=== PATIENT | male | born 1950 | race Caucasian/White ===

== ENCOUNTER → 2019-09-09 16:29 | Outpatient (CLI) | payer MEDICARE, OTHER, SELFPAY ==
--- NOTE | 2019-09-09 16:31 | CT_ITS ---
STUDY: LOW DOSE CT LUNG CANCER SCREENING REASON FOR EXAM: Male, 69 years old. RADIATION DOSAGE (If Supplied By Facility): CTDIvol = ( 3.02 ) mGy, DLP = ( 105.33 ) mGycm TECHNIQUE: No contrast was administered. Low dose technique was utilized (average mAS-38 and kVp 120). 1.25 mm axial source images with a slice interval of 1.25-mm were reconstructed in lung windows. 2.5 mm axial source images with a slice interval of 2.5-mm were reconstructed in lung windows. 5.0 mm axial source images with a slice interval of 5.0-mm were reconstructed in soft tissue windows. Nodule measured using lung windows on PACS and/or independent workstation with automated measurement of minimum and maximum diameter. Nodule measurement reported as average diameter rounded to the nearest whole number. Growth is defined as an increase ins size of greater than 1.5 mm. COMPARISON: None. Findings: There are minor scattered scars and atelectasis. There are no high risk focal findings. Lungs are mildly emphysematous. Central airways are patent. Pleural surfaces are intact. There is severe coronary artery disease. Cardiac chamber is normal in size and shape. Pericardium is normal. Osseous structures are intact. CT/Low Dose CT Lung Screening IMPRESSION: 1. Lung-RADS category 1. 2. Severe coronary artery disease, elevated future risk of adverse cardiovascular events, cardiology referral is advised. IMPORTANT NOTES FOR USE: ACR Lung-RADS Version 1.0 Assessment Categories Release Date: February 10, 2014 Category: Coded 0-4 bases on nodule(s) with highest degree of suspicion. Negative screen is defined as categories 1 and 2; a positive screen is defined as categories 3 and 4. Category 3 and 4A nodules that are unchanged on interval CT should be coded as category 2, and individuals returned to screening in 12 months. Category 4X: Category 3 or 4 nodules with additional imaging findings that increase the suspicion of lung cancer, such as spiculation, GGN that doubles in size in 1 year, enlarged lymph notes, etc. Category Modifiers: S (significant finding unrelated to lung cancer) and C (prior history of treated lung cancer) may be added to the 0-4 Lung-RADS Electronically Signed: Starr Jay, at 16:57 EST Tel , Service support ,
== END ==
PROVIDERS: Family Provider Nurse Practitioner Primary Care; PCP Nurse Practitioner Primary Care; Referring Provider Nurse Practitioner Primary Care; Visit Provider Nurse Practitioner Primary Care
DX: Z12.2 Encounter for screening for malignant neoplasm of respiratory organs (principal); Z87.891 Personal history of nicotine dependence
CPT/HCPCS: G0297

== ENCOUNTER 2020-11-16 09:21 | Day surgery (SDC) | payer MEDICARE, OTHER, SELFPAY ==
[2020-11-16] VITALS (8 sets, daily range): BP systolic 113–142; BP diastolic 77–88; PULSE 76–89; RESP 16–20; TEMP 36.2–36.7; O2SAT 95–100; BMI 28.3
[2020-11-16] MEDS: Bupivacaine 0.25% 30 ML Vial ×2 (09:52→13:30)
[2020-11-16] MEDS: Lactated Ringers 1,000 ML 100 ML IV ×3 (09:54→14:01)
[2020-11-16] MEDS: Cefazolin 2 GM in 0.9% Normal Saline 100 ML IV (10:23)
--- NOTE | 2020-11-16 11:15 | RAD_ITS ---
PROCEDURE: Spinal cord stimulator insertion. DATE OF EXAMINATION: 11/16/2020 INDICATION: Male, 70 years old. Chronic back pain. FLUOROSCOPY TIME (if supplied): (1616 seconds) minutes/seconds. 7 coned down intraoperative views were submitted. Intraoperative fluoroscopic services provided for spinal cord stimulator insertion. The tip is at the T7-T8 level. RAD/Lumbar Spine 2 or 3 Views IMPRESSION: Intraoperative fluoroscopic services provided for spinal cord stimulator insertion. The tip is at the T7-T8 level. Electronically Signed: Justin Cerrato MD at 17:09 EST , Service support ,
[2020-11-16] MEDS: Bacitracin 500 UNITS/GM PACKET (13:00)
--- NOTE | 2020-11-16 13:47 | OP.PCM_ITS ---
Report of Operation Date of Procedure: 11/16/20 Description of Surgical Findings:: Pre-Operative Diagnosis: Lumbosacral radiculopathy, lumbosacral degenerative disc disease, lumbosacral spinal stenosis Post-Operative Diagnosis: Lumbosacral radiculopathy, lumbosacral degenerative disc disease, lumbosacral spinal stenosis Surgery/Procedure Performed:: 1. Spinal cord stimulator thoracolumbar leads placement x2 #2 spinal cord stimulator Medtronic intellus generator placement #3 spinal cord stimulator generator pocket creation at the left gluteal region #4 spinal cord stimulator simple programming, 5-intraoperative fluoroscopic interpretation Description of Surgical Findings:: PROCEDURES: 1. Spinal cord stimulator thoracolumbar leads placement x2 #2 spinal cord stimulator Medtronic intellus generator placement #3 spinal cord stimulator generator pocket creation at the left gluteal region #4 spinal cord stimulator simple programming 5-intraoperative fluoroscopic interpretation PREOPERATIVE DIAGNOSES: Lumbosacral radiculopathy, lumbosacral degenerative disc disease, lumbosacral spinal stenosis POSTOPERATIVE DIAGNOSES: Lumbosacral radiculopathy, lumbosacral degenerative disc disease, lumbosacral spinal stenosis ANESTHESIA: MAC COMPLICATIONS: None BLOOD LOSS: Minimal Implanted device: Spinal cord stimulator lead [id number] lot number [id number], lead #2 [id number] lot number [id number] Medtronic spinal cord stimulator generator intellus serial number [id number] PROCEDURE IN DETAIL: History and physical today was reviewed. Risks and benefits of procedure explained. The patient understood, agreed to procedure, informed consent was obtained. IV inserted per routine protocol. The patient was taken to the operating room, placed in the prone position with a pillow positioned underneath the abdomen. A 2 g of Ancef IV piggyback was infused per anesthesia. The lower back and left gluteal area was prepped and draped in a sterile fashion using iodine x3 Ioban was placed. The C-arm was brought in p osition for AP view at the L2-3 vertebral bodies under direct visualization fluoroscopy on a true AP view the L2-3 interlaminar space was identified skin and subcutaneous tissue and size approximately 10 cc of a mix of 2% lidocaine and 0.25% Marcaine using a 25-gauge regular needle followed by a 25-gauge 3-1/2 inch spinal needle towards the interlaminar space at L2-3, the skin and subcutaneous tissue were then anesthetized and using an 11-gauge blade was then taken down to the skin and subcutaneous tissue using a 14-gauge 3-1/2 inch Touhy needle provided by the [employer] kit the needle was passed through the skin towards the interlaminar space at L2-3 and a left paramedian approach the needle was then advanced under direct visualization fluoroscopy towards the interlaminar space at L2-3 [id number] technique was then carried to air towards the interlaminar space at L2-3 once the tip of the needle was in the epidural space and loss of resistance was encountered to air and after c onfirmation of AP as well as oblique view of the spinal cord stimulator lead was then advanced under direct visualization fluoroscopy to be at the tip of the lead at T8 and the bottom of the lead around mid T10 after confirmation of AP as well as lateral view to confirm correct placement of the lead in the posterior compartment of the epidural space the previous procedure was then repeated to a level above at L1-2 interlaminar space the second lead was then inserted under direct visualization with fluoroscopy to be at the mid T8 and mid T10 area the leads were were then connected to the external neurostimulator and patient was then awakened to confirm satisfactory coverage of the painful area once satisfactory coverage was then achieved the stylette of each needle was then removed and the skin and subcutaneous tissue on to the left of the paramedian needles was then taken anesthetized with a total of 10 cc of the previous mixture of 0.25% Marcaine and 2% lidocaine using a 25-gauge regular needle the incision was then taken down through the skin and subcutaneous tissue towards the fascia making sure hemostasis was then maintained via cautery, the spinal cord stimulator leads were then passed through the above incision and secured using the biwing and sutured down with a 2-0 silk to the fascia at that level the spinal cord stimulator leads were then tunneled via a tunneler provided by the Medtronic kit towards the previously incised spinal cord stimulator battery at the left gluteal region skin and subcutaneous tissue were anesthetized with approximately 10 cc of a mix of 2% lidocaine and 0.25% Marcaine using a 25 gauge regular needle, skin and subcutaneous tissue was then taken down with the 11- gauge blade hemostasis was maintained with Bovie and direct pressure the inci ken was then taken down to the fascia and the battery was then secured with the 2-0 silk sutures that were the spinal cord stimulator leads the upper lead was then marked the new until spinal cord stimulator battery was then provided Via [employer] kit the battery was then reattached of the spinal cord stimulator make ensure that the top lead is attached to the top position from 0-7 electrodes and the bottom from 8-15 electrodes once impedance was then checked to be in the proper average number the intellus battery was then inserted into the pocket and impedance with when checked again the pocket was then inspected to confirm hemostasis in place, the intellus battery was then secured to the fascia using a 2-0 silk to the upper eyes of the battery confirming an upward writing of the intellus facing posterior, once complete confirmation the battery was then placed in the position and the the mid paramedian and the gluteal incisions were then closed primarily through a 3-0 Vicryl in a running fashion followed by a 4- 0 Vicryl to the skin, hemostasis was then maintained during the procedure the skin was then covered with a Steri-Strips and bacitracin patient was then returned into the supine position in a stable condition and returned to recovery in a stable condition patient experienced no signs or symptoms of intrathecal or intravascular injection patient experienced no paresthesia the procedure was completed without any apparent difficulty any complication the patient appeared to tolerate well, motor as well as sensory function was unchanged from prior to the procedure ESTIMATED BLOOD LOSS: Minimal less than 25 mL ASSESSMENT AND PLAN: This is a 70-year-old male with lumbosacral radiculopathy lumbosacral degenerative disc disease lumbosacral spinal stenosis status post 1. Spinal cord stimulator thoracolumbar leads placement x2 #2 spinal cord stimulator Medtronic intellus generator placement #3 spinal cord stimulator generator pocket creation at the left gluteal region #4 spinal cord stimulator simple programming, 5-intraoperative fluoroscopic interpretation patient will continue his current medications a prescription was provided to the patient Keflex 500 mg 1 p.o. every 8 hours for 7 days, Percocet 5-325 mg 1 p.o. every 4 hours as needed for postop pain, postop instruction were given in writing to the patient and his as well as verbally and in writing, patient will follow approximately 1 week for reevaluation
== END 2020-11-16 15:45 | disposition home or self-care (01) ==
LOC: SDC 09:21 → AC 09:24
PROVIDERS: PCP Nurse Practitioner Primary Care; Referring Provider Anesthesiology Pain Medicine; Visit Provider Anesthesiology Pain Medicine
PROC: (CPT 63685; principal; 2020-11-16 10:25)
DX: M51.17 Intervertebral disc disorders with radiculopathy, lumbosacral region (principal); M48.07 Spinal stenosis, lumbosacral region; G89.29 Other chronic pain; I25.10 Atherosclerotic heart disease of native coronary artery without angina pectoris; I10 Essential (primary) hypertension; E78.00 Pure hypercholesterolemia, unspecified; Z79.82 Long term (current) use of aspirin; Z79.899 Other long term (current) drug therapy; Z87.891 Personal history of nicotine dependence; Z20.822 Contact with and (suspected) exposure to COVID-19
CPT/HCPCS: 01992; 63650; 63685; 72100; 76000; 87426; C1778; C1820; C9803; J7120

== ENCOUNTER → 2025-03-14 | Outpatient (CLI) | payer MEDICARE, OTHER, SELFPAY ==
--- NOTE | 2025-03-14 07:16 | MRI_ITS ---
PROCEDURE: SPINE LUMBAR (ROUTINE) 03/14/2025 REASON FOR EXAM: PAIN TECHNIQUE: Multiplanar and multisequence images were obtained without IV contrast administration. COMPARISON: None. FINDINGS: Vertebrae: Vertebral body heights are maintained. No abnormal marrow signal. Conus Medullaris: Terminates at L2. L1-2: Disc bulging, facet arthropathy, and ligamentum flavum hypertrophy. Mild to moderate central stenosis. Omxg-ci-kggagqsl bilateral neural foraminal stenosis. L2-3: Disc bulging, facet arthropathy, and ligamentum flavum hypertrophy resulting in mild to moderate central stenosis. Moderate bilateral neural foraminal stenosis. L3-4: Facet arthropathy resulting in mild right moderate left neural foraminal stenosis. No significant central stenosis. L4-5: Disc bulging and facet arthropathy resulting in minimal central stenosis. Severe right and moderate left neural foraminal stenosis. L5-S1: Grade 1 anterolisthesis, disc bulging, and facet arthropathy resulting in severe bilateral neural foraminal stenosis. No significant central stenosis. A spinal stimulator is present. MRI/Spine Lumbar (Routine) IMPRESSION: Spondylosis. Spondylolisthesis. Reading Location: [place] [id number]
== END | disposition home or self-care (01) ==
LOC: OPMRI 07:14
PROVIDERS: PCP Nurse Practitioner Primary Care; Referring Provider Student in an Organized Health Care Education/Training Program; Visit Provider Student in an Organized Health Care Education/Training Program
DX: M43.10 Spondylolisthesis, site unspecified (principal); M51.362 Other intervertebral disc degeneration, lumbar region with discogenic back pain and lower extremity pain; M48.062 Spinal stenosis, lumbar region with neurogenic claudication
CPT/HCPCS: 72148

== ENCOUNTER 2025-06-23 13:51 | Inpatient (IN) | payer MEDICARE, OTHER, SELFPAY ==
--- NOTE | 2025-06-10 07:38 | EKG12_ITS ---
Test Reason : PREOP Blood Pressure : */* mmHG Vent. Rate : 71 BPM Atrial Rate : 71 BPM P-R Int : 148 ms QRS Dur : 72 ms QT Int : 414 ms P-R-T Axes : 17 76 18 degrees QTcB Int : 449 ms Sinus rhythm with occasional Premature ventricular complexes Otherwise normal ECG Confirmed by KELSEY LIMON, RAGINI ([id number]), web editor LIANG WAYNE ([id number]) on 06/11/2025 6:16:43 AM Referred By: FRANCISCO PRIETO Confirmed By: RAGINI COLE MD
[2025-06-10 08:46] LABS: Hematocrit 51.0 % (40-54); Hemoglobin 17.6 g/dL (13.0-16.5); Immature Granulocytes Count 0.040 X10^3/uL (0.0-0.0); Mean Corp Hgb Conc 34.5 g/dL (32-36); Mean Corpuscular Volume 88.5 fL (80-94); Mean Platelet Vol. 10.0 fl (6.2-12.0); NRBC Flagged by Analyzer 0 % (0-5); Platelet Count 246 K/mm3 (150-450); RBC Distribution Width CV 13.1 % (11.6-14.6); RBC Distribution Width SD 42.1 fl (35.1-43.9); Red Blood Count 5.76 M/mm3 (4.6-6.2); White Blood Count 6.8 K/mm3 (4.4-11.0)
[2025-06-10 09:58] LABS: HIV Nonreactive (Nonreactive); Hepatitis C Antibody Nonreactive (Nonreactive)
[2025-06-10 10:09] LABS: Anion Gap 12 (5-15); BUN 17 mg/dL (4-19); BUN/Creat Ratio 15.4 RATIO (10-20); Calcium,Total 9.0 mg/dL (7.6-11.0); Carbon Dioxide 23.6 mmol/L (21.0-32.0); Chloride 103 mmol/L (98-108); Glucose 102 mg/dL (70-99); Potassium 4.8 mmol/L (3.3-5.1)
[2025-06-10 11:24] LABS: Magnesium 2.2 mg/dL (1.5-2.2)
--- NOTE | 2025-06-12 19:21 | PAT.ANE_ITS ---
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 When Was Last Pacemaker Check QUESTION #4 FULL TEXT: You/Your Family Experience fever (hyperthermia) with Anesthesia Last Oral Intake Last Oral intake: Last Oral Intake NPO since Meds taken in AM with sips of water? Meds patient instructed to take am of surgery PONV PONV - manufacturing assembler: PONV - manufacturing assembler Female No 06/09/25 08:56 HX of Motion Sickness No 06/09/25 08:56 HX of N/V After Surgery No 06/09/25 08:56 Non-Smoker Yes 06/09/25 08:56 Duration of Surgery greater Yes 06/09/25 08:56 than 60 minutes Number of Risk Factors 2 06/09/25 08:56 PONV Score Moderate Risk 06/09/25 08:56 Height & Weight Height & Weight: Anesthesia: Height & Weight Height 5 ft 7 in 03/20/25 08:26 Respiratory Assessment Respiratory Assessment - manufacturing assembler: Respiratory Tract Infection Hx - manufacturing assembler Hx Respiratory Tract Infection No 06/09/25 08:56 STOP Sleep Apnea STOP Sleep Apnea - manufacturing assembler: STOP Sleep Apnea - manufacturing assembler Hx Hypertension Yes: CONTROLLED WITH MEDS 06/09/25 08:56 Hx Sleep Apnea No 06/09/25 08:56 CPAP BIPAP Do you snore loudly (louder No 06/09/25 08:56 than talking or can be heard Do you often feel tired/ No 06/09/25 08:56 fatigued/ sleepy during daytime? Has anyone observed you stop Yes 06/09/25 08:56 breathing during sleep? STOP Results Positive 06/09/25 08:56 QUESTION #5 FULL TEXT : Do you snore loudly (louder than talking or can be heard through closed doors)? 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 confused, unrespo /Reproduction History /Reproductive History - manufacturing assembler: /Reproductive Hx- manufacturing assembler Hx Now No 06/09/25 08:56 Gestational Age (in weeks): EDC: Hx Hx Para Hx Section SAB No 06/09/25 08:56 [facility] Medical History (Updated 06/09/25 @ 09:07 by Katie Rodriguez) Wears glasses Wears dentures Arthritis Restless legs Back pain Gastric reflux Former smoker History of pain when walking Cardiology follow-up encounter History of echocardiogram History of stress test Spinal cord stimulator status Hypothyroid Hypocholesterolemia Hypertension Home Medications ?Medication ?Instructions ?Recorded ?Last Taken ?Type aspirin 81 mg tablet,delayed 81 mg PO DAILY@0800 [facility] 11/11/20 11/15/20 History release diphenhydramine HCl 25 mg capsule 25 mg PO DAILY PRN A llergies 11/11/20 11/15/20 History levothyroxine 112 mcg tablet 112 mcg PO DAILY THYROID 11/11/20 11/16/20 History loratadine 10 mg capsule 10 mg PO PRN PRN Allergies 0 11/11/20 11/15/20 History losartan 50 mg tablet 50 mg PO DAILY BP 11/11/20 0 11/16/20 History nifedipine 60 mg tablet,extended 60 mg PO DAILY BP 11/16/20 History release 24 hr omega-3 fatty acids-fish oil 300 1 ea PO DAILY SUPPLEM ENT 11/11/20 11/15/20 History mg-1,000 mg capsule psyllium husk 0.52 gram capsule 0.52 g PO DAILY BOWELS 11/11/20 11/15/20 History simvastatin 40 mg tablet 40 mg PO QHS CHOLESTEROL 11/15/20 History metoprolol succinate 25 mg 25 mg PO QDAY BP 02/20/25 U nknown History tablet,extended release 24 hr ibuprofen 600 mg tablet (IBU) 600 mg PO Q8H PRN pain 0 06/09/25 Unknown History omeprazole 20 mg tablet,delayed 20 mg PO DAILY PRN GUANAKO D 06/09/25 Unknown History release Allergy/AdvReac Type Severity Reaction Status Date / Time mold Allergy Severe Watery eyes Verified 06/09/25 08:48 Family History Mother No problems noted. Father No problems noted. Surgical History (Updated 06/09/25 @ 09:07 by Katie Rodriguez) Hx of colonoscopy History of excision of pilonidal cyst Hx of elbow surgery History of left hip replacement H/O hernia repair Social History Smoking Status: Former smoker Audit: Pertinent Findings Pertinent Findings EKG Perinent findings: June 10, 2025. Sinus rhythm with occasional PVCs. Stress test pertinent findings: 09/25/2019. EF is 68%. No evidence of significant inducible ischemia or prior myocardial infarction. Echo (EF%) pertinent findings: 03/10/2020. LVEF of 55 to 65%. RVSP is 35 mmHg. Consult pertinent findings: January 14, 2022. Dr. Albert. 1. PVCs?continue current therapy. 2. Hypertension-patient is encouraged to be diet compliant. Mild progression of murmur now at the apex. Reassess with echo at next visit. Additional pertinent findings: Holter monitor. 03/18/2020. Average ventricular rate 72 with a range from 49-154. Rare PVC and PAC. Recommendation Anesthesia Recommendation Anesthesia recommendation: OPTIMIZED for anesthesia
[2025-06-23] VITALS (17 sets, daily range): BP systolic 104–131; BP diastolic 65–83; PULSE 72–82; RESP 14–18; TEMP 36.1–36.8; O2SAT 92–100; BMI 32.8
--- OUTSIDE RECORDS SUMMARY | 2025-06-23 05:29 | XMS RPT_ITS | CCD ---
Author Organization [facility] Care Team Providers Care Goat Driver Name Role Phone DARYL COREMAKER MACHINE-LIFESTYLE BLOCK FARMER, LUCILA S Primary Care Physicia n Pernell PT, Jodie Unavailable Unavailable DARYL COREMAKER MACHINE-LIFESTYLE BLOCK FARMER, LUCILA S Attending Unava ilable DARYL COREMAKER MACHINE-LIFESTYLE BLOCK FARMER, LUCILA S Primary Care Unava ilable DARYL COREMAKER MACHINE-LIFESTYLE BLOCK FARMER, LUCILA S Attending Unava ilable DARYL COREMAKER MACHINE-LIFESTYLE BLOCK FARMER, LUCILA S Primary Care Unava ilable DARYL COREMAKER MACHINE-LIFESTYLE BLOCK FARMER, LUCILA S Attending Unava ilable DARYL COREMAKER MACHINE-LIFESTYLE BLOCK FARMER, LUCILA S Primary Care Unava ilable DARYL COREMAKER MACHINE-LIFESTYLE BLOCK FARMER, LUCILA S Attending Unava ilable DARYL COREMAKER MACHINE-LIFESTYLE BLOCK FARMER, LUCILA S Primary Care Unava ilable DARYL COREMAKER MACHINE-LIFESTYLE BLOCK FARMER, LUCILA S Attending Unava ilable DARYL COREMAKER MACHINE-LIFESTYLE BLOCK FARMER, LUCILA S Primary Care Unava ilable Daryl SLURRY MIXER-C, Lucila Primary Care Provider [phone] [place] SLURRY MIXER-C, Lucila Referring Provider [phone] Candice Rush Attending Provider [phone] Nicolas LIMON, Dr. Anderson Attending Provider Candice Rush Referring Provider DARYL COREMAKER MACHINE-LIFESTYLE BLOCK FARMER, LUCILA S Primary Care Unava ilable DARYL COREMAKER MACHINE-LIFESTYLE BLOCK FARMER, LUCILA S Attending Unava ilable DARYL COREMAKER MACHINE-LIFESTYLE BLOCK FARMER, LUCILA S Primary Care Unava ilable DARYL COREMAKER MACHINE-LIFESTYLE BLOCK FARMER, LUCILA S Attending Unava ilable DARYL COREMAKER MACHINE-LIFESTYLE BLOCK FARMER, LUCILA S Primary Care Unava ilable DARYL COREMAKER MACHINE-LIFESTYLE BLOCK FARMER, LUCILA S Attending Unava ilable DARYL COREMAKER MACHINE-LIFESTYLE BLOCK FARMER, LUCILA S Attending Unava ilable DARYL COREMAKER MACHINE-LIFESTYLE BLOCK FARMER, LUCILA S Primary Care Unava ilable DARYL COREMAKER MACHINE-LIFESTYLE BLOCK FARMER, LUCILA S Attending Unava ilable DARYL COREMAKER MACHINE-LIFESTYLE BLOCK FARMER, LUCILA S Primary Care Unava ilable VEGA BAJA LIFESTYLE BLOCK FARMER, MANSOOR Attending Unavailable DARYL COREMAKER MACHINE-LIFESTYLE BLOCK FARMER, LUCILA S Primary Care Unava ilable DARYL COREMAKER MACHINE-LIFESTYLE BLOCK FARMER, LUCILA S Primary Care Unava ilable NADEEN MACKEY Attending Unavailable Allne LIMON, Dr. Martinez Attending Provider Candice Kumar Attending Unavailable Adrien Kumaryn Referring Unavailable Daryl SLURRY MIXER, Lucila Primary Care Unavailable [place] SLURRY MIXER, Lucila Primary Care Unavailable [place] SLURRY MIXER, Lucila Referring Unavailable Candice Kumar Attending Unavailable [place] SLURRY MIXER, Lucila Referring Unavailable Daryl SLURRY MIXER, Lucila Primary Care Unavailable Francisco Villa Attending Unavailable Daryl SLURRY MIXER, Lucila Referring Unavailable Candice Kumar Attending Unavailable Daryl SLURRY MIXER, Lucila Primary Care Unavailable Daryl SLURRY MIXER, Lucila Primary Care Unavailable Justin Valenzuela Attending Unavailable Daryl SLURRY MIXER, Lucila Primary Care Unavailable Francisco Villa Admitting Unavailable Francisco Villa Attending Unavailable Allergies Allergy Classification Reported Allergen(s) Allergy Type Date of Onset Reaction(s) Facility (3 sources) Mold Extract Drug Allergy 03-20-2025 Watery eyes [facility] (1 source) Mold Extract Drug Allergy 06-17-2025 [facility] Repository Medications Current Medications Medication Drug Class(es) Dates Sig (Normalized) Sig (Original) aspirin 81 mg delayed release oral tablet (20 sources) Platelet Aggregation Inhibitor, Nonsteroidal Anti-inflammatory Drug Start: 08-30-2018 aspirin 81 mg oral delayed release tablet Dose : 81 mg = 1 tab(s), Oral, Daily, # 60 tab(s), 0 Refill(s), Pharmacy: [facility], 170, cm, 04/22/25 6:56:00 EDT, Height, kg, 04/22/25 6:56:00 EDT, Dosing Weight Start Date: 04/22/25 Status: Ordered Medication Dispense Status: Completed Quantity: 60.0 Unit: tab(s) Total Allowed Fills: 1 Fills Dispensed: 0 Start: 08-30-2018 aspirin 81 mg oral delayed release tablet Dose : 81 mg = 1 tab(s), Oral, Daily, # 60 tab(s), 0 Refill(s), [facility] [facility] Start Date: 08/30/18 Status: Ordered azithromycin 250 mg oral tablet (1 source) Macrolide Antimicrobial Start: 11-08-2022 End: 11-13-2022 Zithromax Z-Jeremy 250 mg oral tablet Take two (2) tablets day 1-then one (1) tablet, Oral, Daily, X 5 day(s), # 6 tab(s), 0 Refill(s), 11/13/22 7:33:00 EST, Pharmacy: [facility] #[id number], 170, cm, 11/08/22 6:51:00 EST, Height, 89.1 Start Date: 11/08/22 Stop Date: 11/13/22 Status: Ordered diphenhydrAMINE hydrochloride 25 mg oral capsule (20 sources) Histamine-1 Receptor Antagonist Start: 08-15-2018 take 1 capsule by mouth once daily as needed Diphenhydramine Hcl 25 MG capsule Active 25 mg PO DAILY as needed for Allergies November 11, 2020 1:00am Fish Oils (18 sources) Start: 08-15-2018 Fish Oil 1200 mg oral capsule Dose : 1,200 mg = 1 cap(s), Oral, Daily, 0 Refill(s) Start Date: 08/15/18 Status: Ordered Medication Dispense Status: Completed Total Allowed Fills: 1 Fills Dispensed: 0 Start: 08-15-2018 Fish Oil 1200 mg oral capsule Dose : 1,200 mg = 1 cap(s), Oral, Daily, 0 Refill(s) Start Date: 08/15/18 Status: Ordered Repeat number: 1 Start: 08-15-2018 Fish Oil 1200 mg oral capsule Dose : 1,200 mg = 1 cap(s), Oral, Daily, 0 Refill(s) Start Date: 08/15/18 Status: Ordered fluticasone propionate 0.05 mg/actuat metered dose nasal spray (5 sources) Corticosteroid Start: 10-22-2024 Flonase 50 mcg/inh nasal spray mcg spray(s), qDay, PRN as needed for allergy symptoms, 0 Refill(s) Start Date: 10/22/24 Status: Ordered Medication Dispense Status: Completed Total Allowed Fills: 1 Fills Dispensed: 0 hydrocortisone 10 mg/ml / neomycin 3.5 mg/ml / polymyxin b [id number] unt/ml otic solution (1 source) Aminoglycoside Antibacterial, Polymyxin-class Antibacterial, Corticosteroid Start: 07-04-2023 hydrocortisone/lucius mycin/polymyxin B 1%-0.35%-10,000 units/mL otic solution Dose = 4 drop(s), Ear, left, QID, # 10 mL, 0 Refill(s), Pharmacy: [facility] #[id number], 170, cm, 07/04/23 9:35:00 EDT, Height, kg, 07/04/23 9:35:00 EDT, Dosing Weight Start Date: 07/04/23 Status: Ordered hydrOXYzine hydrochloride 25 mg oral tablet (1 source) Antihistamine Start: 03-08-2022 hydrOXYzine hydrochloride 25 mg oral tablet Dose : 25 mg = 1 tab(s), Oral, QID, PRN as needed for itching, # 40 tab(s), 0 Refill(s), [facility]: [email or web address] [facility], 170, cm, 03/08/22 9:56:00 EDT, Height Start Date: 03/08/22 Status: Ordered ibuprofen 600 mg oral tablet (1 source) Nonsteroidal Anti-inflammatory Drug Start: 06-09-2025 take 1 tablet by mouth every eight hours as needed for pain Ibuprofen (Ibu) 600 mg tablet Active 600 mg PO Q8H as needed for pain June 09, 2025 12:00am inulin 1500 mg chewable tablet (18 sources) Start: 08-15-2018 Fiber Choice 1.5 g oral tablet, chewable Dose : 1.5 gram(s) = 1 tab(s), Chewed, Daily, # 90 tab(s), 0 Refill(s) Start Date: 08/15/18 Status: Ordered Medication Dispense Status: Completed Quantity: 90.0 Unit: tab(s) Total Allowed Fills: 1 Fills Dispensed: 0 levothyroxine sodium 0.112 mg oral tablet (20 sources) l-Thyroxine Start: 04-22-2025 End: 04-17-2026 levothyroxine 112 mcg (0.112 mg) oral tablet Dose : 112 mcg = 1 tab(s), Oral, qDay, # 90 tab(s), 3 Refill(s), Pharmacy: [facility], 170, cm, 04/22/25 6:56:00 EDT, Height, kg, 04/22/25 6:56:00 EDT, Dosing Weight Start Date: 04/22/25 Stop Date: 04/17/26 Status: Ordered Medication Dispense Status: Completed Quantity: 90.0 Unit: tab(s) Total Allowed Fills: 4 Fills Dispensed: 0 Start: 04-16-2024 End: 04-11-2025 levothyroxine 112 mcg (0.112 mg) oral tablet Dose : 112 mcg = 1 tab(s), Oral, qDay, # 90 tab(s), 3 Refill(s), Pharmacy: [facility], 170, cm, 04/16/24 8:17:00 EDT, Height, kg, 04/16/24 8:17:00 EDT, Dosing Weight Start Date: 04/16/24 Stop Date: 04/11/25 Status: Ordered Quantity: 90.0 Unit: tab(s) Repeat number: 4 Start: 06-29-2021 End: 02-23-2024 levothyroxine 112 mcg (0.112 mg) oral tablet Dose : 112 mcg = 1 tab(s), Oral, qDay, # 90 tab(s), 3 Refill(s), Pharmacy: [facility], 170, cm, 11/08/22 6:51:00 EST, Height, kg, 11/08/22 6:51:00 EST, Dosing Weight Start Date: 02/28/23 Stop Date: 02/23/24 Status: Ordered Start: 11-11-2020 take 1 tablet by kelli th once daily Levothyroxine 112 MCG tablet Active 112 ug PO DAILY November 11, 2020 1:00am THYROID loratadine 10 mg oral capsul e (20 sources) Start: 11-11-2020 Loratadine 10 MG capsule Active 10 mg PO NEEDED as needed for Allergies November 11, 2020 1:00am Start: 08-15-2018 Claritin 10 mg oral tablet Dose : 10 mg = 1 tab(s), Oral, qDayAC, PRN as needed for allergy symptoms, 0 Refill(s) Start Date: 08/15/18 Status: Ordered Medication Dispense Status: Completed Total Allowed Fills: 1 Fills Dispensed: 0 losartan potassium 50 mg oral tablet (20 sources) Angiotensin 2 Receptor Jaun Start: 11-11-2020 losartan 50 mg oral tablet Dose : 50 mg = 1 tab(s), Oral, qDay, # 90 tab(s), 3 Refill(s), Pharmacy: [facility], 170, cm, 04/22/25 6:56:00 EDT, Height, kg, 04/22/25 6:56:00 EDT, Dosing Weight Start Date: 04/22/25 Status: Ordered Medication Dispense Status: Completed Quantity: 90.0 Unit: tab(s) Total Allowed Fills: 4 Fills Dispensed: 0 meloxicam 15 mg oral tablet (1 source) Nonsteroidal Anti-inflammatory Drug Start: 04-11-2023 meloxicam 15 mg oral tablet Dose : 15 mg = 1 tab(s), Oral, qDay, 0 Refill(s) Start Date: 04/11/23 Status: Ordered metoprolol tartrate 25 mg oral tablet (20 sources) beta-Adrenergic Jaun Start: 04-22-2025 take 1 tablet by mouth once daily Metoprolol Succinate ER 25 mg oral TABLET extended release 1 tab(s), Oral, qDay, # 90 tab(s), 3 Refill(s), Pharmacy: [facility], 170, cm, 04/22/25 6:56:00 EDT, Height, kg, 04/22/25 6:56:00 EDT, Dosing Weight Start Date: 04/22/25 Status: Ordered Medication Dispense Status: Completed Quantity: 90.0 Unit: tab(s) Total Allowed Fills: 4 Fills Dispensed: 0 Start: 02-20-2025 take 1 tablet by kelli th once daily Metoprolol Succinate 25 mg tablet extended release 24 hr Active 25 mg PO daily February 20, 2025 12:00am BP Start: 04-16-2024 take 1 tablet by kelli th once daily Metoprolol Succinate ER 25 mg oral TABLET extended release 1 tab(s), Oral, qDay, # 90 tab(s), 3 Refill(s), Pharmacy: [facility], 170, cm, 04/16/24 8:17:00 EDT, Height, kg, 04/16/24 8:17:00 EDT, Dosing Weight Start Date: 04/16/24 Status: Ordered Quantity: 90.0 Unit: tab(s) Repeat number: 4 Start: 04-11-2023 take 1 tablet by kelli th once daily Metoprolol Succinate ER 25 mg oral TABLET extended release 1 tab(s), Oral, qDay, # 90 tab(s), 3 Refill(s), Pharmacy: [facility], 170, cm, 04/11/23 6:51:00 EDT, Height, kg, 04/11/23 6:56:00 EDT, Dosing Weight Start Date: 04/11/23 Status: Ordered Start: 05-10-2022 take 1 tablet by [facility] once daily Metoprolol Succinate ER 25 mg oral TABLET extended release 1 tab(s), Oral, qDay, # 90 tab(s), 3 Refill(s), Pharmacy: [facility] (Now [facility]), 170, cm, 05/10/22 7:03:00 EDT, Height, kg, 05/10/22 7:03:00 EDT, Dosing Weight Start Date: 05/10/22 Status: Ordered Start: 01-19-2022 take 1 tablet by [facility] once daily Metoprolol Succinate ER 25 mg oral TABLET extended release 1 tab(s), Oral, qDay, # 90 tab(s), 0 Refill(s), Pharmacy: [facility], 170, cm, 01/14/22 8:40:00 EDT, Height, kg, 01/14/22 8:40:00 EDT, Dosing Weight Start Date: 01/19/22 Status: Ordered Start: 01-14-2022 metoprolol suc cinate 25 mg oral TABLET extended release Dose : 25 mg = 1 tab(s), Oral, qDay, Do not crush or chew (controlled release), # 30 tab(s), 6 Refill(s), Pharmacy: [facility] [facility], 170, cm, 01/14/22 8:40:00 EDT, Height Start Date: 01/14/22 Status: Ordered NIFEdipine 60 mg oral tablet (20 sources) Dihydropyridine Calcium Channel Jaun Start: 04-22-2025 End: 04-17-2026 NIFEdipine 60 mg oral tablet, extended release Dose : 60 mg = 1 tab(s), Oral, qDay, # 90 tab(s), 3 Refill(s), Pharmacy: [facility], 170, cm, 04/22/25 6:56:00 EDT, Height, kg, 04/22/25 6:56:00 EDT, Dosing Weight Start Date: 04/22/25 Stop Date: 04/17/26 Status: Ordered Medication Dispense Status: Completed Quantity: 90.0 Unit: tab(s) Total Allowed Fills: 4 Fills Dispensed: 0 Start: 04-16-2024 End: 04-11-2025 NIFEdipine 60 mg oral tablet , extended release Dose : 60 mg = 1 tab(s), Oral, qDay, # 90 tab(s), 3 Refill(s), Pharmacy: [facility], 170, cm, 04/16/24 8:17:00 EDT, Height, kg, 04/16/24 8:17:00 EDT, Dosing Weight Start Date: 04/16/24 Stop Date: 04/11/25 Status: Ordered Quantity: 90.0 Unit: tab(s) Repeat number: 4 Start: 06-29-2021 End: 02-23-2024 NIFEdipine 60 mg oral tablet , extended release Dose : 60 mg = 1 tab(s), Oral, qDay, # 90 tab(s), 3 Refill(s), Pharmacy: [facility], 170, cm, 11/08/22 6:51:00 EST, Height, kg, 11/08/22 6:51:00 EST, Dosing Weight Start Date: 02/28/23 Stop Date: 02/23/24 Status: Ordered Start: 11-11-2020 take 1 tablet by kelli th once daily Nifedipine 60 MG tablet Active 60 mg PO DAILY November 11, 2020 1:00am BP Dousman-3 Fatty Acids-Fish Oil 1 EACH capsule (3 sources) Start: 11-11-2020 Dousman-3 Fatty Acids-Fish Oil 1 EACH capsule Active 1 NMA PO DAILY November 11, 2020 1:00am SUPPLEMENT Start: 11-11-2020 Dousman-3 Fatty Acids-Fish Oil 1 EACH capsule Active 1 NMA PO DAILY November 11, 2020 1:00am omeprazole 20 mg delayed release oral tablet (4 sources) Proton Pump Inhibitor Start: 06-09-2025 take 1 tablet by mouth once daily as needed for gastroesophageal reflux disease Omeprazole 20 mg tablet,delayed release (DR/EC) Active 20 mg PO DAILY as needed for GERD June 09, 2025 12:00am Start: 04-22-2025 omeprazole 20 mg oral delayed release capsule Dose : 20 mg = 1 cap(s), Oral, qDay, # 90 cap(s), 3 Refill(s), Pharmacy: [facility], 170, cm, 04/22/25 6:56:00 EDT, Height, kg, 04/22/25 6:56:00 EDT, Dosing Weight Start Date: 04/22/25 Status: Ordered Medication Dispense Status: Completed Quantity: 90.0 Unit: cap(s) Total Allowed Fills: 4 Fills Dispensed: 0 PEG-3350 with Electrolytes (Eqv-GoLYTELY) oral powder for reconstitution (2 sources) Start: 11-20-2024 PEG-3350 with Electrolytes (Eqv-GoLYTELY) oral powder for reconstitution See Instructions, Take as directed starting 1 day before colonoscopy. Follow instructions as provided by your GI provider at [place]., # 1 EA, 0 Refill(s), Pharmacy: [facility]acy #[id number], 170, cm, 11/20/24 9:47:00 EST, Height, kg, 11/20/24 9:47:00 EST, Dosing Weight Start Date: 11/20/24 Status: Ordered Quantity: 1.0 Unit: EA Repeat number: 1 psyllium 520 mg oral capsule (3 sources) Start: 11-11-2020 Psyllium Husk 0.52 GM capsule Active 0.52 g PO DAILY November 11, 2020 1:00am BOWELS simvastatin 40 mg oral tablet (20 sources) HMG-CoA Reductase Inhibitor Start: 04-22-2025 End: 04-17-2026 simvastatin 40 mg oral tablet Dose : 40 mg = 1 tab(s), Oral, qHS, # 90 tab(s), 3 Refill(s), Pharmacy: [facility], 170, cm, 04/22/25 6:56:00 EDT, Height, kg, 04/22/25 6:56:00 EDT, Dosing Weight Start Date: 04/22/25 Stop Date: 04/17/26 Status: Ordered Medication Dispense Status: Completed Quantity: 90.0 Unit: tab(s) Total Allowed Fills: 4 Fills Dispensed: 0 Start: 11-11-2020 End: 04-11-2025 simvastatin 40 mg oral table t Dose : 40 mg = 1 tab(s), Oral, qHS, # 90 tab(s), 3 Refill(s), Pharmacy: [facility], 170, cm, 04/16/24 8:17:00 EDT, Height, kg, 04/16/24 8:17:00 EDT, Dosing Weight Start Date: 04/16/24 Stop Date: 04/11/25 Status: Ordered Quantity: 90.0 Unit: tab(s) Repeat number: 4 sodium polystyrene sulfonate 250 mg/ml oral suspension (1 source) Start: 01-14-2022 End: 01-15-2022 take 1 dose by mouth once daily sodium polystyrene sulfonate 15 g/60 mL oral and rectal suspension Dose : 15 gram(s) = 60 mL, Oral, qDay, # 60 mL, 0 Refill(s), 01/15/22 9:11:00 EDT, Pharmacy: [facility], 170, cm, 01/14/22 8:40:00 EDT, Height Start Date: 01/14/22 Stop Date: 01/15/22 Status: Ordered terbinafine 250 mg oral tablet (2 sources) Allylamine Antifungal Start: 02-08-2022 End: 05-10-2022 terbinafine 250 mg oral tablet Dose : 250 mg = 1 tab(s), Oral, qDay, X 90 day(s), # 90 tab(s), 0 Refill(s), 05/10/22 8:09:00 EDT, Pharmacy: [facility], 170, cm, 02/08/22 7:05:00 EDT, Height Start Date: 02/09/22 Stop Date: 05/10/22 Status: Ordered Completed/Discontinued Medications Medication Drug Class(es) Dates Sig (Normalized) Sig (Original) Baclofen (4 sources) gamma-Aminobutyric Acid-ergic Agonist Start: 04-11-2023 baclofen 10 mg tablet baclofen 10 mg tablet, See Instructions, as needed pain, 0 Refill(s), 89.1 Start Date: 04/11/23 Status: Ordered famotidine 20 mg oral tablet (5 sources) Histamine-2 Receptor Antagonist Start: 11-11-2020 End: 06-09-2025 Famotidine 20 MG tablet Discontinued 20 mg PO NEEDED as needed for GERD November 11, 2020 1:00am June 09, 2025 8:48am LORazepam 1 mg oral tablet (3 sources) Benzodiazepine Start: 02-25-2025 End: 06-09-2025 take 1 tablet by mouth twice daily Lorazepam (Ativan) 1 mg tablet Discontinued 1 mg PO TWICE A DAY as needed for claustrophobia 2 February 25, 2025 12:00am June 09, 2025 8:49am take 1 tablet one hour before the MRI, take 2nd tablet when you arrive for the MRI if needed predniSONE 10 mg oral tablet (1 source) Start: 03-08-2022 End: 03-22-2022 take 1 tablet by mouth once daily prednisone 10mg tab (TAPER) 24-95-37-30-20-10-5m g x 2days/dose, Oral, qDay, [id number],6N5dcnr,4X2d ays,9X6djgp,3L8gspo, 7N2rqsp, X2 days., # 43 tab(s), 0 Refill(s), Pharmacy: [facility] [id number] 170, cm, 03/08/22 9:56:00 EDT, Height Start Date: 03/08/22 Stop Date: 03/22/22 Status: Ordered Problems Active Problems Problem Classification Problem Date Documented Date Episodic/Chronic Allergic reactions (7 sources) Contact dermatitis 03-08-2022 Episodic Cardiac dysrhythmias (18 sources) Ventricular premature beats 05-19-2020 Chronic Diabetes mellitus without complication (16 sources) Hyperglycemia 02-08-2022 Episodic Disorders of lipid metabolism (20 sources) Dyslipidemia; Translations: [Hyperlipidemia] 05-19-2020 Chronic Esophageal disorders (3 sources) Gastroesophageal reflux disease 04-22-2025 Chronic Essential hypertension (19 sources) Hypertensive disorder; Translations: [Essential hypertension] 01-14-2022 Chronic Fluid and electrolyte disorders (1 source) Hyperkalemia 01-14-2022 Episodic Mycoses (16 sources) Onychomycosis 02-08-2022 Episodic Osteoarthritis (18 sources) Arthritis 08-15-2018 Chronic Other acquired deformities (7 sources) Spondylolysis; Translations: [Spondylolisthesis, site unspecified] 02-20-2025 Episodic Other circulatory disease (18 sources) Raynaud's disease 08-15-2018 Chronic Other ear and sense organ disorders (1 source) Otitis externa 07-04-2023 Chronic Other lower respiratory disease (2 sources) Cough 10-17-2023 Episodic Other nervous system disorders (7 sources) Numbness of foot 04-16-2024 Episodic Other screening for suspected conditions (not mental disorders or infectious disease) (8 sources) Encounter for screening for malignant neoplasm of prostate; Translations: [Screening for malignant neoplasm done] Onset: 04-22-2025 Episodic Otitis media and related conditions (3 sources) Otitis media 11-08-2022 Episodic Residual codes; unclassified (11 sources) Sleep apnea 04-11-2023 Chronic Residual codes; unclassified (18 sources) Family history of coronary arteriosclerosis 03-03-2020 Episodic Comment on above: age 60s farther CABG Screening and history of mental health and substance abuse codes (18 sources) Tobacco smoking behavior - finding 08-08-2019 Chronic Spondylosis; intervertebral disc disorders; other back problems (20 sources) Degeneration of intervertebral disc; Translations: [Degeneration of lumbar intervertebral disc] 08-15-2018 Chronic Spondylosis; intervertebral disc disorders; other back problems (20 sources) Stenosis of lumbar vertebral foramen; Translations: [Low back pain] 06-18-2020 Episodic Thyroid disorders (20 sources) Hypothyroidism; Translations: [Hypothyroidism, unspecified] 08-15-2018 Chronic Unclassified (20 sources) Patient encounter status 08-08-2019 Unclassified (5 sources) Serum sodium below reference range 10-17-2023 Unclassified (1 source) Low back pain, unspecified; Translations: [Low back pain, unspecified] Onset: 02-20-2025 Unclassified (1 source) Other intervertebral disc degeneration, lumbar region with discogenic back pain and lower extremity pain; Translations: [Other intervertebral disc degeneration, lumbar region with discogenic back pain and lower extremity pain] Onset: 02-20-2025 Past or Other Problems Problem Classification Problem Date Documented Date Episodic/Chronic Other acquired deformities (1 source) Spondylolisthesis, site unspecified; Translations: [Spondylolisthesis, site unspecified] Onset: 03-20-2025 Episodic Unclassified (1 source) Other intervertebral disc degeneration, lumbar region with discogenic back pain only; Translations: [Other intervertebral disc degeneration, lumbar region with discogenic back pain only] Results Test Name Value Interpretation Reference Range Facility Orthopedic Visit Reporton Orthopedic Visit Report [facility] [address] [place] [id number] OFFICE VISIT Date of Service: 06/17/25 MR#: [id number] Acct: [id number] Name: RUI RIOS Rep #: [id number] : [id number] Provider: Dr. Francisco Villa MD Age/Sex: 75/M Location: [facility] Status: Signed Intake Vital Signs 03/20/25 08:26 06/17/25 09:49 Height 5 ft 7 in 5 ft 7 in Weight: 208 lb 210 lb BMI 32.5 32.8 Intake Visit Reasons: lumbar spine Chief Complaint: Lumbar spine pre op Accompanied by: Is patient in pain?: Yes Pain scale (1-10): 5 Allergies mold Allergy (Severe, Verified 06/17/25 09:52) Watery eyes Medications ???Medication ???Instructions ???Recorded ???Confirmed ???Type aspirin 81 mg tablet,delayed 81 mg PO DAILY@0800 [facility] 0 11/11/20 06/17/25 History release diphenhydramine HCl 25 mg capsule 25 mg PO DAILY PRN Allergies 10/1706/17/25 History levothyroxine 112 mcg tablet 112 mcg PO DAILY THYROID 11/11/20 06/17/25 History loratadine 10 mg capsule 10 mg PO PRN PRN Allergies 1 06/17/25 History losartan 50 mg tablet 50 mg PO DAILY BP 11/11/20 5 History nifedipine 60 mg tablet,extended 60 mg PO DAILY BP 11/11/20 5 History release 24 hr omega-3 fatty acids-fish oil 300 1 ea PO DAILY SUPPLEMENT 11/11/20 06/17/25 History mg-1,000 mg capsule psyllium husk 0.52 gram capsule 0.52 g PO DAILY BOWELS 11/11/20 History simvastatin 40 mg tablet 40 mg PO QHS CHOLESTEROL 11/11/20 06/17/25 History metoprolol succinate 25 mg 25 mg PO QDAY BP 02/20/25 06/17/25 History tablet,extended release 24 hr ibuprofen 600 mg tablet (IBU) 600 mg PO Q8H PRN pain 06/09/25 History omeprazole 20 mg tablet,delayed 20 mg PO DAILY PRN GERD 06/09/25 0 06/17/25 History release Have you fallen in the past year?: Yes PFSH Medical History Wears glasses Wears dentures Arthritis Restless legs Back pain Gastric reflux Former smoker History of pain when walking Cardiology follow-up encounter History of echocardiogram History of stress test Spinal cord stimulator status Hypothyroid Hypocholesterolemia Hypertension Surgical History Hx of colonoscopy History of excision of pilonidal cyst Hx of elbow surgery History of left hip replacement H/O hernia repair Family History Mother No problems noted. Father No problems noted. Social History Smoking Status: Former smoker HPI lumbar spine Details: This documentation accurately reflects the service provided and the decisions made by me, Dr. Francisco Villa MD 06/17/25 0821. Part of today???s visit was documented by Thom Jeffers MA, acting as scribe. RUI RIOS is a 75 year old M here today for lumbar spine pre op. Patient states that his pain is a 5 today. He would like to discuss what he can and can't do after the surgery. The last injection that he had was in July of 2024, by Dr. Cervantes. He states that the injections lasted for a couple weeks. Patient went through physical therapy in August 2024. He did 8-10 sessions, and it did help his lower back for a while. The patient is a 75-year-old male presenting with symptoms of lumbar radiculopathy. The symptoms are predominantly on the right side, described as cramp-like pain radiating from the spine down to the foot. The left side was previously affected but has improved significantly with the use of a spinal cord stimulator placed in 2020. The patient has a history of receiving multiple injections in the lower back, with the last one administered in July of the previous year. Additionally, a radiofrequency ablation was performed in November. Despite these interventions, the right-sided symptoms persist, and the patient is unable to walk more than five minutes without discomfort. The patient has a history of hernia repair performed in 1955, which has not caused any subsequent issues. He denies any history of diabetes or smoking, having quit smoking in 2006. - Musculoskeletal: Reports cramp-like pain radiating from the spine down to the right foot. Denies significant symptoms on the left side due to spinal stimulator. - Neurological: Reports tingling in the feet. Denies foot drop or tripping. Attestation: Documentation on this patient encounter was supported using ambient scribe technology/ voice AI technology. The patient consented to recording for the purpose of documenting the encounter. Provider reviewed content of the generated note pr (more content not included)... Normal [facility] .GFRon 06-12-2025 Estimated Glomerular Filtration Rate 64 ml/min/1.73sqm [facility] Comment on above: Result Comment: Stages of Chronic Kidney Disease (CKD) Stage Description eGFR(ml/min/1.73 sq.m.) CKD 1 Normal kidney function or >=90 normal kindney function with possible kidney damage (ex. Proteinuria) CKD 2 Kidney damage with mild loss 60-89 of kidney function CKD 3a Mild to moderate loss of kidney 45-59 function CKD 3b Moderate to severe loss of 30-44 of kindey function CKD 4 Severe loss of kidney function 15-29 CKD 5 Kidney failure <15 Note: (go live 2024) the eGFR calculation was updated to the 2020 CKD-EPI creatinine equation without a race factor to calculate the eGFR results. Performed By: #### G , [facility] #### [address] [address] [facility] 06-12-2025 BUN/Creatinine Ratio 16 ratio Normal 7-27 [facility] Comment on above: Performed By: #### G , BMP #### [address] [address] Calcium [Mass/Vol] 8.9 mg/dL Normal 8.4-10.2 [facility] Comment on above: Performed By: #### G , BMP #### [address] [address] Chloride [Moles/Vol] 101 mmol/L Normal 98-107 [facility] Comment on above: Performed By: #### G , BMP #### [address] [address] CO2 [Moles/Vol] 27 mmol/L Normal 23-31 [facility] Comment on above: Performed By: #### Rodriguez DENNY, BMP #### [address] [address] Creatinine [Mass/Vol] 1.19 mg/dL High 0.67-1.17 [facility] Comment on above: Performed By: #### Rodriguez DENNY, BMP #### [address] [address] Electrolyte Balance 9.0 mEq/L Normal 4.0-15.0 [facility] Comment on above: Performed By: #### Rodriguez DENNY, BMP #### [address] [address] Glucose [Mass/Vol] 101 mg/dL Normal 83-110 [facility] Comment on above: Performed By: #### G , BMP #### [address] [address] Potassium [Moles/Vol] 3.8 mmol/L Normal 3.5-5.1 [facility] Comment on above: Performed By: #### G FR, BMP #### [address] [address] Sodium [Moles/Vol] 137 mmol/L Normal 136-145 [facility] Comment on above: Performed By: #### G , BMP #### [facility] [address] [place], [place] [address] Urea nitrogen [Mass/Vol] 19 mg/dL High 7-18 [facility] Comment on above: Performed By: #### G , BMP #### [facility] [address] [place], [place] [address] LABORATORYOrdered By: SYSTEM SYSTEM on 06-12-2025 Calcium [Mass/Vol] 8.9 mg/dL Normal 8.4 - 10. 2 mg/dL AO ADM SS Chloride [Moles/Vol] 101 mmol/L Normal 98 - 10 7 mmol/L AO ADM SS CO2 [Moles/Vol] 27 mmol/L Normal 23 - 31 mmol/L AO AD M SS Creatinine [Mass/Vol] 1.19 mg/dL High 0.67 - 1.17 mg/dL AO ADM SS Electrolyte Balance 9.0 mEq/L Normal 4.0 - 15 .0 mEq/L AO ADM SS Estimated Glomerular Filtration Rate 64 ml/min/1.73sqm Invalid Interpretation Code AO Chemistry S Comment on above: Interpretive Data: Stages of Chronic Kidney Disease (CKD) Stage Description eGFR(ml/min/1.73 sq.m.) CKD 1 Normal kidney function or >=90 normal kindney function with possible kidney damage (ex. Proteinuria) CKD 2 Kidney damage with mild loss 60-89 of kidney function CKD 3a Mild to moderate loss of kidney 45-59 function CKD 3b Moderate to severe loss of 30-44 of kindey function CKD 4 Severe loss of kidney function 15-29 CKD 5 Kidney failure <15 Note: (go live 2024) the eGFR calculation was updated to the 2020 CKD-EPI creatinine equation without a race factor to calculate the eGFR results. Glucose [Mass/Vol] 101 mg/dL Normal 83 - 110 mg/dL AO ADM SS Potassium [Moles/Vol] 3.8 mmol/L Normal 3.5 - 5.1 mmol/L AO ADM SS Sodium [Moles/Vol] 137 mmol/L Normal 136 - 145 mmol/L AO ADM SS Urea nitrogen [Mass/Vol] 19 mg/dL High 7 - 18 mg/dL AO ADM SS Urea nitrogen/Creatinine [Mass ratio] 16 ratio Normal 7 - 27 ratio AO ADM SS MR/PAT.ANEon 06-12-2025 MR/PAT.ANE [facility] Medical Records Department [address] [facility] [place] [address] PAT - Anesthesia 06/12/251920 MR#: [id number] Acct: [id number] Name: RUI RIOS Rep #: [id number] : 1950 75 From: Lucio Vazquez MD PCP: Lucila Luong SLURRY MIXERLoraC Status:PRE IN Y Race: C Location: [facility] Pre-Assessment Diagnosis/Proposed Procedure Planned Operative Procedure(s): 360 LUMBAR FUSION L4-5 L5-S1 Anesthesia History 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 When Was Last Pacemaker Check QUESTION #4 FULL TEXT: You/Your Family Experience fever (hyperthermia) with Anesthesia Last Oral Intake Last Oral intake: Last Oral Intake NPO since Meds taken in AM with sips of water? Meds patient instructed to take am of surgery PONV PONV - wildlife refuge specialist: PONV - wildlife refuge specialist Female No 06/09/25 08:56 HX of Motion Sickness No 06/09/25 08:56 HX of N/V After Surgery No 06/09/25 08:56 Non-Smoker Yes 06/09/25 08:56 Duration of Surgery greater Yes 06/09/25 08:56 than 60 minutes Number of Risk Factors 2 06/09/25 08:56 PONV Score Moderate Risk 06/09/25 08:56 Height Weight Height Weight: Anesthesia: Height Weight Height 5 ft 7 in 03/20/25 08:26 Respiratory Assessment Respiratory Assessment - wildlife refuge specialist: Respiratory Tract Infection Hx - wildlife refuge specialist Hx Respiratory Tract Infection No 06/09/25 08:56 STOP Sleep Apnea STOP Sleep Apnea - wildlife refuge specialist: STOP Sleep Apnea - wildlife refuge specialist Hx Hypertension Yes: CONTROLLED WITH MEDS 06/09/25 08:56 Hx Sleep Apnea No 06/09/25 08:56 CPAP BIPAP Do you snore loudly (louder No 06/09/25 08:56 than talking or can be heard Do you often feel tired/ No 06/09/25 08:56 fatigued/ sleepy during daytime? Has anyone observed you stop Yes 06/09/25 08:56 breathing during sleep? STOP Results Positive 06/09/25 08:56 QUESTION #5 FULL TEXT : Do you snore loudly (louder than talking or can be heard through closed doors)? 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 confused, unrespo /Reproduct ion History /Reproduct armand History - wildlife refuge specialist: /Reproduct armand Hx- wildlife refuge specialist Hx Now No 06/09/25 08:56 Gestational Age (in weeks): EDC: Hx Hx Para Hx Section SAB No 06/09/25 08:56 PFSH Medical History (Updated 06/09/25 @ 09:07 by Katie Rodriguez) Wears glasses Wears dentures Arthritis Restless legs Back pain Gastric reflux Former smoker History of pain when walking Cardiology follow-up encounter History of echocardiogram History of stress test Spinal cord stimulator status Hypothyroid Hypocholesterolemia Hypertension Home Medications ???Medication ???Instructions ???Recorded ???Last Taken ???Type aspirin 81 mg tablet,delayed 81 mg PO DAILY@0800 [facility] 0 11/11/20 11/15/20 History release diphenhydramine HCl 25 mg capsule 25 mg PO DAILY PRN Allergies 10/1711/15/20 History levothyroxine 112 mcg tablet 112 mcg PO DAILY THYROID 11/11/20 11/16/20 History loratadine 10 mg capsule 10 mg PO PRN PRN Allergies 1 11/15/20 History losar (more content not included)... Normal [facility] Hepatitis A AB, Totalon 05-17 HEPATITIS A,TOT Negative Normal Negative [facility] Comment on above: Result Comment: Comm ent: The HAV total antibody assay detects both IgG and IgM but does not differentiate between them. A negative result suggests susceptibility to infection. A positive result could be due to vaccination, previously resolved infection or active infection. Testing for HAV IgM should be performed if active HAV infection is suspected. [facility] offers profiles that will automatically reflex positive HAV total antibody results to IgM (e.g., panel #[id number] HAV Antibody w/ Rfx). Performed at: [address] [id number] Weapons Designer: Thee Sarkar PhD, Phone: [phone] Performed By: #### B TSPAT, L500.2500, L3100.0300, L100.0100, M100.651, L3890.1522, L501.9985, L3890.8751, L3890.7784 ####[facility] [address] [place], [address] MRSA/SAID NASAL SCREENon MRSA+SAID SCRN Reason for Exam: Surgery MRSA MRSA Negative S. AUREUS S. aureus Negative Normal [facility] Comment on above: Performed By: #### B TSPAT, L500.2500, L3100.0300, L100.0100, M100.651, L3890.6202, L501.9985, L3890.6006, L3890.6301 ####[facility] [address] [place], [address] 12 Lead EKGon 06-10-2025 12 Lead EKG [facility] Cardiovascular Services [address] [place] [address] 12 Lead EKG 06/10/25 0749 MR#: [id number] Acct: [id number] Name: RUI RIOS Rep #: [id number] : 1950 75 From: Justin Valenzuela MD Attending Dr: Dr. Francisco Villa MD Status: PRE IN Ordering Dr: Francisco Villa MD Date: 06/10/25 Location: [facility] Sex: M C Admitted: Test Reason : PREOP Blood Pressure : */* mmHG Vent. Rate : 71 BPM Atrial Rate : 71 BPM P-R Int : 148 ms QRS Dur : 72 ms QT Int : 414 ms P-R-T Axes : 17 76 18 degrees QTcB Int : 449 ms Sinus rhythm with occasional Premature ventricular complexes Otherwise normal ECG Confirmed by JUSTIN VALENZUELA MD ([id number]), publishing editor LIANG WAYNE ([id number]) on 06/11/2025 6:16:43 AM Referred By: FRANCISCO VILLA Confirmed By: JUSTIN VALENZUELA MD 06/11/25 0616 Date Justin Valenzuela MD CC: SLURRY MIXER-Jacki Luong; Dr. Francisco Villa MD Signed Normal [facility] Basic Metabolic Profile (BMP )on 06-10-2025 BUN/CRE 15.4 RATIO Normal 10-20 [facility] Comment on above: Result Comment: AMENDED REPORT 06/10/25 1009 BUN/CRE previously reported as: 16.0 RATIO Performed By: #### B TSPAT, L500.2500, L3100.0300, L100.0100, M100.651, L3890.6202, L501.9985, L3890.6006, L3890.6301 #### [facility] [address] [place], [address] Calcium [Mass/Vol] 9.0 mg/dL Normal 7.6-11.0 [facility] Comment on above: Result Comment: AMENDED REPORT 06/10/25 100 CA previously reported as: 9.2 mg/dL Performed By: #### B TSPAT, L500.2500, L3100.0300, L100.0100, M100.651, L3890.6202, L501.9985, L3890.6006, L3890.6301 #### [facility] [address] [place], [address] Chloride [Moles/Vol] 103 mmol/L Normal 98-108 [facility] Comment on above: Result Comment: AMENDED REPORT 06/10/251008 CL previously reported as: 102 mmol/L Performed By: #### B TSPAT, L500.2500, L3100.0300, L100.0100, M100.651, L3890.6202, L501.9985, L3890.6006, L3890.6301 #### [facility] [address] [place], [address] CO2 [Moles/Vol] 23.6 mmol/L Normal 21.0-32.0 [facility] Comment on above: Result Comment: AMENDED REPORT 06/10/251008 CO2 previously reported as: 20.5 L mmol/L Performed By: #### B TSPAT, L500.2500, L3100.0300, L100.0100, M100.651, L3890.6202, L501.9985, L3890.6006, L3890.6301 #### [facility] [address] [place], [address] Creatinine [Mass/Vol] 1.12 mg/dL Normal 0.70-1.20 [facility] Comment on above: Result Comment: AMENDED REPORT 06/10/251008 CREAT,SERUM previously reported as: 1.10 mg/dL Performed By: #### B TSPAT, L500.2500, L3100.0300, L100.0100, M100.651, L3890.6202, L501.9985, L3890.6006, L3890.6301 #### [facility] [address] [place], [address] GAP 12 Normal 5-15 [facility] Comment on above: Result Comment: AMENDED REPORT 06/10/251008 GAP previously reported as: 17 H Performed By: #### B TSPAT, L500.2500, L3100.0300, L100.0100, M100.651, L3890.6202, L501.9985, L3890.6006, L3890.6301 #### [facility] [address] [place], [place], [id number] Glucose [Mass/Vol] 102 mg/dL High 70-99 [facility] Comment on above: Result Comment: AMENDED REPORT 06/10/251008 GLU previously reported as: 105 H mg/dL Performed By: #### B TSPAT, L500.2500, L3100.0300, L100.0100, M100.651, L3890.6202, L501.9985, L3890.6006, L3890.6301 #### [facility] [address] [place], [place], [id number] Potassium [Moles/Vol] 4.8 mmol/L Normal 3.3-5.1 [facility] Comment on above: Result Comment: AMENDED REPORT 06/10/251008 K previously reported as: 4.7 mmol/L Performed By: #### B TSPAT, L500.2500, L3100.0300, L100.0100, M100.651, L3890.6202, L501.9985, L3890.6006, L3890.6301 #### [facility] [address] [place], [place], [id number] Sodium [Moles/Vol] 138 mmol/L Normal 133-145 [facility] Comment on above: Result Comment: AMENDED REPORT 06/10/25 1009 NA previously reported as: 139 mmol/L Performed By: #### B TSPAT, L500.2500, L3100.0300, L100.0100, M100.651, L3890.6202, L501.9985, L3890.6006, L3890.6301 #### [facility] [address] [place], [place], [id number] Urea nitrogen [Mass/Vol] 17 mg/dL Normal 4-19 [facility] Comment on above: Result Comment: AMENDED REPORT 06/10/25 1009 BUN previously reported as: 18 mg/dL Performed By: #### B TSPAT, L500.2500, L3100.0300, L100.0100, M100.651, L3890.6202, L501.9985, L3890.6006, L3890.6301 #### [facility] [address] [place], [place], [id number] CBC W/Diff, Automatedon 05-17 Absolute Lymph 1.77 X10 3/uL Normal 0.83-4.51 [facility] Comment on above: Performed By: #### B TSPAT, L500.2500, L3100.0300, L100.0100, M100.651, L3890.6202, L501.9985, L3890.6006, L3890.6301 #### [facility] [address] [place], [place], [id number] Absolute Neut 3.6 X10 3/uL Normal 2.0-7.7 [facility] Comment on above: Performed By: #### B TSPAT, L500.2500, L3100.0300, L100.0100, M100.651, L3890.6202, L501.9985, L3890.6006, L3890.6301 #### [facility] [address] [place], [place], [phone] Basophils/100 WBC (Bld) 1.0 % Normal 0-1 [facility] Comment on above: Performed By: #### B TSPAT, L500.2500, L3100.0300, L100.0100, M100.651, L3890.6202, L501.9985, L3890.6006, L3890.6301 #### [facility] [address] [place], [address] Eosinophils/100 WBC (Bld) 6.6 % High 0-5 [facility] Comment on above: Performed By: #### B TSPAT, L500.2500, L3100.0300, L100.0100, M100.651, L3890.6202, L501.9985, L3890.6006, L3890.6301 #### [facility] [address] [place], [place], [id number] Erythrocyte distribution width (RBC) [Ratio] 13.1 % Normal 11.6-14.6 [facility] Comment on above: Performed By: #### B TSPAT, L500.2500, L3100.0300, L100.0100, M100.651, L3890.6202, L501.9985, L3890.6006, L3890.6301 #### [facility] [address] [place], [address] Hematocrit (Bld) [Volume fraction] 51.0 % Normal 40-54 [facility] Comment on above: Performed By: #### B TSPAT, L500.2500, L3100.0300, L100.0100, M100.651, L3890.6202, L501.9985, L3890.6006, L3890.6301 #### [facility] [address] [facility] [place], [address] Hemoglobin (Bld) [Mass/Vol] 17.6 g/dL High 13.0-16.5 [facility] Comment on above: Performed By: #### B TSPAT, L500.2500, L3100.0300, L100.0100, M100.651, L3890.6202, L501.9985, L3890.6006, L3890.6301 #### [facility] [address] [facility] [place], [address] IG% 0.600 Normal 0.0-0.9 [facility] Comment on above: Result Comment: IG% - Immature Granulocytes (promyelocytes, myelocytes and metamyelocytes) > 1% indicates that a LEFT SHIFT is Present. Performed By: #### B TSPAT, L500.2500, L3100.0300, L100.0100, M100.651, L3890.6202, L501.9985, L3890.6006, L3890.6301 #### [facility] [address] [facility] [place], [address] Lymphocytes/100 WBC (Bld) 26.1 % Normal 19-41 [facility] Comment on above: Performed By: #### B TSPAT, L500.2500, L3100.0300, L100.0100, M100.651, L3890.6202, L501.9985, L3890.6006, L3890.6301 #### [facility] [address] [facility] [place], [address] MCH (RBC) [Entitic mass] 30.6 pg Normal 27.0-32.0 [facility] Comment on above: Performed By: #### B TSPAT, L500.2500, L3100.0300, L100.0100, M100.651, L3890.6202, L501.9985, L3890.6006, L3890.6301 #### [facility] [address] [place], [address] MCHC (RBC) [Mass/Vol] 34.5 g/dL Normal 32-36 [facility] Comment on above: Performed By: #### B TSPAT, L500.2500, L3100.0300, L100.0100, M100.651, L3890.6202, L501.9985, L3890.6006, L3890.6301 #### [facility] [address] [facility] [place], [address] MCV (RBC) [Entitic vol] 88.5 fL Normal 80-94 [facility] Comment on above: Performed By: #### B TSPAT, L500.2500, L3100.0300, L100.0100, M100.651, L3890.6202, L501.9985, L3890.6006, L3890.6301 #### [facility] [address] [facility] [place], [address] Monocytes/100 WBC (Bld) 12.1 % High 0-10 [facility] Comment on above: Performed By: #### B TSPAT, L500.2500, L3100.0300, L100.0100, M100.651, L3890.6202, L501.9985, L3890.6006, L3890.6301 #### [facility] [address] [place], [address] Neutrophils/100 WBC (Bld) 53.6 % Normal 47-70 [facility] Comment on above: Performed By: #### B TSPAT, L500.2500, L3100.0300, L100.0100, M100.651, L3890.6202, L501.9985, L3890.6006, L3890.6301 #### [facility] [address] [place], [address] Nucleated RBC (Bld) [#/Vol] 0 10*3/uL Normal 0-5 [facility] Comment on above: Performed By: #### B TSPAT, L500.2500, L3100.0300, L100.0100, M100.651, L3890.6202, L501.9985, L3890.6006, L3890.6301 #### [facility] [address] [place], [address] Platelet mean volume (Bld) [Entitic vol] 10.0 fL Normal 6.2-12.0 [facility] Comment on above: Performed By: #### B TSPAT, L500.2500, L3100.0300, L100.0100, M100.651, L3890.6202, L501.9985, L3890.6006, L3890.6301 #### [facility] [address] [place], [address] Platelets (Bld) [#/Vol] 246 10*3/uL Normal 150-450 [facility] Comment on above: Performed By: #### B TSPAT, L500.2500, L3100.0300, L100.0100, M100.651, L3890.6202, L501.9985, L3890.6006, L3890.6301 #### [facility] [address] [place], [address] RBC (Bld) [#/Vol] 5.76 10*6/uL Normal 4.6-6.2 [facility] Comment on above: Performed By: #### B TSPAT, L500.2500, L3100.0300, L100.0100, M100.651, L3890.6202, L501.9985, L3890.6006, L3890.6301 #### [facility] [address] [place], [place], [id number] RDW SD 42.1 fl Normal 35.1-43.9 [facility] Comment on above: Performed By: #### B TSPAT, L500.2500, L3100.0300, L100.0100, M100.651, L3890.6202, L501.9985, L3890.6006, L3890.6301 #### [facility] [address] [facility] [place], [address] WBC (Bld) [#/Vol] 6.8 10*3/uL Normal 4.4-11.0 [facility] Comment on above: Performed By: #### B TSPAT, L500.2500, L3100.0300, L100.0100, M100.651, L3890.6202, L501.9985, L3890.6006, L3890.6301 #### [facility] [address] [facility] [place], [place], [id number] HIVon 06-10-2025 HIV Non-Reactive Normal Nonreactive [facility] Comment on above: Result Comment: Non- Reactive Reactive Repeatedly reactive samples must be confirmed according to CDC recommended confirmatory algorithms. The subresults for either HIVAG or AHIV can be used as an aid in the selection of the confirmation algorithm for reactive samples. Send out specimens with Reactive results to [facility] for confirmation. Order the HIV antibody detection and differentiation: [id number] Performed By: #### B TSPAT, L500.2500, L3100.0300, L100.0100, M100.651, L3890.6202, L501.9985, L3890.6006, L3890.6301 #### [facility] [address] [facility] [place], [place], [id number] Hemoglobin A1con 06-10-2025 HbA1c (Bld) [Mass fraction] 6.1 % High <=5.6 [facility] Comment on above: Result Comment: Norm al < 5.7 % Prediabetic 5.7 - 6.4 % Diabetic >or= 6.5 % Please note range changes. Performed By: #### B TSPAT, L500.2500, L3100.0300, L100.0100, M100.651, L3890.6202, L501.9985, L3890.6006, L3890.6301 #### [facility] [address] [place], [address] Hepatitis B Surface Antibody on 06-10-2025 HEP B Surf Ab Non-Reactive Normal [facility] Comment on above: Result Comment: <8.5 mIU/mL: Non-Reactive 8.5<= x <11.5 mIU/mL: Indeterminate >=11.5 mIU/mL: Reactive Non Reactive: Inconsistent with immunity less than <10 mIU/mL Reactive: Consistent with immunity greater than or equal to 10 mIU/mL Performed By: #### B TSPAT, L500.2500, L3100.0300, L100.0100, M100.651, L3890.6202, L501.9985, L3890.6006, L3890.6301 #### [facility] [address] [place], [address] Hepatitis C Antibodyon 06-10 Hepatitis C Ab Non-Reactive Normal Nonreactive [facility] Comment on above: Result Comment: Reac tive: Presumptive evidence of antibodies to HCV. Follow CDC recommendations for supplemental testing. Non-Reactive: Antibodies to HCV were not detected; does not exclude the possibility of exposure to HCV Reactive Results are presumptive evidence of antibodies to HCV. Follow CDC recommendations for supplemental testing. Order confirmation testing: HCV Quant by PCR testing - HCVPCR #[id number] Non Reactive: < 0.8 Equivocal: >/= 0.8 to < 1.0 Reactive: >/= 1.0 The CDC requires that a reactive/equivocal HCV antibody result be sent out for confirmation. HCV Quant by PCR testing. Performed By: #### B TSPAT, L500.2500, L3100.0300, L100.0100, M100.651, L3890.6202, L501.9985, L3890.6006, L3890.6301 ####[facility] [address] [place], [address] Magnesiumon 06-10-2025 Magnesium [Mass/Vol] 2.2 mg/dL Normal 1.5-2.2 [facility] Comment on above: Performed By: #### L 501.9520, L501.5200 ####[facility] [address] [place], [address] Thyroid Stim Hormone (TSH)on 06-10-2025 TSH 3.840 uIU/mL Normal 0.300-4.200 [facility] Comment on above: Performed By: #### L 501.9520, L501.5200 ####[facility] [address] [place], [address] Type AND Screen - PAT ONLYon 06-10-2025 ABO and Rh group Nom (Bld) Blood group B Rh(D) positive Normal [facility] Comment on above: Order Comment: Surge ry Date: 06/23/25Reason for Laboratory Test [id number]/ANNSLUMBAR FUSION 360 Performed By: #### B TSPAT, L500.2500, L3100.0300, L100.0100, M100.651, L3890.6202, L501.9985, L3890.6006, L3890.6301 ####[facility] [address] [place], [address] A1Con 04-28-2025 Glucose [Mass/Vol] 120 mg/dL Normal [facility] Comment on above: Result Comment: Rosalia mated Average Glucose calculated by equation ((28.7xA1C)-46.7) Estimated average glucose (eAG) is a calculated value from Hemoglobin A1C and is security representative of the average blood glucose level in the last 2-3 month period. Normal range: less than 114 mg/dL Performed By: #### A 1C #### Nathanael [address] [address] HbA1c (Bld) [Mass fraction] 5.8 % Normal 4.3-6.4 [facility] Comment on above: Performed By: #### Jong Apodaca #### [address] [address] LABORATORYOrdered By: SYSTEM SYSTEM on 04-28-2025 Glucose [Mass/Vol] 120 mg/dL Invalid Interpretation Code AO Chemistry S Comment on above: Interpretive Data: E stimated average glucose (eAG) is a calculated value from Hemoglobin A1C and is security representative of the average blood glucose level in the last 2-3 month period. Normal range: less than 114 mg/dL HbA1c (Bld) [Mass fraction] 5.8 % Normal 4.3 - 6.4 % AO ADM SS .GFRon 04-22-2025 Estimated Glomerular Filtration Rate 69 ml/min/1.73sqm Normal [facility] Comment on above: Result Comment: Stages of Chronic Kidney Disease (CKD) Stage Description eGFR(ml/min/1.73 sq.m.) CKD 1 Normal kidney function or >=90 normal kindney function with possible kidney damage (ex. Proteinuria) CKD 2 Kidney damage with mild loss 60-89 of kidney function CKD 3a Mild to moderate loss of kidney 45-59 function CKD 3b Moderate to severe loss of 30-44 of kindey function CKD 4 Severe loss of kidney function 15-29 CKD 5 Kidney failure <15 Note: (go live 2024) the eGFR calculation was updated to the 2020 CKD-EPI creatinine equation without a race factor to calculate the eGFR results. Performed By: #### Rodriguez DENNY, BMP #### [address] [address] BMPon 04-22-2025 BUN/Creatinine Ratio 22 ratio Normal 7-27 [facility] Comment on above: Performed By: #### G , BMP #### [address] [address] Calcium [Mass/Vol] 8.9 mg/dL Normal 8.4-10.2 [facility] Comment on above: Performed By: #### G , BMP #### [address] [address] Chloride [Moles/Vol] 97 mmol/L Low 98-107 [facility] Comment on above: Performed By: #### G , BMP #### [address] [address] CO2 [Moles/Vol] 26 mmol/L Normal 23-31 [facility] Comment on above: Performed By: #### G , BMP #### [address] [address] Creatinine [Mass/Vol] 1.12 mg/dL Normal 0.67-1.17 [facility] Comment on above: Performed By: #### G , BMP #### [address] [address] Electrolyte Balance 11.0 mEq/L Normal 4.0-15.0 [facility] Comment on above: Performed By: #### G , BMP #### [address] [address] Glucose [Mass/Vol] 230 mg/dL High 83-110 [facility] Comment on above: Performed By: #### G , BMP #### [address] [address] Potassium [Moles/Vol] 4.0 mmol/L Normal 3.5-5.1 [facility] Comment on above: Performed By: #### G , BMP #### [address] [address] Sodium [Moles/Vol] 134 mmol/L Low 136-145 [facility] Comment on above: Performed By: #### G FR, BMP #### [address] [address] Urea nitrogen [Mass/Vol] 25 mg/dL High 7-18 [facility] Comment on above: Performed By: #### G FR, BMP #### [address] [address] LABORATORYOrdered By: SYSTEM SYSTEM on 04-22-2025 Calcium [Mass/Vol] 8.9 mg/dL Normal 8.4 - 10. 2 mg/dL AO ADM SS Chloride [Moles/Vol] 97 mmol/L Low 98 - 10 7 mmol/L AO ADM SS CO2 [Moles/Vol] 26 mmol/L Normal 23 - 31 mmol/L AO AD M SS Creatinine [Mass/Vol] 1.12 mg/dL Normal 0.67 - 1.17 mg/dL AO ADM SS Electrolyte Balance 11.0 mEq/L Normal 4.0 - 15 .0 mEq/L AO ADM SS Estimated Glomerular Filtration Rate 69 ml/min/1.73sqm Invalid Interpretation Code AO Chemistry S Comment on above: Interpretive Data: Stages of Chronic Kidney Disease (CKD) Stage Description eGFR(ml/min/1.73 sq.m.) CKD 1 Normal kidney function or >=90 normal kindney function with possible kidney damage (ex. Proteinuria) CKD 2 Kidney damage with mild loss 60-89 of kidney function CKD 3a Mild to moderate loss of kidney 45-59 function CKD 3b Moderate to severe loss of 30-44 of kindey function CKD 4 Severe loss of kidney function 15-29 CKD 5 Kidney failure <15 Note: (go live 2024) the eGFR calculation was updated to the 2020 CKD-EPI creatinine equation without a race factor to calculate the eGFR results. Glucose [Mass/Vol] 230 mg/dL High 83 - 110 mg/dL AO ADM SS Potassium [Moles/Vol] 4.0 mmol/L Normal 3.5 - 5.1 mmol/L AO ADM SS Sodium [Moles/Vol] 134 mmol/L Low 136 - 145 mmol/L AO ADM SS Urea nitrogen [Mass/Vol] 25 mg/dL High 7 - 18 mg/dL AO ADM SS Urea nitrogen/Creatinine [Mass ratio] 22 ratio Normal 7 - 27 ratio AO ADM SS .Auto Diffon 04-09-2025 Basophil, Absolute 0.0 10 3/mcL Normal 0.0-0.3 [facility] Comment on above: Performed By: #### G ESPINOZA DENNY #### [address] [address] Basophils/100 WBC (Bld) 0.7 % Normal 0.0-2.5 [facility] Comment on above: Performed By: #### G ESPINOZA DENNY #### [address] [address] Eosinophil, Absolute 0.3 10 3/mcL Normal 0.0-0.7 [facility] Comment on above: Performed By: #### Rodriguez DENNY, BMP #### [address] [address] Eosinophils/100 WBC (Bld) 5.4 % Normal 0.0-6.0 [facility] Comment on above: Performed By: #### Rodriguez DENNY, BMP #### [address] [address] Lymphocyte, Absolute 1.9 10 3/mcL Normal 0.9-4.3 [facility] Comment on above: Performed By: #### Rodriguez DENNY, BMP #### [address] [address] Lymphocytes/100 WBC (Bld) 29.4 % Normal 20.0-40.0 [facility] Comment on above: Performed By: #### Rodriguez DENNY, BMP #### [address] [address] Monocyte, Absolute 0.9 10 3/mcL Normal 0.1-1.4 [facility] Comment on above: Performed By: #### Rodriguez DENNY, BMP #### [address] [address] Monocytes/100 WBC (Bld) 13.1 % High 2.0-13.0 [facility] Comment on above: Performed By: #### Rodriguez DENNY, BMP #### [address] [address] Neutrophils/100 WBC (Bld) 51.4 % Normal 50.0-75.0 [facility] Comment on above: Performed By: #### Rodriguez DENNY, BMP #### [address] [address] .GFRon 04-09-2025 Estimated Glomerular Filtration Rate 69 ml/min/1.73sqm Normal [facility] Comment on above: Result Comment: Stages of Chronic Kidney Disease (CKD) Stage Description eGFR(ml/min/1.73 sq.m.) CKD 1 Normal kidney function or >=90 normal kindney function with possible kidney damage (ex. Proteinuria) CKD 2 Kidney damage with mild loss 60-89 of kidney function CKD 3a Mild to moderate loss of kidney 45-59 function CKD 3b Moderate to severe loss of 30-44 of kindey function CKD 4 Severe loss of kidney function 15-29 CKD 5 Kidney failure <15 Note: (go live 2024) the eGFR calculation was updated to the 2020 CKD-EPI creatinine equation without a race factor to calculate the eGFR results. Performed By: #### G FR, BMP #### [place] [id number] .NEUABSon 04-09-2025 Neutrophil, Absolute 3.4 10 3/mcL Normal 2.3-8.1 [facility] Comment on above: Performed By: #### G FR, BMP #### [place] [address] CBCon 04-09-2025 Erythrocyte distribution width (RBC) [Ratio] 13.5 % Normal 11.5-15.5 [facility] Comment on above: Performed By: #### G FR, CBC, LIPID, CMP, ADIFF, ANEU #### [place] [address] Hematocrit (Bld) [Volume fraction] 51.5 % Normal 40.0-52.0 [facility] Comment on above: Performed By: #### G FR, CBC, LIPID, CMP, ADIFF, ANEU #### [place] [address] Hgb 17.6 G/dL High 13.0-17.5 [facility] Comment on above: Performed By: #### G FR, CBC, LIPID, CMP, ADIFF, ANEU #### [place] [address] MCH (RBC) [Entitic mass] 30.3 pg Normal 27.0-33.0 [facility] Comment on above: Performed By: #### G FR, CBC, LIPID, CMP, ADIFF, ANEU #### [place] [address] MCHC 34.1 G/dL Normal 32.0-36.0 [facility] Comment on above: Performed By: #### G FR, CBC, LIPID, CMP, ADIFF, ANEU #### [place] [id number] [place], [place] [address] MCV (RBC) [Entitic vol] 88.9 fL Normal 81.0-100.0 [facility] Comment on above: Performed By: #### G FR, CBC, LIPID, CMP, ADIFF, ANEU #### [address] [address] Platelet 243 10 3/mcL Normal 150-450 [facility] Comment on above: Performed By: #### G FR, CBC, LIPID, CMP, ADIFF, ANEU #### [address] [address] Platelet mean volume (Bld) [Entitic vol] 7.7 fL Normal 6.4-10.5 [facility] Comment on above: Performed By: #### G FR, CBC, LIPID, CMP, ADIFF, ANEU #### [address] [address] RBC 5.80 10 6/mcL Normal 4.50-6.00 [facility] Comment on above: Performed By: #### G FR, CBC, LIPID, CMP, ADIFF, ANEU #### [address] [address] WBC 6.5 10 3/mcL Normal 4.5-10.8 [facility] Comment on above: Performed By: #### G FR, CBC, LIPID, CMP, ADIFF, ANEU #### [address] [address] CMPon 04-09-2025 Albumin Level 4.0 G/dL Normal 3.4-4.8 [facility] Comment on above: Performed By: #### G FR, BMP #### [address] [address] Albumin/Globulin [Mass ratio] 1.2 {ratio} Normal 1.1-2.5 [facility] Comment on above: Performed By: #### G FR, BMP #### [address] [address] ALP [Catalytic activity/Vol] 78 U/L Normal 40-135 [facility] Comment on above: Performed By: #### G FR, BMP #### [address] [address] ALT [Catalytic activity/Vol] 45 U/L Normal 16-63 [facility] Comment on above: Performed By: #### G FR, BMP #### [address] [address] AST [Catalytic activity/Vol] 25 U/L Normal 10-40 [facility] Comment on above: Performed By: #### G , BMP #### [address] [address] Bili Total 0.6 mg/dL Normal 0.2-1.0 [facility] Comment on above: Result Comment: Use of this assay is not recommended for patients undergoing treatment with eltrombopag due to the potential for falsely elevated results. Performed By: #### Rodriguez DENNY, BMP #### [address] [address] BUN/Creatinine Ratio 18 ratio Normal 7-27 [facility] Comment on above: Performed By: #### G FR, BMP #### [address] [address] Calcium [Mass/Vol] 9.5 mg/dL Normal 8.4-10.2 [facility] Comment on above: Performed By: #### G FR, BMP #### [address] [address] Chloride [Moles/Vol] 98 mmol/L Normal 98-107 [facility] Comment on above: Performed By: #### G FR, BMP #### [address] [address] CO2 [Moles/Vol] 26 mmol/L Normal 23-31 [facility] Comment on above: Performed By: #### G FR, BMP #### [address] [address] Creatinine [Mass/Vol] 1.12 mg/dL Normal 0.67-1.17 [facility] Comment on above: Performed By: #### G FR, BMP #### [address] [address] Electrolyte Balance 9.0 mEq/L Normal 4.0-15.0 [facility] Comment on above: Performed By: #### G FR, BMP #### [address] [address] Globulin 3.4 G/dL Normal 2.7-4.4 [facility] Comment on above: Performed By: #### G , BMP #### [place] [address] Glucose [Mass/Vol] 94 mg/dL Normal 83-110 [facility] Comment on above: Performed By: #### G , BMP #### [address] [address] Potassium [Moles/Vol] 3.9 mmol/L Normal 3.5-5.1 [facility] Comment on above: Performed By: #### G , BMP #### [address] [address] Sodium [Moles/Vol] 133 mmol/L Low 136-145 [facility] Comment on above: Performed By: #### G , BMP #### [address] [address] Total Protein 7.4 G/dL Normal 6.4-8.2 [facility] Comment on above: Performed By: #### G FR, BMP #### [address] [address] Urea nitrogen [Mass/Vol] 20 mg/dL High 7-18 [facility] Comment on above: Performed By: #### G , BMP #### [address] [address] LABORATORYOrdered By: SYSTEM SYSTEM on 04-09-2025 Albumin BCP dye [Mass/Vol] 4.0 G/dL Normal 3.4 - 4.8 G/dL AO ADM SS Albumin/Globulin [Mass ratio] 1.2 {ratio} Normal 1.1 - 2.5 ratio AO ADM SS ALP [Catalytic activity/Vol] 78 U/L Normal 40 - 135 U/L AO ADM SS ALT With P-5'-P [Catalytic activity/Vol] 45 U/L Normal 16 - 63 U/L AO ADM SS AST With P-5'-P [Catalytic activity/Vol] 25 U/L Normal 10 - 40 U/L AO ADM SS Basophils (Bld) [#/Vol] 0.0 103/mcL Normal 0.0 - 0.3 10^3/mcL AO Workflow SS Basophils/100 WBC (Bld) 0.7 % Normal 0.0 - 2.5 % AO Workflow SS Bilirubin [Mass/Vol] 0.6 mg/dL Normal 0.2 - 1 .0 mg/dL AO ADM SS Comment on above: Interpretive Data: U se of this assay is not recommended for patients undergoing treatment with eltrombopag due to the potential for falsely elevated results. Calcium [Mass/Vol] 9.5 mg/dL Normal 8.4 - 10. 2 mg/dL AO ADM SS Chloride [Moles/Vol] 98 mmol/L Normal 98 - 10 7 mmol/L AO ADM SS CO2 [Moles/Vol] 26 mmol/L Normal 23 - 31 mmol/L AO AD M SS Creatinine [Mass/Vol] 1.12 mg/dL Normal 0.67 - 1.17 mg/dL AO ADM SS Electrolyte Balance 9.0 mEq/L Normal 4.0 - 15 .0 mEq/L AO ADM SS Eosinophil, Absolute 0.3 103/mcL Normal 0.0 - 0 .7 10^3/mcL AO Workflow SS Eosinophils/100 WBC (Bld) 5.4 % Normal 0.0 - 6.0 % AO Workflow SS Erythrocyte distribution width (RBC) [Ratio] 13.5 % Normal 11.5 - 15.5 % AO Workflow SS Estimated Glomerular Filtration Rate 69 ml/min/1.73sqm Invalid Interpretation Code AO Chemistry S Comment on above: Interpretive Data: Stages of Chronic Kidney Disease (CKD) Stage Description eGFR(ml/min/1.73 sq.m.) CKD 1 Normal kidney function or >=90 normal kindney function with possible kidney damage (ex. Proteinuria) CKD 2 Kidney damage with mild loss 60-89 of kidney function CKD 3a Mild to moderate loss of kidney 45-59 function CKD 3b Moderate to severe loss of 30-44 of kindey function CKD 4 Severe loss of kidney function 15-29 CKD 5 Kidney failure <15 Note: (go live 2024) the eGFR calculation was updated to the 2020 CKD-EPI creatinine equation without a race factor to calculate the eGFR results. Globulin 3.4 G/dL Normal 2.7 - 4.4 G/dL AO ADM SS Glucose [Mass/Vol] 94 mg/dL Normal 83 - 110 mg/dL AO ADM SS Hematocrit (Bld) [Volume fraction] 51.5 % Normal 40.0 - 52.0 % AO Workflow SS Hemoglobin (Bld) [Mass/Vol] 17.6 G/dL High 13.0 - 17.5 G/dL AO Workflow SS Lymphocytes (Bld) [#/Vol] 1.9 103/mcL Normal 0.9 - 4.3 10^3/mcL AO Workflow SS Lymphocytes/100 WBC (Bld) 29.4 % Normal 20.0 - 40.0 % AO Workflow SS MCH (RBC) [Entitic mass] 30.3 pg Normal 27.0 - 33.0 pg AO Workflow SS MCHC 34.1 G/dL Normal 32.0 - 36.0 G/dL AO Workflow SS MCV (RBC) [Entitic vol] 88.9 fL Normal 81.0 - 100.0 fL AO Workflow SS Monocytes (Bld) [#/Vol] 0.9 103/mcL Normal 0.1 - 1.4 10^3/mcL AO Workflow SS Monocytes/100 WBC (Bld) 13.1 % High 2.0 - 13.0 % AO Workflow SS Neutrophils (Bld) [#/Vol] 3.4 103/mcL Normal 2.3 - 8.1 10^3/mcL AO Workflow SS Neutrophils/100 WBC (Bld) 51.4 % Normal 50.0 - 75.0 % AO Workflow SS Platelet mean volume (Bld) [Entitic vol] 7.7 fL Normal 6.4 - 10.5 fL AO Workflow SS Platelets (Bld) [#/Vol] 243 103/mcL Normal 150 - 450 10^3/mcL AO Workflow SS Potassium [Moles/Vol] 3.9 mmol/L Normal 3.5 - 5.1 mmol/L AO ADM SS Protein [Mass/Vol] 7.4 G/dL Normal 6.4 - 8.2 G/dL AO ADM SS RBC (Bld) [#/Vol] 5.80 106/mcL Normal 4.50 - 6.0 0 10^6/mcL AO Workflow SS Sodium [Moles/Vol] 133 mmol/L Low 136 - 145 mmol/L AO ADM SS Urea nitrogen [Mass/Vol] 20 mg/dL High 7 - 18 mg/dL AO ADM SS Urea nitrogen/Creatinine [Mass ratio] 18 ratio Normal 7 - 27 ratio AO ADM SS WBC (Bld) [#/Vol] 6.5 103/mcL Normal 4.5 - 10.8 10^3/mcL AO Workflow SS LABORATORYOrdered By: Uyen Orellana on 04-09-2025 Cholesterol [Mass/Vol] 157 mg/dL Normal 0 - 200 mg/dL AO ADM SS Comment on above: Interpretive Data: C holesterol Reference Interval: Less than 200 Desirable 200-239 Borderline high risk 240 and above High risk Cholesterol in HDL [Mass/Vol] 33 mg/dL Low 40 - 60 mg/dL AO ADM SS Cholesterol in LDL [Mass/Vol] 90 mg/dL Normal 0 - 130 mg/dL AO ADM SS Triglyceride [Mass/Vol] 170 mg/dL High 0 - 150 mg/dL AO ADM SS Comment on above: Interpretive Data: T riglyceride Reference Interval: Less than 150 Normal 150-199 Borderline high risk 200-499 High risk 500 or higher Very high risk LIPIDon 04-09-2025 Cholesterol [Mass/Vol] 157 mg/dL Normal 0-200 [facility] Comment on above: Result Comment: Chol esterol Reference Interval: Less than 200 Desirable 200-239 Borderline high risk 240 and above High risk Performed By: #### G ESPINOZA DENNY #### [address] [address] Cholesterol in HDL [Mass/Vol] 33 mg/dL Low 40-60 [facility] Comment on above: Performed By: #### G ESPINOZA DENNY #### [address] [address] Cholesterol in LDL [Mass/Vol] 90 mg/dL Normal 0-130 [facility] Comment on above: Performed By: #### G , ESPINOZA #### [facility] [address] [place], [place] [address] Triglyceride [Mass/Vol] 170 mg/dL High 0-150 [facility] Comment on above: Result Comment: Trig lyceride Reference Interval: Less than 150 Normal 150-199 Borderline high risk 200-499 High risk 500 or higher Very high risk Performed By: #### G , BMP #### [facility] [address] [place], [place] [address] Orthopedic Visit Reporton Orthopedic Visit Report [facility] [address] [place] [address] OFFICE VISIT Date of Service: 03/20/25 MR#: [id number] Acct: [id number] Name: RUI RIOS Rep #: [id number] : 1950 Provider: NADEGE Echeverria Age/Sex: 74/M Location[place] [facility] [place] Status: Signed Intake Vital Signs 02/20/25 08:50 03/20/25 08:26 Height 5 ft 7 in 5 ft 7 in Weight: 208 lb 6 oz 208 lb BMI 32.6 32.5 Intake Visit Reasons: LUMBAR SPINE Chief Complaint: Lumbar spine MRI review Accompanied by: Is patient in pain?: Yes Pain scale (1-10): 5 Allergies mold Allergy (Severe, Verified 03/20/25 08:29) Watery eyes Medications ???Medication ???Instructions ???Recorded ???Confirmed ???Type aspirin 81 mg tablet,delayed 81 mg PO DAILY@0800 11/11/2003/20 History release diphenhydramine HCl 25 mg capsule 25 mg PO DAILY PRN Allergies 10/1703/20/25 History famotidine 20 mg tablet 20 mg PO PRN PRN GERD 11/11/2003/09 History levothyroxine 112 mcg tablet 112 mcg PO DAILY 11/11/20 03/20/25 History loratadine 10 mg capsule 10 mg PO PRN PRN Allergies 1 03/20/25 History losartan 50 mg tablet 50 mg PO DAILY 11/11/20 03/20/25 H istory nifedipine 60 mg tablet,extended 60 mg PO DAILY 11/11/20 03/20/25 H istory release 24 hr omega-3 fatty acids-fish oil 300 1 ea PO DAILY 11/11/20 03/20/25 Hi story mg-1,000 mg capsule psyllium husk 0.52 gram capsule 0.52 g PO DAILY 11/11/20 03/20/25 History simvastatin 40 mg tablet 40 mg PO QHS 11/11/20 03/20/25 His tory metoprolol succinate 25 mg 25 mg PO QDAY 02/20/25 03/20/25 Hi story tablet,extended release 24 hr lorazepam 1 mg tablet (Ativan) 1 mg PO BID PRN claustrophobia #2 02/25/25 03/20/25 Rx tabs Have you fallen in the past year?: Yes PFSH Medical History Spinal cord stimulator status Cyst Broken arm Hypothyroid Hypocholesterolemia Hypertension Surgical History History of left hip replacement H/O hernia repair Family History Mother No problems noted. Father No problems noted. Social History Smoking Status: Former smoker HPI LUMBAR SPINE Details: This documentation accurately reflects the service provided and the decisions made by me, NADEGE Echeverria 03/20/25825. Part of today???s visit was documented by Thom Jeffers MA, acting as scribe. RUI RIOS is a 74 year old M here today for lumbar spine MRI review. Patient would like to go over MRI results to discuss what the next step would be. He denies any recent injections or physical therapy. Patient states that he fell last 03/13/2025. He tripped over a rock and fell forward, he states that he has no injuries, and no worsening of his back. HPI from 02/20/25: RUI RIOS is a 74 year old M here today for lumbar spine pain. Patient is here for lower back pain. The back is an achy feeling right on the spine. The pain goes down the right leg into the house. Patient states that he does get numbness in the right leg and on top of the right foot. This has been going on since 2013. Worsening over the last 6 months. Patient used to walk 7 miles a day, he started noticing a cramping in the left hamstring. Says that he also has left sided groin pain. He has a history of left sided total hip replacement with Dr. Nolan in 2016. He also gets tingling down the right lateral calf to the top of the right foot. Patient got a stimulator in the lower back in 2020. The stimulator did help with a sharp pain in the left leg. Dr. Cervantes did the surgery. The last time he saw him was in 2024. Patient had an ablation in 12/11/2024, and then follow up with Dr. Cervantes after that. He has had injections with Dr. Cervantes in the past. At first the injections would last about 4-6 months but currently the injections only last about a month. Standing, and walking makes the pain worse. Sitting for any period of time makes the pain worse. Says he can only walk a quarter mile before his pain gets bad and he needs to sit down. He gets more hamstring pain with walking. Leans on a shopping cart helps. He started seeing him in 2015. Patient got the injections every 3 months. The injections used to help him. Patient's last injection was in July 2024. He did physical therapy last July and to the end of August. Patient did physical therapy at [facility]. The patient went 2 times per week. The physical therapy helped a little bit for short amount of time but then his pain returned. He will take ibuprofen over (more content not included)... Normal [facility] Magnetic resonance imaging r eportOrdered By: Caleb Salazar on 03-14-2025 Study report [facility] Imaging Services [address] [place] [address] Spine Lumbar (Routine) MR#: [id number] Acct: [id number] Name: RUI RIOS Rep #: [id number] : 1950 M 74 From: Gerardo Salazar MD PCP: WOOD Stratton Status: REG C FERNANDA Study:Spine Lumbar (Routine) Date of Exam: 03/14/25 Exam# [id number] Ordering Dr: Pop Kumar PROCEDURE: SPINE LUMBAR (ROUTINE) 03/14/2025 REASON FOR EXAM: PAIN TECHNIQUE: Multiplanar and multisequence images were obtained without IV contrast administration. COMPARISON: None. FINDINGS: Vertebrae: Vertebral body heights are maintained. No abnormal marrow signal. Conus Medullaris: Terminates at L2. L1-2: Disc bulging, facet arthropathy, and ligamentum flavum hypertrophy. Mild to moderate central stenosis. Ilxa-cx-slymxlaw bilateral neural foraminal stenosis. L2-3: Disc bulging, facet arthropathy, and ligamentum flavum hypertrophy resulting in mild to moderate central stenosis. Moderate bilateral neural foraminal stenosis. L3-4: Facet arthropathy resulting in mild right moderate left neural foraminal stenosis. No significant central stenosis. L4-5: Disc bulging and facet arthropathy resulting in minimal central stenosis. Severe right and moderate left neural foraminal stenosis. L5-S1: Grade 1 anterolisthesis, disc bulging, and facet arthropathy resulting insevere bilateral neural foraminal stenosis. No significant central stenosis. A spinal stimulator is present. MRI/Spine Lumbar (Routine) IMPRESSION: Spondylosis. Spondylolisthesis. Reading Location: [id number] CC: [employer] Lucila Luong; NADEGE Echeverria ~ Biomedical Equipment Specialist: Signed [facility] Spine Lumbar (Routine)on Spine Lumbar (Routine) [facility] Imaging Services [address] [place] [id number] Spine Lumbar (Routine) MR#: [id number] Acct: [id number] Name: RUI RIOS Rep #: [id number] : 1950 M 74 From: Caleb Salazar MD PCP: [facility], [employer]C Status: REG CLI Study: Spine Lumbar (Routine) Date of Exam: 03/14/25 Exam# [id number] Ordering Dr: Candice Kumar PROCEDURE: SPINE LUMBAR (ROUTINE) 03/14/2025 REASON FOR EXAM: PAIN TECHNIQUE: Multiplanar and multisequence images were obtained without IV contrast administration. COMPARISON: None. FINDINGS: Vertebrae: Vertebral body heights are maintained. No abnormal marrow signal. Conus Medullaris: Terminates at L2. L1-2: Disc bulging, facet arthropathy, and ligamentum flavum hypertrophy. Mild to moderate central stenosis. Qrqn-et-sjrjgwpm bilateral neural foraminal stenosis. L2-3: Disc bulging, facet arthropathy, and ligamentum flavum hypertrophy resulting in mild to moderate central stenosis. Moderate bilateral neural foraminal stenosis. L3-4: Facet arthropathy resulting in mild right moderate left neural foraminal stenosis. No significant central stenosis. L4-5: Disc bulging and facet arthropathy resulting in minimal central stenosis. Severe right and moderate left neural foraminal stenosis. L5-S1: Grade 1 anterolisthesis, disc bulging, and facet arthropathy resulting in severe bilateral neural foraminal stenosis. No significant central stenosis. A spinal stimulator is present. MRI/Spine Lumbar (Routine) IMPRESSION: Spondylosis. Spondylolisthesis. Reading Location: [id number] CC: [employer] Lucila Luong; NADEGE Echeverria Biomedical Equipment Specialist: Signed Normal [facility] L/S Spine Min 4 Views L/S Spine Min 4 Views [facility] Imaging Services [address] [place] [address] L/S Spine Min 4 Views MR#: [id number] Acct: [id number] Name: RUI RIOS Rep #: [id number] : 1950 M 74 From: Osvaldo Avalos MD PCP: JOSE StrattonC Status: DEP AMB Study: L/S Spine Min 4 Views Date of Exam: 02/20/25 Exam# [id number] Ordering Dr: Candice Kumar PROCEDURE: L/S SPINE MIN 4 VIEWS 02/20/2025 REASON FOR EXAM: PAIN TECHNIQUE: Four views; AP, lateral and flexion-extension COMPARISON: None available FINDINGS: 5 bmc-hux-bezcwul lumbar vertebral body types identified. No fracture. L2-3 degenerative endplate changes L3-4 ixsk-hs-yziljsgs disc space narrowing with associated degenerative endplate changes L4-5 ubis-xn-nzllaofk disc space narrowing with degenerative endplate changes and appearance of foraminal narrowing Anterolisthesis L5 on S1 with severe disc space narrowing and likely bilateral L5 spondylolysis. No instability identified. Appearance of bilateral foraminal narrowing Partially imaged intraspinal stimulator and left hip replacement. Heavy appearing aortoiliac atherosclerotic calcification. RAD/L/S Spine Min 4 Views IMPRESSION: Anterolisthesis L5 on S1 with severe disc space narrowing and likely bilateral L5 spondylolysis. No instability identified. Appearance of bilateral foraminal narrowing Multilevel spondylosis/discoge anika change as above. Reading Location: [id number] CC: WOOD Luong; NADEGE Echeverria Biomedical Equipment Specialist: Signed Normal [facility] Orthopedic Visit Reporton Orthopedic Visit Report [facility] [address] [place] [address] OFFICE VISIT Date of Service: 02/20/25 MR#: [id number] Acct: [id number] Name: RUI RIOS Rep #: [id number] : 1950 Provider: NADEGE Echeverria Age/Sex: 74/M Location: [facility] [place] Status: Signed with Addenda ADDENDUM by NADEGE Echeverria on 02/25/25 at 0820 Assessment and Plan Assessment and Plan (1) Pars defect with spondylolisthesis: Status: Acute (2) 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 02/25/25 0820 Date Candice Kumar cc: WOOD Luong * Signed Intake Vital Signs 11/16/20 09:38 02/20/25 08:50 Height 5 ft 7 in 5 ft 7 in Weight: 208 lb 6 oz BMI 32.6 Intake Visit Reasons: LUMBAR SPINE Chief Complaint: Lumbar spine pain Accompanied by: Is patient in pain?: Yes Pain scale (1-10): 5 Allergies mold Allergy (Severe, Verified 02/20/25 08:54) Watery eyes Medications ???Medication ???Instructions ???Recorded ???Confirmed ???Type aspirin 81 mg tablet,delayed 81 mg PO DAILY@0800 11/11/2002/20 History release diphenhydramine HCl 25 mg capsule 25 mg PO DAILY PRN Allergies 10/1702/20/25 History famotidine 20 mg tablet 20 mg PO PRN PRN GERD 11/11/2006/09 History levothyroxine 112 mcg tablet 112 mcg PO DAILY 11/11/20 02/20/25 History loratadine 10 mg capsule 10 mg PO PRN PRN Allergies 1 02/20/25 History losartan 50 mg tablet 50 mg PO DAILY 11/11/20 02/20/25 H istory nifedipine 60 mg tablet,extended 60 mg PO DAILY 11/11/20 02/20/25 H istory release 24 hr omega-3 fatty acids-fish oil 300 1 ea PO DAILY 11/11/20 02/20/25 Hi story mg-1,000 mg capsule psyllium husk 0.52 gram capsule 0.52 g PO DAILY 11/11/20 02/20/25 History simvastatin 40 mg tablet 40 mg PO QHS 11/11/20 02/20/25 His tory metoprolol succinate 25 mg 25 mg PO QDAY 02/20/25 02/20/25 Hi story tablet,extended release 24 hr Have you fallen in the past year?: No PFSH Medical History Spinal cord stimulator status Cyst Broken arm Hypothyroid Hypocholesterolemia Hypertension Surgical History History of left hip replacement H/O hernia repair Family History Mother No problems noted. Father No problems noted. Social History Smoking Status: Former smoker HPI LUMBAR SPINE Details: This documentation accurately reflects the service provided and the decisions made by me, NADEGE Echeverria 02/20/25 0850. Part of today???s visit was documented by Thom Jeffers MA, acting as scribe. RUI RIOS is a 74 year old M here today for lumbar spine pain. Patient is here for lower back pain. The back is an achy feeling right on the spine. The pain goes down the right leg into the house. Patient states that he does get numbness in the right leg and on top of the right foot. This has been going on since 2013. Worsening over the last 6 months. Patient used to walk 7 miles a day, he started noticing a cramping in the left hamstring. Says that he also has left sided groin pain. He has a history of left sided total hip replacement with Dr. Nolan in 2016. He also gets tingling down the right lateral calf to the top of the right foot. Patient got a stimulator in the lower back in 2020. The stimulator did help with a sharp pain in the left leg. Dr. Cervantes did the surgery. The last time he saw him was in 2024. Patient had an ablation in 12/11/2024, and then follow up with Dr. Cervantes after that. He has had injections with Dr. Cervantes in the past. At first the injections would last about 4-6 months but currently the injections only last about a month. Standing, and walking makes the pain worse. Sitting for any period of time makes the pain worse. Says he can only walk a quarter mile before his pain gets bad and he needs to sit down. He gets more hamstring pain with walking. Leans on a shopping cart helps. He started seeing him in 2016. Pa (more content not included)... Normal [facility] .GFRon 10-04-2024 GFR 81 ml/min/1.73sqm [facility] Comment on above: Result Comment: GFR Population mean for , Non- Americans Ages 20-29 = 116 mL/min/1.73 sq.m. Ages 30-39 = 107 mL/min/1.73 sq.m. Ages 40-49 = 99 mL/min/1.73 sq.m. Ages 50-59 = 93 mL/min/1.73 sq.m. Ages 60-69 = 85 mL/min/1.73 sq.m. Ages 70+ = 75 mL/min/1.73 sq.m. Chronic Kidney Disease: Less than 60 mL/min/1.73 square meters End Stage Renal Disease: Less than 15 mL/min/1.73 square meters Performed By: #### P SA, TSH, CMP, FT4, GFR, LIPID #### [address] [address] GFR Non- 67 ml/min/1.73sqm [facility] Comment on above: Result Comment: GFR Population mean for , Non- Americans Ages 20-29 = 116 mL/min/1.73 sq.m. Ages 30-39 = 107 mL/min/1.73 sq.m. Ages 40-49 = 99 mL/min/1.73 sq.m. Ages 50-59 = 93 mL/min/1.73 sq.m. Ages 60-69 = 85 mL/min/1.73 sq.m. Ages 70+ = 75 mL/min/1.73 sq.m. Chronic Kidney Disease: Less than 60 mL/min/1.73 square meters End Stage Renal Disease: Less than 15 mL/min/1.73 square meters Performed By: #### P SA, TSH, CMP, FT4, GFR, LIPID #### [address] [address] CMPon 10-04-2024 Albumin Level 3.9 G/dL Normal 3.4-4.8 [facility] Comment on above: Performed By: #### P SA, TSH, CMP, FT4, GFR, LIPID #### [place] [id number] Albumin/Globulin [Mass ratio] 1.3 {ratio} Normal 1.1-2.5 [facility] Comment on above: Performed By: #### P SA, TSH, CMP, FT4, GFR, LIPID #### [place] [id number] ALP [Catalytic activity/Vol] 85 U/L Normal 40-135 [facility] Comment on above: Performed By: #### P SA, TSH, CMP, FT4, GFR, LIPID #### [place] [address] ALT [Catalytic activity/Vol] 41 U/L Normal 16-63 [facility] Comment on above: Performed By: #### P SA, TSH, CMP, FT4, GFR, LIPID #### [place] [id number] AST [Catalytic activity/Vol] 25 U/L Normal 10-40 [facility] Comment on above: Performed By: #### P SA, TSH, CMP, FT4, GFR, LIPID #### [place] [id number] Bili Total 0.6 mg/dL Normal 0.2-1.0 [facility] Comment on above: Result Comment: Use of this assay is not recommended for patients undergoing treatment with eltrombopag due to the potential for falsely elevated results. Performed By: #### P SA, TSH, CMP, FT4, GFR, LIPID #### [place] [id number] BUN/Creatinine Ratio 13 ratio Normal 7-27 [facility] Comment on above: Performed By: #### P SA, TSH, CMP, FT4, GFR, LIPID #### [place] [address] Calcium [Mass/Vol] 9.1 mg/dL Normal 8.4-10.2 [facility] Comment on above: Performed By: #### P SA, TSH, CMP, FT4, GFR, LIPID #### [place] [address] Chloride [Moles/Vol] 100 mmol/L Normal 98-107 [facility] Comment on above: Performed By: #### P SA, TSH, CMP, FT4, GFR, LIPID #### [place] [address] CO2 [Moles/Vol] 29 mmol/L Normal 23-31 [facility] Comment on above: Performed By: #### P SA, TSH, CMP, FT4, GFR, LIPID #### [place] [address] Creatinine [Mass/Vol] 1.08 mg/dL Normal 0.70-1.30 [facility] Comment on above: Result Comment: Test ing performed on Siemens Dimension EXL analyzer using a modified kinetic Mary Grace technique. Performed By: #### P SA, TSH, CMP, FT4, GFR, LIPID #### [place] [address] Electrolyte Balance 9.0 mEq/L Normal 4.0-15.0 [facility] Comment on above: Performed By: #### P SA, TSH, CMP, FT4, GFR, LIPID #### [place] [address] Globulin 2.9 G/dL Normal [facility] Comment on above: Performed By: #### P SA, TSH, CMP, FT4, GFR, LIPID #### [place] [address] Glucose [Mass/Vol] 89 mg/dL Normal 83-110 [facility] Comment on above: Performed By: #### P SA, TSH, CMP, FT4, GFR, LIPID #### [address] [address] Potassium [Moles/Vol] 4.3 mmol/L Normal 3.5-5.1 [facility] Comment on above: Performed By: #### P SA, TSH, CMP, FT4, GFR, LIPID #### [place] [id number] Sodium [Moles/Vol] 138 mmol/L Normal 136-145 [facility] Comment on above: Performed By: #### P SA, TSH, CMP, FT4, GFR, LIPID #### [place] [address] Total Protein 6.8 G/dL Normal 6.4-8.2 [facility] Comment on above: Performed By: #### P SA, TSH, CMP, FT4, GFR, LIPID #### [place] [id number] Urea nitrogen [Mass/Vol] 14 mg/dL Normal 7-18 [facility] Comment on above: Performed By: #### P SA, TSH, CMP, FT4, GFR, LIPID #### [place] [id number] FT4on 10-04-2024 Free T4 [Mass/Vol] 1.13 ng/dL Normal 0.76-1.46 [facility] Comment on above: Performed By: #### P SA, TSH, CMP, FT4, GFR, LIPID #### [place] [id number] LABORATORYOrdered By: SYSTEM SYSTEM on 10-04-2024 Albumin BCP dye [Mass/Vol] 3.9 G/dL Normal 3.4 - 4.8 G/dL AO ADM SS Albumin/Globulin [Mass ratio] 1.3 {ratio} Normal 1.1 - 2.5 ratio AO ADM SS ALP [Catalytic activity/Vol] 85 U/L Normal 40 - 135 U/L AO ADM SS ALT With P-5'-P [Catalytic activity/Vol] 41 U/L Normal 16 - 63 U/L AO ADM SS AST With P-5'-P [Catalytic activity/Vol] 25 U/L Normal 10 - 40 U/L AO ADM SS Bilirubin [Mass/Vol] 0.6 mg/dL Normal 0.2 - 1 .0 mg/dL AO ADM SS Comment on above: Interpretive Data: U se of this assay is not recommended for patients undergoing treatment with eltrombopag due to the potential for falsely elevated results. Calcium [Mass/Vol] 9.1 mg/dL Normal 8.4 - 10. 2 mg/dL AO ADM SS Chloride [Moles/Vol] 100 mmol/L Normal 98 - 10 7 mmol/L AO ADM SS CO2 [Moles/Vol] 29 mmol/L Normal 23 - 31 mmol/L AO AD M SS Creatinine [Mass/Vol] 1.08 mg/dL Normal 0.70 - 1.30 mg/dL AO ADM SS Comment on above: Interpretive Data: T esting performed on Siemens Dimension EXL analyzer using a modified kinetic Mary Grace technique. Electrolyte Balance 9.0 mEq/L Normal 4.0 - 15 .0 mEq/L AO ADM SS Free T4 [Mass/Vol] 1.13 ng/dL Normal 0.76 - 1. 46 ng/dL AO ADM SS GFR/1.73 sq M.predicted among blacks MDRD (S/P/Bld) [Vol rate/Area] 81 ml/min/1.73sqm Invalid Interpretation Code AO Chemistry S Comment on above: Interpretive Data: GFR Population mean for , Non- Americans Ages 20-29 = 116 mL/min/1.73 sq.m. Ages 30-39 = 107 mL/min/1.73 sq.m. Ages 40-49 = 99 mL/min/1.73 sq.m. Ages 50-59 = 93 mL/min/1.73 sq.m. Ages 60-69 = 85 mL/min/1.73 sq.m. Ages 70+ = 75 mL/min/1.73 sq.m. Chronic Kidney Disease: Less than 60 mL/min/1.73 square meters End Stage Renal Disease: Less than 15 mL/min/1.73 square meters GFR/1.73 sq M.predicted among non-blacks MDRD (S/P/Bld) [Vol rate/Area] 67 ml/min/1.73sqm Invalid Interpretation Code AO Chemistry S Comment on above: Interpretive Data: GFR Population mean for , Non- Americans Ages 20-29 = 116 mL/min/1.73 sq.m. Ages 30-39 = 107 mL/min/1.73 sq.m. Ages 40-49 = 99 mL/min/1.73 sq.m. Ages 50-59 = 93 mL/min/1.73 sq.m. Ages 60-69 = 85 mL/min/1.73 sq.m. Ages 70+ = 75 mL/min/1.73 sq.m. Chronic Kidney Disease: Less than 60 mL/min/1.73 square meters End Stage Renal Disease: Less than 15 mL/min/1.73 square meters Globulin 2.9 G/dL Invalid Interpretation Code AO ADM SS Glucose [Mass/Vol] 89 mg/dL Normal 83 - 110 mg/dL AO ADM SS Potassium [Moles/Vol] 4.3 mmol/L Normal 3.5 - 5.1 mmol/L AO ADM SS Prostate specific Ag [Mass/Vol] 1.07 ng/mL Normal 0.00 - 4.00 ng/mL AO ADM SS Protein [Mass/Vol] 6.8 G/dL Normal 6.4 - 8.2 G/dL AO ADM SS Sodium [Moles/Vol] 138 mmol/L Normal 136 - 145 mmol/L AO ADM SS TSH Qn 2.50 m[IU]/L Normal 0.36 - 3.74 mcIU/mL AO ADM SS Urea nitrogen [Mass/Vol] 14 mg/dL Normal 7 - 18 mg/dL AO ADM SS Urea nitrogen/Creatinine [Mass ratio] 13 ratio Normal 7 - 27 ratio AO ADM SS LABORATORYOrdered By: Rosa Rawls on 10-04-2024 Cholesterol [Mass/Vol] 150 mg/dL Normal 0 - 200 mg/dL AO ADM SS Comment on above: Interpretive Data: C holesterol Reference Interval: Less than 200 Desirable 200-239 Borderline high risk 240 and above High risk Cholesterol in HDL [Mass/Vol] 36 mg/dL Low 40 - 60 mg/dL AO ADM SS Cholesterol in LDL [Mass/Vol] 92 mg/dL Normal 0 - 130 mg/dL AO ADM SS Triglyceride [Mass/Vol] 109 mg/dL Normal 0 - 150 mg/dL AO ADM SS Comment on above: Interpretive Data: T riglyceride Reference Interval: Less than 150 Normal 150-199 Borderline high risk 200-499 High risk 500 or higher Very high risk LIPIDon 10-04-2024 Cholesterol [Mass/Vol] 150 mg/dL Normal 0-200 [facility] Comment on above: Result Comment: Chol esterol Reference Interval: Less than 200 Desirable 200-239 Borderline high risk 240 and above High risk Performed By: #### P SA, TSH, CMP, FT4, GFR, LIPID #### [place] [address] Cholesterol in HDL [Mass/Vol] 36 mg/dL Low 40-60 [facility] Comment on above: Performed By: #### P SA, TSH, CMP, FT4, GFR, LIPID #### [place] [address] Cholesterol in LDL [Mass/Vol] 92 mg/dL Normal 0-130 [facility] Comment on above: Performed By: #### P SA, TSH, CMP, FT4, GFR, LIPID #### [place] [address] Triglyceride [Mass/Vol] 109 mg/dL Normal 0-150 [facility] Comment on above: Result Comment: Trig lyceride Reference Interval: Less than 150 Normal 150-199 Borderline high risk 200-499 High risk 500 or higher Very high risk Performed By: #### P SA, TSH, CMP, FT4, GFR, LIPID #### [place] [address] PSAon 10-04-2024 Prostate Specific Antigen 1.07 ng/mL Normal 0.00-4.00 [facility] Comment on above: Performed By: #### P SA, TSH, CMP, FT4, GFR, LIPID #### [place] [address] TSHon 10-04-2024 TSH Qn 2.50 m[IU]/L Normal 0.36-3.74 [facility] Comment on above: Performed By: #### P SA, TSH, CMP, FT4, GFR, LIPID #### [place] [address] .Auto Diffon 04-09-2024 Basophil, Absolute 0.1 10 3/mcL Normal 0.0-0.2 [facility] ([place]) Comment on above: Performed By: #### P SA, TSH, ADIFF, ANEU, FT4, CMP, CBC, GFR, LIPID #### [address] [address] Basophils/100 WBC (Bld) 0.8 % Normal 0.0-2.5 [facility] ([place] Comment on above: Performed By: #### P SA, TSH, ADIFF, ANEU, FT4, CMP, CBC, GFR, LIPID #### [address] [address] Eosinophil, Absolute 0.6 10 3/mcL High 0.0-0.4 [facility] ([place]) Comment on above: Performed By: #### P SA, TSH, ADIFF, ANEU, FT4, CMP, CBC, GFR, LIPID #### [address] [address] Eosinophils/100 WBC (Bld) 7.2 % High 0.0-7.0 [facility] ([place] Comment on above: Performed By: #### P SA, TSH, ADIFF, ANEU, FT4, CMP, CBC, GFR, LIPID #### [address] [address] Lymphocyte, Absolute 2.2 10 3/mcL Normal 0.8-3.9 [facility] ([place] Comment on above: Performed By: #### P SA, TSH, ADIFF, ANEU, FT4, CMP, CBC, GFR, LIPID #### [address] [address] Lymphocytes/100 WBC (Bld) 27.7 % Normal 10.0-50.0 [facility] ([place] Comment on above: Performed By: #### P SA, TSH, ADIFF, ANEU, FT4, CMP, CBC, GFR, LIPID #### [address] [address] Monocyte, Absolute 1.1 10 3/mcL High 0.2-1.0 [facility] ([place]) Comment on above: Performed By: #### P SA, TSH, ADIFF, ANEU, FT4, CMP, CBC, GFR, LIPID #### [address] [address] Monocytes/100 WBC (Bld) 13.8 % High 1.7-13.0 [facility] ([place] Comment on above: Performed By: #### P SA, TSH, ADIFF, ANEU, FT4, CMP, CBC, GFR, LIPID #### [address] [address] Neutrophils/100 WBC (Bld) 50.5 % Normal 37.0-80.0 [facility] ([place] Comment on above: Performed By: #### P SA, TSH, ADIFF, ANEU, FT4, CMP, CBC, GFR, LIPID #### [address] [address] .GFRon 04-09-2024 GFR 84 ml/min/1.73sqm Normal [facility] ([place] Comment on above: Result Comment: GFR Population mean for , Non- Americans Ages 20-29 = 116 mL/min/1.73 sq.m. Ages 30-39 = 107 mL/min/1.73 sq.m. Ages 40-49 = 99 mL/min/1.73 sq.m. Ages 50-59 = 93 mL/min/1.73 sq.m. Ages 60-69 = 85 mL/min/1.73 sq.m. Ages 70+ = 75 mL/min/1.73 sq.m. Chronic Kidney Disease: Less than 60 mL/min/1.73 square meters End Stage Renal Disease: Less than 15 mL/min/1.73 square meters Performed By: #### P SA, TSH, ADIFF, ANEU, FT4, CMP, CBC, GFR, LIPID #### [address] [address] GFR Non- 69 ml/min/1.73sqm Normal [facility] ([place] Comment on above: Result Comment: GFR Population mean for , Non- Americans Ages 20-29 = 116 mL/min/1.73 sq.m. Ages 30-39 = 107 mL/min/1.73 sq.m. Ages 40-49 = 99 mL/min/1.73 sq.m. Ages 50-59 = 93 mL/min/1.73 sq.m. Ages 60-69 = 85 mL/min/1.73 sq.m. Ages 70+ = 75 mL/min/1.73 sq.m. Chronic Kidney Disease: Less than 60 mL/min/1.73 square meters End Stage Renal Disease: Less than 15 mL/min/1.73 square meters Performed By: #### P SA, TSH, ADIFF, ANEU, FT4, CMP, CBC, GFR, LIPID #### [address] [address] .NEUABSon 04-09-2024 Neutrophil, Absolute 4.0 10 3/mcL Normal 2.9-6.2 [facility] ([place] Comment on above: Performed By: #### P SA, TSH, ADIFF, ANEU, FT4, CMP, CBC, GFR, LIPID #### [address] [address] CBCon 04-09-2024 Erythrocyte distribution width (RBC) [Ratio] 14.3 % Normal 11.5-14.5 [facility] ([place] Comment on above: Performed By: #### P SA, TSH, ADIFF, ANEU, FT4, CMP, CBC, GFR, LIPID #### [address] [address] Hematocrit (Bld) [Volume fraction] 48.2 % Normal 42.0-52.0 [facility] ([place] Comment on above: Performed By: #### P SA, TSH, ADIFF, ANEU, FT4, CMP, CBC, GFR, LIPID #### [address] [address] Hgb 16.7 G/dL Normal 14.0-18.0 [facility] ([place] Comment on above: Performed By: #### P SA, TSH, ADIFF, ANEU, FT4, CMP, CBC, GFR, LIPID #### [address] [address] MCH (RBC) [Entitic mass] 30.9 pg Normal 27.0-31.2 [facility] ([place] Comment on above: Performed By: #### P SA, TSH, ADIFF, ANEU, FT4, CMP, CBC, GFR, LIPID #### [address] [address] MCHC 34.6 G/dL Normal 31.8-35.4 [facility] ([place] Comment on above: Performed By: #### P SA, TSH, ADIFF, ANEU, FT4, CMP, CBC, GFR, LIPID #### [address] [address] MCV (RBC) [Entitic vol] 89.5 fL Normal 80.0-94.0 [facility] ([place] Comment on above: Performed By: #### P SA, TSH, ADIFF, ANEU, FT4, CMP, CBC, GFR, LIPID #### [address] [address] Platelet 252 10 3/mcL Normal 130-400 [facility] ([place] Comment on above: Performed By: #### P SA, TSH, ADIFF, ANEU, FT4, CMP, CBC, GFR, LIPID #### [address] [address] Platelet mean volume (Bld) [Entitic vol] 7.7 fL Normal 7.4-10.4 [facility] ([place] Comment on above: Performed By: #### P SA, TSH, ADIFF, ANEU, FT4, CMP, CBC, GFR, LIPID #### [address] [address] RBC 5.39 10 6/mcL Normal 4.04-6.13 [facility] ([place] Comment on above: Performed By: #### P SA, TSH, ADIFF, ANEU, FT4, CMP, CBC, GFR, LIPID #### [address] [address] WBC 8.0 10 3/mcL Normal 4.6-10.8 [facility] ([place] Comment on above: Performed By: #### P SA, TSH, ADIFF, ANEU, FT4, CMP, CBC, GFR, LIPID #### [address] [address] CMPon 04-09-2024 Albumin Level 4.1 G/dL Normal 3.4-4.8 [facility] ([place] Comment on above: Performed By: #### P SA, TSH, ADIFF, ANEU, FT4, CMP, CBC, GFR, LIPID #### [address] [address] Albumin/Globulin [Mass ratio] 1.5 {ratio} Normal 1.1-2.5 [facility] ([place] Comment on above: Performed By: #### P SA, TSH, ADIFF, ANEU, FT4, CMP, CBC, GFR, LIPID #### [address] [address] ALP [Catalytic activity/Vol] 85 U/L Normal 40-135 [facility] ([place] Comment on above: Performed By: #### P SA, TSH, ADIFF, ANEU, FT4, CMP, CBC, GFR, LIPID #### [address] [address] ALT [Catalytic activity/Vol] 55 U/L Normal 16-63 [facility] ([place] Comment on above: Performed By: #### P SA, TSH, ADIFF, ANEU, FT4, CMP, CBC, GFR, LIPID #### [address] [address] AST [Catalytic activity/Vol] 30 U/L Normal 10-40 [facility] ([place] Comment on above: Performed By: #### P SA, TSH, ADIFF, ANEU, FT4, CMP, CBC, GFR, LIPID #### [address] [address] Bili Total 0.5 mg/dL Normal 0.2-1.0 [facility] ([place] Comment on above: Result Comment: Use of this assay is not recommended for patients undergoing treatment with eltrombopag due to the potential for falsely elevated results. Performed By: #### P SA, TSH, ADIFF, ANEU, FT4, CMP, CBC, GFR, LIPID #### [address] [address] BUN/Creatinine Ratio 16 ratio Normal 7-27 [facility] ([place]) Comment on above: Performed By: #### P SA, TSH, ADIFF, ANEU, FT4, CMP, CBC, GFR, LIPID #### [address] [address] Calcium [Mass/Vol] 8.5 mg/dL Normal 8.4-10.2 [facility] ([place]) Comment on above: Performed By: #### P SA, TSH, ADIFF, ANEU, FT4, CMP, CBC, GFR, LIPID #### [address] [address] Chloride [Moles/Vol] 101 mmol/L Normal 98-107 [facility] ([place]) Comment on above: Performed By: #### P SA, TSH, ADIFF, ANEU, FT4, CMP, CBC, GFR, LIPID #### [address] [address] [address] CO2 [Moles/Vol] 27 mmol/L Normal 23-31 [facility] ([place] Comment on above: Performed By: #### P SA, TSH, ADIFF, ANEU, FT4, CMP, CBC, GFR, LIPID #### [address] [address] Creatinine [Mass/Vol] 1.05 mg/dL Normal 0.70-1.30 [facility] ([place]) Comment on above: Performed By: #### P SA, TSH, ADIFF, ANEU, FT4, CMP, CBC, GFR, LIPID #### [address] [address] Electrolyte Balance 12.0 mEq/L Normal 4.0-15.0 [facility] ([place]) Comment on above: Performed By: #### P SA, TSH, ADIFF, ANEU, FT4, CMP, CBC, GFR, LIPID #### [address] [address] Globulin 2.7 G/dL Normal [facility] ([place] Comment on above: Performed By: #### P SA, TSH, ADIFF, ANEU, FT4, CMP, CBC, GFR, LIPID #### [address] [address] Glucose [Mass/Vol] 89 mg/dL Normal 83-110 [facility] ([place]) Comment on above: Performed By: #### P SA, TSH, ADIFF, ANEU, FT4, CMP, CBC, GFR, LIPID #### [address] [address] Potassium [Moles/Vol] 4.3 mmol/L Normal 3.5-5.1 [facility] ([place]) Comment on above: Performed By: #### P SA, TSH, ADIFF, ANEU, FT4, CMP, CBC, GFR, LIPID #### [address] [address] Sodium [Moles/Vol] 140 mmol/L Normal 136-145 [facility] ([place]) Comment on above: Performed By: #### P SA, TSH, ADIFF, ANEU, FT4, CMP, CBC, GFR, LIPID #### [address] [address] Total Protein 6.8 G/dL Normal 6.4-8.2 [facility] ([place] Comment on above: Performed By: #### P SA, TSH, ADIFF, ANEU, FT4, CMP, CBC, GFR, LIPID #### [address] [address] Urea nitrogen [Mass/Vol] 17 mg/dL Normal 7-18 [facility] ([place] Comment on above: Performed By: #### P SA, TSH, ADIFF, ANEU, FT4, CMP, CBC, GFR, LIPID #### [address] [address] LABORATORYOrdered By: SYSTEM SYSTEM on 04-09-2024 Albumin BCP dye [Mass/Vol] 4.1 G/dL Normal 3.4 - 4.8 G/dL AO ADM SS Albumin/Globulin [Mass ratio] 1.5 {ratio} Normal 1.1 - 2.5 ratio AO ADM SS ALP [Catalytic activity/Vol] 85 U/L Normal 40 - 135 U/L AO ADM SS ALT With P-5'-P [Catalytic activity/Vol] 55 U/L Normal 16 - 63 U/L AO ADM SS AST With P-5'-P [Catalytic activity/Vol] 30 U/L Normal 10 - 40 U/L AO ADM SS Basophil, Absolute 0.1 103/mcL Normal 0.0 - 0.2 10^3/mcL AO Workflow SS Basophils/100 WBC (Bld) 0.8 % Normal 0.0 - 2.5 % AO Workflow SS Bilirubin [Mass/Vol] 0.5 mg/dL Normal 0.2 - 1 .0 mg/dL AO ADM SS Comment on above: Interpretive Data: U se of this assay is not recommended for patients undergoing treatment with eltrombopag due to the potential for falsely elevated results. Calcium [Mass/Vol] 8.5 mg/dL Normal 8.4 - 10. 2 mg/dL AO ADM SS Chloride [Moles/Vol] 101 mmol/L Normal 98 - 10 7 mmol/L AO ADM SS CO2 [Moles/Vol] 27 mmol/L Normal 23 - 31 mmol/L AO AD M SS Creatinine [Mass/Vol] 1.05 mg/dL Normal 0.70 - 1.30 mg/dL AO ADM SS Electrolyte Balance 12.0 mEq/L Normal 4.0 - 15 .0 mEq/L AO ADM SS Eosinophil, Absolute 0.6 103/mcL High 0.0 - 0 .4 10^3/mcL AO Workflow SS Eosinophils/100 WBC (Bld) 7.2 % High 0.0 - 7.0 % AO Workflow SS Erythrocyte distribution width (RBC) [Ratio] 14.3 % Normal 11.5 - 14.5 % AO Workflow SS GFR/1.73 sq M.predicted among blacks MDRD (S/P/Bld) [Vol rate/Area] 84 ml/min/1.73sqm Invalid Interpretation Code AO Chemistry S Comment on above: Interpretive Data: GFR Population mean for , Non- Americans Ages 20-29 = 116 mL/min/1.73 sq.m. Ages 30-39 = 107 mL/min/1.73 sq.m. Ages 40-49 = 99 mL/min/1.73 sq.m. Ages 50-59 = 93 mL/min/1.73 sq.m. Ages 60-69 = 85 mL/min/1.73 sq.m. Ages 70+ = 75 mL/min/1.73 sq.m. Chronic Kidney Disease: Less than 60 mL/min/1.73 square meters End Stage Renal Disease: Less than 15 mL/min/1.73 square meters GFR/1.73 sq M.predicted among non-blacks MDRD (S/P/Bld) [Vol rate/Area] 69 ml/min/1.73sqm Invalid Interpretation Code AO Chemistry S Comment on above: Interpretive Data: GFR Population mean for , Non- Americans Ages 20-29 = 116 mL/min/1.73 sq.m. Ages 30-39 = 107 mL/min/1.73 sq.m. Ages 40-49 = 99 mL/min/1.73 sq.m. Ages 50-59 = 93 mL/min/1.73 sq.m. Ages 60-69 = 85 mL/min/1.73 sq.m. Ages 70+ = 75 mL/min/1.73 sq.m. Chronic Kidney Disease: Less than 60 mL/min/1.73 square meters End Stage Renal Disease: Less than 15 mL/min/1.73 square meters Globulin 2.7 G/dL Invalid Interpretation Code AO ADM SS Glucose [Mass/Vol] 89 mg/dL Normal 83 - 110 mg/dL AO ADM SS Hematocrit (Bld) [Volume fraction] 48.2 % Normal 42.0 - 52.0 % AO Workflow SS Hemoglobin (Bld) [Mass/Vol] 16.7 G/dL Normal 14.0 - 18.0 G/dL AO Workflow SS Lymphocyte, Absolute 2.2 103/mcL Normal 0.8 - 3 .9 10^3/mcL AO Workflow SS Lymphocytes/100 WBC (Bld) 27.7 % Normal 10.0 - 50.0 % AO Workflow SS MCH (RBC) [Entitic mass] 30.9 pg Normal 27.0 - 31.2 pg AO Workflow SS MCHC 34.6 G/dL Normal 31.8 - 35.4 G/dL AO Workflow SS MCV (RBC) [Entitic vol] 89.5 fL Normal 80.0 - 94.0 fL AO Workflow SS Monocyte, Absolute 1.1 103/mcL High 0.2 - 1.0 10^3/mcL AO Workflow SS Monocytes/100 WBC (Bld) 13.8 % High 1.7 - 13.0 % AO Workflow SS Neutrophil, Absolute 4.0 103/mcL Normal 2.9 - 6 .2 10^3/mcL AO Workflow SS Neutrophils/100 WBC (Bld) 50.5 % Normal 37.0 - 80.0 % AO Workflow SS Platelet mean volume (Bld) [Entitic vol] 7.7 fL Normal 7.4 - 10.4 fL AO Workflow SS Platelets (Bld) [#/Vol] 252 103/mcL Normal 130 - 400 10^3/mcL AO Workflow SS Potassium [Moles/Vol] 4.3 mmol/L Normal 3.5 - 5.1 mmol/L AO ADM SS Protein [Mass/Vol] 6.8 G/dL Normal 6.4 - 8.2 G/dL AO ADM SS RBC (Bld) [#/Vol] 5.39 106/mcL Normal 4.04 - 6.1 3 10^6/mcL AO Workflow SS Sodium [Moles/Vol] 140 mmol/L Normal 136 - 145 mmol/L AO ADM SS Urea nitrogen [Mass/Vol] 17 mg/dL Normal 7 - 18 mg/dL AO ADM SS Urea nitrogen/Creatinine [Mass ratio] 16 ratio Normal 7 - 27 ratio AO ADM SS WBC (Bld) [#/Vol] 8.0 103/mcL Normal 4.6 - 10.8 10^3/mcL AO Workflow SS LABORATORYOrdered By: Raphael Vicente on 04-09-2024 Cholesterol [Mass/Vol] 144 mg/dL Normal 0 - 200 mg/dL AO ADM SS Comment on above: Interpretive Data: C holesterol Reference Interval: Less than 200 Desirable 200-239 Borderline high risk 240 and above High risk Cholesterol in HDL [Mass/Vol] 34 mg/dL Low 40 - 60 mg/dL AO ADM SS Cholesterol in LDL [Mass/Vol] 84 mg/dL Normal 0 - 130 mg/dL AO ADM SS Triglyceride [Mass/Vol] 132 mg/dL Normal 0 - 150 mg/dL AO ADM SS Comment on above: Interpretive Data: T riglyceride Reference Interval: Less than 150 Normal 150-199 Borderline high risk 200-499 High risk 500 or higher Very high risk LIPIDon 04-09-2024 Cholesterol [Mass/Vol] 144 mg/dL Normal 0-200 [facility] ([place] Comment on above: Result Comment: Chol esterol Reference Interval: Less than 200 Desirable 200-239 Borderline high risk 240 and above High risk Performed By: #### P SA, TSH, ADIFF, ANEU, FT4, CMP, CBC, GFR, LIPID #### [address] [address] Cholesterol in HDL [Mass/Vol] 34 mg/dL Low 40-60 [facility] ([place] Comment on above: Performed By: #### P SA, TSH, ADIFF, ANEU, FT4, CMP, CBC, GFR, LIPID #### [address] [address] Cholesterol in LDL [Mass/Vol] 84 mg/dL Normal 0-130 [facility] ([place] Comment on above: Performed By: #### P SA, TSH, ADIFF, ANEU, FT4, CMP, CBC, GFR, LIPID #### [address] [address] Triglyceride [Mass/Vol] 132 mg/dL Normal 0-150 [facility] ([place]) Comment on above: Result Comment: Trig lyceride Reference Interval: Less than 150 Normal 150-199 Borderline high risk 200-499 High risk 500 or higher Very high risk Performed By: #### P SA, TSH, ADIFF, ANEU, FT4, CMP, CBC, GFR, LIPID #### [address] [id number] .GFRon 10-17-2023 GFR 88 ml/min/1.73sqm Normal [facility] ([place] Comment on above: Result Comment: GFR Population mean for , Non- Americans Ages 20-29 = 116 mL/min/1.73 sq.m. Ages 30-39 = 107 mL/min/1.73 sq.m. Ages 40-49 = 99 mL/min/1.73 sq.m. Ages 50-59 = 93 mL/min/1.73 sq.m. Ages 60-69 = 85 mL/min/1.73 sq.m. Ages 70+ = 75 mL/min/1.73 sq.m. Chronic Kidney Disease: Less than 60 mL/min/1.73 square meters End Stage Renal Disease: Less than 15 mL/min/1.73 square meters Performed By: #### P SA, TSH, ADIFF, ANEU, FT4, CMP, CBC, GFR, LIPID #### [address] [address] GFR Non- 72 ml/min/1.73sqm Normal [facility] ([place] Comment on above: Result Comment: GFR Population mean for , Non- Americans Ages 20-29 = 116 mL/min/1.73 sq.m. Ages 30-39 = 107 mL/min/1.73 sq.m. Ages 40-49 = 99 mL/min/1.73 sq.m. Ages 50-59 = 93 mL/min/1.73 sq.m. Ages 60-69 = 85 mL/min/1.73 sq.m. Ages 70+ = 75 mL/min/1.73 sq.m. Chronic Kidney Disease: Less than 60 mL/min/1.73 square meters End Stage Renal Disease: Less than 15 mL/min/1.73 square meters Performed By: #### P SA, TSH, ADIFF, ANEU, FT4, CMP, CBC, GFR, LIPID #### [address] [address] BMPon 10-17-2023 BUN/Creatinine Ratio 14 ratio Normal 7-27 [facility] ([place]) Comment on above: Performed By: #### P SA, TSH, ADIFF, ANEU, FT4, CMP, CBC, GFR, LIPID #### [address] [address] Calcium [Mass/Vol] 9.0 mg/dL Normal 8.4-10.2 [facility] ([place]) Comment on above: Performed By: #### P SA, TSH, ADIFF, ANEU, FT4, CMP, CBC, GFR, LIPID #### [address] [address] Chloride [Moles/Vol] 102 mmol/L Normal 98-107 [facility] ([place]) Comment on above: Performed By: #### P SA, TSH, ADIFF, ANEU, FT4, CMP, CBC, GFR, LIPID #### [address] [address] CO2 [Moles/Vol] 29 mmol/L Normal 23-31 [facility] ([place] Comment on above: Performed By: #### P SA, TSH, ADIFF, ANEU, FT4, CMP, CBC, GFR, LIPID #### [address] [address] Creatinine [Mass/Vol] 1.01 mg/dL Normal 0.70-1.30 [facility] ([place]) Comment on above: Performed By: #### P SA, TSH, ADIFF, ANEU, FT4, CMP, CBC, GFR, LIPID #### [address] [address] Electrolyte Balance 9.0 mEq/L Normal 4.0-15.0 [facility] ([place]) Comment on above: Performed By: #### P SA, TSH, ADIFF, ANEU, FT4, CMP, CBC, GFR, LIPID #### [address] [address] Glucose [Mass/Vol] 102 mg/dL Normal 83-110 [facility] ([place]) Comment on above: Performed By: #### P SA, TSH, ADIFF, ANEU, FT4, CMP, CBC, GFR, LIPID #### [address] [address] Potassium [Moles/Vol] 4.7 mmol/L Normal 3.5-5.1 [facility] ([place]) Comment on above: Performed By: #### P SA, TSH, ADIFF, ANEU, FT4, CMP, CBC, GFR, LIPID #### [address] [address] Sodium [Moles/Vol] 140 mmol/L Normal 136-145 [facility] ([place]) Comment on above: Performed By: #### P SA, TSH, ADIFF, ANEU, FT4, CMP, CBC, GFR, LIPID #### [address] [id number] [place], [place] [address] Urea nitrogen [Mass/Vol] 14 mg/dL Normal 7-18 [facility] ([place] Comment on above: Performed By: #### P SA, TSH, ADIFF, ANEU, FT4, CMP, CBC, GFR, LIPID #### [id number] [place], [place] [address] LABORATORYOrdered By: SYSTEM SYSTEM on 10-17-2023 Calcium [Mass/Vol] 9.0 mg/dL Normal 8.4 - 10. 2 mg/dL AO ADM SS Chloride [Moles/Vol] 102 mmol/L Normal 98 - 10 7 mmol/L AO ADM SS CO2 [Moles/Vol] 29 mmol/L Normal 23 - 31 mmol/L AO AD M SS Creatinine [Mass/Vol] 1.01 mg/dL Normal 0.70 - 1.30 mg/dL AO ADM SS Electrolyte Balance 9.0 mEq/L Normal 4.0 - 15 .0 mEq/L AO ADM SS GFR/1.73 sq M.predicted among blacks MDRD (S/P/Bld) [Vol rate/Area] 88 ml/min/1.73sqm Invalid Interpretation Code AO Chemistry S Comment on above: Interpretive Data: GFR Population mean for , Non- Americans Ages 20-29 = 116 mL/min/1.73 sq.m. Ages 30-39 = 107 mL/min/1.73 sq.m. Ages 40-49 = 99 mL/min/1.73 sq.m. Ages 50-59 = 93 mL/min/1.73 sq.m. Ages 60-69 = 85 mL/min/1.73 sq.m. Ages 70+ = 75 mL/min/1.73 sq.m. Chronic Kidney Disease: Less than 60 mL/min/1.73 square meters End Stage Renal Disease: Less than 15 mL/min/1.73 square meters GFR/1.73 sq M.predicted among non-blacks MDRD (S/P/Bld) [Vol rate/Area] 72 ml/min/1.73sqm Invalid Interpretation Code AO Chemistry S Comment on above: Interpretive Data: GFR Population mean for , Non- Americans Ages 20-29 = 116 mL/min/1.73 sq.m. Ages 30-39 = 107 mL/min/1.73 sq.m. Ages 40-49 = 99 mL/min/1.73 sq.m. Ages 50-59 = 93 mL/min/1.73 sq.m. Ages 60-69 = 85 mL/min/1.73 sq.m. Ages 70+ = 75 mL/min/1.73 sq.m. Chronic Kidney Disease: Less than 60 mL/min/1.73 square meters End Stage Renal Disease: Less than 15 mL/min/1.73 square meters Glucose [Mass/Vol] 102 mg/dL Normal 83 - 110 mg/dL AO ADM SS Potassium [Moles/Vol] 4.7 mmol/L Normal 3.5 - 5.1 mmol/L AO ADM SS Sodium [Moles/Vol] 140 mmol/L Normal 136 - 145 mmol/L AO ADM SS Urea nitrogen [Mass/Vol] 14 mg/dL Normal 7 - 18 mg/dL AO ADM SS Urea nitrogen/Creatinine [Mass ratio] 14 ratio Normal 7 - 27 ratio AO ADM SS .Auto Diffon 10-04-2023 Basophil, Absolute 0.0 10 3/mcL Normal 0.0-0.2 [facility] ([place]) Comment on above: Performed By: #### P SA, TSH, ADIFF, ANEU, FT4, CMP, CBC, GFR, LIPID #### [address] [address] Basophils/100 WBC (Bld) 0.5 % Normal 0.0-2.5 [facility] ([place] Comment on above: Performed By: #### P SA, TSH, ADIFF, ANEU, FT4, CMP, CBC, GFR, LIPID #### [address] [address] Eosinophil, Absolute 0.4 10 3/mcL Normal 0.0-0.4 [facility] ([place]) Comment on above: Performed By: #### P SA, TSH, ADIFF, ANEU, FT4, CMP, CBC, GFR, LIPID #### [address] [address] Eosinophils/100 WBC (Bld) 4.3 % Normal 0.0-7.0 [facility] ([place]) Comment on above: Performed By: #### P SA, TSH, ADIFF, ANEU, FT4, CMP, CBC, GFR, LIPID #### [address] [address] Lymphocyte, Absolute 1.8 10 3/mcL Normal 0.8-3.9 [facility] ([place]) Comment on above: Performed By: #### P SA, TSH, ADIFF, ANEU, FT4, CMP, CBC, GFR, LIPID #### [address] [address] Lymphocytes/100 WBC (Bld) 20.3 % Normal 10.0-50.0 [facility] ([place] Comment on above: Performed By: #### P SA, TSH, ADIFF, ANEU, FT4, CMP, CBC, GFR, LIPID #### [address] [address] Monocyte, Absolute 1.6 10 3/mcL High 0.2-1.0 [facility] ([place]) Comment on above: Performed By: #### P SA, TSH, ADIFF, ANEU, FT4, CMP, CBC, GFR, LIPID #### [address] [address] Monocytes/100 WBC (Bld) 18.4 % High 1.7-13.0 [facility] ([place]) Comment on above: Performed By: #### P SA, TSH, ADIFF, ANEU, FT4, CMP, CBC, GFR, LIPID #### [address] [address] Neutrophils/100 WBC (Bld) 56.5 % Normal 37.0-80.0 [facility] ([place] Comment on above: Performed By: #### P SA, TSH, ADIFF, ANEU, FT4, CMP, CBC, GFR, LIPID #### [address] [address] .GFRon 10-04-2023 GFR Non- 68 ml/min/1.73sqm Normal [facility] ([place] Comment on above: Result Comment: GFR Population mean for , Non- Americans Ages 20-29 = 116 mL/min/1.73 sq.m. Ages 30-39 = 107 mL/min/1.73 sq.m. Ages 40-49 = 99 mL/min/1.73 sq.m. Ages 50-59 = 93 mL/min/1.73 sq.m. Ages 60-69 = 85 mL/min/1.73 sq.m. Ages 70+ = 75 mL/min/1.73 sq.m. Chronic Kidney Disease: Less than 60 mL/min/1.73 square meters End Stage Renal Disease: Less than 15 mL/min/1.73 square meters Performed By: #### P SA, TSH, ADIFF, ANEU, FT4, CMP, CBC, GFR, LIPID #### [address] [address] GFR 83 ml/min/1.73sqm Normal [facility] ([place] Comment on above: Result Comment: GFR Population mean for , Non- Americans Ages 20-29 = 116 mL/min/1.73 sq.m. Ages 30-39 = 107 mL/min/1.73 sq.m. Ages 40-49 = 99 mL/min/1.73 sq.m. Ages 50-59 = 93 mL/min/1.73 sq.m. Ages 60-69 = 85 mL/min/1.73 sq.m. Ages 70+ = 75 mL/min/1.73 sq.m. Chronic Kidney Disease: Less than 60 mL/min/1.73 square meters End Stage Renal Disease: Less than 15 mL/min/1.73 square meters Performed By: #### P SA, TSH, ADIFF, ANEU, FT4, CMP, CBC, GFR, LIPID #### [address] [id number] .NEUABSon 10-04-2023 Neutrophil, Absolute 4.9 10 3/mcL Normal 2.9-6.2 [facility] ([place]) Comment on above: Performed By: #### P SA, TSH, ADIFF, ANEU, FT4, CMP, CBC, GFR, LIPID #### [address] [address] CBCon 10-04-2023 Erythrocyte distribution width (RBC) [Ratio] 13.5 % Normal 11.5-14.5 [facility] ([place] Comment on above: Performed By: #### P SA, TSH, ADIFF, ANEU, FT4, CMP, CBC, GFR, LIPID #### [place] [id number] Hematocrit (Bld) [Volume fraction] 47.0 % Normal 42.0-52.0 [facility] ([place] Comment on above: Performed By: #### P SA, TSH, ADIFF, ANEU, FT4, CMP, CBC, GFR, LIPID #### [place] [id number] Hgb 16.1 G/dL Normal 14.0-18.0 [facility] ([place] Comment on above: Performed By: #### P SA, TSH, ADIFF, ANEU, FT4, CMP, CBC, GFR, LIPID #### [place] [id number] MCH (RBC) [Entitic mass] 29.9 pg Normal 27.0-31.2 [facility] ([place] Comment on above: Performed By: #### P SA, TSH, ADIFF, ANEU, FT4, CMP, CBC, GFR, LIPID #### [place] [id number] MCHC 34.2 G/dL Normal 31.8-35.4 [facility] ([place] Comment on above: Performed By: #### P SA, TSH, ADIFF, ANEU, FT4, CMP, CBC, GFR, LIPID #### [place] [id number] MCV (RBC) [Entitic vol] 87.5 fL Normal 80.0-94.0 [facility] ([place] Comment on above: Performed By: #### P SA, TSH, ADIFF, ANEU, FT4, CMP, CBC, GFR, LIPID #### [place] [address] Platelet 287 10 3/mcL Normal 130-400 [facility] [place] Comment on above: Performed By: #### P SA, TSH, ADIFF, ANEU, FT4, CMP, CBC, GFR, LIPID #### [address] [address] Platelet mean volume (Bld) [Entitic vol] 7.4 fL Normal 7.4-10.4 [facility] [place] Comment on above: Performed By: #### P SA, TSH, ADIFF, ANEU, FT4, CMP, CBC, GFR, LIPID #### [address] [address] RBC 5.37 10 6/mcL Normal 4.04-6.13 [facility] ([place] Comment on above: Performed By: #### P SA, TSH, ADIFF, ANEU, FT4, CMP, CBC, GFR, LIPID #### [address] [address] WBC 8.7 10 3/mcL Normal 4.6-10.8 [facility] ([place] Comment on above: Performed By: #### P SA, TSH, ADIFF, ANEU, FT4, CMP, CBC, GFR, LIPID #### [address] [address] CMPon 10-04-2023 Albumin Level 3.7 G/dL Normal 3.4-4.8 [facility]) Comment on above: Performed By: #### P SA, TSH, ADIFF, ANEU, FT4, CMP, CBC, GFR, LIPID #### [address] [address] Albumin/Globulin [Mass ratio] 1.2 {ratio} Normal 1.1-2.5 [facility]) Comment on above: Performed By: #### P SA, TSH, ADIFF, ANEU, FT4, CMP, CBC, GFR, LIPID #### [address] [address] ALP [Catalytic activity/Vol] 77 U/L Normal 40-135 [facility] [place] Comment on above: Performed By: #### P SA, TSH, ADIFF, ANEU, FT4, CMP, CBC, GFR, LIPID #### [address] [address] ALT [Catalytic activity/Vol] 38 U/L Normal 16-63 [facility] [place] Comment on above: Performed By: #### P SA, TSH, ADIFF, ANEU, FT4, CMP, CBC, GFR, LIPID #### [address] [address] AST [Catalytic activity/Vol] 21 U/L Normal 10-40 [facility] [place] Comment on above: Performed By: #### P SA, TSH, ADIFF, ANEU, FT4, CMP, CBC, GFR, LIPID #### [address] [address] Bili Total 0.6 mg/dL Normal 0.2-1.0 [facility] [place] Comment on above: Result Comment: Use of this assay is not recommended for patients undergoing treatment with eltrombopag due to the potential for falsely elevated results. Performed By: #### P SA, TSH, ADIFF, ANEU, FT4, CMP, CBC, GFR, LIPID #### [address] [address] BUN/Creatinine Ratio 17 ratio Normal 7-27 [facility] ([place]) Comment on above: Performed By: #### P SA, TSH, ADIFF, ANEU, FT4, CMP, CBC, GFR, LIPID #### [address] [address] Calcium [Mass/Vol] 8.9 mg/dL Normal 8.4-10.2 [facility] ([place]) Comment on above: Performed By: #### P SA, TSH, ADIFF, ANEU, FT4, CMP, CBC, GFR, LIPID #### [address] [address] Chloride [Moles/Vol] 96 mmol/L Low 98-107 [facility] ([place]) Comment on above: Performed By: #### P SA, TSH, ADIFF, ANEU, FT4, CMP, CBC, GFR, LIPID #### [address] [address] CO2 [Moles/Vol] 28 mmol/L Normal 23-31 [facility] [place] Comment on above: Performed By: #### P SA, TSH, ADIFF, ANEU, FT4, CMP, CBC, GFR, LIPID #### [address] [address] Creatinine [Mass/Vol] 1.06 mg/dL Normal 0.70-1.30 [facility] ([place]) Comment on above: Performed By: #### P SA, TSH, ADIFF, ANEU, FT4, CMP, CBC, GFR, LIPID #### [address] [address] Electrolyte Balance 1.0 mEq/L Low 4.0-15.0 [facility] ([place] Comment on above: Performed By: #### P SA, TSH, ADIFF, ANEU, FT4, CMP, CBC, GFR, LIPID #### [address] [address] Globulin 3.0 G/dL Normal [facility] [place] Comment on above: Performed By: #### P SA, TSH, ADIFF, ANEU, FT4, CMP, CBC, GFR, LIPID #### [address] [address] Glucose [Mass/Vol] 86 mg/dL Normal 83-110 [facility] ([place]) Comment on above: Performed By: #### P SA, TSH, ADIFF, ANEU, FT4, CMP, CBC, GFR, LIPID #### [address] [address] Potassium [Moles/Vol] 4.3 mmol/L Normal 3.5-5.1 [facility] ([place] Comment on above: Performed By: #### P SA, TSH, ADIFF, ANEU, FT4, CMP, CBC, GFR, LIPID #### [address] [address] Sodium [Moles/Vol] 125 mmol/L Low 136-145 [facility] ([place]) Comment on above: Performed By: #### P SA, TSH, ADIFF, ANEU, FT4, CMP, CBC, GFR, LIPID #### [address] [address] Total Protein 6.7 G/dL Normal 6.4-8.2 [facility] [place] Comment on above: Performed By: #### P SA, TSH, ADIFF, ANEU, FT4, CMP, CBC, GFR, LIPID #### [address] [address] Urea nitrogen [Mass/Vol] 18 mg/dL Normal 7-18 [facility] [place] Comment on above: Performed By: #### P SA, TSH, ADIFF, ANEU, FT4, CMP, CBC, GFR, LIPID #### [address] [address] FT4on 10-04-2023 Free T4 [Mass/Vol] 1.16 ng/dL Normal 0.76-1.46 [facility] ([place]) Comment on above: Performed By: #### P SA, TSH, ADIFF, ANEU, FT4, CMP, CBC, GFR, LIPID #### [address] [address] LABORATORYOrdered By: SYSTEM SYSTEM on 10-04-2023 Albumin BCP dye [Mass/Vol] 3.7 G/dL Normal 3.4 - 4.8 G/dL AO ADM SS Albumin/Globulin [Mass ratio] 1.2 {ratio} Normal 1.1 - 2.5 ratio AO ADM SS ALP [Catalytic activity/Vol] 77 U/L Normal 40 - 135 U/L AO ADM SS ALT With P-5'-P [Catalytic activity/Vol] 38 U/L Normal 16 - 63 U/L AO ADM SS AST With P-5'-P [Catalytic activity/Vol] 21 U/L Normal 10 - 40 U/L AO ADM SS Basophil, Absolute 0.0 103/mcL Normal 0.0 - 0.2 10^3/mcL AO Workflow SS Basophils/100 WBC (Bld) 0.5 % Normal 0.0 - 2.5 % AO Workflow SS Bilirubin [Mass/Vol] 0.6 mg/dL Normal 0.2 - 1 .0 mg/dL AO ADM SS Comment on above: Interpretive Data: U se of this assay is not recommended for patients undergoing treatment with eltrombopag due to the potential for falsely elevated results. Calcium [Mass/Vol] 8.9 mg/dL Normal 8.4 - 10. 2 mg/dL AO ADM SS Chloride [Moles/Vol] 96 mmol/L Low 98 - 10 7 mmol/L AO ADM SS CO2 [Moles/Vol] 28 mmol/L Normal 23 - 31 mmol/L AO AD M SS Creatinine [Mass/Vol] 1.06 mg/dL Normal 0.70 - 1.30 mg/dL AO ADM SS Electrolyte Balance 1.0 mEq/L Low 4.0 - 15 .0 mEq/L AO ADM SS Eosinophil, Absolute 0.4 103/mcL Normal 0.0 - 0 .4 10^3/mcL AO Workflow SS Eosinophils/100 WBC (Bld) 4.3 % Normal 0.0 - 7.0 % AO Workflow SS Erythrocyte distribution width (RBC) [Ratio] 13.5 % Normal 11.5 - 14.5 % AO Workflow SS Free T4 [Mass/Vol] 1.16 ng/dL Normal 0.76 - 1. 46 ng/dL AO ADM SS GFR/1.73 sq M.predicted among blacks MDRD (S/P/Bld) [Vol rate/Area] 83 ml/min/1.73sqm Invalid Interpretation Code AO Chemistry S Comment on above: Interpretive Data: GFR Population mean for , Non- Americans Ages 20-29 = 116 mL/min/1.73 sq.m. Ages 30-39 = 107 mL/min/1.73 sq.m. Ages 40-49 = 99 mL/min/1.73 sq.m. Ages 50-59 = 93 mL/min/1.73 sq.m. Ages 60-69 = 85 mL/min/1.73 sq.m. Ages 70+ = 75 mL/min/1.73 sq.m. Chronic Kidney Disease: Less than 60 mL/min/1.73 square meters End Stage Renal Disease: Less than 15 mL/min/1.73 square meters GFR/1.73 sq M.predicted among non-blacks MDRD (S/P/Bld) [Vol rate/Area] 68 ml/min/1.73sqm Invalid Interpretation Code AO Chemistry S Comment on above: Interpretive Data: GFR Population mean for , Non- Americans Ages 20-29 = 116 mL/min/1.73 sq.m. Ages 30-39 = 107 mL/min/1.73 sq.m. Ages 40-49 = 99 mL/min/1.73 sq.m. Ages 50-59 = 93 mL/min/1.73 sq.m. Ages 60-69 = 85 mL/min/1.73 sq.m. Ages 70+ = 75 mL/min/1.73 sq.m. Chronic Kidney Disease: Less than 60 mL/min/1.73 square meters End Stage Renal Disease: Less than 15 mL/min/1.73 square meters Globulin 3.0 G/dL Invalid Interpretation Code AO ADM SS Glucose [Mass/Vol] 86 mg/dL Normal 83 - 110 mg/dL AO ADM SS Hematocrit (Bld) [Volume fraction] 47.0 % Normal 42.0 - 52.0 % AO Workflow SS Hemoglobin (Bld) [Mass/Vol] 16.1 G/dL Normal 14.0 - 18.0 G/dL AO Workflow SS Lymphocyte, Absolute 1.8 103/mcL Normal 0.8 - 3 .9 10^3/mcL AO Workflow SS Lymphocytes/100 WBC (Bld) 20.3 % Normal 10.0 - 50.0 % AO Workflow SS MCH (RBC) [Entitic mass] 29.9 pg Normal 27.0 - 31.2 pg AO Workflow SS MCHC 34.2 G/dL Normal 31.8 - 35.4 G/dL AO Workflow SS MCV (RBC) [Entitic vol] 87.5 fL Normal 80.0 - 94.0 fL AO Workflow SS Monocyte, Absolute 1.6 103/mcL High 0.2 - 1.0 10^3/mcL AO Workflow SS Monocytes/100 WBC (Bld) 18.4 % High 1.7 - 13.0 % AO Workflow SS Neutrophil, Absolute 4.9 103/mcL Normal 2.9 - 6 .2 10^3/mcL AO Workflow SS Neutrophils/100 WBC (Bld) 56.5 % Normal 37.0 - 80.0 % AO Workflow SS Platelet mean volume (Bld) [Entitic vol] 7.4 fL Normal 7.4 - 10.4 fL AO Workflow SS Platelets (Bld) [#/Vol] 287 103/mcL Normal 130 - 400 10^3/mcL AO Workflow SS Potassium [Moles/Vol] 4.3 mmol/L Normal 3.5 - 5.1 mmol/L AO ADM SS Prostate specific Ag [Mass/Vol] 1.04 ng/mL Normal 0.00 - 4.00 ng/mL AO ADM SS Protein [Mass/Vol] 6.7 G/dL Normal 6.4 - 8.2 G/dL AO ADM SS RBC (Bld) [#/Vol] 5.37 106/mcL Normal 4.04 - 6.1 3 10^6/mcL AO Workflow SS Sodium [Moles/Vol] 125 mmol/L Low 136 - 145 mmol/L AO ADM SS TSH Qn 1.64 m[IU]/L Normal 0.36 - 3.74 mcIU/mL AO ADM SS Urea nitrogen [Mass/Vol] 18 mg/dL Normal 7 - 18 mg/dL AO ADM SS Urea nitrogen/Creatinine [Mass ratio] 17 ratio Normal 7 - 27 ratio AO ADM SS WBC (Bld) [#/Vol] 8.7 103/mcL Normal 4.6 - 10.8 10^3/mcL AO Workflow SS LABORATORYOrdered By: Rosa Rawls on 10-04-2023 Cholesterol [Mass/Vol] 159 mg/dL Normal 0 - 200 mg/dL AO ADM SS Comment on above: Interpretive Data: C holesterol Reference Interval: Less than 200 Desirable 200-239 Borderline high risk 240 and above High risk Cholesterol in HDL [Mass/Vol] 34 mg/dL Low 40 - 60 mg/dL AO ADM SS Cholesterol in LDL [Mass/Vol] 103 mg/dL Normal 0 - 130 mg/dL AO ADM SS Triglyceride [Mass/Vol] 108 mg/dL Normal 0 - 150 mg/dL AO ADM SS Comment on above: Interpretive Data: T riglyceride Reference Interval: Less than 150 Normal 150-199 Borderline high risk 200-499 High risk 500 or higher Very high risk LIPIDon 10-04-2023 Cholesterol [Mass/Vol] 159 mg/dL Normal 0-200 [facility] [place] Comment on above: Result Comment: Chol esterol Reference Interval: Less than 200 Desirable 200-239 Borderline high risk 240 and above High risk Performed By: #### P SA, TSH, ADIFF, ANEU, FT4, CMP, CBC, GFR, LIPID #### [address] [address] Cholesterol in HDL [Mass/Vol] 34 mg/dL Low 40-60 [facility] [place] Comment on above: Performed By: #### P SA, TSH, ADIFF, ANEU, FT4, CMP, CBC, GFR, LIPID #### [place] [id number] Cholesterol in LDL [Mass/Vol] 103 mg/dL Normal 0-130 [facility] [place] Comment on above: Performed By: #### P SA, TSH, ADIFF, ANEU, FT4, CMP, CBC, GFR, LIPID #### [place] [address] Triglyceride [Mass/Vol] 108 mg/dL Normal 0-150 [facility] [place] Comment on above: Result Comment: Trig lyceride Reference Interval: Less than 150 Normal 150-199 Borderline high risk 200-499 High risk 500 or higher Very high risk Performed By: #### P SA, TSH, ADIFF, ANEU, FT4, CMP, CBC, GFR, LIPID #### [place] [id number] PSAon 10-04-2023 Prostate Specific Antigen 1.04 ng/mL Normal 0.00-4.00 [facility] [place] Comment on above: Performed By: #### P SA, TSH, ADIFF, ANEU, FT4, CMP, CBC, GFR, LIPID #### [address] [address] TSHon 10-04-2023 TSH Qn 1.64 m[IU]/L Normal 0.36-3.74 [facility] [place] Comment on above: Performed By: #### P SA, TSH, ADIFF, ANEU, FT4, CMP, CBC, GFR, LIPID #### [address] [id number] .Auto Diffon 04-11-2023 Basophil, Absolute 0.1 10 3/mcL Normal 0.0-0.2 [facility] ([place]) Comment on above: Performed By: #### P SA, TSH, ADIFF, ANEU, FT4, CMP, CBC, GFR, LIPID #### [address] [address] Basophils/100 WBC (Bld) 0.8 % Normal 0.0-2.5 [facility] [place] Comment on above: Performed By: #### P SA, TSH, ADIFF, ANEU, FT4, CMP, CBC, GFR, LIPID #### [address] [address] Eosinophil, Absolute 0.4 10 3/mcL Normal 0.0-0.4 [facility] ([place] Comment on above: Performed By: #### P SA, TSH, ADIFF, ANEU, FT4, CMP, CBC, GFR, LIPID #### [address] [address] Eosinophils/100 WBC (Bld) 5.4 % Normal 0.0-7.0 [facility] [place] Comment on above: Performed By: #### P SA, TSH, ADIFF, ANEU, FT4, CMP, CBC, GFR, LIPID #### [address] [address] Lymphocyte, Absolute 2.0 10 3/mcL Normal 0.8-3.9 [facility] ([place] Comment on above: Performed By: #### P SA, TSH, ADIFF, ANEU, FT4, CMP, CBC, GFR, LIPID #### [address] [address] Lymphocytes/100 WBC (Bld) 27.6 % Normal 10.0-50.0 [facility] [place] Comment on above: Performed By: #### P SA, TSH, ADIFF, ANEU, FT4, CMP, CBC, GFR, LIPID #### [address] [address] Monocyte, Absolute 1.0 10 3/mcL Normal 0.2-1.0 [facility] ([place]) Comment on above: Performed By: #### P SA, TSH, ADIFF, ANEU, FT4, CMP, CBC, GFR, LIPID #### [address] [address] Monocytes/100 WBC (Bld) 14.1 % High 1.7-13.0 [facility] [place] Comment on above: Performed By: #### P SA, TSH, ADIFF, ANEU, FT4, CMP, CBC, GFR, LIPID #### [address] [address] Neutrophils/100 WBC (Bld) 52.1 % Normal 37.0-80.0 [facility] [place] Comment on above: Performed By: #### P SA, TSH, ADIFF, ANEU, FT4, CMP, CBC, GFR, LIPID #### [address] [address] .GFRon 04-11-2023 GFR Non- 73 ml/min/1.73sqm Normal [facility] [place] Comment on above: Result Comment: GFR Population mean for , Non- Americans Ages 20-29 = 116 mL/min/1.73 sq.m. Ages 30-39 = 107 mL/min/1.73 sq.m. Ages 40-49 = 99 mL/min/1.73 sq.m. Ages 50-59 = 93 mL/min/1.73 sq.m. Ages 60-69 = 85 mL/min/1.73 sq.m. Ages 70+ = 75 mL/min/1.73 sq.m. Chronic Kidney Disease: Less than 60 mL/min/1.73 square meters End Stage Renal Disease: Less than 15 mL/min/1.73 square meters Performed By: #### P SA, TSH, ADIFF, ANEU, FT4, CMP, CBC, GFR, LIPID #### [address] [address] GFR 89 ml/min/1.73sqm Normal [facility] [place] Comment on above: Result Comment: GFR Population mean for , Non- Americans Ages 20-29 = 116 mL/min/1.73 sq.m. Ages 30-39 = 107 mL/min/1.73 sq.m. Ages 40-49 = 99 mL/min/1.73 sq.m. Ages 50-59 = 93 mL/min/1.73 sq.m. Ages 60-69 = 85 mL/min/1.73 sq.m. Ages 70+ = 75 mL/min/1.73 sq.m. Chronic Kidney Disease: Less than 60 mL/min/1.73 square meters End Stage Renal Disease: Less than 15 mL/min/1.73 square meters Performed By: #### P SA, TSH, ADIFF, ANEU, FT4, CMP, CBC, GFR, LIPID #### [address] [id number] .NEUABSon 04-11-2023 Neutrophil, Absolute 3.8 10 3/mcL Normal 2.9-6.2 [facility] ([place] Comment on above: Performed By: #### P SA, TSH, ADIFF, ANEU, FT4, CMP, CBC, GFR, LIPID #### [place] [id number] CBCon 04-11-2023 Erythrocyte distribution width (RBC) [Ratio] 14.2 % Normal 11.5-14.5 [facility] [place] Comment on above: Performed By: #### A DANNA, ADIFF, LIPID, CMP, CBC, GFR #### [address] [address] Hematocrit (Bld) [Volume fraction] 47.9 % Normal 42.0-52.0 [facility] [place] Comment on above: Performed By: #### A DANNA, ADIFF, LIPID, CMP, CBC, GFR #### [address] [address] Hgb 16.6 G/dL Normal 14.0-18.0 [facility] [place] Comment on above: Performed By: #### A DANNA, ADIFF, LIPID, CMP, CBC, GFR #### [address] [address] MCH (RBC) [Entitic mass] 30.9 pg Normal 27.0-31.2 [facility] [place] Comment on above: Performed By: #### A DANNA, ADIFF, LIPID, CMP, CBC, GFR #### [address] [address] MCHC 34.8 G/dL Normal 31.8-35.4 [facility] [place] Comment on above: Performed By: #### A DANNA, ADIFF, LIPID, CMP, CBC, GFR #### [address] [address] MCV (RBC) [Entitic vol] 89.0 fL Normal 80.0-94.0 [facility] [place] Comment on above: Performed By: #### A DANNA, ADIFF, LIPID, CMP, CBC, GFR #### [address] [address] Platelet 254 10 3/mcL Normal 130-400 [facility] [place] Comment on above: Performed By: #### A DANNA, ADIFF, LIPID, CMP, CBC, GFR #### [address] [address] Platelet mean volume (Bld) [Entitic vol] 7.3 fL Low 7.4-10.4 [facility] [place] Comment on above: Performed By: #### A DANNA, ADIFF, LIPID, CMP, CBC, GFR #### Nathanael [address] [address] RBC 5.38 10 6/mcL Normal 4.04-6.13 [facility] [place] Comment on above: Performed By: #### A DANNA, ADIFF, LIPID, CMP, CBC, GFR #### [address] [address] WBC 7.2 10 3/mcL Normal 4.6-10.8 [facility] [place] Comment on above: Performed By: #### A DANNA, ADIFF, LIPID, CMP, CBC, GFR #### [address] [address] CMPon 04-11-2023 Albumin Level 4.1 G/dL Normal 3.4-4.8 [facility] [place] Comment on above: Performed By: #### P SA, TSH, ADIFF, ANEU, FT4, CMP, CBC, GFR, LIPID #### [address] [address] Albumin/Globulin [Mass ratio] 1.6 {ratio} Normal 1.1-2.5 [facility] [place] Comment on above: Performed By: #### P SA, TSH, ADIFF, ANEU, FT4, CMP, CBC, GFR, LIPID #### [address] [address] ALP [Catalytic activity/Vol] 76 U/L Normal 40-135 [facility] [place] Comment on above: Performed By: #### P SA, TSH, ADIFF, ANEU, FT4, CMP, CBC, GFR, LIPID #### [address] [address] ALT [Catalytic activity/Vol] 55 U/L Normal 16-63 [facility] [place] Comment on above: Performed By: #### P SA, TSH, ADIFF, ANEU, FT4, CMP, CBC, GFR, LIPID #### [address] [address] AST [Catalytic activity/Vol] 26 U/L Normal 10-40 [facility] [place] Comment on above: Performed By: #### P SA, TSH, ADIFF, ANEU, FT4, CMP, CBC, GFR, LIPID #### [address] [address] Bili Total 0.6 mg/dL Normal 0.2-1.0 [facility] [place] Comment on above: Result Comment: Use of this assay is not recommended for patients undergoing treatment with eltrombopag due to the potential for falsely elevated results. Performed By: #### P SA, TSH, ADIFF, ANEU, FT4, CMP, CBC, GFR, LIPID #### [address] [address] BUN/Creatinine Ratio 16 ratio Normal 7-27 [facility] ([place]) Comment on above: Performed By: #### P SA, TSH, ADIFF, ANEU, FT4, CMP, CBC, GFR, LIPID #### [address] [address] Calcium [Mass/Vol] 9.0 mg/dL Normal 8.4-10.2 [facility] ([place]) Comment on above: Performed By: #### P SA, TSH, ADIFF, ANEU, FT4, CMP, CBC, GFR, LIPID #### [address] [address] Chloride [Moles/Vol] 100 mmol/L Normal 98-107 [facility] ([place]) Comment on above: Performed By: #### P SA, TSH, ADIFF, ANEU, FT4, CMP, CBC, GFR, LIPID #### [place] [address] CO2 [Moles/Vol] 28 mmol/L Normal 23-31 [facility] [place] Comment on above: Performed By: #### P SA, TSH, ADIFF, ANEU, FT4, CMP, CBC, GFR, LIPID #### [place] [address] Creatinine [Mass/Vol] 1.00 mg/dL Normal 0.70-1.30 [facility] ([place]) Comment on above: Performed By: #### P SA, TSH, ADIFF, ANEU, FT4, CMP, CBC, GFR, LIPID #### [address] [address] Electrolyte Balance 11.0 mEq/L Normal 4.0-15.0 [facility] ([place] Comment on above: Performed By: #### P SA, TSH, ADIFF, ANEU, FT4, CMP, CBC, GFR, LIPID #### [address] [address] Globulin 2.5 G/dL Normal [facility] [place] Comment on above: Performed By: #### P SA, TSH, ADIFF, ANEU, FT4, CMP, CBC, GFR, LIPID #### [address] [address] Glucose [Mass/Vol] 101 mg/dL Normal 83-110 [facility] ([place]) Comment on above: Performed By: #### P SA, TSH, ADIFF, ANEU, FT4, CMP, CBC, GFR, LIPID #### [address] [address] Potassium [Moles/Vol] 4.3 mmol/L Normal 3.5-5.1 [facility] ([place] Comment on above: Performed By: #### P SA, TSH, ADIFF, ANEU, FT4, CMP, CBC, GFR, LIPID #### [address] [address] Sodium [Moles/Vol] 139 mmol/L Normal 136-145 [facility] ([place]) Comment on above: Performed By: #### P SA, TSH, ADIFF, ANEU, FT4, CMP, CBC, GFR, LIPID #### [address] [address] Total Protein 6.6 G/dL Normal 6.4-8.2 [facility]) Comment on above: Performed By: #### P SA, TSH, ADIFF, ANEU, FT4, CMP, CBC, GFR, LIPID #### [address] [address] Urea nitrogen [Mass/Vol] 16 mg/dL Normal 7-18 [facility]) Comment on above: Performed By: #### P SA, TSH, ADIFF, ANEU, FT4, CMP, CBC, GFR, LIPID #### [address] [address] LABORATORYOrdered By: SYSTEM SYSTEM on 04-11-2023 Albumin BCP dye [Mass/Vol] 4.1 G/dL Invalid Interpretation Code 3.4 - 4.8 G/dL AO ADM SS Albumin/Globulin [Mass ratio] 1.6 {ratio} Invalid Interpretation Code 1.1 - 2.5 ratio AO ADM SS ALP [Catalytic activity/Vol] 76 U/L Invalid Interpretation Code 40 - 135 U/L AO ADM SS ALT With P-5'-P [Catalytic activity/Vol] 55 U/L Invalid Interpretation Code 16 - 63 U/L AO ADM SS AST With P-5'-P [Catalytic activity/Vol] 26 U/L Invalid Interpretation Code 10 - 40 U/L AO ADM SS Bilirubin [Mass/Vol] 0.6 mg/dL Invalid Interpretation Code 0.2 - 1.0 mg/dL AO ADM SS Calcium [Mass/Vol] 9.0 mg/dL Invalid Interpretation Code 8.4 - 10.2 mg/dL AO ADM SS Chloride [Moles/Vol] 100 mmol/L Invalid Interpretation Code 98 - 107 mmol/L AO ADM SS CO2 [Moles/Vol] 28 mmol/L Invalid Interpretation Code 23 - 31 mmol/L AO ADM SS Creatinine [Mass/Vol] 1.00 mg/dL Invalid Interpretation Code 0.70 - 1.30 mg/dL AO ADM SS Electrolyte Balance 11.0 mEq/L Invalid Interpretation Code 4.0 - 15.0 mEq/L AO ADM SS GFR/1.73 sq M.predicted among blacks MDRD (S/P/Bld) [Vol rate/Area] 89 ml/min/1.73sqm Invalid Interpretation Code AO Chemistry S GFR/1.73 sq M.predicted among non-blacks MDRD (S/P/Bld) [Vol rate/Area] 73 ml/min/1.73sqm Invalid Interpretation Code AO Chemistry S Globulin 2.5 G/dL Invalid Interpretation Code AO ADM SS Glucose [Mass/Vol] 101 mg/dL Invalid Interpretation Code 83 - 110 mg/dL AO ADM SS Potassium [Moles/Vol] 4.3 mmol/L Invalid Interpretation Code 3.5 - 5.1 mmol/L AO ADM SS Protein [Mass/Vol] 6.6 G/dL Invalid Interpretation Code 6.4 - 8.2 G/dL AO ADM SS Sodium [Moles/Vol] 139 mmol/L Invalid Interpretation Code 136 - 145 mmol/L AO ADM SS Urea nitrogen [Mass/Vol] 16 mg/dL Invalid Interpretation Code 7 - 18 mg/dL AO ADM SS Urea nitrogen/Creatinine [Mass ratio] 16 ratio Invalid Interpretation Code 7 - 27 ratio AO ADM SS LABORATORYOrdered By: Raphael Vicente on 04-11-2023 Basophil, Absolute 0.1 103/mcL Invalid Interpretation Code 0.0 - 0.2 10^3/mcL AO Workflow SS Basophils/100 WBC (Bld) 0.8 % Invalid Interpretation Code 0.0 - 2.5 % AO Workflow SS Eosinophil, Absolute 0.4 103/mcL Invalid Interpretation Code 0.0 - 0.4 10^3/mcL AO Workflow SS Eosinophils/100 WBC (Bld) 5.4 % Invalid Interpretation Code 0.0 - 7.0 % AO Workflow SS Erythrocyte distribution width (RBC) [Ratio] 14.2 % Invalid Interpretation Code 11.5 - 14.5 % AO Workflow SS Hematocrit (Bld) [Volume fraction] 47.9 % Invalid Interpretation Code 42.0 - 52.0 % AO Workflow SS Hemoglobin (Bld) [Mass/Vol] 16.6 G/dL Invalid Interpretation Code 14.0 - 18.0 G/dL AO Workflow SS Lymphocyte, Absolute 2.0 103/mcL Invalid Interpretation Code 0.8 - 3.9 10^3/mcL AO Workflow SS Lymphocytes/100 WBC (Bld) 27.6 % Invalid Interpretation Code 10.0 - 50.0 % AO Workflow SS MCH (RBC) [Entitic mass] 30.9 pg Invalid Interpretation Code 27.0 - 31.2 pg AO Workflow SS MCHC 34.8 G/dL Invalid Interpretation Code 31.8 - 35.4 G/dL AO Workflow SS MCV (RBC) [Entitic vol] 89.0 fL Invalid Interpretation Code 80.0 - 94.0 fL AO Workflow SS Monocyte, Absolute 1.0 103/mcL Invalid Interpretation Code 0.2 - 1.0 10^3/mcL AO Workflow SS Monocytes/100 WBC (Bld) 14.1 % Invalid Interpretation Code 1.7 - 13.0 % AO Workflow SS Neutrophil, Absolute 3.8 103/mcL Invalid Interpretation Code 2.9 - 6.2 10^3/mcL AO Workflow SS Neutrophils/100 WBC (Bld) 52.1 % Invalid Interpretation Code 37.0 - 80.0 % AO Workflow SS Platelet mean volume (Bld) [Entitic vol] 7.3 fL Invalid Interpretation Code 7.4 - 10.4 fL AO Workflow SS Platelets (Bld) [#/Vol] 254 103/mcL Invalid Interpretation Code 130 - 400 10^3/mcL AO Workflow SS RBC (Bld) [#/Vol] 5.38 106/mcL Invalid Interpretation Code 4.04 - 6.13 10^6/mcL AO Workflow SS WBC (Bld) [#/Vol] 7.2 103/mcL Invalid Interpretation Code 4.6 - 10.8 10^3/mcL AO Workflow SS LABORATORYOrdered By: Janelle Ferro on 04-11-2023 Cholesterol [Mass/Vol] 148 mg/dL Invalid Interpretation Code 0 - 200 mg/dL AO ADM SS Cholesterol in HDL [Mass/Vol] 37 mg/dL Invalid Interpretation Code 40 - 60 mg/dL AO ADM SS Cholesterol in LDL [Mass/Vol] 86 mg/dL Invalid Interpretation Code 0 - 130 mg/dL AO ADM SS Triglyceride [Mass/Vol] 124 mg/dL Invalid Interpretation Code 0 - 150 mg/dL AO ADM SS LIPIDon 04-11-2023 Cholesterol [Mass/Vol] 148 mg/dL Normal 0-200 [facility] [place] Comment on above: Result Comment: Chol esterol Reference Interval: Less than 200 Desirable 200-239 Borderline high risk 240 and above High risk Performed By: #### P SA, TSH, ADIFF, ANEU, FT4, CMP, CBC, GFR, LIPID #### [address] [address] Cholesterol in HDL [Mass/Vol] 37 mg/dL Low 40-60 [facility] Comment on above: Performed By: #### P SA, TSH, ADIFF, ANEU, FT4, CMP, CBC, GFR, LIPID #### [address] [address] Cholesterol in LDL [Mass/Vol] 86 mg/dL Normal 0-130 [facility] [place] Comment on above: Performed By: #### P SA, TSH, ADIFF, ANEU, FT4, CMP, CBC, GFR, LIPID #### [address] [address] Triglyceride [Mass/Vol] 124 mg/dL Normal 0-150 [facility] Comment on above: Result Comment: Trig lyceride Reference Interval: Less than 150 Normal 150-199 Borderline high risk 200-499 High risk 500 or higher Very high risk Performed By: #### P SA, TSH, ADIFF, ANEU, FT4, CMP, CBC, GFR, LIPID #### [address] [address] LABORATORYOrdered By: SYSTEM SYSTEM on 11-08-2022 Albumin BCP dye [Mass/Vol] 4.3 G/dL Invalid Interpretation Code 3.4 - 4.8 G/dL AO ADM SS Albumin/Globulin [Mass ratio] 1.4 {ratio} Invalid Interpretation Code 1.1 - 2.5 ratio AO ADM SS ALP [Catalytic activity/Vol] 76 U/L Invalid Interpretation Code 40 - 135 U/L AO ADM SS ALT With P-5'-P [Catalytic activity/Vol] 45 U/L Invalid Interpretation Code 16 - 63 U/L AO ADM SS AST With P-5'-P [Catalytic activity/Vol] 29 U/L Invalid Interpretation Code 10 - 40 U/L AO ADM SS Bilirubin [Mass/Vol] 0.4 mg/dL Invalid Interpretation Code 0.2 - 1.0 mg/dL AO ADM SS Calcium [Mass/Vol] 8.7 mg/dL Invalid Interpretation Code 8.4 - 10.2 mg/dL AO ADM SS Chloride [Moles/Vol] 101 mmol/L Invalid Interpretation Code 98 - 107 mmol/L AO ADM SS CO2 [Moles/Vol] 28 mmol/L Invalid Interpretation Code 23 - 31 mmol/L AO ADM SS Creatinine [Mass/Vol] 0.96 mg/dL Invalid Interpretation Code 0.70 - 1.30 mg/dL AO ADM SS Electrolyte Balance 10.0 mEq/L Invalid Interpretation Code 4.0 - 15.0 mEq/L AO ADM SS Free T4 [Mass/Vol] 1.31 ng/dL Invalid Interpretation Code 0.76 - 1.46 ng/dL AO ADM SS GFR 93 ml/min/1.73sqm Invalid Interpretation Code AO Chemistry S GFR Non- 77 ml/min/1.73sqm Invalid Interpretation Code AO Chemistry S Globulin 3.0 G/dL Invalid Interpretation Code AO ADM SS Glucose [Mass/Vol] 93 mg/dL Invalid Interpretation Code 83 - 110 mg/dL AO ADM SS Potassium [Moles/Vol] 4.6 mmol/L Invalid Interpretation Code 3.5 - 5.1 mmol/L AO ADM SS Prostate specific Ag [Mass/Vol] 1.32 ng/mL Invalid Interpretation Code 0.00 - 4.00 ng/mL AO ADM SS Protein [Mass/Vol] 7.3 G/dL Invalid Interpretation Code 6.4 - 8.2 G/dL AO ADM SS Sodium [Moles/Vol] 139 mmol/L Invalid Interpretation Code 136 - 145 mmol/L AO ADM SS TSH Qn 1.15 m[IU]/L Invalid Interpretation Code 0.36 - 3.74 mcIU/mL AO ADM SS Urea nitrogen [Mass/Vol] 20 mg/dL Invalid Interpretation Code 7 - 18 mg/dL AO ADM SS Urea nitrogen/Creatinine [Mass ratio] 21 ratio Invalid Interpretation Code 7 - 27 ratio AO ADM SS LABORATORYOrdered By: Nu Crockett on 11-08-2022 Basophil, Absolute 0.0 103/mcL Invalid Interpretation Code 0.0 - 0.2 10^3/mcL AO Workflow SS Basophils/100 WBC (Bld) 0.5 % Invalid Interpretation Code 0.0 - 2.5 % AO Workflow SS Eosinophil, Absolute 0.3 103/mcL Invalid Interpretation Code 0.0 - 0.4 10^3/mcL AO Workflow SS Eosinophils/100 WBC (Bld) 6.0 % Invalid Interpretation Code 0.0 - 7.0 % AO Workflow SS Erythrocyte distribution width (RBC) [Ratio] 13.7 % Invalid Interpretation Code 11.5 - 14.5 % AO Workflow SS Hematocrit (Bld) [Volume fraction] 51.7 % Invalid Interpretation Code 42.0 - 52.0 % AO Workflow SS Hemoglobin (Bld) [Mass/Vol] 17.7 G/dL Invalid Interpretation Code 14.0 - 18.0 G/dL AO Workflow SS Lymphocyte, Absolute 1.8 103/mcL Invalid Interpretation Code 0.8 - 3.9 10^3/mcL AO Workflow SS Lymphocytes/100 WBC (Bld) 31.8 % Invalid Interpretation Code 10.0 - 50.0 % AO Workflow SS MCH (RBC) [Entitic mass] 29.5 pg Invalid Interpretation Code 27.0 - 31.2 pg AO Workflow SS MCHC 34.2 G/dL Invalid Interpretation Code 31.8 - 35.4 G/dL AO Workflow SS MCV (RBC) [Entitic vol] 86.2 fL Invalid Interpretation Code 80.0 - 94.0 fL AO Workflow SS Monocyte, Absolute 0.9 103/mcL Invalid Interpretation Code 0.2 - 1.0 10^3/mcL AO Workflow SS Monocytes/100 WBC (Bld) 15.5 % Invalid Interpretation Code 1.7 - 13.0 % AO Workflow SS Neutrophil, Absolute 2.7 103/mcL Invalid Interpretation Code 2.9 - 6.2 10^3/mcL AO Workflow SS Neutrophils/100 WBC (Bld) 46.2 % Invalid Interpretation Code 37.0 - 80.0 % AO Workflow SS Platelet mean volume (Bld) [Entitic vol] 7.4 fL Invalid Interpretation Code 7.4 - 10.4 fL AO Workflow SS Platelets (Bld) [#/Vol] 282 103/mcL Invalid Interpretation Code 130 - 400 10^3/mcL AO Workflow SS RBC (Bld) [#/Vol] 6.00 106/mcL Invalid Interpretation Code 4.04 - 6.13 10^6/mcL AO Workflow SS WBC (Bld) [#/Vol] 5.8 103/mcL Invalid Interpretation Code 4.6 - 10.8 10^3/mcL AO Workflow SS LABORATORYOrdered By: Eligio Puri on 11-08-2022 Cholesterol [Mass/Vol] 137 mg/dL Invalid Interpretation Code 0 - 200 mg/dL AO ADM SS Cholesterol in HDL [Mass/Vol] 33 mg/dL Invalid Interpretation Code 40 - 60 mg/dL AO ADM SS Cholesterol in LDL [Mass/Vol] 72 mg/dL Invalid Interpretation Code 0 - 130 mg/dL AO ADM SS Triglyceride [Mass/Vol] 160 mg/dL Invalid Interpretation Code 0 - 150 mg/dL AO ADM SS LABORATORYOrdered By: Raphael Vicente on 03-22-2022 Albumin BCP dye [Mass/Vol] 3.9 G/dL Invalid Interpretation Code 3.4 - 4.8 G/dL AO ADM SS Albumin/Globulin [Mass ratio] 1.3 {ratio} Invalid Interpretation Code 1.1 - 2.5 ratio AO ADM SS ALP [Catalytic activity/Vol] 57 U/L Invalid Interpretation Code 40 - 135 U/L AO ADM SS ALT With P-5'-P [Catalytic activity/Vol] 38 U/L Invalid Interpretation Code 16 - 63 U/L AO ADM SS AST With P-5'-P [Catalytic activity/Vol] 21 U/L Invalid Interpretation Code 10 - 40 U/L AO ADM SS Bili Indirect 0.3 mg/dL Invalid Interpretation Code AO Chemistry S Bilirubin [Mass/Vol] 0.4 mg/dL Invalid Interpretation Code 0.2 - 1.0 mg/dL AO ADM SS Bilirubin.direct [Mass/Vol] 0.1 mg/dL Invalid Interpretation Code 0.0 - 0.2 mg/dL AO ADM SS Globulin 3.0 G/dL Invalid Interpretation Code AO ADM SS Protein [Mass/Vol] 6.9 G/dL Invalid Interpretation Code 6.4 - 8.2 G/dL AO ADM SS LABORATORYOrdered By: Raphael Vicente on 02-22-2022 Albumin BCP dye [Mass/Vol] 3.9 G/dL Invalid Interpretation Code 3.4 - 4.8 G/dL AO ADM SS Albumin/Globulin [Mass ratio] 1.1 {ratio} Invalid Interpretation Code 1.1 - 2.5 ratio AO ADM SS ALP [Catalytic activity/Vol] 75 U/L Invalid Interpretation Code 40 - 135 U/L AO ADM SS ALT With P-5'-P [Catalytic activity/Vol] 45 U/L Invalid Interpretation Code 16 - 63 U/L AO ADM SS AST With P-5'-P [Catalytic activity/Vol] 26 U/L Invalid Interpretation Code 10 - 40 U/L AO ADM SS Bili Indirect 0.3 mg/dL Invalid Interpretation Code AO Chemistry S Bilirubin [Mass/Vol] 0.4 mg/dL Invalid Interpretation Code 0.2 - 1.0 mg/dL AO ADM SS Bilirubin.direct [Mass/Vol] 0.1 mg/dL Invalid Interpretation Code 0.0 - 0.2 mg/dL AO ADM SS Globulin 3.4 G/dL Invalid Interpretation Code AO ADM SS Protein [Mass/Vol] 7.3 G/dL Invalid Interpretation Code 6.4 - 8.2 G/dL AO ADM SS LABORATORYOrdered By: Raphael Vicente on 02-08-2022 Albumin BCP dye [Mass/Vol] 3.6 G/dL Invalid Interpretation Code 3.4 - 4.8 G/dL AO ADM SS Albumin/Globulin [Mass ratio] 0.9 {ratio} Invalid Interpretation Code 1.1 - 2.5 ratio AO ADM SS ALP [Catalytic activity/Vol] 74 U/L Invalid Interpretation Code 40 - 135 U/L AO ADM SS ALT With P-5'-P [Catalytic activity/Vol] 44 U/L Invalid Interpretation Code 16 - 63 U/L AO ADM SS AST With P-5'-P [Catalytic activity/Vol] 27 U/L Invalid Interpretation Code 10 - 40 U/L AO ADM SS Basophil, Absolute 0.10 103/mcL Invalid Interpretation Code 0.00 - 0.19 10^3/mcL AO Auto Heme SS Basophils/100 WBC (Bld) 0.9 % Invalid Interpretation Code 0.0 - 2.5 % AO Auto Heme SS Bilirubin [Mass/Vol] 0.4 mg/dL Invalid Interpretation Code 0.2 - 1.0 mg/dL AO ADM SS Calcium [Mass/Vol] 9.2 mg/dL Invalid Interpretation Code 8.4 - 10.2 mg/dL AO ADM SS Chloride [Moles/Vol] 95 mmol/L Invalid Interpretation Code 98 - 107 mmol/L AO ADM SS CO2 [Moles/Vol] 28 mmol/L Invalid Interpretation Code 23 - 31 mmol/L AO ADM SS Creatinine [Mass/Vol] 0.96 mg/dL Invalid Interpretation Code 0.70 - 1.30 mg/dL AO ADM SS Electrolyte Balance 10.0 mEq/L Invalid Interpretation Code 4.0 - 15.0 mEq/L AO ADM SS Eosinophil, Absolute 0.10 103/mcL Invalid Interpretation Code 0.00 - 0.40 10^3/mcL AO Auto Heme SS Eosinophils/100 WBC (Bld) 1.4 % Invalid Interpretation Code 0.0 - 7.0 % AO Auto Heme SS Erythrocyte distribution width (RBC) [Ratio] 13.8 % Invalid Interpretation Code 11.5 - 14.5 % AO Auto Heme SS Free T4 [Mass/Vol] 1.25 ng/dL Invalid Interpretation Code 0.76 - 1.46 ng/dL AO ADM SS Globulin 3.8 G/dL Invalid Interpretation Code AO ADM SS Glucose [Mass/Vol] 93 mg/dL Invalid Interpretation Code 83 - 110 mg/dL AO ADM SS HbA1c (Bld) [Mass fraction] 5.5 % Invalid Interpretation Code 4.3 - 6.4 % AO ADM SS Hematocrit (Bld) [Volume fraction] 45.6 % Invalid Interpretation Code 42.0 - 52.0 % AO Auto Heme SS Hemoglobin (Bld) [Mass/Vol] 15.7 G/dL Invalid Interpretation Code 14.0 - 18.0 G/dL AO Auto Heme SS Lymphocyte, Absolute 1.20 103/mcL Invalid Interpretation Code 0.77 - 3.85 10^3/mcL AO Auto Heme SS Lymphocytes/100 WBC (Bld) 12.7 % Invalid Interpretation Code 10.0 - 50.0 % AO Auto Heme SS MCH (RBC) [Entitic mass] 30.9 pg Invalid Interpretation Code 27.0 - 31.2 pg AO Auto Heme SS MCHC (RBC) [Mass/Vol] 34.5 G/dL Invalid Interpretation Code 31.8 - 35.4 G/dL AO Auto Heme SS MCV (RBC) [Entitic vol] 89.5 fL Invalid Interpretation Code 80.0 - 94.0 fL AO Auto Heme SS Monocyte, Absolute 1.10 103/mcL Invalid Interpretation Code 0.15 - 1.00 10^3/mcL AO Auto Heme SS Monocytes/100 WBC (Bld) 11.6 % Invalid Interpretation Code 1.7 - 13.0 % AO Auto Heme SS Neutrophil, Absolute 6.90 103/mcL Invalid Interpretation Code 2.85 - 6.16 10^3/mcL AO Auto Heme SS Neutrophils/100 WBC (Bld) 73.4 % Invalid Interpretation Code 37.0 - 80.0 % AO Auto Heme SS Platelet mean volume (Bld) [Entitic vol] 7.6 fL Invalid Interpretation Code 7.4 - 10.4 fL AO Auto Heme SS Platelets (Bld) [#/Vol] 440 103/mcL Invalid Interpretation Code 130 - 400 10^3/mcL AO Auto Heme SS Potassium [Moles/Vol] 4.7 mmol/L Invalid Interpretation Code 3.5 - 5.1 mmol/L AO ADM SS Protein [Mass/Vol] 7.4 G/dL Invalid Interpretation Code 6.4 - 8.2 G/dL AO ADM SS RBC (Bld) [#/Vol] 5.09 106/mcL Invalid Interpretation Code 4.04 - 6.13 10^6/mcL AO Auto Heme SS Sodium [Moles/Vol] 133 mmol/L Invalid Interpretation Code 136 - 145 mmol/L AO ADM SS TSH Qn 1.97 m[IU]/L Invalid Interpretation Code 0.36 - 3.74 mcIU/mL AO ADM SS Urea nitrogen [Mass/Vol] 15 mg/dL Invalid Interpretation Code 7 - 18 mg/dL AO ADM SS Urea nitrogen/Creatinine [Mass ratio] 16 ratio Invalid Interpretation Code 7 - 27 ratio AO ADM SS WBC (Bld) [#/Vol] 9.50 103/mcL Invalid Interpretation Code 4.60 - 10.80 10^3/mcL AO Auto Heme SS LABORATORYOrdered By: SYSTEM SYSTEM on 02-08-2022 GFR 94 ml/min/1.73sqm Invalid Interpretation Code AO Chemistry S GFR Non- 77 ml/min/1.73sqm Invalid Interpretation Code AO Chemistry S LABORATORYOrdered By: Raphael Vicente on 01-14-2022 Calcium [Mass/Vol] 9.2 mg/dL Invalid Interpretation Code 8.4 - 10.2 mg/dL AO ADM SS Chloride [Moles/Vol] 100 mmol/L Invalid Interpretation Code 98 - 107 mmol/L AO ADM SS CO2 [Moles/Vol] 27 mmol/L Invalid Interpretation Code 23 - 31 mmol/L AO ADM SS Creatinine [Mass/Vol] 1.12 mg/dL Invalid Interpretation Code 0.70 - 1.30 mg/dL AO ADM SS Electrolyte Balance 11.0 mEq/L Invalid Interpretation Code 4.0 - 15.0 mEq/L AO ADM SS Glucose [Mass/Vol] 150 mg/dL Invalid Interpretation Code 83 - 110 mg/dL AO ADM SS Potassium [Moles/Vol] 4.1 mmol/L Invalid Interpretation Code 3.5 - 5.1 mmol/L AO ADM SS Sodium [Moles/Vol] 138 mmol/L Invalid Interpretation Code 136 - 145 mmol/L AO ADM SS Urea nitrogen [Mass/Vol] 18 mg/dL Invalid Interpretation Code 7 - 18 mg/dL AO ADM SS Urea nitrogen/Creatinine [Mass ratio] 16 ratio Invalid Interpretation Code 7 - 27 ratio AO ADM SS LABORATORYOrdered By: SYSTEM SYSTEM on 01-14-2022 GFR 78 ml/min/1.73sqm Invalid Interpretation Code AO Chemistry S GFR Non- 65 ml/min/1.73sqm Invalid Interpretation Code AO Chemistry S LABORATORYOrdered By: Raphael Vicente on 01-10-2022 Natriuretic peptide.B prohormone N-Terminal [Mass/Vol] 55 pg/mL Invalid Interpretation Code 0 - 125 pg/mL AO ADM SS Vital Signs Date Time Vital Sign Value Performing Clinician Facility 06-17-2025 09:49-0400 Body height 170.18 cm Lucila MUIR Work Phone: [facility] 06-17-2025 09:49-0400 Body mass index (BMI) [Ratio] 32.8 kg/m2 Lucila MUIR Work Phone: [facility] 06-17-2025 09:49-0400 Body weight 95.25 kg Lucila MUIR Work Phone: [facility] 03-20-2025 08:26-0400 Body height 170.18 cm Lucila Luong [employer] Work Phone: [facility] 03-20-2025 08:26-0400 Body mass index (BMI) [Ratio] 32.5 kg/m2 Lucila Garsiamer [employer] Work Phone: [facility] 03-20-2025 08:26-0400 Body weight 94.34 kg Lucila Garsiamer [employer] Work Phone: [facility] 02-20-2025 08:50-0400 Body mass index (BMI) [Ratio] 32.6 kg/m2 Lucila Garsiamer [employer] Work Phone: [facility] 02-20-2025 08:50-0400 Body weight 94.51 kg Lucila Luong [employer] Work Phone: [facility] 11-22-2024 08:26-0500 Diastolic Blood Pressure Non-Invasive 71 mm[Hg] NADEEN NARENDRA DO [facility] 11-22-2024 08:26-0500 Heart rate 72 /min NADEEN NARENDRA DO [facility] 11-22-2024 08:26-0500 Systolic Blood Pressure Non-Invasive 104 mm[Hg] NADEEN NARENDRA DO [facility] 11-22-2024 08:22-0500 Diastolic Blood Pressure Non-Invasive 69 mm[Hg] NADEEN NARENDRA DO [facility] 11-22-2024 08:22-0500 Heart rate 75 /min NAEDEN NARENDRA DO [facility] 11-22-2024 08:22-0500 Systolic Blood Pressure Non-Invasive 101 mm[Hg] NADEEN NARENDRA DO [facility] 11-22-2024 08:15-0500 Diastolic Blood Pressure Non-Invasive 58 mm[Hg] NADEEN NARENDRA DO [facility] 11-22-2024 08:15-0500 Heart rate 62 /min NADEEN NARENDRA DO [facility] 11-22-2024 08:15-0500 Systolic Blood Pressure Non-Invasive 82 mm[Hg] NADEEN NARENDRA DO [facility] 11-22-2024 08:05-0500 Respiratory Rate - Anes 15 br/min NADEEN NARENDRA DO [facility] 11-22-2024 08:00-0500 Respiratory Rate - Anes 16 br/min NADEEN NARENDRA DO [facility] 11-22-2024 07:55-0500 Respiratory Rate - Anes 9 br/min NADEEN NARENDRA DO [facility] 11-22-2024 07:23-0500 Blood Pressure Cuff Size NADEEN NARENDRA DO [facility] 11-22-2024 07:23-0500 Blood Pressure Location NADEEN NARENDRA DO [facility] 11-22-2024 07:23-0500 Blood Pressure Method NADEEN NARENDRA DO [facility] 11-22-2024 07:23-0500 Body height 170 cm NADEEN NARENDRA DO [facility] 11-22-2024 07:23-0500 Body temperature 97.52 [degF] NADEEN NARENDRA DO [facility] 11-22-2024 07:23-0500 Body weight 95.5 kg NADEEN NARENDRA DO [facility] 11-22-2024 07:23-0500 Body weight 33.04 kg/m2 NADEEN MACKEY DO [facility] 11-22-2024 07:23-0500 Heart rate 79 /min NADEEN MACKEY DO [facility] 11-22-2024 07:23-0500 Respiratory rate 16 /min NADEEN MACKEY DO [facility] Encounters Encounter Date Encounter Type Care Provider Facility Start: 06-23-2025 ambulatory Lucila Luong NP Facil ity:[facility] Start: 06-20-2025 Encounter for other preprocedural examination Francisco Villa [facility] Start: 06-17-2025 End: 06-17-[address] Francisco Villa MD -[facility] Work Phone: Start: 06-17-2025 End: 06-17-2025 ambulatory Lucila Luong [employer] Work Phone: -[facility] Start: 06-12-2025 End: 06-12-2025 ambulatory LUCILA LUONG [employer] Facility:[facility] Start: 06-12-2025 End: 06-12-2025 Patient encounter procedure LUCILA LUONG [employer] [facility] Start: 04-28-2025 End: 04-28-2025 ambulatory LUCILA LUONG [employer] Facility:[facility] Start: 04-28-2025 End: 04-28-2025 Patient encounter procedure LUCILA LUONG [employer] [facility] Start: 04-22-2025 End: 04-26-2025 ambulatory LUCILA LUONG [employer] Facility:[facility] Start: 04-22-2025 End: 04-26-2025 Outreach Lab LUCILA LUONG [employer] [facility] Start: 04-09-2025 End: 04-09-2025 ambulatory LUCILA LUONG [employer] Facility:[facility] Start: 04-09-2025 End: 04-09-2025 Patient encounter procedure LUCILASONAL LUONG [employer] [facility] Start: 03-20-2025 End: 03-20-2025 Patient encounter procedure Candice LIGHT -[facility] Work Phone: Start: 03-20-2025 End: 03-20-2025 ambulatory Lucila Luong [employer] Work Phone: [facility] Work Phone: Start: 03-14-2025 End: 03-14-2025 ambulatory Lucila Luong [employer] Work Phone: [facility] Work Phone: Start: 03-14-2025 End: 03-14-2025 Patient encounter procedure Candice LIGHT -[facility] Work Phone: Start: 03-14-2025 End: 03-14-2025 ambulatory Candice Kumar Facility:[facility] Start: 02-20-2025 End: 02-20-2025 Patient encounter procedure Candice LIGHT -[facility] Work Phone: Start: 02-20-2025 End: 02-20-2025 ambulatory Lucila Luong [employer] Facility[facility] Start: 11-22-2024 End: 11-22-2024 ambulatory LUCILA LUONG [employer]ACH[employer] Facility:[facility] Start: 11-22-2024 End: 11-22-2024 SAME DAY STAY NADEEN MACKEY DO [facility] Start: 10-04-2024 End: 10-04-2024 ambulatory LUCILA Lyon DARYL [employer] Facility:[facility] Start: 10-04-2024 End: 10-04-2024 Patient encounter procedure LUCILA Lyon DARYL [employer] [facility] Start: 08-14-2024 End: 09-13-2024 ambulatory MANSOOR SHARMA [employer] Facility:[facility] Start: 08-14-2024 End: 09-13-2024 Physical therapy management MANSOOR ZACHARY [employer] [facility] Start: 04-09-2024 End: 04-09-2024 ambulatory LUCILA Camron DARYL [employer] Facility:[facility] Start: 04-09-2024 End: 04-09-2024 Patient encounter procedure LUCILA Lyon DARYL [employer] [facility] Start: 10-17-2023 End: 10-17-2023 ambulatory LUCILA Camron DARYL [employer] Facility:[facility] Start: 10-17-2023 End: 10-17-2023 Patient encounter procedure LUCILA Lyon DARYL [employer] [facility] Start: 10-04-2023 End: 10-04-2023 ambulatory LUCILA Camron DARYL [employer] Facility:[facility] Start: 10-04-2023 End: 10-04-2023 Patient encounter procedure LUCILA Lyon DARYL [employer] [facility] Start: 06-07-2023 End: 06-07-2023 ambulatory LUCILA S DARYL [employer] Facility:[facility] Start: 04-11-2023 End: 04-11-2023 ambulatory LUCILA S DARYL [employer] Facility:[facility] Start: 04-11-2023 End: 04-11-2023 Patient encounter procedure LUCILA Lyon DARYL [employer] [facility] Start: 12-13-2022 End: 12-13-2022 Patient encounter procedure JODIE PEREZ [employer] [facility] Start: 11-08-2022 End: 11-08-2022 Patient encounter procedure LUCILA LUONG [employer] [facility] Start: 03-22-2022 End: 03-22-2022 Patient encounter procedure LUCILA LUONG [employer] [facility] Start: 02-22-2022 End: 02-22-2022 Patient encounter procedure LUCILA LUONG [employer]EM[employer] [facility] Start: 02-08-2022 End: 02-08-2022 Patient encounter procedure LUCILA LUONG [employer]EMAKER [employer] [facility] Start: 01-14-2022 End: 01-14-[address] VERNA SILVA MD [facility] Start: 01-10-2022 End: 01-10-[address] VERNA SILVA MD [facility] Procedures Date Procedure Procedure Detail Performing Clinician Start: 03-14-2025 MRI of lumbar spine Laura MUIR Work Phone: Start: 02-20-2025 X-ray of lumbosacral spine Lucila MUIR Work Phone: Start: 11-16-2020 Implantation of elec tronic stimulator of spine DR VERNA SILVA MD Start: 03-10-[address] NIRAJ SILVA MD Comment on above: EF 55% Start: 09-25-2019 Cardi[address]res s testing DR VERNA SILVA MD Start: 08-28-[address] VERNA SILVA MD Comment on above: left Start: 04-09-[address] VERNA HENRY MD Comment on above: Dr. Zhao [facility] Back structure, excl uding neck (body structure) DR VERNA SILVA MD Inguinal hernioplasty DR NIRAJ SILVA MD Comment on above: Left Open reduction of fr acture of elbow with internal fixation DR VERNA SILVA MD Comment on above: Right Removal of pilonidal cyst DR VERNA SILVA MD Plan of Treatment Date Care Activity Detail Author Patient referral [facility] Work Phone: Immunizations Immunization Date Immunization Notes Care Provider [facility] 06-18-2024 influenza virus vacc ine, unspecified formulation NADEEN NARENDRA [employer] [facility] 06-18-2024 SARS-CoV-2 (COVID-19 ) [id number] NADEEN NARENDRA DO [facility] 07-24-2023 influenza virus vacc ine, unspecified formulation LUCILA DARYL [employer]ACH[employer] [facility] Comment on above: Result Comment: Chantal Chen 07-24-2023 SARS-CoV-2 (COVID-19 ) mRNA-1273 vaccine LUCILA DARYL [employer] [facility] Comment on above: Result Comment: Chantal Duval 01-10-2023 zoster vaccine recombinant LUCILA DARYL [employer] [facility] 11-01-2022 zoster vaccine recombinant LUCILA LUONG [employer] [facility] 07-04-2022 influenza virus vacc ine, unspecified formulation LUCILA LUONG [employer]ACH[employer] [facility] 02-17-2022 SARS-CoV-2 (COVID-19 ) mRNA-1273 vaccine LUCILA LUONG [employer]ACH[employer] [facility] 02-08-2022 pneumococcal polysaccharide vaccine, 23 valent; Translations: [Pneumovax 23] LUCILA LUONG COREMAKER MACHINE[employer] [facility] 08-21-2021 SARS-CoV-2 (COVID-19 ) mRNA-1273 vaccine LUCILA LUONG COREMAKER [employer]ACH[employer] [facility] Comment on above: Result Comment: 2021: [id number] 07-14-2021 influenza virus vacc ine, unspecified formulation LUCILA LUONG [employer]ER [employer] [facility] 01-05-2021 COVID-19, mRNA, LNP- S, PF, 100 mcg or 50 mcg dose; Translations: [Moderna COVID-19 Vaccine] DR VERNA SILVA MD [facility] 12-08-2020 COVID-19, mRNA, LNP- S, PF, 100 mcg or 50 mcg dose; Translations: [Moderna COVID-19 Vaccine] DR VERNA SILVA MD [facility] 07-13-2020 influenza, injectabl e, quadrivalent, preservative free; Translations: [Fluarix PF Quadrivalent ] DR VERNA SILVA MD [facility] 08-08-2019 influenza, injectabl e, quadrivalent, preservative free; Translations: [Fluarix PF Quadrivalent ] DR VERNA SILVA MD [facility] 07-03-2018 influenza virus vacc ine, unspecified formulation DR VERNA SILVA MD [facility] 08-04-2017 influenza virus vacc ine, unspecified formulation DR VERNA SILVA MD [facility] 08-02-2016 influenza virus vacc ine, unspecified formulation DR VERNA SILVA MD [facility] 07-20-2015 influenza virus vacc ine, unspecified formulation DR VERNA SIVLA MD [facility] Payers Date Payer Category Payer Private Health Insurance 2 [id number] 2025 Self-pay [id number] 2024 Unknown [id number] 2023 Medicare [id number] 2023 Unknown [id number] 2018 Medicare [id number] 1950 Unknown [id number] 2.16.8 [id number] 1950 Unknown [id number] 2.16.8 40.1.417236.3.579.2.627 1950 Unknown [id number] 2.16.8 40.1.007432.3.579.2.627 1950 Unknown [id number] 2.16.8 40.1.856615.3.579.2.627 1950 Unknown [id number] 2.16.8 40.1.634582.3.579.2. 1950 Unknown [id number] 2.16. 840.1.140554.3.579.2. 1950 Unknown [id number] 2.16. 840.1.276152.3.579.2. 1950 Unknown [id number] 2.16. 840.1.822956.3.579.2.62 1950 Unknown [id number] 2.16. 840.1.644033.3.579.2. 1950 Unknown [id number] 2.16.8 40.1.945928.3.579.2.627 1950 Unknown [id number] 2.16.8 40.1.451924.3.579.2. 1950 Unknown [id number] 2.16.8 40.1.283367.3.579.2.627 Unknown [id number] 2.16.8 40.1.543606.3.579.2.462 Unknown [id number] 2.16.8 40.1.359672.3.579.2.462 Unknown [id number] 2.16.8 40.1.215149.3.579.2.462 Unknown [id number] 2.16.8 40.1.287113.3.579.2.462 Unknown [id number] 2.16.8 40.1.974868.3.579.2.462 Unknown [id number] 2.16.8 40.1.224818.3.579.2.462 Social History Date Type Detail Facility Start: 08-07-2019 End: 06-09-2025 Ex-smoker (finding) [facility] Comment on above: no smoke exposure Start: 1950 Sex Assigned At Male A [facility] Sexual O[facility] Start: 09-09-2019 Sex Male (finding) [facility] Start: 11-11-2020 Tobacco Use Tobacco Use [facility] Medical Equipment Procedure Code Equipment Code Equipment Original Text Equipment Identifier Dates Insertion, spinal cord stimulator, permanent CONTROLLER FDA Start: 11-16-2020 Insertion, spinal cord stimulator, permanent LEAD KIT 60CM FDA Start: 11-16-2020 Insertion, spinal cord stimulator, permanent LEAD KIT 60CM FDA Start: 11-16-2020 Insertion, spinal cord stimulator, permanent AUTOMATION ANALYST FDA Start: 11-16-2020 Insertion, spinal cord stimulator, permanent STIMULATOR/ BATTERY FDA Start: 11-16-2020 Insertion, spinal cord stimulator, permanent external neurostimulator FDA Start: 11-16-2020 Insertion, spinal cord stimulator, permanent CONTROLLER FDA Start: 11-16-2020 Insertion, spinal cord stimulator, permanent LEAD KIT 60CM FDA Start: 11-16-2020 Insertion, spinal cord stimulator, permanent LEAD KIT 60CM FDA Start: 11-16-2020 Insertion, spinal cord stimulator, permanent AUTOMATION ANALYST FDA Start: 11-16-2020 Insertion, spinal cord stimulator, permanent STIMULATOR/ BATTERY FDA Start: 11-16-2020 Insertion, spinal cord stimulator, permanent external neurostimulator FDA Start: 11-16-2020 Insertion, spinal cord stimulator, permanent CONTROLLER FDA Start: 11-16-2020 Insertion, spinal cord stimulator, permanent LEAD KIT 60CM FDA Start: 11-16-2020 Insertion, spinal cord stimulator, permanent LEAD KIT 60CM FDA Start: 11-16-2020 Insertion, spinal cord stimulator, permanent AUTOMATION ANALYST FDA Start: 11-16-2020 Insertion, spinal cord stimulator, permanent STIMULATOR/ BATTERY FDA Start: 11-16-2020 Insertion, spinal cord stimulator, permanent external neurostimulator FDA Start: 11-16-2020 FDA Start: 08-28-2018 FDA Start: 08-28-2018 FDA Start: 08-28-2018 FDA Start: 08-28-2018 FDA Start: 08-28-2018 FDA Start: 08-28-2018 FDA Start: 08-28-2018 FDA Start: 08-28-2018 FDA Start: 08-28-2018 FDA Start: 08-28-2018 FDA Start: 08-28-2018 FDA Start: 08-28-2018 FDA Start: 08-28-2018 FDA Start: 08-28-2018 FDA Start: 08-28-2018 FDA Start: 08-28-2018 Unknown Unknown 18 Unknown Unknown FDA Start: 08-28-2018 FDA Start: 08-28-2018 FDA Start: 08-28-2018 FDA Start: 08-28-2018 Unknown Unknown 18 Unknown Unknown FDA Start: 08-28-2018 FDA Start: 08-28-2018 FDA Start: 08-28-2018 FDA Start: 08-28-2018 Unknown Unknown 08/28/18 Unknown Unknown FDA Start: 08-28-2018 FDA Start: 08-28-2018 FDA Start: 08-28-2018 FDA Start: 08-28-2018 Unknown Unknown 08/28/18 Unknown Unknown FDA Start: 08-28-2018 FDA Start: 08-28-2018 FDA Start: 08-28-2018 FDA Start: 08-28-2018 Unknown Unknown 08/28/18 Unknown Unknown FDA Start: 08-28-2018 FDA Start: 08-28-2018 FDA Start: 08-28-2018 FDA Start: 08-28-2018 Unknown Unknown 08/28/18 Unknown Unknown FDA Start: 08-28-2018 FDA Start: 08-28-2018 FDA Start: 08-28-2018 FDA Start: 08-28-2018 Unknown Unknown 08/28/18 Unknown Unknown FDA Start: 08-28-2018 FDA Start: 08-28-2018 FDA Start: 08-28-2018 FDA Start: 08-28-2018 Unknown Unknown 08/28/18 Unknown Unknown FDA Start: 08-28-2018 FDA Start: 08-28-2018 FDA Start: 08-28-2018 FDA Start: 08-28-2018 Unknown Unknown 08/28/18 Unknown Unknown FDA Start: 08-28-2018 FDA Start: 08-28-2018 FDA Start: 08-28-2018 FDA Start: 08-28-2018 Unknown Unknown 08/28/18 Unknown Unknown FDA Start: 08-28-2018 FDA Start: 08-28-2018 FDA Start: 08-28-2018 FDA Start: 08-28-2018 Unknown Unknown 08/28/18 Unknown Unknown FDA Start: 08-28-2018 FDA Start: 08-28-2018 FDA Start: 08-28-2018 FDA Start: 08-28-2018 Unknown Unknown 08/28/18 Unknown Unknown FDA Start: 08-28-2018 FDA Start: 08-28-2018 FDA Start: 08-28-2018 FDA Start: 08-28-2018 Unknown Unknown 08/28/18 Unknown Unknown FDA Start: 08-28-2018 FDA Start: 08-28-2018 FDA Start: 08-28-2018 FDA Start: 08-28-2018 Unknown Unknown 08/28/18 Unknown Unknown FDA Start: 08-28-2018 FDA Start: 08-28-2018 FDA Start: 08-28-2018 FDA Start: 08-28-2018 Functional Status Date Assessment Result Facility 11-22-2024 Functional Status Maintained [facility] Status Date Assessment Result Facility 11-22-2024 [facility] [place] [facility] Notes 11-22-2024 to 02-20-2025 Note Date & Type Note Facility 02-20-2025 Evaluation note Diagnosis Onset Date Resolution Degenerative disc disease (DDD) of lumbar region with discogenic back pain acute February 8:42am Lumbar stenosis with neurogenic claudication acute February 20, 2025 8:42am Pars defect with spondylolisthesis acute February 20, 2025 8:42am [employer] [facility] [email or web address] Work Phone: 1(972) 978-764405-08-2025 Evaluation note* Diagnosis Onset Date Resolution Status Admit Date Degenerative disc disease (D DD) of lumbar region with discogenic back pain acute February 20, 2025 8: 42am Lumbar stenosis with neuroge anika claudication acute February 20, 2025 8: 42am Pars defect with spondylolisthesis a cute February 20, 2025 8:42am Degenerative disc disease (D DD) of lumbar region with discogenic back pain acute March 20, 2025 8 :14am Lumbar stenosis with neuroge anika claudication acute March 20, 2025 8 :14am Pars defect with spondylolisthesis a cute March 20, 2025 8:14am [facility] Work Phone: 1(955) 741-855202-07-2025 Evaluation + Plan noteExtracted from: Title:Clinical Document Author:NADEEN MACKEY ate:11/22/24 [place] ADMISSION HISTORY AN D PHYSICIAL CHIEF COMPLAINT: Colorectal cancer screening HISTORY OF PRESENT ILLNESS: Positive Cologuard REVIEW OF SYSTEMS: Constitutional: denies weight loss Cardiovascular:denies chest pain, palpitations Respiratory:denies shortness of breath Gastrointestinal:no abd pain Musculoskeletal: no arthralgias Skin: no rashes ACTIVE PROBLEMS: (17) Arthritis (7293837) Degenerative disc disease (581090017) Dyslipidemia (6659581142) Elevated blood sugar (958063211) FAMILY HISTORY OF CORONARY ARTERIOSCLEROSIS (6155171150) History of smoking 30 or more pack years (774795367) Hypertension (3543452866) Hypothyroidism (73190627) Lumbar foraminal stenosis (9968652608) Numbness of foot (676346082) Onychomycosis (7934969287) Positive colorectal cancer screening using Cologuard test (5414649967) PVC (premature ventricular contraction) (27934218) Raynaud's disease (221428910) Screening for colon cancer (126687808) Screening for prostate cancer (276093063) Sleep apnea (498865094) MEDICATIONS: Active Inpt Meds: None Active PRN Meds: None One Time Meds: None Active IV Meds: None ALLERGIES: (1) NKA FAMILY HISTORY: SOCIAL HISTORY: PHYSICAL EXAM: VITALS: No Data Available 24 Hr Tmax: No Data Available 36 Hr Tmax: No Data Available Vital Signs are the last 5 in the past 48 hours. Weights display the last 5 within 7 days. Initial Wt: No Data Available Current Wt: No Data Available physical exam alert and oriented cardio; regular without murmur pulm; clear abd; soft, nontender LABS: No 36hr Lab Data DIAGNOSTICS: IMPRESSION: Positive Cologuard PLAN: Colonoscopy as discussed in the office Future Appointments Appointment Date:04/22/2025 07:00:00 AM Scheduled Provider:LUCILA LUONG Location:[facility] Appointment Type:PC OV Future Scheduled Tests Laboratory* Complete Blood Count 04/21/25 * Lipid Profile 04/21/25 * Complete Metabolic Panel 04/21/25 [facility] 02-07-2025 Hospital Discharge instructions Patient Education 11/22/2024 07:58:50 Colonoscopy, Adult, Care After Colonoscopy, Adult, Care After This sheet gives you information about how to care for yourself after your procedure. Your health care provider may also give you more specific instructions. If you have problems or questions, contact your health care provider. What can I expect after the procedure? After the procedure, it is common to have: A small amount of blood in your stool for 24 hours after the procedure. Some gas. Mild abdominal cramping or bloating. Follow these instructions at home: General instructions For the first 24 hours after the procedure: ?Do not drive or use machinery. ?Do not sign important documents. ?Do not drink alcohol. ?Do your regular daily activities at a slower pace than normal. ?Eat soft, yqai-tt-bpypfc foods. Take mgqs-nvq-dngafsi or prescription medicines only as told by your health care provider. Relieving cramping and bloating Try walking around when you have cramps or feel bloated. Apply heat to your abdomen as told by your health care provider. Use a heat source that your healthcare provider recommends, such as a moist heat pack or a heating pad. ?Place a towel between your skin and the heat source. ?Leave the heat on for 20 30 minutes. ?Remove the heat if your skin turns bright red. This is especially important if you are unable to feel pain, heat, or cold. You may have a greater risk of getting burned. Eating and drinking Drink enough fluid to keep your urine pale yellow. Resume your normal diet as instructed by your health care provider. Avoid heavy or fried foods thatare hard to digest. Avoid drinking alcohol for as long as instructed by your health care provider. Contact a health care provider if: You have blood in your stool 2 3 days after the procedure. Get help right away if: You have more than a small spotting of blood in your stool. You pass large blood clots in your stool. Your abdomen is swollen. You have nausea or vomiting. You have a fever. You have increasing abdominal pain that is not relieved with medicine. Summary After the procedure, it is common to have a small amount of blood in your stool. You may also have mild abdominal cramping and bloating. For the first 24 hours after the procedure, do not drive or use machinery, sign important documents, or drink alcohol. Contact your health care provider if you have a lot of blood in your stool, nausea or vomiting, a fever, or increased abdominal pain. This information is not intended to replace advice given to you by your health care provider. Make sure you discuss any questions you have with your health care provider. Document Released: 05/16/2005 Document Revised: 07/25/2018 Document Reviewed: 12/13/2016 [employer] Patient Education 2020 [employer]. 11/22/2024 07:58:41 Monitored Anesthesia Care, Care After Monitored Anesthesia Care, Care After These instructions provide you with information about caring for yourself after your procedure. Your health care provider may also give you more specific instructions. Your treatment has been plannedaccording to current medical practices, but problems sometimes occur. Call your health care provider if you have any problems or questions after your procedure. What can I expect after the procedure? After your procedure, you may: Feel sleepy for several hours. Feel clumsy and have poor balance for several hours. Feel forgetful about what happened after the procedure. Have poor judgment for several hours. Feel nauseous or vomit. Have a sore throat if you had a breathing tube during the procedure. Follow these instructions at home: For at least 24 hours after the procedure: Have a responsible adult stay with you. It is important to have someone help care for you until youare awake and alert. Rest as needed. Do not: ?Participate in activities in which you could fall or become injured. ?Drive. ?Use heavy machinery. ?Drink alcohol. ?Take sleeping pills or medicines that cause drowsiness. ?Make important decisions or sign legal documents. ?Take care of children on your own. Eating and drinking Follow the diet that is recommended by your health care provider. If you vomit, drink water, juice, or soup when you can drink without vomiting. Make sure you have little or no nausea before eating solid foods. General instructions Take tals-wcb-yjgpqrm and prescription medicines only as told by your health care provider. If you have sleep apnea, surgery and certain medicines can increase your risk for breathing problems. Follow instructions from your health care provider about wearing your sleep device: ?Anytime you are sleeping, including during daytime naps. ?While taking prescription pain medicines, sleeping medicines, or medicines that make you drowsy. If you smoke, do not smoke without supervision. Keep all follow-up visits as told by your health care provider. This is important. Contact a health care provider if: You keep feeling nauseous or you keep vomiting. You feel light-headed. You develop a rash. You have a fever. Get help right away if: You have trouble breathing. Summary For several hours after your procedure, you may feel sleepy and have poor judgment. Have a responsible adult stay with you for at least 24 hours or until you are awake and alert. This information is not intended to replace advice given to you by your health care provider. Make sure you discuss any questions you have with your health care provider. Document Released: 01/22/2017 Document Revised: 12/31/2018 Document Reviewed: 01/22/2017 [employer] Patient Education 2020 [employer]. Follow Up Care 11/21/2024 11:51:23 With:LUCILA LUONG Address: [address] [place] [phone] When: Unknown With:NADEEN MACKEY DO, Clinical Gastroenterology Address: [address] [place] [address] [place] [phone] When: Unknown Comments:Follow-up as needed [facility] 02-07-2025 Summary of episode note Discharge Instructions Thank you for allowing [facility] to assist you with your healthcare needs. The following is importantdischarge information regarding your hospital visit. 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 FARMER Where:0 [facility] [place] [phone] Follow Up with NADEEN MACKEY DO, Clinical Gastroenterology Where:2 [facility] [place] [phone] Additional Information: Follow-up as needed The Following Activity and Diet Have Been Ordered for You Discharge Activity - Ordered -- Driving Restricted, No driving until tomorrow, 11/22/24 8:11:00 EST Discharge Return to Work, School, or Sports - Ordered -- May return to: work, 11/22/24 8:11:00 EST Discharge Diet - Ordered -- Type of Diet: Regular Diet, 11/22/24 8:11:00 EST Allergies NKA Medications Please ask your primary doctor or pharmacist before taking any other medication not listed, including over the counter drugs, herbal medications, vitamins and or supplements as they may interact withur home medications. What How Much When Instructions Last Dose Unchanged aspirin (aspirin 81 mg oral delayed release tablet) 1 tab(s) by mouth Every day Unchanged diphenhydrAMINE (Benadryl 25 mg oral capsule) 1 cap by mouth Three (3) times a day as needed for for allergy symptoms Unchanged fluticasone nasal (Flonase 50 mcg/ inh nasal spray) Once a day as needed for as needed for allergy symptoms Unchanged inulin (Fiber Choice 1.5 g oral tablet, chewable) 1 tab(s) Chewed Every day Unchanged levothyroxine (levothyroxine 112 mcg (0.112 mg) oral tablet) 1 tab(s) by mouth Once a day Duration: 90 Days Unchanged loratadine (Claritin 10 mg oral tablet) 1 tab(s) by mouth Once a day before a meal as needed for as needed for allergy symptoms Unchanged losartan (losartan 50 mg oral tablet) 1 tab(s) by mouth Once a day Unchanged metoprolol (Metoprolol Succinate ER 25 mg oral TABLET extended release) 1 tab(s) by mouth Once a day Unchanged NIFEdipine (NIFEdipine 60 mg oral tablet, extended release) 1 tab(s) by mouth Once a day Duration: 90 Days Unchanged omega-3 polyunsaturated fatty acids (Fish Oil 1200 mg oral capsule) 1 cap by mouth Every day Unchanged polyethylene glycol 3350 with electrolytes (PEG-3350 with Electrolytes (Eqv-GoLYTELY) oral powder for reconstitution) See instructions Take as directed starting 1 day before colonoscopy. Follow instructions as provided by your GI provider at [facility]. Unchanged simvastatin (simvastatin 40 mg oral tablet) 1 tab(s) by mouth Daily at bedtime Duration: 90 Days Please take this list to your next doctor s visit. Bring all medications you take, including over the counter medications, herbals and other supplements with you to your doctor s visit. Patients and families are reminded to discard old lists and to update any records with all medication providers or retail pharmacies. Education Materials Colonoscopy, Adult, Care After This sheet gives you information about how to care for yourself after your procedure. Your health care provider may also give you more specific instructions. If you have problems or questions, contact your health care provider. What can I expect after the procedure? After the procedure, it is common to have: A small amount of blood in your stool for 24 hours after the procedure. Some gas. Mild abdominal cramping or bloating. Follow these instructions at home: General instructions For the first 24 hours after the procedure: ? Do not drive or use machinery. ? Do not sign important documents. ? Do not drink alcohol. ? Do your regular daily activities at a slower pace than normal. ? Eat soft, vgbi-xn-kqtkfw foods. Take jejr-qfu-jzhpuhl or prescription medicines only as told by your health care provider. Relieving cramping and bloating Try walking around when you have cramps or feel bloated. Apply heat to your abdomen as told by your health care provider. Use a heat source that your healthcare provider recommends, such as a moist heat pack or a heating pad. ? Place a towel between your skin and the heat source. ? Leave the heat on for 20 30 minutes. ? Remove the heat if your skin turns bright red. This is especially important if you are unable to feel pain, heat, or cold. You may have a greater risk of getting burned. Eating and drinking Drink enough fluid to keep your urine pale yellow. Resume your normal diet as instructed by your health care provider. Avoid heavy or fried foods thatare hard to digest. Avoid drinking alcohol for as long as instructed by your health care provider. Contact a health care provider if: You have blood in your stool 2 3 days after the procedure. Get help right away if: You have more than a small spotting of blood in your stool. You pass large blood clots in your stool. Your abdomen is swollen. You have nausea or vomiting. You have a fever. You have increasing abdominal pain that is not relieved with medicine. Summary After the procedure, it is common to have a small amount of blood in your stool. You may also have mild abdominal cramping and bloating. For the first 24 hours after the procedure, do not drive or use machinery, sign important documents, or drink alcohol. Contact your health care provider if you have a lot of blood in your stool, nausea or vomiting, a fever, or increased abdominal pain. This information is not intended to replace advice given to you by your health care provider. Make sure you discuss any questions you have with your health care provider. Document Released: 05/16/2005 Document Revised: 07/25/2018 Document Reviewed: 12/13/2016 [employer] Patient Education 2020 [employer]. Monitored Anesthesia Care, Care After These instructions provide you with information about caring for yourself after your procedure. Your health care provider may also give you more specific instructions. Your treatment has been plannedaccording to current medical practices, but problems sometimes occur. Call your health care provider if you have any problems or questions after your procedure. What can I expect after the procedure? After your procedure, you may: Feel sleepy for several hours. Feel clumsy and have poor balance for several hours. Feel forgetful about what happened after the procedure. Have poor judgment for several hours. Feel nauseous or vomit. Have a sore throat if you had a breathing tube during the procedure. Follow these instructions at home: For at least 24 hours after the procedure: Have a responsible adult stay with you. It is important to have someone help care for you until youare awake and alert. Rest as needed. Do not: ? Participate in activities in which you could fall or become injured. ? Drive. ? Use heavy machinery. ? Drink alcohol. ? Take sleeping pills or medicines that cause drowsiness. ? Make important decisions or sign legal documents. ? Take care of children on your own. Eating and drinking Follow the diet that is recommended by your health care provider. If you vomit, drink water, juice, or soup when you can drink without vomiting. Make sure you have little or no nausea before eating solid foods. General instructions Take ssac-ksw-afolpvt and prescription medicines only as told by your health care provider. If you have sleep apnea, surgery and certain medicines can increase your risk for breathing problems. Follow instructions from your health care provider about wearing your sleep device: ? Anytime you are sleeping, including during daytime naps. ? While taking prescription pain medicines, sleeping medicines, or medicines that make you drowsy. If you smoke, do not smoke without supervision. Keep all follow-up visits as told by your health care provider. This is important. Contact a health care provider if: You keep feeling nauseous or you keep vomiting. You feel light-headed. You develop a rash. You have a fever. Get help right away if: You have trouble breathing. Summary For several hours after your procedure, you may feel sleepy and have poor judgment. Have a responsible adult stay with you for at least 24 hours or until you are awake and alert. This information is not intended to replace advice given to you by your health care provider. Make sure you discuss any questions you have with your health care provider. Document Released: 01/22/2017 Document Revised: 12/31/2018 Document Reviewed: 01/22/2017 [employer] Patient Education 2020 [employer] Additional Information VACCINATE! IT SAVES LIVES! Members of the community who have not yet received the COVID-19 vaccine and would like to receive it can visit one of [facility] vaccine clinics. There are many vaccine clinic locations within the [facility]. For locations and available times, please visit https://gettheshot.coronavirus.[place].gov/. It is important to note that some COVID mobile vaccine clinics are held outdoors and may be canceled in rainy or stormy conditions. To learn more about pediatric vaccinations (ages 5-11), we invite you to visit the [facility] webpage. https://www.[facility].org/pages/3348-Lbqvh-Neukpquvvjd-Xqleisykxc-Ovgwe-Apy stions.htmlTo learn more about the COVID-19 vaccine, we invite you to visit the CDC website for a list of frequently asked questions.https://www.cdc.gov/coronavirus/2019-ncov/vaccines/faq.html [facility] Patient Portal Access Instructions: Stay connected with your healthcare team and access your personal medical information anytime with the [facility] [employer] Patient Portal. Please follow the directions below to create your [facility] account: 1.Access the email account you provided upon registration to the hospital/physician office.2.Look for an invitation email from [facility].3.Open the email and access the invitation link: AcceptInvitation to [facility].4.Fill in the required whyte to create your account. To access your account, visit [email or web address]. Click the blue button labeled Access Patient Portal and then log in with the username and password that you created in the steps above. You will be able to view your test results, lab results, a summary of your visits, upcoming appointments and more. There is also a convenient messaging option where you can send secure messages to your [employer]. In addition, you will have the ability to download any documents or summaries to your computer and/or send the information securely to a physician. Remember that your healthcare information is confidential, so carefully consider who you will allowto register on the [facility] [employer] Patient Portal for access to your information. You can also access the [facility] Patient Portal on the [facility] ba. Simply click on Patient Portal and then log into your account. If you would like to receive a full copy of your medical records, please contact the [facility] Medical Records Department by calling [phone], Monday through Monday between 8 a.m. and 4:30 p.m. HOW TO SAFELY DISPOSE OF PRESCRIPTION MEDICATIONS Please use one of the following methods to safely dispose of your unused medications. 1.Use a drug disposal kit: the drug disposal pouch allows you to safely discard your old and unuseddrugs. Ask your nurse to give you one when you are discharged.2.Visit a local take-back location: Many local pharmacies and police departments have programs that collect old and unwanted prescriptiondrugs. Call your local pharmacy or go to http://bit.ly/8J7Yb2s to find one close to you.3.Make use of household items: Use cat litter or old coffee grounds to dispose medications if other options arenot available. Mix your drugs with these household products, seal them in an airtight container andthrow it into the garbage. Call [facility]: [phone] to be sure your drugs can be disposed of in this way. Some medicines may require a different approach.4.Never flush your medications down the toilet. IF YOU HAVE BEEN PRESCRIBED AN OPIOID FOR PAIN If you have been prescribed an opioid (such as hydrocodone, oxycodone or morphine), it is critical to understand the possible side effects and risks of opioid pain medications. Even when taken as directed, opioids can have several side effects including: Tolerance, meaning you might need to take more of a medication for the same pain relief. Nausea, vomiting and/or constipation. Sleepiness, dizziness, dry mouth, confusion, depression or itching. Physical dependence, meaning you have withdrawal symptoms when a medication is stopped, can develop within a few days. KNOW YOUR RESPONSIBILITIES It is important to know exactly how much and how often to take the opioid pain medications you are prescribed. Never take opioids in higher amounts or more often than prescribed. Do not combine opioids with alcohol or other drugs that cause drowsiness, such as benzodiazepines, also known as benzos, including diazepam and alprazolam, muscle relaxants or sleep aids. Never sell or share prescription opioids. This is illegal. Store opioids in a secure place and out of reach of others (including children, family, friends and visitors). The last page of this document has been signed and retained as a CHART COPY. Signatures Patient Education Materials Colonoscopy, Adult, Care After Monitored Anesthesia Care, Care After Medication Leaflets My discharge plan and instructions have been reviewed and explained to me and I,RUI RIOS understand my current condition and have read and understand these discharge instructions. I have received a written copy of the plan/instructions. If I have questions, I am aware that I should contact my doctor. Patient/Correctional Officer Signature: Date/Time: Relationship to Patient: Witness Name/Signature: Date/Time: [facility]02-07-2025 Note Indication for Surgery Positive Cologuard Preoperative Diagnosis Positive Cologuard Postoperative Diagnosis Normal colon Operation Colonoscopy Surgeon(s) Nadeen Mackey D.O. Anesthesia MAC Estimated Blood Loss None Specimen(s) None Complications None Technique Patient was evaluated in the preoperative area and surgical consent was obtained. He was then brought to endoscopy and monitored on pulse oximetry, cardiac monitoring and placed on supplemental oxygen. He was placed in left lateral decubitus position and a surgical timeout was obtained. Sedation was provided by anesthesia. A digital exam was unremarkable. The colonoscope inserted into the rectum advanced towards the cecum. Cecal pouch appeared normal. The scope was then carefully checked under 6-minute withdrawal with a good prep. Retroflexion in the rectum was normal. The scope was removed. The patient is then transferred to the recovery area in stable condition by signs. Discharge summary: 1. Final Diagnosis: Normal colon 2. Outcome: Patient tolerated procedure well without complication 3. Disposition: Patient was discharged home to follow previous diet and medications 4. Follow-up care: Follow-up with primary care physician as scheduled. Digitally Signed by NADEEN MACKEY DO on 11/22/2024 08:08 AM [facility]02-07-2025 Note [facility] ADMISSION HISTORY AND PHYSICIAL CHIEF COMPLAINT: Colorectal cancer screening HISTORY OF PRESENT ILLNESS: Positive Cologuard REVIEW OF SYSTEMS: Constitutional: denies weight loss Cardiovascular:denies chest pain, palpitations Respiratory:denies shortness of breath Gastrointestinal:no abd pain Musculoskeletal: no arthralgias Skin: no rashes ACTIVE PROBLEMS: (17) Arthritis (7915743) Degenerative disc disease (726481804) Dyslipidemia (0243927317) Elevated blood sugar (580888228) FAMILY HISTORY OF CORONARY ARTERIOSCLEROSIS (7547456364) History of smoking 30 or more pack years (718323525) Hypertension (3205987977) Hypothyroidism (83715364) Lumbar foraminal stenosis (0356673733) Numbness of foot (735539956) Onychomycosis (8147644518) Positive colorectal cancer screening using Cologuard test (4323815718) PVC (premature ventricular contraction) (34406204) Raynaud's disease (763101195) Screening for colon cancer (595658892) Screening for prostate cancer (938450838) Sleep apnea (351241059) MEDICATIONS: Active Inpt Meds: None Active PRN Meds: None One Time Meds: None Active IV Meds: None ALLERGIES: (1) NKA FAMILY HISTORY: SOCIAL HISTORY: PHYSICAL EXAM: VITALS: No Data Available 24 Hr Tmax: No Data Available 36 Hr Tmax: No Data Available Vital Signs are the last 5 in the past 48 hours. Weights display the last 5 within 7 days. Initial Wt: No Data Available Current Wt: No Data Available physical exam alert and oriented cardio; regular without murmur pulm; clear abd; soft, nontender LABS: No 36hr Lab Data DIAGNOSTICS: IMPRESSION: Positive Cologuard PLAN: Colonoscopy as discussed in the office Digitally Signed by NADEEN MACKEY DO on 11/22/2024 06:59 [facility] App[facility]ments Appointment Date:01/14/2022 08:45:00 AM Scheduled Provider: Location:[facility] Appointment Type:CV OV [facility] Evaluation + Plan note Future Scheduled Tests Laboratory* N-Terminal proBNP 07/16/22 [facility] [facility] + Plan note Future Appointments Appointment Date:05/10/2022 07:00:00 AM Scheduled Provider:LUCILA LUONG APRN-LIFESTYLE BLOCK FARMER Location:[facility] Appointment Type:PC OV Future Scheduled Tests Laboratory* Hepatic Function Panel 03/22/22 * N-Terminal proBNP 07/16/22 [facility] Evaluation + Plan note Future Appointments Appointment Date:05/10/2022 07:00:00 AM Scheduled Provider:LUCILA LUONG APRN-LIFESTYLE BLOCK FARMER Location:[facility] Appointment Type:PC OV Future Scheduled Tests Laboratory* N-Terminal proBNP 07/16/22 [facility] Evaluation + Plan note Future Appointments Appointment Date:04/11/2023 07:00:00 AM Scheduled Provider:LUCILA LUONG APRN-EDUARDO Location:[facility] Appointment Type:PC OV Future Scheduled Tests Laboratory* N-Terminal proBNP 07/16/22 [facility] Evaluation + Plan note Future Appointments Appointment Date:10/11/2023 07:00:00 AM Scheduled Provider:LUCILA LUONG APRN-LIFESTYLE BLOCK FARMER Location:[facility] Appointment Type:PC OV Future Scheduled Tests Laboratory* Prostate Specific Antigen 10/11/23 * Thyroid Stimulating Hormone 10/11/23 * Free T4 10/11/23 * Complete Blood Count 10/11/23 * Lipid Profile 10/11/23 * Complete Metabolic Panel 10/11/23 * N-Terminal proBNP 07/16/22 [facility] Evaluation + Plan note Future Appointments Appointment Date:10/17/2023 07:30:00 AM Scheduled Provider:LUCILA LUONG APRN-LIFESTYLE BLOCK FARMER Location:[facility] Appointment Type:PC OV [facility] Evaluation + Plan note Future Appointments Appointment Date:04/16/2024 08:30:00 AM Scheduled Provider:LUCILA LUONG APRN-LIFESTYLE BLOCK FARMER Location:[facility] Appointment Type:PC OV Future Scheduled Tests Laboratory* Complete Blood Count 04/16/24 * Lipid Profile 04/16/24 * Complete Metabolic Panel 04/16/24 [facility] Evaluation + Plan note Future Appointments Appointment Date:04/16/2024 08:30:00 AM Scheduled Provider:LUCILA LUONG APRN-LIFESTYLE BLOCK FARMER Location:[facility] Appointment Type:PC OV [facility] Evaluation + Plan note Future Appointments Appointment Date:10/22/2024 07:00:00 AM Scheduled Provider:LUCILA LUONG COREMAKER MACHINE-LIFESTYLE BLOCK FARMER Location:[facility] Appointment Type:PC OV Future Scheduled Tests Laboratory* Prostate Specific Antigen 10/17/24 * Thyroid Stimulating Hormone 10/17/24 * Free T4 10/17/24 * Lipid Profile 10/17/24 * Complete Metabolic Panel 10/17/24 [facility] Evaluation + Plan note Future Appointments Appointment Date:10/22/2024 07:00:00 AM Scheduled Provider:LUCILA LUONG APRN-LIFESTYLE BLOCK FARMER Location:[facility] Appointment Type:PC OV [facility] Evaluation + Plan note Future Appointments Appointment Date:04/22/2025 07:00:00 AM Scheduled Provider:LUCILA LUONG APRN-LIFESTYLE BLOCK FARMER Location:[facility] Appointment Type:PC OV [facility] Evaluation + Plan note Future Appointments Appointment Date:10/23/2025 07:00:00 AM Scheduled Provider:LUCILA LUONG APRN-LIFESTYLE BLOCK FARMER Location:[facility] Appointment Type:PC OV Future Scheduled Tests Laboratory* Prostate Specific Antigen 10/23/25 * Thyroid Stimulating Hormone 10/23/25 * Free T4 10/23/25 * A1C Hemoglobin 04/22/25 * Complete Blood Count 10/23/25 * Lipid Profile 10/23/25 * Complete Metabolic Panel 10/23/25 [facility] Evaluation + Plan note Future Appointments Appointment Date:10/23/2025 07:00:00 AM Scheduled Provider:LUCILA LUONG APRN-LIFESTYLE BLOCK FARMER Location:[facility] Appointment Type:PC OV Future Scheduled Tests Laboratory* Prostate Specific Antigen 10/23/25 * Thyroid Stimulating Hormone 10/23/25 * Free T4 10/23/25 * Complete Blood Count 10/23/25 * Lipid Profile 10/23/25 * Complete Metabolic Panel 10/23/25 [facility] Hospital course Narrative No data available for this section [facility] Discharge instructions No data available for this section [facility] Progress note No data available for this section [facility] Reason for referral (narrative)No reason for [facility] Phone: Summary Purpose Family History No Family History Records Found Advance Directives No Advanced Directives Records FoundNo Advanced Directives Records FoundNo Advanced Directives Records Found Chief Complaint and Reason for Visit Chief Complaint Admit Date LUMBAR SPINE February 20, 2025 8:42am Room 3 February 20, 2025 9:13am Pain March 14, 2025 7:14a m LUMBAR SPINE March 20, 2025 8:14a m Reason for Visit Admit Date Degenerative disc disease (D DD) of lumbar region with discogenic back pain February 20, 2025 8:42am Lumbar stenosis with neurogenic claudica tion February 20, 2025 8:42am Pars defect with spondylolisthesis February 202024 8:42am Chief Complaint Admit Date LUMBAR SPINE February 20, 2025 8:42am Room 3 February 20, 2025 9:13am Pain March 14, 2025 7:14a m LUMBAR SPINE March 20, 2025 8:14a m lumbar spine June 17, 2025 9:38am Reason for Visit Admit Date Degenerative disc disease (D DD) of lumbar region with discogenic back pain February 20, 2025 8:42am Lumbar stenosis with neurogenic claudica tion February 20, 2025 8:42am Pars defect with spondylolisthesis February 202024 8:42am Degenerative disc disease (D DD) of lumbar region with discogenic back pain March 20, 2025 8:14am Lumbar stenosis with neurogenic claudica tion March 20, 2025 8:14am Pars defect with spondylolisthesis March 20, 2025 8:14am Additional Source Comments Care Team (unrecognized sect ion and content) Team Status: Active Member Role Status Dates Lucila Luong NP SLURRY MIXER-C Primary Care Provider Active Team Status: Inactive Member Role Status Dates Lucila Luong NP SLURRY MIXER-C Primary Care Provider Active Start: February 20, 2025 End: February 20, 2025 Lucila Luong NP SLURRY MIXER-Jacki Referring Provider Active Start: February 20, 2025 End: February 20, 2025 NADEGE Echeverria Attending Provider Active Star t: February 20, 2025 End: February 20, 2025 Team Status: Inactive Member Role Status Dates Lucila Luong SLURRY MIXER, SLURRY MIXER-C Primary Care Provider Active Start: February 20, 2025 End: February 20, 2025 Dr. Justin Valenzuela MD Attending Provider Active S tart: February 20, 2025 End: February 20, 2025 Team Status: Inactive Member Role Status Dates Lucila Luong SLURRY MIXER, SLURRY MIXER-C Primary Care Provider Active Start: March 14, 2025 End: March 14, 2025 NADEGE Echeverria Attending Provider Active Star t: March 14, 2025 End: March 14, 2025 NADEGE Echeverria Referring Provider Active Star t: March 14, 2025 End: March 14, 2025 Team Status: Inactive Member Role Status Dates Lucila Luong SLURRY MIXER, SLURRY MIXER-C Primary Care Provider Active Start: March 20, 2025 End: March 20, 2025 Lucila Luong SLURRY MIXER, SLURRY MIXER-C Referring Provider Active Start: March 20, 2025 End: March 20, 2025 NADEGE Echeverria Attending Provider Active Star t: March 20, 2025 End: March 20, 2025 Team Status: Active Member Role Status Dates Lucila Luong SLURRY MIXER, SLURRY MIXER-C Primary Care Provider Active Start: March 14, 2025 NADEGE Echeverria Attending Provider Active Star t: March 14, 2025 NADEGE Echeverria Referring Provider Active Star t: March 14, 2025 Team Status: Active Member Role/Relationship Status Dates Lucila Luong SLURRY MIXER, SLURRY MIXER-C Primary Care Provider Active Team Status: Inactive Member Role/Relationship Status Dates Lucila Luong SLURRY MIXER, SLURRY MIXER-C Primary Care Provider Active Start: February 20, 2025 End: February 20, 2025 Lucila Luong SLURRY MIXER, SLURRY MIXER-C Referring Provider Active Start: February 20, 2025 End: February 20, 2025 NADEGE Echeverria Attending Provider Active Star t: February 20, 2025 End: February 20, 2025 Team Status: Inactive Member Role/Relationship Status Dates Lucila Luong SLURRY MIXER, SLURRY MIXER-C Primary Care Provider Active Start: February 20, 2025 End: February 20, 2025 Dr. Justin Valenzuela MD Attending Provider Active S tart: February 20, 2025 End: February 20, 2025 Team Status: Inactive Member Role/Relationship Status Dates Lucila Luong SLURRY MIXER, SLURRY MIXER-C Primary Care Provider Active Start: March 14, 2025 End: March 14, 2025 NADEGE Echeverria Attending Provider Active Star t: March 14, 2025 End: March 14, 2025 NADEGE Echeverria Referring Provider Active Star t: March 14, 2025 End: March 14, 2025 Team Status: Inactive Member Role/Relationship Status Dates Lucila Luong SLURRY MIXER, SLURRY MIXER-C Primary Care Provider Active Start: March 20, 2025 End: March 20, 2025 Lucila Luong SLURRY MIXER, SLURRY MIXER-C Referring Provider Active Start: March 20, 2025 End: March 20, 2025 NADEGE Echeverria Attending Provider Active Star t: March 20, 2025 End: March 20, 2025 Team Status: Inactive Member Role/Relationship Status Dates Lucila Luong SLURRY MIXER, SLURRY MIXER-C Primary Care Provider Active Start: June 17, 2025 End: June 17, 2025 Lucila Luong SLURRY MIXER, SLURRY MIXER-C Referring Provider Active Start: June 17, 2025 End: June 17, 2025 Dr. Francisco Villa MD Attending Provider Active Start: June 17, 2025 End: June 17, 2025 Care Team (unrecognized sect ion and content) Care Team Personnel Name: Leelee Gimenez PT Position: P3 Scheduling - Sales Donor Recruitment Representative Advanced Member Role: Other Name: VERNA SILVA MD Position: P4 Physician - Cardiology Member Role: Pottery Kiln Builder Address: Address: [address] [facility] [place] [address]- Name: LUCILA LUONG COREMAKER MACHINE-LIFESTYLE BLOCK FARMER Position: P4 Advanced Practice Nurse Member Role: Primary Care Physician Address: Address: [address] [place] [address]- [place] Care Team Related Persons Name: MANSOOR JAMES Name: CHEMA HO Name: HUGO QUINTANILLA Care Team Personnel Name: Leelee Gimenez PT Position: P3 Scheduling - Sales Donor Recruitment Representative Advanced Member Role: Other Name: VERNA SILVA MD Position: P4 Physician - Cardiology Member Role: Pottery Kiln Builder Address: Address: [address] [facility] [place] [address]- Name: LUCILA LUONG APRN-LIFESTYLE BLOCK FARMER Position: P4 Advanced Management Advisor Member Role: Primary Care Physician Address: Address: [address] [facility] [place] [place] [address]- Care Team Related Persons Name: MANSOOR JAMES Name: CHEMA HO Name: HUGO QUINTANILLA (unrecognized sect ion and content) No Status Records FoundNo Status Records FoundNo Status Records Found INFORMATION SOURCE (unrecogn ized section and content) DATE CREATED AUTHOR 04/10/2024 [facility] ([place]) DATE CREATED AUTHOR AUTHOR'S ORGANIZ ATION 06/14/2025 [facility] DATE CREATED AUTHOR AUTHOR'S ORGANIZ ATION 06/21/2025 [facility] Goals (unrecognized section and content) Goals may be documented in a n alternate section FOR RECORDS PERTAINING TO PATIENTS WHO ARE OR HAVE BEEN ENROLLED IN A CHEMICAL DEPENDENCY/SUBSTANCEABUSE PROGRAM, SOME INFORMATION MAY BE OMITTED. This clinical summary was aggregated from multiple sources. Caution should be exercised in using it in the provision of clinical care. This summary normalizes information from multiple sources, and as a consequence, information in this document may materially change the coding, format and clinical context of patient data. In addition, data may be omitted in some cases. CLINICAL DECISIONS SHOULD BE BASED ON THE PRIMARY CLINICAL RECORDS. [employer] provides no warranty or guarantee of the accuracy or completeness of information in this document.
[2025-06-23] MEDS: Magnesium 1 GM over 15 mins IV (06:07)
[2025-06-23] MEDS: Lactated Ringers 1,000 ML 15 ML IV (06:07)
--- NOTE | 2025-06-23 06:38 | PCM.PRE.AN2 ---
ASA Classification* ASA Classification ASA Classification: 3 Assessment & Plan Anesthesia* Anesthesia Assessment Anesthesia Assessment: Discussed sedation and/or anesthesia options, risks, benefits, and alternatives with patient/parents/legal guardian/POA. Questions invited. The patient/parents/legal guardian/POA seems to understand and agrees to proceed with anesthesia plan. Reviewed the physical assessment, medical history, allergy history and patient home medications list prior to surgery/procedure/anesthetic and documented any changes. Performed airway and anesthesia risk assessments. Anesthesia Type Anesthesia Type: General History Source History Obtained from:: Patient and Chart Anesthesia Focused Assessment* Temperature: 97.4 F Pulse Rate: 77 Blood Pressure: 131/73 Respiratory Rate: 16 Pulse Ox: 98 Oxygen Delivery Method: Room Air Airway Assessment Mouth opens: >3 cm Mallampati Score: II Teeth Condition: Dentures (Edentulous) Neck Range of motion (ROM): Limited ROM Labs Anesthesia Preop lab: CBC WBC 6.8 K/mm3 (4.4-11.0) 06/10/25 08:03 06/10/25 RBC 5.76 M/mm3 (4.6-6.2) 06/10/25 08:03 06/10/25 Hgb 17.6 g/dL (13.0-16.5) H 06/10/25 08:03 06/10/25 Hct 51.0 % (40-54) 06/10/25 08:03 06/10/25 Plt Count 246 K/mm3 (150-450) 06/10/25 08:03 06/10/25 CHEMISTRY Potassium 4.8 mmol/L (3.3-5.1) 06/10/25 08:03 06/10/25 Sodium 138 mmol/L (133-145) 06/10/25 08:03 06/10/25 Magnesium 2.2 mg/dL (1.5-2.2) 06/10/25 08:03 06/10/25 BUN 17 mg/dL (4-19) 06/10/25 08:03 06/10/25 Creatinine 1.12 mg/dL (0.70-1.20) 06/10/25 08:03 06/10/25 Glucose 102 mg/dL (70-99) H 06/10/25 08:03 06/10/25 TSH 3.840 uIU/mL (0.300-4.200) 06/10/25 08:03 06/10/25 COAG Pre-Assessment Diagnosis/Proposed Procedure Planned Operative Procedure(s): 360 LUMBAR FUSION L4-5 L5-S1 Anesthesia History 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 When Was Last Pacemaker Check QUESTION #4 FULL TEXT: You/Your Family Experience fever (hyperthermia) with Anesthesia Last Oral Intake Last Oral intake: Last Oral Intake NPO since 03:30 06/23/25 06:18 Meds taken in AM with sips of Yes 06/23/25 06:18 water? Meds patient instructed to take am of surgery PONV PONV - agricultural chemist: PONV - agricultural chemist Female No 06/09/25 08:56 HX of Motion Sickness No 06/09/25 08:56 HX of N/V After Surgery No 06/09/25 08:56 Non-Smoker Yes 06/09/25 08:56 Duration of Surgery greater Yes 06/09/25 08:56 than 60 minutes Number of Risk Factors 2 06/09/25 08:56 PONV Score Moderate Risk 06/09/25 08:56 Height & Weight Height & Weight: Anesthesia: Height & Weight Height 5 ft 7 in 06/23/25 06:18 Weight: 95 kg 06/23/25 06:18 Body Mass Index (BMI) 32.8 06/23/25 06:18 Respiratory Assessment Respiratory Assessment - agricultural chemist: Respiratory Tract Infection Hx - agricultural chemist Hx Respiratory Tract Infection No 06/09/25 08:56 STOP Sleep Apnea STOP Sleep Apnea - agricultural chemist: STOP Sleep Apnea - agricultural chemist Hx Hypertension Yes: CONTROLLED WITH MEDS 06/09/25 08:56 Hx Sleep Apnea No 06/09/25 08:56 CPAP BIPAP Do you snore loudly (louder No 06/09/25 08:56 than talking or can be heard Do you often feel tired/ No 06/09/25 08:56 fatigued/ sleepy during daytime? Has anyone observed you stop Yes 06/09/25 08:56 breathing during sleep? STOP Results Positive 06/09/25 08:56 QUESTION #5 FULL TEXT : Do you snore loudly (louder than talking or can be heard through closed doors)? Tobacco Use History Tobacco Use History - agricultural chemist: Tobacco Use History - agricultural chemist Tobacco Use Smoking Status Former smoker 06/09/25 08:56 Hx Tobacco Use No 06/09/25 08:56 Years Smoking Packs Smoked per Day Smoking Cessation Date was No - quit smoking greater 06/09/25 08:56 within the last 15 years than 15 years ago Hx Smoking Cessation Date 10/16/06 06/09/25 08:56 Hx Smoking Cessation No 06/09/25 08:56 Counseling Hematologic Medial History Hematologic Hx - agricultural chemist: Hematologic Medical Hx - document reviewer Hx of Blood Transfusion No 06/09/25 08:56 Hx of Transfusion in last 3 No 06/09/25 08:56 Months Date of Last Transfusion (if within last 3 months) Ever experience any problems No 06/09/25 08:56 with transfusion(s)? 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 confused, unrespo /Reproduction History /Reproductive History - agricultural chemist: /Reproductive Hx- agricultural chemist Hx Now No 06/09/25 08:56 Gestational Age (in weeks): EDC: Hx Hx Para Hx Section SAB No 06/09/25 08:56 Active Medications Active Medications: Current Medications Generic Name Dose Route Start Last Admin Trade Name Freq PRN Reason Stop Dose Admin Acetaminophen 1,000 mg 06/23/25 07:30 06/23/25 06:26 Acetaminophen 500 Mg Tablet PO 06/23/25 07:31 1,000 mg PREOP ONE Administration Cefazolin Sodium 2 gm/ Sodium 110 mls @ 150 mls/hr 06/23/25 07:30 Chloride IV 06/23/25 08:13 INTRAOP ONE Tranexamic Acid 1,000 mg/ 110 mls @ 440 mls/hr 06/23/25 07:30 Sodium Chloride IV 06/23/25 07:44 INTRAOP ONE Tranexamic Acid 1,000 mg/ 110 mls @ 440 mls/hr 06/23/25 07:30 Sodium Chloride IV 06/23/25 07:44 INTRAOP ONE Magnesium Sulfate 1 gm/ 102 mls @ 408 mls/hr 06/23/25 07:30 06/23/25 06:07 Dextrose IV 06/23/25 07:44 408 mls/hr PREOP ONE Administration Lactated Ringer's 1,000 mls @ 15 mls/hr 06/23/25 06:00 06/23/25 06:07 IV 15 mls/hr .Q48H ALENA Administration Insulin Human Lispro 1 - 6 unit 06/23/25 07:30 Insulin Lispro 100 Unit/Ml Insuln.Pen SC 06/23/25 18:00 Q4H PRN PRN BG>/= 180, SEE PROTOCOL Protocol PFSH Medical History Wears glasses Wears dentures Arthritis Restless legs Back pain Gastric reflux Former smoker History of pain when walking Cardiology follow-up encounter History of echocardiogram History of stress test Spinal cord stimulator status Hypothyroid Hypocholesterolemia Hypertension Home Medications ?Medication ?Instructions ?Recorded ?Last Taken ?Type aspirin 81 mg tablet,delayed 81 mg PO DAILY@0800 [facility] 11/11/20 06/19/25 History release diphenhydramine HCl 25 mg capsule 25 mg PO DAILY PRN Allergies 11/11/20 06/22/25 History levothyroxine 112 mcg tablet 112 mcg PO DAILY THYROID 11/11/20 06/23/25 History loratadine 10 mg capsule 10 mg PO PRN PRN Allergies 11/11/20 06/22/25 History losartan 50 mg tablet 50 mg PO DAILY BP 11/11/20 06/23/25 History nifedipine 60 mg tablet,extended 60 mg PO DAILY BP 11/11/20 06/23/25 History release 24 hr omega-3 fatty acids-fish oil 300 1 ea PO DAILY SUPPLEMENT 11/11/20 06/22/25 History mg-1,000 mg capsule psyllium husk 0.52 gram capsule 0.52 g PO DAILY BOWELS 11/11/20 06/21/25 History simvastatin 40 mg tablet 40 mg PO QHS CHOLESTEROL 11/11/20 06/22/25 History metoprolol succinate 25 mg 25 mg PO QDAY BP 02/20/25 06/23/25 History tablet,extended release 24 hr ibuprofen 600 mg tablet (IBU) 600 mg PO Q8H PRN pain 06/09/25 Unknown History omeprazole 20 mg tablet,delayed 20 mg PO DAILY PRN GERD 06/09/25 06/23/25 History release Allergy/AdvReac Type Severity Reaction Status Date / Time mold Allergy Severe Watery eyes Verified 06/23/25 06:05 Family History Mother No problems noted. Father No problems noted. Surgical History Hx of colonoscopy History of excision of pilonidal cyst Hx of elbow surgery History of left hip replacement H/O hernia repair Social History Smoking Status: Former smoker Review of Systems (Anesthesia) ROS Narrative System reviewed and no additional complaints, except as documented.
--- NOTE | 2025-06-23 07:21 | PCM.HP.BLA ---
History and Physical Date of Admission: 06/23/25 MR#: [id number] Acct: [id number] Name: RUI RIOS Rep #: [id number] : 1950 Provider: Dr. Juan Villa MD Age/Sex: 75/M Location: [facility] [place] Status: Signed Intake Vital Signs 03/20/2508:26 06/17/2509:49 Height 5 ft 7 in 5 ft 7 in Weight: 208 lb 210 lb BMI 32.5 32.8 Intake Visit Reasons: lumbar spine Chief Complaint: Lumbar spine pre op Accompanied by: Is patient in pain?: Yes Pain scale (1-10): 5 Allergies mold Allergy (Severe, Verified 06/17/25 09:52) Watery eyes Medications ?Medication ?Instructions ?Recorded ?Confirmed ?Type aspirin 81 mg tablet,delayed 81 mg PO DAILY@0800 HEART HEALTH 11/11/20 06/17/25 History release diphenhydramine HCl 25 mg capsule 25 mg PO DAILY PRN Allergies 11/11/20 06/17/25 History levothyroxine 112 mcg tablet 112 mcg PO DAILY THYROID 11/11/20 06/17/25 History loratadine 10 mg capsule 10 mg PO PRN PRN Allergies 11/11/20 06/17/25 History losartan 50 mg tablet 50 mg PO DAILY BP 11/11/20 06/17/25 History nifedipine 60 mg tablet,extended 60 mg PO DAILY BP 11/11/20 06/17/25 History release 24 hr omega-3 fatty acids-fish oil 300 1 ea PO DAILY SUPPLEMENT 11/11/20 06/17/25 History mg-1,000 mg capsule psyllium husk 0.52 gram capsule 0.52 g PO DAILY BOWELS 11/11/20 06/17/25 History simvastatin 40 mg tablet 40 mg PO QHS CHOLESTEROL 11/11/20 06/17/25 History metoprolol succinate 25 mg 25 mg PO QDAY BP 02/20/25 06/17/25 History tablet,extended release 24 hr ibuprofen 600 mg tablet (IBU) 600 mg PO Q8H PRN pain 06/09/25 06/17/25 History omeprazole 20 mg tablet,delayed 20 mg PO DAILY PRN GERD 06/09/25 06/17/25 History release Have you fallen in the past year?: Yes PFSH Medical History Wears glasses Wears dentures Arthritis Restless legs Back pain Gastric reflux Former smoker History of pain when walking Cardiology follow-up encounter History of echocardiogram History of stress test Spinal cord stimulator status Hypothyroid Hypocholesterolemia Hypertension Surgical History Hx of colonoscopy History of excision of pilonidal cyst Hx of elbow surgery History of left hip replacement H/O hernia repair Family History Mother No problems noted. Father No problems noted. Social History Smoking Status: Former smoker HPI lumbar spine Details: This documentation accurately reflects the service provided and the decisions made by me, Dr. Juan Villa MD 06/17/25 0821. Part of today?s visit was documented by Thom Jeffers MA, acting as scribe. RUI RIOS is a 75 year old M here today for lumbar spine pre op. Patient states that his pain is a 5 today. He would like to discuss what he can and can't do after the surgery. The last injection that he had was in July of 2024, by Dr. Cervantes. He states that the injections lasted for a couple weeks. Patient went through physical therapy in August 2024. He did 8-10 sessions, and it did help his lower back for a while. The patient is a 75-year-old male presenting with symptoms of lumbar radiculopathy. The symptoms are predominantly on the right side, described as cramp-like pain radiating from the spine down to the foot. The left side was previously affected but has improved significantly with the use of a spinal cord stimulator placed in 2020. The patient has a history of receiving multiple injections in the lower back, with the last one administered in July of the previous year. Additionally, a radiofrequency ablation was performed in November. Despite these interventions, the right-sided symptoms persist, and the patient is unable to walk more than five minutes without discomfort. The patient has a history of hernia repair performed in 6, which has not caused any subsequent issues. He denies any history of diabetes or smoking, having quit smoking in 2006. - Musculoskeletal: Reports cramp-like pain radiating from the spine down to the right foot. Denies significant symptoms on the left side due to spinal stimulator. - Neurological: Reports tingling in the feet. Denies foot drop or tripping. Attestation: Documentation on this patient encounter was supported using ambient scribe technology/ voice AI technology. The patient consented to recording for the purpose of documenting the encounter. Provider reviewed content of the generated note prior to signature. Ortho Exam General General: Yes no acute distress Neurologic: Yes alert and Yes oriented x3 Psychologic: Yes reasonable and appropriate Spine SPINE TESTING CERVICAL THORACIC LUMBAR Musculoskeletal Strength 0=absent - 5=normal Details: Neurological exam of the lower extremities shows 5x5 power. Normal sensations across all dermatomes. No hyperreflexia. No midline tenderness, mild right paraspinal tenderness. There is a small soft bulge on the right paraspinal region from the stimulator placement. 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 There is some mild instability seen on dynamic views. There is a disc height loss seen throughout the lumbar spine. There is also mild dextroscoliosis. There is a spinal cord stimulator. Reviewed MRI from 03/14/25 which showed L2-3: Disc bulging, facet arthropathy, and ligamentum flavum hypertrophy resulting in mild to moderate central stenosis. Moderate bilateral neural foraminal stenosis. L4-5: Disc bulging and facet arthropathy resulting in minimal central stenosis. Severe right and moderate left neural foraminal stenosis. L5-S1: Grade 1 anterolisthesis, disc bulging, and facet arthropathy resulting in severe bilateral neural foraminal stenosis. 1. Lumbar radiculopathy - The patient is scheduled for spinal surgery to address persistent right-sided symptoms. - The plan includes avoiding steroids six weeks prior to surgery and ensuring mobility post-surgery to aid recovery. 2. Spinal cord stimulator - The stimulator has been effective for left-sided symptoms. - It should be turned off before surgery and can be turned back on post-operatively. - Avoid taking steroids within six weeks of surgery. - Turn off the spinal cord stimulator before surgery and turn it back on after the procedure. - Engage in walking and mobility exercises as soon as possible after surgery to aid recovery. Discussed this procedure in detail and explained the risks, benefits and alternatives. The risks of surgery include but are not limited to infection, bleeding, injury to nerves or vessels, need for further surgery, ileus, vascular injury, visceral injury, DVT, pulmonary embolism, pneumonia, atelectasis, cardiopulmonary event, pseudoarthrosis, hardware failure, gait abnormality, adjacent segment degeneration. Discussed post-surgery restrictions in detail such as no bending, lifting, or twisting. Answered all questions to the patient?s satisfaction. Patient understands and agrees to proceed with surgery. Consent was signed.Follow up two weeks post operatively or sooner if pain, swelling, numbness or associated symptoms, or concerns develop. All questions answered. Patient in agreement of plan.
[2025-06-23] MEDS: Midazolam 2 MG/2 ML Syringe IV (07:30)
--- NOTE | 2025-06-23 07:34 | RAD_ITS ---
PROCEDURE: LUMBAR SPINE 2 OR 3 VIEWS; O.R. FLUORO FOR C-ARM 06/23/2025 REASON FOR EXAM: 360 LUMBAR FUSION L4-5 L5-S1 TECHNIQUE: Procedure Code: RADSPLL; RADORFL_C_ARM Modality: DX Procedure: LUMBAR SPINE 2 OR 3 VIEWS; O.R. FLUORO FOR C-ARM. Fluoroscopy time 170.7 seconds. Dose: 95.73 mGy. COMPARISON: Lumbar MRI of 03/14/2025. RAD/O.R. Fluoro for C-Arm IMPRESSION: Intraoperative fluoroscopy was performed for lumbar fusion/fixation. 20 fluoro scopic images were also obtained. Reading Location: [place] [id number]
--- NOTE | 2025-06-23 07:34 | RAD_ITS ---
PROCEDURE: LUMBAR SPINE 2 OR 3 VIEWS; O.R. FLUORO FOR C-ARM 06/23/2025 REASON FOR EXAM: 360 LUMBAR FUSION L4-5 L5-S1 TECHNIQUE: Procedure Code: RADSPLL; RADORFL_C_ARM Modality: DX Procedure: LUMBAR SPINE 2 OR 3 VIEWS; O.R. FLUORO FOR C-ARM. Fluoroscopy time 170.7 seconds. Dose: 95.73 mGy. COMPARISON: Lumbar MRI of 03/14/2025. RAD/Lumbar Spine 2 or 3 Views IMPRESSION: Intraoperative fluoroscopy was performed for lumbar fusion/fixation. 20 fluoro scopic images were also obtained. Reading Location: [place] [address]
[2025-06-23] MEDS: Lidocaine 1% (5 ml sdv) 5 ML Vial 10 ML IV (07:40)
[2025-06-23] MEDS: Cefazolin 1 GM/5 ML Vial 4 GM IV (11:30)
[2025-06-23] MEDS: fentaNYL 100 MCG/2 ML Ampul 200 MCG IV (11:30)
[2025-06-23] MEDS: TRANEXAMIC ACID 1,000 MG/10 ML ML 2000 MG IV (13:07)
--- NOTE | 2025-06-23 13:45 | PCM.OPRPT ---
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 Auto Garage Mechanic: Fran Kenyon Tasks completed by plastic surgery assistant: Opening & closing, Dissecting tissue, Hemostasis: Electrocautery, Retracting and Other (Gm-[id number] surgery-access) Additional computer assistant?: Yes Additional Band Booker #2: Candice Kumar Tasks completed by computer assistant #2: Closing, Removing tissue, Hemostasis: Electrocautery and Retracting Type of Anesthesia: General RN Documented Start/Stop Times: Operation Date: 06/23/25 07:30 Case Time Into Pre-Op 06/23/25 05:48 Out of Pre-Op 06/23/25 07:27 Anesthesia Start 06/23/25 07:30 Into Room 06/23/25 07:30 Procedure Start 06/23/25 08:16 Procedure End 06/23/25 13:27 Anesthesia End 06/23/25 13:42 Out of Room 06/23/25 13:42 Procedure Start Time: 08:16 Procedure Stop Time: 13:27 Select all DRAINS/GRAFTS/IMPLANTS that apply: Graft Graft details: Allograft cancellous chips, autologous iliac crest bone marrow aspirate and Implanted device Implanted device details: DePuy cougar lateral lumbar interbody cage?peek Estimated Blood Loss: 100 cc Specimen collected: No Description of surgery: Preoperative diagnosis: L5-S1 spondylolisthesis, L4-5 disc degeneration, stenosis with neurogenic claudication Postoperative diagnosis: Same Name of procedures L4-5 oblique lumbar interbody fusion (OLIF), attempted L5-S1 OLIF, minimally invasive left sided approach, lateral decubitus: ? L4-5 anterolateral spinal fusion ? L4-5 insertion of cage ? Bone graft aspirate left iliac crest separate incision ? Allograft cancellous chips Attending Surgeon: Dr. Juan Villa Co-surgeon: Dr. Fran Kenyon Estimated blood loss: 100 mL Anesthesia: General Complications: None Indications: Patient is a 75-year-old pleasant gentleman who has had a long history of low back pain and right worse than left lower extremity radiation, difficulty walking distances. Xrays & MRI revealed L5-S1 spondylolisthesis, L4-S1 disc degeneration with severe stenosis. After undergoing a prolonged period of nonoperative treatment, the patient elected to undergo surgical decompression & fusion. All surgical options were discussed with the patient including anterior and posterior approaches. All risks and benefits associated with the procedure were explained to the patient. The risks include but are not limited to infection, bleeding, injury to nerves and vessels including major vessels like IVC and aorta, persistent paresthesia, persistent pain, dural tear, need for further procedures, adjacent segment degeneration, pseudoarthrosis, hardware failure, retrograde ejaculation, paralytic ileus, etc. Procedure: The patient was identified in the preoperative holding suite using Unique patient identifiers. Skin was marked, consent was reviewed, and all questions were answered. The patient was then brought back to the operative room. A surgical timeout was performed to make sure correct procedure was being done on the correct patient and all operative room staff were on the same page. General endotracheal anesthesia was then given to the patient. Petit catheter was inserted. The patient was then carefully positioned in right lateral decubitus position with the left side up on a regular OR table. Axillary roll was placed and all bony prominences were well- padded. Hip positioners were placed in the posterior buttocks and anterior sternal area. The surgical area was prepped and draped in usual fashion. Preoperative antibiotic was injected IV as preoperative antibiotic. A final timeout was then again done just before starting the procedure. A 2 inch incision oblique was taken in the left lower quadrant of the abdomen 2 fingerbreadths away from the iliac crest and the lower ribs. Sharp dissection with Bovie was carried out up to the fascia covering the external oblique. The external oblique, internal oblique and transversus abdominis muscles were split along the muscle fibers and retroperitoneal space was entered. Sponge sticks were utilized to move the bowel and peritoneum ubd-tq-itr-way and psoas muscle was exposed staying within the retroperitoneal plane. [employer] retractor system was positioned and the retractor blade was applied onto the psoas. The interval between psoas and midline structures was developed and appropriate retractors were placed. Once adequate interval was cleared, a disc space was identified and a marker x-ray was taken. This identified the L4-5 disc level. The prepsoas interval was then traced inferiorly. There was significant calcification within the left common iliac artery and this was not retractable. There was significant adhesions between the left common iliac vein and the L5-S1 disc. After significant careful dissection, decision was made to not perform the anterolateral fusion at L5-S1 due to lack of access from the difficult vascular anatomy. Details of this approach are in Dr. Kenyon's note. A decision was made to perform a TLIF instead and L5-S1 in the posterior surgery. Annulotomy was done with a long handled knife at L4-5. Pituitary was used to remove disc material. Curettes were used to prepare the endplates. Disc space spreaders were utilized to distract and increase the disc height. Near complete discectomy was performed. Trials of serially increasing sizes were used. A Jamshidi needle was used to aspirate bone marrow from the left anterior iliac crest through a separate incision and this aspirate was mixed with the allograft bone chips. A Depuy [place] cage of size of the 18 x 50 x 12 mm with 15 degrees lordosis was packed with corticocancellous allograft bone chips mixed with bone marrow aspirate. This was inserted into the L4-5 disc space. Smaller disc distractors were also used to bluntly perform a contralateral annulotomy. Some bone chips were also packed around the cages. Screw with washer was placed into the lower L4 body with a washer partially covering the cage at L4-5. Hemostasis was confirmed. The retractor blades were removed. Closure was done in layers with a continuous strand of # 1 Vicryl in all muscle layers. 2-0 Vicryl was used for subcutaneous tissue and 4-0 for Monocryl for the skin. Steri-Strips were applied and 4 x 4 gauze and Tegaderm were applied. Band Booker Candice Kumar PA-C. My physician computer assistant was a vital part of this case. They were important in appropriate retraction during the case, and protection of soft tissues during the procedure. Their intimate knowledge of the case and my steps aided in safe and expedient completion of the procedure as well as appropriate position of the patient during the surgery. They were also vital in assisting with closure under my direct supervision. Surgical Findings: See operative note Complications Complications: No
--- NOTE | 2025-06-23 13:50 | OP.PCM_ITS ---
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 augmentee operator: Yes Enamel Buffer: Candice Kumar Tasks completed by or first assist registered nurse: Closing, Implanting device, Hemostasis: Electrocautery and Retracting Type of Anesthesia: General RN Documented Start/Stop Times: Operation Date: 06/23/25 07:30 Case Time Into Pre-Op 06/23/25 05:48 Out of Pre-Op 06/23/25 07:27 Anesthesia Start 06/23/25 07:30 Into Room 06/23/25 07:30 Procedure Start 06/23/25 08:16 Procedure End 06/23/25 13:27 Anesthesia End 06/23/25 13:42 Out of Room 06/23/25 13:42 Procedure Start Time: 08:16 Procedure Stop Time: 13:27 Select all DRAINS/GRAFTS/IMPLANTS that apply: Graft Graft details: Allograft cancellous chips and Implanted device Implanted device details: DePuy Xpac TLIF cage, Viper prime pedicle screw instrumentation Estimated Blood Loss: 100 cc Specimen collected: No Description of surgery: Preoperative diagnosis: L5-S1 spondylolisthesis, L4-S1 disc degeneration with stenosis, neurogenic claudication Postoperative diagnosis: Same Name of procedure: L5-S1 transforaminal lumbar interbody fusion (TLIF), minimally invasive right side approach, L4-S1 percutaneous pedicle screw instrumentation. . L5-S1 posterior spinal fusion and interbody fusion 53689 ? L4-S1 posterior pedicle screw instrumentation 92940 . L5-S1 insertion of cage 18939 . L4-5 posterior fusion 11449 . Local autograft . Cancellous allograft with DBX Attending Surgeon: Dr. Juan Villa Estimated blood loss: 100 mL Anesthesia: GA Complications: None Implants: DePuy Synthes X-PAC TLIF cage, Viper prime screws Description of procedure: After the anterior procedure was complete, the patient was then turned supine. The patient was then transferred to Mello table in prone position. The back was prepped and draped in usual fashion. IV antibiotic was given as preoperative antibiotic. A final timeout was then again done just before starting the procedure. C-arm AP view was then taken. C-arm was positioned in a way that L4 was centralized and superior endplate of L4 and was parallel to the beam. Spinous process was centered between the pedicles. Midline was marked with skin marker and lateral borders of the pedicles were also marked. Skin marker was also utilized to carlitos transversely across the middle of the pedicles at L4. 2 transverse paramedian incisions of 1 inch were placed. The fascia was incised vertically. Finger dissection was utilized to palpate the transverse process and facet joint. Viper Prime screws with towers were inserted and docked onto the transverse processes. This was then slowly moved medially to reach the superior articular process of L4. This was then confirmed on C-arm and then a mallet was utilized to drive the trocar into the pedicle going up to the medial wall of the pedicle on AP view. This was performed both sides. C-arm lateral view confirmed that the tip of the trocar was in the vertebral body, and the screw was advanced into the pedicle and vertebral body. Screw sizes were 7 x 50 mm at L4 on both sides. L5 superior endplate was then squared on the AP view, and a skin marking was made along the L5 pedicles. 2 vertical incisions about 1 inch Extending below this line were taken about 1/2 inch lateral to the pedicle line. The fascia was also incised vertically approximately the same length. Finger dissection was utilized to palpate the superior articular process and facet joint of L5-S1 on the right side. Sequential tubes were docked on the L5-S1 right facet joint and 70 mm length and 18 mm diameter tubular retractor was then placed and was attached to the arm attached to the OR table. Muscle tissue was removed with pituitaries and hemostasis was achieved with Bovie. Right inferior articular process of L5 and superior articular process of S1 were exposed with Bovie. Osteotome was utilized to remove a portion of the inferior articular process to expose the articular surface of S1. Some of this resected bone was used as autograft. Zakia was then utilized to remove the rest of the inferior articular process and part of the lamina of L5. Superior articular process of S1 was resected with the help of a bur such that the cut was flush with the superior border of S1 pedicle. The traversing nerve root was identified and carefully retracted to expose the disc. Hemostasis was achieved with bipolar cautery. Blunt spreaders were utilized to enter the disc space under C-arm visualization. Pituitary was used to remove disc material. Curettes of various sizes and angulations were utilized to remove as much of the disc material as possible. End plates were curetted to remove all cartilage. Angled curettes were used to remove disc material from the other side underneath the central annulus. Depuy X-PAC trials were inserted into position and checked under C- arm lateral view. The disc space was then filled with cancellous bone chips mixed with DBX which were then impacted with the trials. An 10 x 25 mm lordotic tall X-PAC cage filled with bone graft was then inserted into the disc space under x-ray control. Care was taken to make sure the cage was inserted deeper to the posterior longitudinal ligament. The expandable cage was then expanded to up to approximately 13 mm anterior height with approximately 15 degrees lordosis. The cage was found to be well fixed and not easily removable. AP and lateral views showed good positioning of the cage. Depuy Viper Prime screw tower was docked onto the transverse processes at L5. This was then slowly moved medially to reach the superior articular process of L5. This was then confirmed on C-arm and then a mallet was utilized to drive the trocar and screw into the pedicle going up to the medial wall of the pedicle on AP view. This was performed both sides. C-arm lateral view confirmed both trocars to be inside vertebral body. The screws were advanced. Similar procedure was done at S1 both sides. Cannulated pedicle screws (Depuy Viper) sizes were 7 x 50 mm bilaterally at L5 and 7 x 45 at S1 levels bilaterally. The lateral view showed good positioning of the screws and cage. 65 mm precontoured titanium 5.5 mm lordotic abel on both sides was then passed through the screw extensions and reduced down to the screws with the help of [employer]Stream Sport Highlightser Prime instrumentation system. AP and lateral views of the C-arm showed good positioning of the screws and cage. Final tightening with the torque screwdriver was then completed. Zakia was utilized to decorticate the left L4-5, L5-S1 facet joint and bone graft was placed over this. Hemostasis was achieved with the help of Bovie and FloSeal. Closure was done in layers with 0 Vicryls for the fascia, 2-0 Vicryls for the subcutaneous tissue, and Monocryl for the skin. Dressings were applied covered with Tegaderm. The patient was then turned supine onto a hospital bed. The patient was extubated and taken to PACU in stable condition. The patient tolerated the procedure well and no complications occurred. TappTime X-PAC cage & Viper Prime minimally invasive pedicle screw instrumentation system was utilized in this case. No dural tear was identified in this case. I was present for the entirety of the case and performed the surgery myself. Dairy Bacteriologist Candice Kumar PA-C. My physician language assistant was a vital part of this case. They were important in appropriate retraction during the case, and protection of soft tissues during the procedure. Their intimate knowledge of the case and my steps aided in safe and expedient completion of the procedure as well as appropriate position of the patient during the surgery. They were also vital in assisting with closure under my direct supervision. Surgical Findings: See operative note Complications Complications: No
--- NOTE | 2025-06-23 13:54 | PCM.POST.ANE ---
Anesthesia: Postop Eval I Current Vital Signs Temperature: 97 F Pulse Rate: 72 Blood Pressure: 112/73 Respiratory Rate: 18 Pulse Ox: 99 Oxygen Delivery Method: Venturi Mask Oxygen Flow Rate (L/min): 6 Assessment Airway patent: Yes Spontaneous unlabored respirations: Yes Mental status: Awake and Calm nausea: No Vomiting: No Anesthesia Complication: No Fluid Hydration Crystalloid volume administer (ml): 2,000 Total IV fluid infused: 2,000 Progress Note Anesthesia document: Postop Eval 1 completed: Yes
--- NOTE | 2025-06-23 14:12 | PCM.OPRPT ---
Operative Report (Standard) Operative Information Date of Procedure: 06/23/25 Pre-Operative Diagnosis: L5-S1 spondylolisthesis, L4-S1 disc degeneration with stenosis, neurogenic claudication Post-Operative Diagnosis: Same Surgery/Procedure Performed: L4-5 oblique lumbar interbody fusion (OLIF), attempted L5-S1 OLIF, minimally invasive left sided approach, lateral decubitus: ? L4-5 anterolateral spinal fusion ? L4-5 insertion of cage ? Bone graft aspirate left iliac crest separate incision ? Allograft cancellous chips automotive machinist apprentice: Yes Board Certified Arts Therapist: Candice Kumar Tasks completed by assistant casino shift manager: Opening, Closing, Opening & closing and Retracting Type of Anesthesia: General RN Documented Start/Stop Times: Operation Date: 06/23/25 07:30 Case Time Into Pre-Op 06/23/25 05:48 Out of Pre-Op 06/23/25 07:27 Anesthesia Start 06/23/25 07:30 Into Room 06/23/25 07:30 Procedure Start 06/23/25 08:16 Procedure End 06/23/25 13:27 Anesthesia End 06/23/25 13:42 Out of Room 06/23/25 13:42 Into Recovery 06/23/25 13:46 Procedure Start Time: 08:15 Procedure Stop Time: 10:15 Select all DRAINS/GRAFTS/IMPLANTS that apply: Graft Graft details: Allograft cancellous chips, autologous iliac crest bone marrow aspirate and Implanted device Implanted device details: DePuy cougar lateral lumbar interbody cage?peek Estimated Blood Loss: 100 Specimen collected: No Description of surgery: HPI: Patient is a 75-year-old male with multilevel lumbar degenerative disc disease evaluated by Dr. Villa and felt to be appropriate for oblique lumbar interbody fusion L4-L5 and L5-S1. He is taken now for oblique approach. Vascular surgery services are requested to aid in exposure. In addition to the oblique approach Dr. Villa will be performing additional procedure from posterior approach. Description of procedure: Upon obtaining informed consent and verification correct patient procedure site the patient taken the operating was placed under general anesthesia. He was then positioned prepped and draped in usual sterile fashion time was performed. Oblique incision was made parallel to the iliac crest and Bovie used to dissect down through subcutaneous tissue. Hand-held retractors put in position further dissection was carried down the fascia. The fascia was then incised parallel to the external bleak fibers and the muscle split with hand-held retractors move deeper in the wound. The fibers of the internal bleak and transverse abdominis muscle more than similarly split parallel to the fibers and retractors move deeper into the wound. Once the retroperitoneum was entered blunt dissection was utilized to mobilize the abdominal contents off the anterior and lateral abdominal wall down to the psoas muscle. Once this was visualized the Syn frame self-retaining retractor was put in position and blades placed to visualize the psoas muscle. Combination of Bovie and blunt dissection was then used to dissect free the psoas muscle mobilizing laterally exposing the L4-L5 disc space. This was then marked and dissection carried distally toward the L5-S1 disc space of note the left common iliac artery was highly calcified circumferentially and very immobile with significant surrounding inflammatory response. Efforts were made to mobilize the artery both along its lateral edge and retracted medially as well as along its medial edge and retracted laterally to expose the disc space from below the bifurcation. Given the lack of mobility in the iliac artery we are unable to safely mobilize the iliac vein which was directly overlying the space and despite multiple efforts for multiple approaches we felt that further progress would not be safe to undertake. Dr. Villa plan to approach from posterior with discectomy and implant of this disc space so we turned our attention back to the L4-L5 disc space. At this point Dr. Villa performed the discectomy and implant placement which she will describe in further detail. Once this was completed the retroperitoneum was inspected for hemostasis and the retractors removed sequentially. The iliac artery was then visualized and was free of evidence of any injury. Once the abdominal contents were returned to their normal position the superficial surgical field was irrigated with saline and the musculature was closed individually with running 1 Vicryl. The subcutaneous wound was then irrigated with saline and closed with 3-0 Vicryl, 4-0 Monocryl. Dry sterile dressing was then applied and the patient was then repositioned for posterior approach which will be dictated independently by Dr. Villa. Surgical Findings: see above Complications Complications: No
--- NOTE | 2025-06-23 14:34 | POSTOPAN2_ITS ---
Anesthesia Postop Eval I Sum Postop Eval Completion status Anesthesia document: Postop Eval 1 completed: Yes Anesthesia Postop Eval I Summary Anesthesia Postop Eval I Summary: Anesthesia Postop Eval I: Assessment Summary Airway patent Yes 06/23/25 13:55 POLICE [email or web address].[email or web address] Spontaneous unlabored Yes 06/23/25 13:55 POLICE SUPERINTENDENT.[email or web address] respirations Mental status Awake,Calm 06/23/25 13:55 POLICE SUPERINTENDENT.[email or web address] nausea No 06/23/25 13:55 POLICE SUPERINTENDENT.[email or web address] Vomiting No 06/23/25 13:55 POLICE SUPERINTENDENT.[email or web address] Anesthesia Postop Eval I: Fluid Summary Crystalloid volume administer 2,000 06/23/25 13:55 POLICE SUPERINTENDENT.LMIL (ml) Colloids volume administered ( ml) Blood Product volume administered (ml) Total IV fluid infused 2,000 06/23/25 13:55 POLICE SUPERINTENDENT.LMIL Anesthesia Postop Eval I: Summary Notes Anesthesia Complication No 06/23/25 13:55 POLICE SUPERINTENDENT.[email or web address] Anesthesia Complication Comment: Post-operative progress note Anesthesia: Postop Eval II Evaluation Mental status: Awake and Calm Pain Level: 1 nausea: No Vomiting: No Complications Anesthesia Complication: No
--- NOTE | 2025-06-23 14:34 | PCM.POSTANE2 ---
Anesthesia Postop Eval I Sum Postop Eval Completion status Anesthesia document: Postop Eval 1 completed: Yes Anesthesia Postop Eval I Summary Anesthesia Postop Eval I Summary: Anesthesia Postop Eval I: Assessment Summary Airway patent Yes 06/23/25 13:55 SENIOR TRAINING SPECIALIST.[email or web address] Spontaneous unlabored Yes 06/23/25 13:55 SENIOR TRAINING SPECIALIST.LMIL respirations Mental status Awake,Calm 06/23/25 13:55 SENIOR TRAINING SPECIALIST.LMIL nausea No 06/23/25 13:55 SENIOR TRAINING SPECIALIST.LMIL Vomiting No 06/23/25 13:55 SENIOR TRAINING SPECIALIST.LMIL Anesthesia Postop Eval I: Fluid Summary Crystalloid volume administer 2,000 06/23/25 13:55 SENIOR TRAINING SPECIALIST.LMIL (ml) Colloids volume administered ( ml) Blood Product volume administered (ml) Total IV fluid infused 2,000 06/23/25 13:55 SENIOR TRAINING SPECIALIST.LMIL Anesthesia Postop Eval I: Summary Notes Anesthesia Complication No 06/23/25 13:55 SENIOR TRAINING SPECIALIST.LMIL Anesthesia Complication Comment: Post-operative progress note Anesthesia: Postop Eval II Evaluation Mental status: Awake and Calm Pain Level: 1 nausea: No Vomiting: No Complications Anesthesia Complication: No
[2025-06-23] MEDS: 0.9% Saline Lock 10 ML Syringe IV ×2 (15:57→16:27)
[2025-06-23] MEDS: 0.9% Normal Saline (250mL Bag) 250 ML 15 ML IV (15:58)
--- NOTE | 2025-06-23 16:08 | CON.PCM.HO_ITS ---
Assessment & Plan Assessment/Plan (1) Lumbar stenosis with neurogenic claudication: PLAN: Plan Patient is a 75-year-old male who presented to [facility] on 06/23/2025 for planned lumbar fusion procedure. Medicine consulted postoperatively for medical management. 1. L5-S1 spondylolisthesis, L4-S1 disc degeneration with stenosis, neurogenic claudication ? Orthopedic surgery primary. S/p L4-5 oblique lumbar interbody fusion procedure with Dr. Villa and Dr. Kenyon. Tolerated procedure well. Postoperative pain control, DVT prophylaxis and further management per orthopedics. PT/OT/case management consulted. Follow-up a.m. labs. 2. Hypertension ? Normotensive postoperatively. Will resume home Toprol, losartan and nifedipine with hold parameters in place. 3. Hyperlipidemia ? Continue home simvastatin. 4. Hypothyroidism ? Continue home Synthroid. 5. Class I obesity ? BMI 32 on admit. Complicates hospital course and care. Total clinical time spent by myself addressing the patient's medical issues, reviewing all the data, and collaborating with patient's care team: 36 minutes. HPI Consult Data Date of Consult: 06/23/25 HPI Narrative Reason for Consultation: Postoperative medical management HPI Narrative: RUI RIOS, is a 75 M who presented to [facility] on 06/23/2025 for planned orthopedic procedure. Medicine consulted postoperatively for medical management. Patient had L4-5 oblique lumbar interbody fusion procedure done with Dr. Villa this afternoon. Dr. Kenyon assisted him with the procedure. Patient tolerated procedure well. I saw the patient at bedside earlier this evening. Patient was sitting in the bedside chair comfortably, conversing normally and in no acute distress. Denied any low back pain or discomfort currently and stated that he felt better now than he had prior to surgery. He denied any other acute concerns at this time. [facility] Medical History Wears glasses Wears dentures Arthritis Restless legs Back pain Gastric reflux Former smoker History of pain when walking Cardiology follow-up encounter History of echocardiogram History of stress test Spinal cord stimulator status Hypothyroid Hypocholesterolemia Hypertension Home Medications ?Medication ?Instructions ?Recorded ?Last Taken ?Type aspirin 81 mg tablet,delayed 81 mg PO DAILY@0800 [facility] 11/11/20 06/19/25 History release diphenhydramine HCl 25 mg capsule 25 mg PO DAILY PRN A llergies 11/11/20 06/22/25 History levothyroxine 112 mcg tablet 112 mcg PO DAILY THYROID 11/11/20 06/23/25 History loratadine 10 mg capsule 10 mg PO PRN PRN Allergies 0 11/11/20 06/22/25 History losartan 50 mg tablet 50 mg PO DAILY BP 11/11/20 0 06/23/25 History nifedipine 60 mg tablet,extended 60 mg PO DAILY BP 06/23/25 History release 24 hr omega-3 fatty acids-fish oil 300 1 ea PO DAILY SUPPLEM ENT 11/11/20 06/22/25 History mg-1,000 mg capsule psyllium husk 0.52 gram capsule 0.52 g PO DAILY BOWELS 11/11/20 06/21/25 History simvastatin 40 mg tablet 40 mg PO QHS CHOLESTEROL 06/22/25 History metoprolol succinate 25 mg 25 mg PO QDAY BP 02/20/25 0 06/23/25 History tablet,extended release 24 hr ibuprofen 600 mg tablet (IBU) 600 mg PO Q8H PRN pain 0 06/09/25 Unknown History omeprazole 20 mg tablet,delayed 20 mg PO DAILY PRN GUANAKO D 06/09/25 06/23/25 History release Allergy/AdvReac Type Severity Reaction Status Date / Time mold Allergy Severe Watery eyes Verified 06/23/25 06:05 Family History Mother No problems noted. Father No problems noted. Surgical History Hx of colonoscopy History of excision of pilonidal cyst Hx of elbow surgery History of left hip replacement H/O hernia repair Social History Smoking Status: Former smoker ROS Constitutional Constitutional: Denies chills, fatigue, fever(s) or weakness Cardiovascular Cardiovascular: Denies chest pain Respiratory/Chest Respiratory/Chest: Denies shortness of breath at rest Gastrointestinal Gastrointestinal: Denies abdominal pain Musculoskeletal Musculoskeletal: Denies arthralgias, back pain or myalgias Physical Exam Const alert, oriented x3, no apparent distress, healthy appearing and well nourished Constitutional Narrative: Pleasant elderly male, class I obesity, sitting back comfortably in bedside chair, conversing normally, in no acute distress. General Appearance: cooperative, comfortable, well kempt and well developed HEENT normocephalic, head/scalp atraumatic, hearing grossly normal bilaterally, nasal mucous membranes and turbinates normal and moist oral mucous membranes Eyes PERRL, EOMs intact bilaterally and conjunctivae normal Neck full ROM Chest inspection of chest normal Resp normal respiratory effort, normal air movement, no use of accessory muscles and clear to auscultation bilaterally Cardio regular rate, regular rhythm, no murmurs and peripheral pulses 2+ throughout GI normal to inspection, nondistended, normoactive bowel sounds, soft to palpation, non-tender and non-distended Back/Spine Back/Spine Narrative: Surgical dressing noted over incision site on low back. No tenderness to palpation noted. Extremity normal to inspection and no pedal edema Skin no rashes or lesions noted Neuro moves all extremities and no focal motor deficits Psych mental status grossly normal Lab / Micro Data 06/10/25 08:03 06/10/25 08:03 Imaging Radiology Impression C-Arm Fluoroscopy 06/23/25 07:34 IMPRESSION: Intraoperative fluoroscopy was performed for lumbar fusion/fixation. 20 fluoroscopic images were also obtained. Reading Location: [place] [address] Lumbar Spine X-Ray 06/23/25 07:34 IMPRESSION: Intraoperative fluoroscopy was performed for lumbar fusion/fixation. 20 fluoroscopic images were also obtained. Reading Location: [place] [address] Charges/Coding Visit Charges Inpatient E&M: 45453 Subs Hosp L2
[2025-06-23] MEDS: Cefazolin 2 GM in 0.9% Normal Saline (100mL Bag) 100 ML IV (19:03)
[2025-06-23] MEDS: Senna/Docusate Sodium 1 Tablet 2 TABLET PO (22:57)
[2025-06-24 03:50] VITALS: BP 125/71; PULSE 77; RESP 16; TEMP 36.7; O2SAT 97
[2025-06-24] MEDS: Cefazolin 2 GM in 0.9% Normal Saline (100mL Bag) 100 ML IV (03:52)
--- NOTE | 2025-06-24 04:40 | RAD_ITS ---
PROCEDURE: LUMBAR SPINE 2 OR 3 VIEWS 06/24/2025 REASON FOR EXAM: S/P LUMBAR FUSION TECHNIQUE: Procedure Code: RADSPLL Modality: DX Procedure: LUMBAR SPINE 2 OR 3 VIEWS COMPARISON: MRI on 03/14/2025. FINDINGS: Unremarkable lower lumbar fusion metallic hardware at L4-L5 and L5-S1 levels. Unremarkable spinal stimulator. There are diffuse spondylotic changes. Findings are demonstrated to by diffuse disc space narrowing, osteophyte formation and degenerative endplate sclerosis. There is diffuse facet joint arthropathy with secondary bilateral neural foramina narrowing. No fracture or dislocation is seen. No aggressive lytic or blastic bony lesion is noted. RAD/Lumbar Spine 2 or 3 Views IMPRESSION: Diffuse spondylosis. Unremarkable low lumbar fusion metallic hardware. [facility]
[2025-06-24 04:48] LABS: Hematocrit 43.1 % (40-54); Hemoglobin 14.9 g/dL (13.0-16.5); Immature Granulocytes Count 0.080 X10^3/uL (0.0-0.0); Mean Corp Hgb Conc 34.6 g/dL (32-36); Mean Corpuscular Volume 88.3 fL (80-94); Mean Platelet Vol. 9.3 fl (6.2-12.0); NRBC Flagged by Analyzer 0 % (0-5); Platelet Count 241 K/mm3 (150-450); RBC Distribution Width CV 12.8 % (11.6-14.6); RBC Distribution Width SD 41.5 fl (35.1-43.9); Red Blood Count 4.88 M/mm3 (4.6-6.2); White Blood Count 15.7 K/mm3 (4.4-11.0)
[2025-06-24 05:16] LABS: Anion Gap 15 (5-15); BUN 14 mg/dL (4-19); BUN/Creat Ratio 11.5 RATIO (10-20); Calcium,Total 7.9 mg/dL (7.6-11.0); Carbon Dioxide 19.3 mmol/L (21.0-32.0); Chloride 101 mmol/L (98-108); Estimated Creatinine Clearance 57.00 ml/min (50-250); Glucose 134 mg/dL (70-99); Potassium 5.0 mmol/L (3.3-5.1)
[2025-06-24 06:57] VITALS: BP 119/70; PULSE 76; RESP 16; TEMP 36.8; O2SAT 94
[2025-06-24] MEDS: 0.9% Saline Lock 10 ML Syringe IV (07:03)
[2025-06-24 07:40] VITALS: BP 121/73; PULSE 81; RESP 14; TEMP 37.1; O2SAT 96
[2025-06-24] MEDS: NIFEdipine 60 MG Tablet PO (07:47)
[2025-06-24] MEDS: Senna/Docusate Sodium 1 Tablet 2 TABLET PO (07:47)
[2025-06-24 07:49] VITALS: PULSE 81
[2025-06-24] MEDS: Metoprolol(XL)Succ 25 MG Tablet PO (07:49)
--- NOTE | 2025-06-24 10:18 | CASEMGMT ---
RAFAEL NERI Assessment Face to Face with patient for initial transition planning/care coordination assessment. RAFAEL NERI introduced self and role at [facility], pt voices understanding. Pt is A&Ox4 and is resting comfortably in the chair and is calm. Care providers, pharmacy, and demographics verified. Admitting dx: 360 Lumbar Fusion PCP: Lucila Brito Specialists: Allen (Ortho), Billy (PM) Preferred Pharmacy: [facility] [place] Insurance: [facility] A/B, Physician [place] Prescription Benefit: Yes LNOK: Shasta Lidia (SO) Living Arrangements: Pt lives with his SO in a single story home with 1 step to enter from the garage and a flat entrance out front ADLs/IADLs: Indep Transportation: Self, DME: FWW, Cane, grab bars. Denies further needs HHC/SNF: Denies hx of or needs Pt?s goal: Home Plan: Home with ortho f/u x2 weeks as scheduled and initiate OP Tx subsequently. Pt states that he prefers to go through OP PT in [place]. Pt is aware that ortho can provide the order at the 2 week follow up appt if they believe OP Tx is warranted at that time. Pt states understanding and states that this is what Dr Villa has already told him. Pt states that he feels safe with this plan and denies further questions, concerns, or needs. Report given to SHIRA HALL CM. Leslie Gresham RN, CM
--- NOTE | 2025-06-24 10:35 | PN.HOSP_ITS ---
Objective Data Objective Data Vital Signs: Vital Signs Temp Pulse Resp BP Pulse Ox O2 Del Method O2 Flow Rate 98.7 F 81 14 121/73 H 96 Room Air 4 06/24/25 07:40 06/24/25 07:49 06/24/25 07:40 06/24/25 07:40 06/24/25 07:40 06/24/25 07:40 06/23/25 15:00 Oxygen Flow Rate (L/min) 4 Oxygen Delivery Method Room Air Weight: 209 lb 7 oz Body Mass Index (BMI) 32.8 Intake & Output: Intake and Output for Last 24 Hours 06/22/25 06/23/25 06/24/25 23:59 23:59 23:59 Intake Total 2076.25 / 2076.25 110 / 110 Output Total 1850 / 1850 Balance 226.25 / 226.25 110 / 110 Lab / Micro Data 06/24/25 04:25 06/24/25 04:25 Labs: Laboratory Results - last 24 hr 06/23/25 06:13: POC Glucose 134 H 06/24/25 04:25: WBC 15.7 H, RBC 4.88, Hgb 14.9, Hct 43.1, MCV 88.3, MCH 30.5, MCHC 34.6, RDW Std Deviation 41.5, RDW Coeff of Nichol 12.8, Plt Count 241, MPV 9.3, Immature Gran % (Auto) 0.500, Neut % (Auto) 80.6 H, Lymph % (Auto) 9.2 L, [place] % (Auto) 9.5, Eos % (Auto) 0.1, Baso % (Auto) 0.1, Absolute Neuts (auto) 12.7 H, Absolute Lymphs (auto) 1.44, Nucleated RBC % 0, Sodium 135, Potassium 5.0, Chloride 101, Carbon Dioxide 19.3 L, Anion Gap 15, BUN 14, Creatinine 1.23 H, Estim Creat Clear Calc 57.00, Est GFR (MDRD) Non-Af 61, BUN/Creatinine Ratio 11.5, Glucose 134 H, Calcium 7.9 Micro: Microbiology 06/10/25 08:03 Swab (Method) Nasal Screen MRSA/MSSA - Final Radiography Diagnostic Testing: Radiology Impression C-Arm Fluoroscopy 06/23/25 07:34 IMPRESSION: Intraoperative fluoroscopy was performed for lumbar fusion/fixation. 20 fluoroscopic images were also obtained. Reading Location: [facility]- Lumbar Spine X-Ray 06/23/25 07:34 IMPRESSION: Intraoperative fluoroscopy was performed for lumbar fusion/fixation. 20 fluoroscopic images were also obtained. Reading Location: [facility]- Lumbar Spine X-Ray 06/24/25 04:40 IMPRESSION: Diffuse spondylosis. Unremarkable low lumbar fusion metallic hardware. Reading Location: [place] [address] Physical Exam Narrative Surgical dressing noted over incision site on low back. No tenderness to palpation noted. Assessment & Plan Assessment/Plan (1) Lumbar stenosis with neurogenic claudication: PLAN: Plan Patient is a 75-year-old male who presented to [facility] on 06/23/2025 for planned lumbar fusion procedure. Medicine consulted postoperatively for medical management. 1. L5-S1 spondylolisthesis, L4-S1 disc degeneration with stenosis, neurogenic claudication ? Orthopedic surgery primary. S/p L4-5 oblique lumbar interbody fusion procedure on 06/23/[address] Villa and Dr[address] Kenyon. Tolerated procedure well. Postoperative pain control, DVT prophylaxis and further management per orthopedics. PT/OT/case management consulted. 06/24 labs shows mild leukocytosis probably inflammatory. Patient not having any fever or chills or systemic signs of infection. BMP shows potassium 5.0, creatinine 1.23 glucose 134. Patient is hemodynamically stable to be discharged. Advised to monitor potassium as an outpatient in 1 to 2 weeks as patient is on losartan and meloxicam. 2. Hypertension ? Normotensive postoperatively. Will resume home Toprol, losartan and nifedipine with hold parameters in place. 3. Hyperlipidemia ? Continue home simvastatin. 4. Hypothyroidism ? Continue home Synthroid. 5. Class I obesity ? BMI 32 KG per square meter on admit. Complicates hospital course and care. Patient is medically stable for discharge. Charges/Coding Visit Charges Inpatient E&M: 36837 Subs Hosp L2
[2025-06-24] MEDS: Ensure Surgery 237 ML LIQUID PO (11:32)
[2025-06-24 11:37] VITALS: BP 113/64; PULSE 74; RESP 14; TEMP 36.2; O2SAT 94
--- NOTE | 2025-06-24 11:49 | PCM.DC ---
Discharge Instructions DC O2, CPAP, BIPAP needs Home O2 Discharge instructions: No Follow Up Care Test Results: Test results from this visit will be discussed in further detail at your follow-up appointment, if applicable. Discharge Plan Admission Admit Date/Time: 06/23/25 13:51 Attending Provider: Juan Villa Primary Care Provider: Lucila Brito NP Consulting Providers: Jerrell Mendez; Saravanan Wheat Instructions Patient Instructions: Lumbar Fusion Dc Additional Instructions / Restrictions: Keep Tegaderm and gauze clean and dry. If Tegaderm is intact, okay to shower. After 5 days remove Tegaderm and gauze and cover with a Band-Aid. Replace Band-Aid daily thereafter. No bending lifting or twisting. Follow-up in clinic in 2 weeks. Discharge Orders/Prescriptions Prescriptions: New acetaminophen 500 mg Tablet 1,000 mg PO Q8 Qty: 30 0RF methocarbamol 500 mg Tablet 750 mg PO TID PRN (Reason: pain/spasms) Qty: 60 0RF oxycodone 5 mg Tablet 2.5 - 5 mg PO Q6H PRN (Reason: pain) 7 Days Qty: 28 0RF sennosides-docusate sodium [Stimulant Laxative Plus] 8.6-50 mg Tablet 2 tab PO BID PRN (Reason: constipation) Qty: 14 0RF meloxicam 15 mg tablet 15 mg PO DAILY Qty: 30 0RF Continued metoprolol succinate 25 mg tablet extended release 24 hr 25 mg PO QDAY losartan 50 MG tablet 50 mg PO DAILY simvastatin 40 MG tablet 40 mg PO QHS nifedipine 60 MG tablet 60 mg PO DAILY diphenhydramine HCl 25 MG capsule 25 mg PO DAILY PRN (Reason: Allergies) levothyroxine 112 MCG tablet 112 mcg PO DAILY psyllium husk 0.52 GM capsule 0.52 g PO DAILY omega-3 fatty acids-fish oil 1 EACH capsule 1 ea PO DAILY loratadine 10 MG capsule 10 mg PO PRN PRN (Reason: Allergies) omeprazole 20 mg tablet,delayed release (DR/EC) 20 mg PO DAILY PRN (Reason: GERD) Held aspirin 81 MG tablet 81 mg PO DAILY@0800 Hold Instructions: Resume on 06/26/25. Discontinued ibuprofen [IBU] 600 mg tablet 600 mg PO Q8H PRN (Reason: pain) Referrals / Follow Up: Lucila Brito [facility], [facility] [Primary Care Provider] - Disposition Disposition (needs filled in before D/C Order can be placed): Home, Self Care
--- NOTE | 2025-06-24 12:00 | PN.ORTHO_ITS ---
Subjective Subjective Postop day 1 L4-S1 fusion. Patient was seen at the bedside today. Patient is doing well postoperatively with his pain well-managed. Says that he has passed gas. PT/OT cleared. Patient does say that he wishes to potentially stay an extra day as he feels like he would be more comfortable here. Seen with Dr. Villa. Objective Data Objective Data Vital Signs: Vital Signs Temp Pulse Resp BP Pulse Ox O2 Del Method O2 Flow Rate 98.7 F 81 14 121/73 H 96 Room Air 4 06/24/25 07:40 06/24/25 07:49 06/24/25 07:40 06/24/25 07:40 06/24/25 07:40 06/24/25 07:40 06/23/25 15:00 Oxygen Flow Rate (L/min) 4 Oxygen Delivery Method Room Air Weight: 209 lb 7 oz Body Mass Index (BMI) 32.8 Intake & Output: Intake and Output for Last 24 Hours 06/22/25 06/23/25 06/24/25 23:59 23:59 23:59 Intake Total 2076.25 / 2076.25 110 / 110 Output Total 1850 / 1850 Balance 226.25 / 226.25 110 / 110 Lab / Micro Data 06/24/25 04:25 06/24/25 04:25 Labs: Laboratory Results - last 24 hr 06/23/25 06:13: POC Glucose 134 H 06/24/25 04:25: WBC 15.7 H, RBC 4.88, Hgb 14.9, Hct 43.1, MCV 88.3, MCH 30.5, MCHC 34.6, RDW Std Deviation 41.5, RDW Coeff of Nichol 12.8, Plt Count 241, MPV 9.3, Immature Gran % (Auto) 0.500, Neut % (Auto) 80.6 H, Lymph % (Auto) 9.2 L, Ingham % (Auto) 9.5, Eos % (Auto) 0.1, Baso % (Auto) 0.1, Absolute Neuts (auto) 12.7 H, Absolute Lymphs (auto) 1.44, Nucleated RBC % 0, Sodium 135, Potassium 5.0, Chloride 101, Carbon Dioxide 19.3 L, Anion Gap 15, BUN 14, Creatinine 1.23 H, Estim Creat Clear Calc 57.00, Est GFR (MDRD) Non-Af 61, BUN/Creatinine Ratio 11.5, Glucose 134 H, Calcium 7.9 Micro: Microbiology 06/10/25 08:03 Swab (Method) Nasal Screen MRSA/MSSA - Final Radiography Diagnostic Testing: Radiology Impression C-Arm Fluoroscopy 06/23/25 07:34 IMPRESSION: Intraoperative fluoroscopy was performed for lumbar fusion/fixation. 20 fluoroscopic images were also obtained. Reading Location: [facility]- Lumbar Spine X-Ray 06/23/25 07:34 IMPRESSION: Intraoperative fluoroscopy was performed for lumbar fusion/fixation. 20 fluoroscopic images were also obtained. Reading Location: [facility]- Lumbar Spine X-Ray 06/24/25 04:40 IMPRESSION: Diffuse spondylosis. Unremarkable low lumbar fusion metallic hardware. Reading Location: [place] [id number] Physical Exam Narrative Neurological examination of the lower extremity shows 5X5 power. Normal sensation across all dermatomes. Physical examination of the back and belly shows Tegaderm and gauze CDI. Const alert, oriented x3 and no apparent distress Assessment & Plan Assessment/Plan (1) Status post lumbar spinal fusion: PLAN: Plan Postop day 1 L4-S1 fusion. Patient is doing well postoperatively with pain well-controlled. PT/OT cleared. Obtained reviewed x-rays today which show hardware and bone graft in good position. Reviewed and educated on the use of the incentive spirometer. Reviewed back precautions of no bending, lifting, twisting. Patient says that he would be more comfortable to stay here next today however explained to the patient that he does more for himself at home and it helps to limit any sort of hospital-acquired illnesses. Patient understands, unsure if the patient will except discharge today or not however we will put in a discharge for today. Home-going meds include oxycodone, acetaminophen, meloxicam, methocarbamol, senna. OARRS reviewed. He will follow-up in the clinic in 2 weeks. Patient is in agreement.
--- NOTE | 2025-06-24 15:18 | PHA.DC.MC.R ---
Pharmacy [facility] Counseling Pharmacy Service has performed discharge medication reconciliation and counseling for this patient. 1. ACETAMINOPHEN 1000MG PO Q8 2. MELOXICAM 15MG PO DAILY 3. METHOCARBAMOL 750MG PO TID PRN MUSCLE PAIN/SPASMS 4. OXYCODONE 2.5-5MG PO Q6H PRN PAIN 5. SENNA/DOCUSATE 2T PO BID PRN CONSTIPATION 6. STOP IBUPROFEN 7. RESUME ASPIRIN 06/26 The patient's discharge medication list was reviewed for discrepancies and discrepancies were resolved. The patient was counseled on the following discharge medications and changes in medications for homegoing were reviewed. The Reason for Use, instructions for use, and potential side effects were reviewed for all new medications. The patient's questions regarding all of their medications were answered. The patient was able to verbally demonstrate an understanding of their discharge medications. Medications at Discharge Home Medications aspirin 81 mg tablet,delayed release 81 mg PO DAILY@0800 [facility] 11/11/20 Held on 06/24/25. Instructions: Resume on 06/26/25. diphenhydramine HCl 25 mg capsule 25 mg PO DAILY PRN Allergies 11/11/20 levothyroxine 112 mcg tablet 112 mcg PO DAILY THYROID 11/11/20 loratadine 10 mg capsule 10 mg PO PRN PRN Allergies 11/11/20 losartan 50 mg tablet 50 mg PO DAILY BP 11/11/20 nifedipine 60 mg tablet,extended release 24 hr 60 mg PO DAILY BP 11/11/20 omega-3 fatty acids-fish oil 300 mg-1,000 mg capsule 1 ea PO DAILY SUPPLEMENT 11/11/20 psyllium husk 0.52 gram capsule 0.52 g PO DAILY BOWELS 11/11/20 simvastatin 40 mg tablet 40 mg PO QHS CHOLESTEROL 11/11/20 metoprolol succinate 25 mg tablet,extended release 24 hr 25 mg PO QDAY BP 02/20/25 omeprazole 20 mg tablet,delayed release 20 mg PO DAILY PRN GERD 06/09/25 acetaminophen 500 mg tablet 1,000 mg (2 x 500 mg) PO Q8 #30 tabs 06/24/25 meloxicam 15 mg tablet 15 mg PO DAILY #30 tabs 06/24/25 methocarbamol 500 mg tablet 750 mg (1.5 x 500 mg) PO TID PRN pain/spasms #60 tabs 06/24/25 oxycodone 5 mg tablet 2.5 - 5 mg (0.5 - 1 x 5 mg) PO Q6H PRN pain 7 days #28 tabs 06/24/25 sennosides 8.6 mg-docusate sodium 50 mg tablet (Stimulant Laxative Plus) 2 tab PO BID PRN constipation #14 tabs 06/24/25
== END 2025-06-24 15:14 | disposition home or self-care (01) | DRG 428 ==
LOC: MS3 06-24 07:30
PROVIDERS: Anesthesiology; Student in an Organized Health Care Education/Training Program; Admitting Provider Orthopaedic Surgery Orthopaedic Surgery of the Spine; PCP Nurse Practitioner Primary Care; Referring Provider Orthopaedic Surgery Orthopaedic Surgery of the Spine; Visit Provider Orthopaedic Surgery Orthopaedic Surgery of the Spine
PROC: 0SG00A0 Fusion of Lumbar Vertebral Joint with Interbody Fusion Device, Anterior Approach, Anterior Column, Open Approach (ICD-10-PCS; principal; 2025-06-23 07:00)
DX: M43.17 Spondylolisthesis, lumbosacral region (principal); E03.9 Hypothyroidism, unspecified; I10 Essential (primary) hypertension; E66.811 Obesity, class 1; M51.16 Intervertebral disc disorders with radiculopathy, lumbar region; E78.5 Hyperlipidemia, unspecified; M48.062 Spinal stenosis, lumbar region with neurogenic claudication; M51.372 Other intervertebral disc degeneration, lumbosacral region with discogenic back pain and lower extremity pain; Z87.891 Personal history of nicotine dependence; Z68.32 Body mass index [BMI] 32.0-32.9, adult; Z79.899 Other long term (current) drug therapy
CPT/HCPCS: 36415; 72100; 76000; 80048; 82962; 83036; 83735; 84443; 85025; 86703; 86706; 86708; 86803; 86850; 86900; 86901; 87081; 93005; 94668; 97162; 97166; 97530; 99252; A4648; C1713; A4216; G0463; J2405; J3475

== ENCOUNTER → 2025-08-05 | Outpatient (CLI) | payer MEDICARE, OTHER, SELFPAY ==
--- NOTE | 2025-08-05 17:12 | RAD_ITS ---
PROCEDURE: LUMBAR SPINE 2 OR 3 VIEWS 08/05/2025 REASON FOR EXAM: POST OP TECHNIQUE: Procedure Code: RADSPLL Modality: DX Procedure: LUMBAR SPINE 2 OR 3 VIEWS FINDINGS: No evidence of acute fracture or dislocation. L4 through S1 posterior fusion and discectomies. [id number] degenerative changes of the non fused levels. Spinal stimulator is present. Left hip arthroplasty. RAD/Lumbar Spine 2 or 3 Views IMPRESSION: L4-5 posterior fusion. Spondylosis. Reading Location: [id number]
--- OUTSIDE RECORDS SUMMARY | 2025-08-05 17:19 | XMS RPT_ITS | CCD ---
Author Organization [facility] Care Team Providers Care School Curriculum Developer Name Role Phone DARYL POLICE CHIEF DEPUTY-LEDGER CLERK, LUCILA S Primary Care Physicia n Pernell PT, Jodie Unavailable Unavailable DARYL POLICE CHIEF DEPUTY-LEDGER CLERK, LUCILA S Attending Unava ilable DARYL POLICE CHIEF DEPUTY-LEDGER CLERK, LUCILA S Primary Care Unava ilable DARYL POLICE CHIEF DEPUTY-LEDGER CLERK, LUCILA S Attending Unava ilable DARYL POLICE CHIEF DEPUTY-LEDGER CLERK, LUCILA S Primary Care Unava ilable DARYL POLICE CHIEF DEPUTY-LEDGER CLERK, LUCILA S Attending Unava ilable DARYL POLICE CHIEF DEPUTY-LEDGER CLERK, LUCILA S Primary Care Unava ilable DARYL POLICE CHIEF DEPUTY-LEDGER CLERK, LUCILA S Attending Unava ilable DARYL POLICE CHIEF DEPUTY-LEDGER CLERK, LUCILA S Primary Care Unava ilable DARYL POLICE CHIEF DEPUTY-LEDGER CLERK, LUCILA S Attending Unava ilable DARYL POLICE CHIEF DEPUTY-LEDGER CLERK, LUCILA S Primary Care Unava ilable [place] CERTIFIED ORTHOTIST-C, Lucila Primary Care Provider [phone] [place] CERTIFIED ORTHOTIST-C, Lucila Referring Provider [phone] Nikki Rush Attending Provider [phone] Dr. Justin Valenzuela MD Attending Provider [phone] Nikki Rush Referring Provider [phone] Francisco Villa MD Attending Provider Daryl CERTIFIED ORTHOTIST-C, Lucila Primary Care Provider [phone] Nikki Rush Attending Provider [phone] Daryl CERTIFIED ORTHOTIST-C, Lucila Referring Provider [phone] Dr. Justin Valenzuela MD Attending Provider [phone] Dr. Francisco Villa MD Referring Provider Allen LIMON, Dr. Martinez Admit Provider Allen LIMON, Dr. Martinez Other Provider Andrea REY, Dr. Allan Other Provider Jarret LIMON, Dr. Coe Other Provider Chantale LIMON, Dr. Peters Attending Provider Andrea REY, Dr. Allan Attending Provider Jarret LIMON, Dr. Coe Attending Provider Daryl CERTIFIED ORTHOTIST-C, Lucila Primary Care Physician Nikki Rush Attending Physician Nicolas LIMON, Dr. Anderson Attending Physician Allen LIMON, Dr. Martinez Attending Physician Allen LIMON, Dr. Martinez Admitting Physician Allen LIMON, Dr. Martinez Nurse Practitioner Andrea REY, Dr. Allan Nurse Practitioner Jarret LIMON, Dr. Coe Nurse Practitioner Chantale LIMON, Dr. Peters Attending Physician Andrea REY, Dr. Allan Attending Physician Jarret LIMON, Dr. Coe Attending Physician MANSOOR SHARMA Attending Unavailable DARYL POLICE CHIEF DEPUTY-LEDGER CLERK, LUCILA S Primary Care Unava ilable DARYL POLICE CHIEF DEPUTY-LEDGER CLERK, LUCILA S Attending Unava ilable DARYL POLICE CHIEF DEPUTY-LEDGER CLERK, LUCILA S Primary Care Unava ilable DARYL POLICE CHIEF DEPUTY-LEDGER CLERK, LUCILA S Primary Care Unava ilable NIKKI KUMAR Attending Unavailable DARYL POLICE CHIEF DEPUTY-LEDGER CLERK, LUCILA S Primary Care Unava ilable DARYL POLICE CHIEF DEPUTY-LEDGER CLERK, LUCILA S Attending Unava ilable DARYL POLICE CHIEF DEPUTY-LEDGER CLERK, LUCILA S Primary Care Unava ilable DARYL POLICE CHIEF DEPUTY-LEDGER CLERK, LUCILA S Attending Unava ilable DARYL POLICE CHIEF DEPUTY-LEDGER CLERK, LUCILA S Primary Care Unava ilable NADEEN CAMPBELL DO Attending Unavailable DARYL POLICE CHIEF DEPUTY-LEDGER CLERK, LUCILA S Primary Care Unava ilable DARYL POLICE CHIEF DEPUTY-LEDGER CLERK, LUCILA S Attending Unava ilable DARYL POLICE CHIEF DEPUTY-LEDGER CLERK, LUCILA S Primary Care Unava ilable DARYL POLICE CHIEF DEPUTY-LEDGER CLERK, LUCILA S Attending Unava ilable Villa, Francisco Admitting Unavailable Villa, Francisco Referring Unavailable [place], Lucila Primary Care Unavailable Jerrell Mendez Consulting Unavailable Jarret, Saravanan Attending Unavailable Jarret, Saravanan Consulting Unavailable Villa, Francisco Consulting Unavailable [place], Lucila Referring Unavailable Daryl, Lucila Primary Care Unavailable José, Nikki Attending Unavailable Villa, Francisco Referring Unavailable Villa, Francisco Attending Unavailable Andrea, Jerrell Consulting Unavailable [place], Lucila Primary Care Unavailable Villa, Francisco Admitting Unavailable Jarret, Saravanan Consulting Unavailable José, Nikki Referring Unavailable José, Nikki Attending Unavailable [place], Lucila Primary Care Unavailable [place], Lucila Primary Care Unavailable Nicolas, Justin Attending Unavailable Daryl, Lucila Referring Unavailable José, Nikki Attending Unavailable Daryl, Lucila Primary Care Unavailable [place], Lucila Referring Unavailable Villa, Francisco Attending Unavailable [place], Lucila Primary Care Unavailable [place], Lucila Primary Care Unavailable [place], Lucila Referring Unavailable José, Nikki Attending Unavailable [place], Lucila Primary Care Unavailable Nicolas, Pomona Attending Unavailable [place], Lucila Primary Care Unavailable [place], Lucila Referring Unavailable Villa, Francisco Attending Unavailable Villa, Francisco Referring Unavailable [place], Lucila Primary Care Unavailable Nicolas, Pomona Attending Unavailable Villa, Francisco Referring Unavailable Villa, Francisco Attending Unavailable Villa, Francisco Consulting Unavailable [place], Lucila Primary Care Unavailable Villa, Francisco Admitting Unavailable Fran Kenyon Attending Unavailable Jerrell Mendez Attending Unavailable Jerrell Mendez Consulting Unavailable José, Nikki Attending Unavailable Allergies Allergy Classification Reported Allergen(s) Allergy Type Date of Onset Reaction(s) Facility (6 sources) Mold Extract Drug Allergy 03-20-2025 Watery eyes [facility] (1 source) Mold Extract Drug Allergy 08-05-2025 [facility] Repository Medications Current Medications Medication Drug Class(es) Dates Sig (Normalized) Sig (Original) acetaminophen 500 mg oral tablet (3 sources) Start: 06-24-2025 take 2 tablets by mouth every eight hours acetaminophen 325 mg / HYDROcodone bitartrate 5 mg oral tablet (2 sources) Opioid Agonist Start: 07-08-2025 End: 07-15-2025 Hydrocodone-Acetam inophen 5-325 mg tablet Discontinued 1 {tbl} PO EVERY 6 HOURS as needed for pain 28 7 0 July 08, 2025 July 14, 2025 12:00am July 15, 2025 12:09am Status post lumbar spinal fusion Arthrodesis status aspirin 81 mg delayed release oral tablet (20 sources) Platelet Aggregation Inhibitor, Nonsteroidal Anti-inflammatory Drug Start: 08-30-2018 take 1 tablet by mouth once daily Start: 08-30-2018 aspirin 81 mg oral delayed release tablet Dose : 81 mg = 1 tab(s), Oral, Daily, # 60 tab(s), 0 Refill(s), [facility]acy: [facility] [facility] Start Date: 08/30/18 Status: Ordered azithromycin 250 mg oral tablet (1 source) Macrolide Antimicrobial Start: 11-08-2022 End: 11-13-2022 Zithromax Z-Jeremy 250 mg oral tablet Take two (2) tablets day 1-then one (1) tablet, Oral, Daily, X 5 day(s), # 6 tab(s), 0 Refill(s), 11/13/22 7:33:00 EST, Pharmacy: [facility] #[id number], 170, cm, 11/08/22 6:51:00 EST, Height, 89.1 Start Date: 11/08/22 Stop Date: 11/13/22 Status: Ordered cyclobenzaprine hydrochloride 10 mg oral tablet (2 sources) Muscle Relaxant Start: 07-08-2025 take 1 tablet by mouth three times daily as needed for muscle spasms diphenhydrAMINE hydrochloride 25 mg oral capsule (20 sources) Histamine-1 Receptor Antagonist Start: 08-15-2018 take 1 capsule by mouth once daily as needed docusate sodium 50 mg / sennosides, intermediate 8.6 mg oral tablet (3 sources) Start: 06-24-2025 Fish Oils (18 sources) Start: 08-15-2018 Fish [...] (5 sources) Corticosteroid Start: 10-22-2024 Flonase 50 mcg /inh nasal spray mcg spray(s), qDay, PRN as needed for allergy symptoms, 0 Refill(s) Start Date: 10/22/24 Status: Ordered Medication Dispense Status: Completed Total Allowed Fills: 1 Fills Dispensed: 0 hydrocortisone 10 mg/ml / neomycin 3.5 mg/ml / polymyxin b 17316 unt/ml otic solution (1 source) Aminoglycoside Antibacterial, Polymyxin-class Antibacterial, Corticosteroid Start: 07-04-2023 hydrocortisone/neomy c in/polymyxin B 1%-0.35%-10,000 units/mL otic solution Dose = 4 drop(s), Ear, left, QID, # 10 mL, 0 Refill(s), [facility]acy: [facility] #[id number], 170, cm, 07/04/23 9:35:00 EDT, Height, kg, 07/04/23 9:35:00 EDT, Dosing Weight Start Date: 07/04/23 Status: Ordered hydrOXYzine hydrochloride 25 mg oral tablet (1 source) Antihistamine Start: 03-08-2022 hydrOXYzine hydrochloride 25 mg oral tablet Dose : 25 mg = 1 tab(s), Oral, QID, PRN as needed for itching, # 40 tab(s), 0 Refill(s), Pharmacy: [facility] 170, cm, 03/08/22 9:56:00 EDT, Height Start Date: 03/08/22 Status: Ordered inulin 1500 mg chewable tablet (18 sources) Start: 08-15-2018 Fiber Choice 1 .5 g oral tablet, chewable Dose : 1.5 [...] qDay, # 90 tab(s), 3 Refill(s), Pharmacy: [facility], 170, cm, 04/22/25 [...] qDay, # 90 tab(s), 3 Refill(s), Pharmacy: [facility], 170, cm, 04/16/24 8:17:00 EDT, Height, kg, 04/16/24 8:17:00 EDT, Dosing Weight Start Date: 04/16/24 Stop Date: 04/11/25 Status: Ordered Quantity: 90.0 Unit: tab(s) Repeat number: 4 Start: 06-29-2021 End: 02-23-2024 levothyroxine 112 mcg (0.112 mg) oral tablet Dose : 112 mcg = 1 tab(s), Oral, qDay, # 90 tab(s), 3 Refill(s), Pharmacy: [facility], 170, cm, 11/08/22 6:51:00 EST, Height, kg, 11/08/22 6:51:00 EST, Dosing Weight Start Date: 02/28/23 Stop Date: 02/23/24 Status: Ordered Start: 11-11-2020 take 1 tablet by kelli th once daily loratadine 10 mg oral capsul e (20 sources) Start: 11-11-2020 Start: 08-15-2018 Claritin 10 mg oral tablet Dose : 10 mg = 1 tab(s), Oral, qDayAC, PRN as needed for allergy symptoms, 0 Refill(s) Start Date: 08/15/18 Status: Ordered Medication Dispense Status: Completed Total Allowed Fills: 1 Fills Dispensed: 0 losartan potassium 50 mg oral tablet (20 sources) Angiotensin 2 Receptor Jaun Start: 11-11-2020 take 1 tablet by mouth once daily meloxicam 15 mg oral tablet (4 sources) Nonsteroidal Anti-inflammatory Drug Start: 06-24-2025 take 1 tablet by mouth once daily Start: 04-11-2023 meloxicam 15 m g oral tablet Dose : 15 mg = 1 tab(s), Oral, qDay, 0 Refill(s) Start Date: 04/11/23 Status: Ordered metoprolol tartrate 25 mg oral tablet (20 sources) beta-Adrenergic Jaun Start: 04-22-2025 take 1 tablet by mouth once daily Metoprolol Succinate ER 25 mg oral TABLET extended release 1 tab(s), Oral, qDay, # 90 tab(s), 3 Refill(s), Pharmacy: [facility], 170, cm, 04/22/25 6:56:00 EDT, Height, kg, 04/22/25 6:56:00 EDT, Dosing Weight Start Date: 04/22/25 Status: Ordered Medication Dispense Status: Completed Quantity: 90.0 Unit: tab(s) Total Allowed Fills: 4 Fills Dispensed: 0 Start: 02-20-2025 take 1 tablet by kelli th once daily Start: 04-16-2024 take 1 tablet by kelli th once daily Metoprolol Succinate ER 25 mg oral TABLET extended release 1 tab(s), Oral, qDay, # 90 tab(s), 3 Refill(s), Pharmacy: [facility], 170, cm, 04/16/24 8:17:00 EDT, Height, kg, 04/16/24 8:17:00 EDT, Dosing Weight Start Date: 04/16/24 Status: Ordered Quantity: 90.0 Unit: tab(s) Repeat number: 4 Start: 04-11-2023 take 1 tablet by kelli once daily Metoprolol Succinate ER 25 mg oral TABLET extended release 1 tab(s), Oral, qDay, # 90 tab(s), 3 Refill(s), Pharmacy: [facility], 170, cm, 04/11/23 6:51:00 EDT, Height, kg, 04/11/23 6:56:00 EDT, Dosing Weight Start Date: 04/11/23 Status: Ordered Start: 05-10-2022 take 1 tablet by [facility] daily Metoprolol Succinate ER 25 mg oral TABLET extended release 1 tab(s), Oral, qDay, # 90 tab(s), 3 Refill(s), Pharmacy: [facility] (Now [facility]), 170, cm, 05/10/22 7:03:00 EDT, Height, kg, 05/10/22 7:03:00 EDT, Dosing Weight Start Date: 05/10/22 Status: Ordered Start: 01-19-2022 take 1 tablet by [facility] once daily Metoprolol Succinate ER 25 mg oral TABLET extended release 1 tab(s), Oral, qDay, # 90 tab(s), 0 Refill(s), Pharmacy: [facility], 170, cm, 01/14/22 8:40:00 EDT, Height, kg, 01/14/22 8:40:00 EDT, Dosing Weight Start Date: 01/19/22 Status: Ordered Start: 01-14-2022 metoprolol suc cinate 25 mg oral TABLET extended release Dose : 25 mg = 1 tab(s), Oral, qDay, Do not crush or chew (controlled release), # 30 tab(s), 6 Refill(s), Pharmacy: [facility] 170, cm, 01/14/22 8:40:00 EDT, Height Start Date: 01/14/22 Status: Ordered NIFEdipine 60 mg oral tablet (20 sources) Dihydropyridine Calcium Channel Jaun Start: 04-22-2025 End: 04-17-2026 NIFEdipine 60 mg oral tablet, extended release Dose : 60 mg = 1 tab(s), Oral, qDay, # 90 tab(s), 3 Refill(s), Pharmacy: [facility], 170, cm, 04/22/25 [...] qDay, # 90 tab(s), 3 Refill(s), Pharmacy: [facility], 170, cm, 04/16/24 8:17:00 EDT, Height, kg, 04/16/24 8:17:00 EDT, Dosing Weight Start Date: 04/16/24 Stop Date: 04/11/25 Status: Ordered Quantity: 90.0 Unit: tab(s) Repeat number: 4 Start: 06-29-2021 End: 02-23-2024 NIFEdipine 60 mg oral tablet , extended release Dose : 60 mg = 1 tab(s), Oral, qDay, # 90 tab(s), 3 Refill(s), Pharmacy: [facility], 170, cm, 11/08/22 6:51:00 EST, Height, kg, 11/08/22 6:51:00 EST, Dosing Weight Start Date: 02/28/23 Stop Date: 02/23/24 Status: Ordered Start: 11-11-2020 take 1 tablet by kelli th once daily [place]-3 Fatty Acids-Fish Oil 1 EACH capsule (6 sources) Start: 11-11-2020 Start: 11-11-2020 [place]-3 Fatty Acids-Fish Oil 1 EACH capsule Active 1 NMA PO DAILY November 11, 2020 1:00am SUPPLEMENT Start: 11-11-2020 [place]-3 Fatty Acids-Fish Oil 1 EACH capsule Active 1 NMA PO DAILY November 11, 2020 1:00am omeprazole 20 mg delayed release oral tablet (7 sources) Proton Pump Inhibitor Start: 06-09-2025 take 1 tablet by mouth once daily as needed for gastroesophageal reflux disease Start: 04-22-2025 omeprazole 20 mg oral delayed release capsule Dose : 20 mg = 1 cap(s), Oral, qDay, # 90 cap(s), 3 Refill(s), Pharmacy: [facility], 170, cm, 04/22/25 6:56:00 EDT, [...] as provided by your GI provider at [place]., # 1 EA, 0 Refill(s), Pharmacy: [facility] #[id number], 170, cm, 11/20/24 9:47:00 EST, Height, kg, 11/20/24 9:47:00 EST, Dosing Weight Start Date: 11/20/24 Status: Ordered Quantity: 1.0 Unit: EA Repeat number: 1 psyllium 520 mg oral capsule (6 sources) Start: 11-11-2020 simvastatin 40 mg oral tablet (20 sources) HMG-CoA Reductase Inhibitor Start: 11-11-2020 End: 04-17-2026 take 1 tablet by mouth at bedtime sodium polystyrene sulfonate 250 mg/ml oral suspension (1 source) Start: 01-14-2022 End: 01-15-2022 take 1 dose by mouth once daily sodium polystyrene sulfonate 15 g/60 mL oral and rectal suspension Dose : 15 gram(s) = 60 mL, Oral, qDay, # 60 mL, 0 Refill(s), 01/15/22 9:11:00 EDT, Pharmacy: [facility] 170, cm, 01/14/22 8:40:00 EDT, Height Start Date: 01/14/22 Stop Date: 01/15/22 Status: Ordered terbinafine 250 mg oral tablet (2 sources) Allylamine Antifungal Start: 02-08-2022 End: 05-10-2022 terbinafine 250 mg oral tablet Dose : 250 mg = 1 tab(s), Oral, qDay, X 90 day(s), # 90 tab(s), 0 Refill(s), 05/10/22 8:09:00 EDT, Pharmacy: [facility], 170, cm, 02/08/22 7:05:00 EDT, Height Start Date: 02/09/22 Stop Date: 05/10/22 Status: Ordered Completed/Discontinued Medications Medication Drug Class(es) Dates Sig (Normalized) Sig (Original) Baclofen (4 sources) gamma-Aminobutyric Acid-ergic Agonist Start: 04-11-2023 baclofen 10 mg tablet baclofen 10 mg tablet, See Instructions, as needed pain, 0 Refill(s), 89.1 Start Date: 04/11/23 Status: Ordered famotidine 20 mg oral tablet (8 sources) Histamine-2 Receptor Antagonist Start: 11-11-2020 End: 06-09-2025 Famotidine 20 MG tablet Discontinued 20 mg PO NEEDED as needed for GERD November 11, 2020 1:00am June 09, 2025 8:48am ibuprofen 600 mg oral tablet (4 sources) Nonsteroidal Anti-inflammatory Drug Start: 06-09-2025 End: 06-24-2025 take 1 tablet by mouth every eight hours as needed for pain Ibuprofen (Ibu) 600 mg tablet Discontinued 600 mg PO Q8H as needed for pain June 09, 2025 12:00am June 24, 2025 11:46am LORazepam 1 mg oral tablet (6 sources) Benzodiazepine Start: 02-25-2025 End: 06-09-2025 take 1 tablet by mouth twice daily Lorazepam (Ativan) 1 mg tablet Discontinued 1 mg PO TWICE A DAY as needed for claustrophobia 2 February 25, 2025 12:00am June 09, 2025 8:49am take 1 tablet one hour before the MRI, take 2nd tablet when you arrive for the MRI if needed methocarbamol 500 mg oral tablet (3 sources) Muscle Relaxant Start: 06-24-2025 End: 07-08-2025 Methocarbamol 500 mg Tablet Discontinued 750 mg PO THREE TIMES A DAY as needed for pain/spasms 60 0 June 24, 2025 11:46am July 08, 2025 10:17am oxyCODONE hydrochloride 5 mg oral tablet (3 sources) Opioid Agonist Start: 06-24-2025 End: 07-08-2025 take 2.5-5 mg by mouth every six hours as needed for pain Oxycodone 5 mg Tablet Discontinued 2.5 - 5 mg PO EVERY 6 HOURS as needed for pain 28 7 0 June 24, 2025 July 08, 2025 9:55am Status post lumbar spinal fusion Arthrodesis status predniSONE 10 mg oral tablet (1 source) Start: 03-08-2022 End: 03-22-2022 take 1 tablet by mouth once daily prednisone 10mg tab (TAPER) 93-74-11-30-20-10-5 mg x 2days/dose, Oral, qDay, 3E0zegw,7N6puuc,4X2 days,2E4utdc,2X2day s,7M2zmub, X2 days., # 43 tab(s), 0 Refill(s), Pharmacy: [facility] [address] [facility], 170, cm, 03/08/22 9:56:00 EDT, Height Start [...] sources) Arthritis 08-15-2018 Chronic Other acquired deformities (16 sources) Spondylolysis; Translations: [Spondylolisthesis, site unspecified] 02-20-2025 Episodic Other acquired deformities (1 source) Spondylolisthesis, lumbosacral region; Translations: [Spondylolisthesis, lumbosacral region] Onset: 07-16-2025 Episodic Other circulatory disease (18 sources) Raynaud's disease 08-15-2018 Chronic Other connective tissue disease (8 sources) History of lumbar fusion; Translations: [Arthrodesis status] 06-24-2025 Episodic Other connective tissue disease (2 sources) Arthrodesis status; Translations: [Arthrodesis status] Onset: 07-08-2025 Episodic Other ear and sense organ disorders (1 [...] lumbar vertebral foramen; Translations: [Low back pain] Onset: 07-16-2025 06-18-2020 Episodic Thyroid disorders (20 sources) Hypothyroidism; Translations: [Hypothyroidism, unspecified] 08-15-2018 Chronic Unclassified (20 sources) Patient encounter status 08-08-2019 Unclassified (5 sources) Serum sodium below reference range 10-17-2023 Unclassified (2 sources) History of lumbar fusion Unclassified (2 sources) Z98.1 - Arthrodesis status Unclassified (1 source) Low back pain, unspecified; [...] Facility Orthopedic Visit Reporton Orthopedic Visit Report [facility] [address] [place] [id number] OFFICE VISIT Date of Service: 08/05/25 MR#: [id number] Acct: [id number] Name: RUI RIOS Rep #: [id number] : 1950 Provider: Dr. Francisco Villa MD Age/Sex: 75/M Location: [facility] Status: Signed Intake Vital Signs 03/20/25 08:26 06/23/25 15:37 Height 5 ft 7 in 5 ft 7 in Intake Visit Reasons: lumbar spine Chief Complaint: Lumbar Spine 6 Week Post-Op Accompanied by: Is patient in pain?: Yes Allergies mold Allergy (Severe, Verified 08/05/25 10:48) Watery eyes Medications ???Medication ???Instructions ???Recorded ???Confirmed ???Type aspirin 81 mg tablet,delayed 81 mg PO DAILY@0800 [facility] 0 11/11/20 08/05/25 History release Held on 06/24/25. Instructions: Resume on 06/26/25. diphenhydramine HCl 25 mg capsule 25 mg PO DAILY PRN Allergies 10/1708/05/25 History levothyroxine 112 mcg tablet 112 mcg PO DAILY THYROID 11/11/20 08/05/25 History loratadine 10 mg capsule 10 mg PO PRN PRN Allergies 1 08/05/25 History losartan 50 mg tablet 50 mg PO DAILY BP 11/11/20 5 History nifedipine 60 mg tablet,extended 60 mg PO DAILY BP 11/11/20 5 History release 24 hr omega-3 fatty acids-fish oil 300 1 ea PO DAILY SUPPLEMENT 11/11/20 08/05/25 History mg-1,000 mg capsule psyllium husk 0.52 gram capsule 0.52 g PO DAILY BOWELS 11/11/20 History simvastatin 40 mg tablet 40 mg PO QHS CHOLESTEROL 11/11/20 08/05/25 History metoprolol succinate 25 mg 25 mg PO QDAY BP 02/20/25 08/05/25 History tablet,extended release 24 hr omeprazole 20 mg tablet,delayed 20 mg PO DAILY PRN GERD 06/09/25 1 History release acetaminophen 500 mg tablet 1,000 mg (2 x 500 mg) PO Q8 #30 08/05/25 Rx tabs Have you fallen in the past year?: Yes PFSH Medical History (Updated 08/05/25 @ 11:12 by Keysha Palmer, RAFAEL) Obesity (BMI 30-39.9) Wears glasses Wears dentures Arthritis Restless legs Back pain Gastric reflux Former smoker History of pain when walking Cardiology follow-up encounter History of echocardiogram History of stress test Spinal cord stimulator status Hypothyroid Hypocholesterolemi a Hypertension Surgical History Hx of colonoscopy History of excision of pilonidal cyst Hx of elbow surgery History of left hip replacement H/O hernia repair Family History Mother No problems noted. Father No problems noted. Social History Smoking Status: Former smoker HPI lumbar spine Details: This documentation accurately reflects the service provided and the decisions made by me, Dr. Francisco Villa MD 08/05/25 1046. Part of today???s visit was documented by Jeannie Wallace ATC and Keysha Palmer RN, acting as scribe. RUI RIOS is a 75 year old M here today for s/p L5-S1 TLIF, L4-S1 posterior spine instrumented fusion DOS 06/23/2025. Patient ambulates with a cane today and states his pain is flared up from increased walking but sitting decreases the pain. He holds the cane with the left hand. He denies any symptoms that he had prior to surgery. He continues with physical therapy and states it is going well and he has 3 sessions left. He gets up every hour and walks. He walked 8 miles per day before his back issues and is trying to build back up to that. The patient is a 75-year-old male presenting for a follow-up visit post-surgery and to discuss ongoing recovery and mobility issues. The patient reports significant improvement in symptoms post-surgery, with all previous symptoms resolved. He is currently undergoing physical therapy, with three sessions remaining, and reports walking every hour as part of his recovery regimen. Prior to surgery, the patient was highly active, walking 7-8 miles daily, and had logged over 3,000 miles in 2019 using a fitness tracker. However, in the six months leading up to surgery, his activity level decreased significantly due to his condition. Post-surgery, the patient began using a cane approximately one week ago to aid with ambulation, particularly on the right side where he experiences significant limping without it. The physical therapist has recommended continued use of the cane to support mobility. The patient denies any groin pain but reports some residual numbness, which has improved significantly since surgery. He uses a stimulator occasionally, which provides some relief, although he is evaluating its necessity. The patient has been advised to avoid heavy lifting and excessive bending or twisting for the first three months post-peraza (more content not included)... Normal [facility] Lumbar Spine 2 or 3 Viewson 07-08-2025 Lumbar Spine 2 or 3 Views [facility] [address] [place], [place] [id number] Lumbar Spine 2 or 3 Views MR#: [id number] Acct: [id number] Name: RUI RIOS Rep #: [id number] : 1950 M 75 From: Caleb Salazar MD PCP: Lucila Brito NP-C Status: DEP [facility] Study: Lumbar Spine 2 or 3 Views Date of Exam: Exam# [id number] Ordering Dr: Nikki Kumar PROCEDURE: LUMBAR SPINE 2 OR 3 VIEWS 07/08/2025 REASON FOR EXAM: S/P LUMBAR FUSION TECHNIQUE: Procedure Code: RADSPLL Modality: DX Procedure: LUMBAR SPINE 2 OR 3 VIEWS COMPARISON: 06/24/2025. FINDINGS: No evidence acute fracture or dislocation. L4 through S1 posterior fusion with L4-5 discectomies. Moderate degenerative changes of the non fused levels. Spinal stimulator is present. Normal alignment. RAD/Lumbar Spine 2 or 3 Views IMPRESSION: Intact postsurgical changes. Spondylosis. Reading Location: [id number] CC: WOOD Brito; NADEGE Echeverria Dough Puncher: Signed Normal [facility] Orthopedic Visit Reporton Orthopedic Visit Report [facility] [address] [place] [address] OFFICE VISIT Date of Service: 07/08/25 MR#: [id number] Acct: [id number] Name: RUI RIOS Rep #: [id number] : 1950 Provider: NADEGE Echeverria Age/Sex: 75/M Location: [facility] Status: Signed Intake Vital Signs 03/20/25 08:26 06/23/25 15:37 Height 5 ft 7 in 5 ft 7 in Intake Visit Reasons: lumbar spine Chief Complaint: Lumbar Spine 2 Week Post-Op Accompanied by: Is patient in pain?: Yes Pain scale (1-10): 8 Allergies mold Allergy (Severe, Verified 07/08/25 09:54) Watery eyes Medications ???Medication ???Instructions ???Recorded ???Confirmed ???Type aspirin 81 mg tablet,delayed 81 mg PO DAILY@0800 [facility] 0 11/11/20 07/08/25 History release Held on 06/24/25. Instructions: Resume on 06/26/25. diphenhydramine HCl 25 mg capsule 25 mg PO DAILY PRN Allergies 10/1707/08/25 History levothyroxine 112 mcg tablet 112 mcg PO DAILY THYROID 11/11/20 07/08/25 History loratadine 10 mg capsule 10 mg PO PRN PRN Allergies 1 07/08/25 History losartan 50 mg tablet 50 mg PO DAILY BP 11/11/20 5 History nifedipine 60 mg tablet,extended 60 mg PO DAILY BP 11/11/20 5 History release 24 hr omega-3 fatty acids-fish oil 300 1 ea PO DAILY SUPPLEMENT 11/11/20 07/08/25 History mg-1,000 mg capsule psyllium husk 0.52 gram capsule 0.52 g PO DAILY BOWELS 11/11/20 History simvastatin 40 mg tablet 40 mg PO QHS CHOLESTEROL 11/11/20 07/08/25 History metoprolol succinate 25 mg 25 mg PO QDAY BP 02/20/25 07/08/25 History tablet,extended release 24 hr omeprazole 20 mg tablet,delayed 20 mg PO DAILY PRN GERD 06/09/25 0 07/08/25 History release acetaminophen 500 mg tablet 1,000 mg (2 x 500 mg) PO Q8 #30 07/08/25 Rx tabs meloxicam 15 mg tablet 15 mg PO DAILY #30 tabs 06/24/25 0 07/08/25 Rx sennosides 8.6 mg-docusate sodium 2 tab PO BID PRN constipation #14 06/24/25 07/08/25 Rx 50 mg tablet (Stimulant Laxative tabs Plus) cyclobenzaprine 10 mg tablet 10 mg PO TID PRN muscle spasm #30 07/08/25 07/08/25 Rx tabs hydrocodone-acetam inophen 5-325mg 1 tab PO Q6H PRN pain 7 days #28 07/08/25 07/08/25 Rx 5mg-325mg tabs Have you fallen in the past year?: Yes PFSH Medical History Wears glasses Wears dentures Arthritis Restless legs Back pain Gastric reflux Former smoker History of pain when walking Cardiology follow-up encounter History of echocardiogram History of stress test Spinal cord stimulator status Hypothyroid Hypocholesterolemi a Hypertension Surgical History Hx of colonoscopy History of excision of pilonidal cyst Hx of elbow surgery History of left hip replacement H/O hernia repair Family History Mother No problems noted. Father No problems noted. Social History Smoking Status: Former smoker HPI lumbar spine Details: This documentation accurately reflects the service provided and the decisions made by me, NADEGE Echeverria 07/08/25 0948. Part of today???s visit was documented by Jeannie Wallace ATC, acting as scribe. RUI RIOS is a 75 year old M here today for s/p L5-S1 TLIF, L4-S1 posterior spine instrumented fusion DOS 06/23/[address] Villa. Patient rates his pain a 8/10 today and ambulates with a walker. He denies any redness, drainage or concerns from the incisions. Says that he has been walking over the last couple of weeks around the house. He has been using a walker to help with his ambulation. Says that last night it was hard for him to sleep due to restless leg syndrome. Says that he has been taking the oxycodone as needed but has been trying to make it last as he says he gets drowsy after taking this medication. Says that he has continued to have right foot numbness which he was having before the surgery. He also mentions pain into his left groin. Says that he has not been lifting anything heavier than a gallon of milk. Ortho Exam General General: Yes no acute distress Neurologic: Yes alert and Yes oriented x3 Psychologic: Yes reasonable and appropriate Spine SPINE TESTING CERVICAL THORACIC LUMBAR Musculoskeletal Strength 0=absent - 5=normal Details: Neurological examination of the lower extremity shows 5X5 power. Normal sensation across all dermatomes. Physical examination of the back and belly showed incisions covered by Band-Aids. Band-Aids were removed. Steri-Strips removed from the belly incision. Band-Aids on the back are dry, patient says that he has been kavin (more content not included)... Normal [facility] Absolute lymphocyte countOrd ered By: Nikki Kumar on 06-24-2025 Lymphocytes Auto (Unsp spec) [#/Vol] 1.44 10*3/uL 0.83-4.51 [facility] Absolute neutrophil countOrd ered By: Nikki Kumar on 06-24-2025 Neutrophils (Bld) [#/Vol] 12.7 10*3/uL High 2.0-7.7 [facility] Anion gap in Serum or Plasma Ordered By: Nikki Kumar on 06-24-2025 Anion gap [Moles/Vol] 15 mmol/L 5-15 [facility] Automated lymphocyte count a s percentage of total leukocytesOrdered By: Nikki Kumar on 06-24-2025 Lymphocytes/100 WBC Auto (Unsp spec) 9.2 % Low 19-41 [facility] BUN/creatinine ratioOrdered By: Nikki Kumar on 06-24-2025 Urea nitrogen/Creatinine [Mass ratio] 11.5 mg/mg 10- [facility] Basic Metabolic Profile (BMP )on 06-24-2025 BUN/CRE 11.5 RATIO Normal - [facility] Comment on above: Performed By: #### L 500.2500, L100.0100 ####[facility] [address] [place], [address] Calcium [Mass/Vol] 7.9 mg/dL Normal 7.6-11.0 [facility] Comment on above: Performed By: #### L 500.2500, L100.0100 ####[facility] [address] [place], [address] Chloride [Moles/Vol] 101 mmol/L Normal 98-108 [facility] Comment on above: Performed By: #### L 500.2500, L100.0100 ####[facility] [address] [place], [address] CO2 [Moles/Vol] 19.3 mmol/L Low 21.0-32.0 [facility] Comment on above: Performed By: #### L 500.2500, L100.0100 ####[facility] [address] [place], [address] Creatinine [Mass/Vol] 1.23 mg/dL High 0.70-1.20 [facility] Comment on above: Performed By: #### L 500.2500, L100.0100 ####[facility] [address] [place], [address] ECRCL 57.00 ml/min Normal 50-250 [facility] Comment on above: Performed By: #### L 500.2500, L100.0100 ####[facility] [address] [place], [address] GAP 15 Normal 5-15 [facility] Comment on above: Performed By: #### L 500.2500, L100.0100 ####[facility] [address] [place], [address] GFR/1.73 sq M.predicted among non-blacks MDRD (S/P/Bld) [Vol rate/Area] 61 mL/min/{1.73_m2} Normal >60 [facility] Comment on above: Result Comment: mL/m in/1.73m2 CKD-EPI Creatinine Equation (2020) Performed By: #### L 500.2500, L100.0100 ####[facility] [address] [place], [address] Glucose [Mass/Vol] 134 mg/dL High 70-99 [facility] Comment on above: Performed By: #### L 500.2500, L100.0100 ####[facility] [address] [place], [address] Potassium [Moles/Vol] 5.0 mmol/L Normal 3.3-5.1 [facility] Comment on above: Performed By: #### L 500.2500, L100.0100 ####[facility] [address] [place], [address] Sodium [Moles/Vol] 135 mmol/L Normal 133-145 [facility] Comment on above: Performed By: #### L 500.2500, L100.0100 ####[facility] [address] [place], [address] Urea nitrogen [Mass/Vol] 14 mg/dL Normal 4-19 [facility] Comment on above: Performed By: #### L 500.2500, L100.0100 ####[facility] [address] [place], [address] Basophil percentageOrdered B y: Nikki Kumar on 06-24-2025 Basophils/100 WBC (Bld) 0.1 % 0-1 [facility] Bedside Glucoseon 06-24-2025 FINGERSTICK GLU 134 mg/dL High 74-106 [facility] Comment on above: Result Comment: NEY ADAME OF PATIENT CARE PER NURSING PROTOCOL Performed By: #### L 501.080 ####[facility] [address] [place], [address] CBC W/Diff, Automatedon Absolute Lymph 1.44 X10 3/uL Normal 0.83-4.51 [facility] Comment on above: Performed By: #### L 500.2500, L100.0100 ####[facility] [address] [place], [address] Absolute Neut 12.7 X10 3/uL High 2.0-7.7 [facility] Comment on above: Performed By: #### L 500.2500, L100.0100 ####[facility] [address] [place], [address] Basophils/100 WBC (Bld) 0.1 % Normal 0-1 [facility] Comment on above: Performed By: #### L 500.2500, L100.0100 ####[facility] [address] [place], [address] Eosinophils/100 WBC (Bld) 0.1 % Normal 0-5 [facility] Comment on above: Performed By: #### L 500.2500, L100.0100 ####[facility] [address] [place], [address] Erythrocyte distribution width (RBC) [Ratio] 12.8 % Normal 11.6-14.6 [facility] Comment on above: Performed By: #### L 500.2500, L100.0100 ####[facility] [address] [place], [address] Hematocrit (Bld) [Volume fraction] 43.1 % Normal 40-54 [facility] Comment on above: Performed By: #### L 500.2500, L100.0100 ####[facility] [address] [place], [address] Hemoglobin (Bld) [Mass/Vol] 14.9 g/dL Normal 13.0-16.5 [facility] Comment on above: Performed By: #### L 500.2500, L100.0100 ####[facility] [address] [place], [address] IG% 0.500 Normal 0.0-0.9 [facility] Comment on above: Result Comment: IG% - Immature Granulocytes (promyelocytes, myelocytes and metamyelocytes) > 1% indicates that a LEFT SHIFT is Present. Performed By: #### L 500.2500, L100.0100 ####[facility] [address] [place], [address] Lymphocytes/100 WBC (Bld) 9.2 % Low 19-41 [facility] Comment on above: Performed By: #### L 500.2500, L100.0100 ####[facility] [address] [place], [address] MCH (RBC) [Entitic mass] 30.5 pg Normal 27.0-32.0 [facility] Comment on above: Performed By: #### L 500.2500, L100.0100 ####[facility] [address] [place], [address] MCHC (RBC) [Mass/Vol] 34.6 g/dL Normal 32-36 [facility] Comment on above: Performed By: #### L 500.2500, L100.0100 ####[facility] [address] [place], [address] MCV (RBC) [Entitic vol] 88.3 fL Normal 80-94 [facility] Comment on above: Performed By: #### L 500.2500, L100.0100 ####[facility] [address] [place], [address] Monocytes/100 WBC (Bld) 9.5 % Normal 0-10 [facility] Comment on above: Performed By: #### L 500.2500, L100.0100 ####[facility] [address] [place], [address] Neutrophils/100 WBC (Bld) 80.6 % High 47-70 [facility] Comment on above: Performed By: #### L 500.2500, L100.0100 ####[facility] [address] [place], [address] Nucleated RBC (Bld) [#/Vol] 0 10*3/uL Normal 0-5 [facility] Comment on above: Performed By: #### L 500.2500, L100.0100 ####[facility] [address] [place], [address] Platelet mean volume (Bld) [Entitic vol] 9.3 fL Normal 6.2-12.0 [facility] Comment on above: Performed By: #### L 500.2500, L100.0100 ####[facility] [address] [place], [address] Platelets (Bld) [#/Vol] 241 10*3/uL Normal 150-450 [facility] Comment on above: Performed By: #### L 500.2500, L100.0100 ####[facility] [address] [place], [address] RBC (Bld) [#/Vol] 4.88 10*6/uL Normal 4.6-6.2 [facility] Comment on above: Performed By: #### L 500.2500, L100.0100 ####[facility] [address] [place], [address] RDW SD 41.5 fl Normal 35.1-43.9 [facility] Comment on above: Performed By: #### L 500.2500, L100.0100 ####[facility] [address] [place], [address] WBC (Bld) [#/Vol] 15.7 10*3/uL High 4.4-11.0 [facility] Comment on above: Performed By: #### L 500.2500, L100.0100 ####[facility] [address] [place], [address] Carbon dioxide, total [Moles /volume] in Central venous bloodOrdered By: Nikki Kumar on 06-24-2025 CO2 [Moles/Vol] 19.3 mmol/L Low 21.0-32.0 [facility] Chloride assayOrdered By: Nicole Kumar on 06-24-2025 Chloride [Moles/Vol] 101 mmol/L 98-108 [facility] Discharge Instructionon Discharge Instruction [facility] Medical Records Department [address] [place] [place] [address] Instructions for Home/Discharge Instructions 06/24/25 1149 MR#: [id number] Acct: [id number] Name: RUI RIOS Rep #: [id number] : 1950 75 From: Nikki LIGHT PCP: WOOD Stratton Status:ADM IN Discharge Instructions DC O2, CPAP, BIPAP needs Home O2 Discharge instructions: No Follow Up Care Test Results: Test results from this visit will be discussed in further detail at your follow-up appointment, if applicable. Discharge Plan Admission Admit Date/Time: 06/23/25 13:51 Attending Provider: Francisco Villa Primary Care Provider: Lucila Brito NP Consulting Providers: Ronald Mendez; Saravanan Wheat Instructions Patient Instructions: Lumbar Fusion Dc Additional Instructions / Restrictions: Keep Tegaderm and gauze clean and dry. If Tegaderm is intact, okay to shower. After 5 days remove Tegaderm and gauze and cover with a Band-Aid. Replace Band-Aid daily thereafter. No bending lifting or twisting. Follow-up in clinic in 2 weeks. Discharge Orders/Prescriptio ns Prescriptions: New acetaminophen 500 mg Tablet 1,000 mg PO Q8 Qty: 30 0RF methocarbamol 500 mg Tablet 750 mg PO TID PRN (Reason: pain/spasms) Qty: 60 0RF oxycodone 5 mg Tablet 2.5 - 5 mg PO Q6H PRN (Reason: pain) 7 Days Qty: 28 0RF sennosides-docusat e sodium [Stimulant Laxative Plus] 8.6-50 mg Tablet 2 tab PO BID PRN (Reason: constipation) Qty: 14 0RF meloxicam 15 mg tablet 15 mg PO DAILY Qty: 30 0RF Continued metoprolol succinate 25 mg tablet extended release 24 hr 25 mg PO QDAY losartan 50 MG tablet 50 mg PO DAILY simvastatin 40 MG tablet 40 mg PO QHS nifedipine 60 MG tablet 60 mg PO DAILY diphenhydramine HCl 25 MG capsule 25 mg PO DAILY PRN (Reason: Allergies) levothyroxine 112 MCG tablet 112 mcg PO DAILY psyllium husk 0.52 GM capsule 0.52 g PO DAILY omega-3 fatty acids-fish oil 1 EACH capsule 1 ea PO DAILY loratadine 10 MG capsule 10 mg PO PRN PRN (Reason: Allergies) omeprazole 20 mg tablet,delayed release (DR/EC) 20 mg PO DAILY PRN (Reason: GERD) Held aspirin 81 MG tablet 81 mg PO DAILY@0800 Hold Instructions: Resume on 06/26/25. Discontinued ibuprofen [IBU] 600 mg tablet 600 mg PO Q8H PRN (Reason: pain) Referrals / Follow Up: Lucila Brito NP, CERTIFIED ORTHOTIST-C [Primary Care Provider] - Disposition Disposition (needs filled in before D/C Order can be placed): Home, Self Care 06/24/25 1149 Nikki LIGHT CC: WOOD Brito; Dr. Jerrell Mendez DO; Dr. Saravanan Wheat MD Signed Normal [facility] Eosinophil percentageOrdered By: Nikki Kumar on 06-24-2025 Eosinophils/100 WBC (Bld) 0.1 % 0-5 [facility] Erythrocyte distribution wid th ratioOrdered By: Nikki Kumar on 06-24-2025 Erythrocyte distribution width (RBC) [Ratio] 12.8 % 11.6-14.6 [facility] Erythrocyte distribution wid th standard deviationOrdered By: Nikki Kumar on 06-24-2025 Erythrocyte distribution width (RBC) [Ratio] 41.5 fl 35.1-43.9 [facility] Glomerular filtration rate ( GFR) estimation/1.73 sq m using serum, plasma, or whole bOrdered By: Nikki Kumar on 06-24-2025 GFR/1.73 sq M.predicted among non-blacks MDRD (S/P/Bld) [Vol rate/Area] 61 mL/min/{1.73_m2} >60 [facility] Comment on above: mL/min/1.73m2 CKD-EP I Creatinine Equation (2020) Hematocrit Auto (Bld) [Volum e fraction]Ordered By: Nikki Kumar on 06-24-2025 Hematocrit (Bld) [Volume fraction] 43.1 % 40-54 [facility] Hemoglobin measurementOrdere d By: Nikki Kumar on 06-24-2025 Hemoglobin (Bld) [Mass/Vol] 14.9 g/dL 13.0-16.5 [facility] Immature granulocytes/100 WB C Auto (Bld)Ordered By: Nikki Kumar on 06-24-2025 Immature granulocytes/100 WBC (Bld) 0.500 % 0.0-0.9 [facility] Comment on above: IG% - Immature Granu locytes (promyelocytes, myelocytes and metamyelocytes) > 1% indicates that a LEFT SHIFT is Present. Lumbar Spine 2 or 3 Viewson 06-24-2025 Lumbar Spine 2 or 3 Views [facility] Services [address] [place] [address] Lumbar Spine 2 or 3 Views MR#: [id number] Acct: [id number] Name: RUI RIOS Rep #: [id number] : 1950 M 75 From: Jack ham MD PCP: JOSE StrattonC Status: ADM IN Study: Lumbar Spine 2 or 3 Views Date of Exam: Exam# [id number] Ordering Dr: Nikki Kumar PROCEDURE: LUMBAR SPINE 2 OR 3 VIEWS 06/24/2025 REASON FOR EXAM: S/P LUMBAR FUSION TECHNIQUE: Procedure Code: RADSPLL Modality: DX Procedure: LUMBAR SPINE 2 OR 3 VIEWS COMPARISON: MRI on 03/14/2025. FINDINGS: Unremarkable lower lumbar fusion metallic hardware at L4-L5 and L5-S1 levels. Unremarkable spinal stimulator. There are diffuse spondylotic changes. Findings are demonstrated to by diffuse disc space narrowing, osteophyte formation and degenerative endplate sclerosis. There is diffuse facet joint arthropathy with secondary bilateral neural foramina narrowing. No fracture or dislocation is seen. No aggressive lytic or blastic bony lesion is noted. RAD/Lumbar Spine 2 or 3 Views IMPRESSION: Diffuse spondylosis. Unremarkable low lumbar fusion metallic hardware. Reading Location: [place] [address] CC: CERTIFIED ORTHOTIST-C Lucila Brito; NADEGE Echeverria Dough Puncher: Signed Normal [facility] MCV (mean corpuscular volume ) determinationOrdered By: Nikki Kumar on 06-24-2025 MCV (RBC) [Entitic vol] 88.3 fL 80-94 [facility] Mean corpuscular hemoglobin (MCH) determinationOrdered By: Nikki Kumar on 06-24-2025 MCH (RBC) [Entitic mass] 30.5 pg 27.0-32.0 [facility] Mean corpuscular hemoglobin concentration (MCHC) determinationOrdered By: Nikki Kumar on 06-24-2025 MCHC (RBC) [Mass/Vol] 34.6 g/dL 32-36 [facility] Mean platelet volume determi nationOrdered By: Nikki Kumar on 06-24-2025 Platelet mean volume (Bld) [Entitic vol] 9.3 fL 6.2-12.0 [facility] Monocyte percentageOrdered B y: Nikki Kumar on 06-24-2025 Monocytes/100 WBC (Bld) 9.5 % 0-10 [facility] Neutrophil percentageOrdered By: Nikki Kumar on 06-24-2025 Neutrophils/100 WBC (Bld) 80.6 % High 47-70 [facility] Nucleated red blood cell per centageOrdered By: Nikki Kumar on 06-24-2025 Nucleated RBC/100 WBC (Bld) [Ratio] 0 % 0-5 [facility] Platelet countOrdered By: Nicole Kumar on 06-24-2025 Platelets (Bld) [#/Vol] 241 10*3/uL 150-450 [facility] Potassium measurement (mass/ volume)Ordered By: Nikki Kumar on 06-24-2025 Potassium (Unsp spec) [Mass/Vol] 5.0 mmol/L 3.3-5.1 [facility] RBC Auto (Bld) [#/Vol]Ordere d By: Nikki Kumar on 06-24-2025 RBC (Bld) [#/Vol] 4.88 10*6/uL 4.6-6.2 [facility] Serum creatinine measurement (mass/volume)Ordered By: Nikki Kumar on 06-24-2025 Creatinine [Mass/Vol] 1.23 mg/dL High 0.70-1.20 [facility] Serum glucose measurement (m ass/volume)Ordered By: Nikki Kumar on 06-24-2025 Glucose [Mass/Vol] 134 mg/dL High 70-99 [facility] Serum or plasma calcium kelly urement (mass/volume)Ordered By: Nikki Kumar on 06-24-2025 Calcium [Mass/Vol] 7.9 mg/dL 7.6-11.0 [facility] Serum or plasma urea nitroge n measurement (mass/volume)Ordered By: Nikki Kumar on 06-24-2025 Urea nitrogen [Mass/Vol] 14 mg/dL 4-19 [facility] Sodium levelOrdered By: Elisa Kumar on 06-24-2025 Sodium [Moles/Vol] 135 mmol/L 133-145 [facility] White blood cell (WBC) count Ordered By: Nikki Kumar on 06-24-2025 WBC (Bld) [#/Vol] 15.7 10*3/uL High 4.4-11.0 [facility] Consultation - [place] 06-23-2025 Consultation - Hospitalist [facility] Medical Records Department [address] [place] [address] Consultation - Hospitalist 06/23/25 1608 MR#: [id number] Acct: [id number] Name: RUI RIOS Rep #: [id number] : 1950 75 From: Jerrell Mendez DO PCP: Lucila Brito CERTIFIED ORTHOTIST-C Status:ADM IN Location: [place] [address]-1 Assessment Plan Assessment/Plan (1) Lumbar stenosis with neurogenic claudication: PLAN: Plan Patient is a 75-year-old male who presented to [facility] on 06/23/2025 for planned lumbar fusion procedure. Medicine consulted postoperatively for medical management. 1. L5-S1 spondylolisthesis, L4-S1 disc degeneration with stenosis, neurogenic claudication ??? Orthopedic surgery primary. S/p L4-5 oblique lumbar interbody fusion procedure with Dr. Villa and Dr. Kenyon. Tolerated procedure well. Postoperative pain control, DVT prophylaxis and further management per orthopedics. PT/OT/case management consulted. Follow-up a.m. labs. 2. Hypertension ??? Normotensive postoperatively. Will resume home Toprol, losartan and nifedipine with hold parameters in place. 3. Hyperlipidemia ??? Continue home simvastatin. 4. Hypothyroidism ??? Continue home Synthroid. 5. Class I obesity ??? BMI 32 on admit. Complicates hospital course and care. Total clinical time spent by myself addressing the patient's medical issues, reviewing all the data, and collaborating with patient's care team: 36 minutes. HPI Consult Data Date of Consult: 06/23/25 HPI Narrative Reason for Consultation: Postoperative medical management HPI Narrative: RUI RIOS, is a 75 M who presented to [facility] on 06/23/2025 for planned orthopedic procedure. Medicine consulted postoperatively for medical management. Patient had L4-5 oblique lumbar interbody fusion procedure done with Dr. Villa this afternoon. Dr. Kenyon assisted him with the procedure. Patient tolerated procedure well. I saw the patient at bedside earlier this evening. Patient was sitting in the bedside chair comfortably, conversing normally and in no acute distress. Denied any low back pain or discomfort currently and stated that he felt better now than he had prior to surgery. He denied any other acute concerns at this time. [facility] Medical History Wears glasses Wears dentures Arthritis Restless legs Back pain Gastric reflux Former smoker History of pain when walking Cardiology follow-up encounter History of echocardiogram History of stress test Spinal cord stimulator status Hypothyroid Hypocholesterolemi a Hypertension Home Medications ???Medication ???Instructions ???Recorded ???Last Taken ???Type aspirin 81 mg tablet,delayed 81 mg PO DAILY@0800 [facility] 0 11/11/20 06/19/25 History release diphenhydramine HCl 25 mg capsule 25 mg PO DAILY PRN Allergies 10/1706/22/25 History levothyroxine 112 mcg tablet 112 mcg PO DAILY THYROID 11/11/20 06/23/25 History loratadine 10 mg capsule 10 mg PO PRN PRN Allergies 1 06/22/25 History losartan 50 mg tablet 50 mg PO DAILY BP 11/11/20 5 History nifedipine 60 mg tablet,extended 60 mg PO DAILY BP 11/11/20 5 History release 24 hr omega-3 fatty acids-fish oil 300 1 ea PO DAILY SUPPLEMENT 11/11/20 06/22/25 History mg-1,000 mg capsule psyllium husk 0.52 gram capsule 0.52 g PO DAILY BOWELS 11/11/20 History simvastatin 40 mg tablet 40 mg PO QHS CHOLESTEROL 11/11/20 06/22/25 History metoprolol succinate 25 mg 25 mg PO QDAY BP 02/20/25 06/23/25 History tablet,extended release 24 hr ibuprofen 600 mg tablet (IBU) 600 mg PO Q8H PRN pain 06/09/25 Un known History omeprazole 20 mg tablet,delayed 20 mg PO DAILY PRN GERD 06/09/25 0 06/23/25 History release Allergy/AdvReac Type Severity Reaction Status Date / Time mold Allergy Severe Watery eyes Verified 06/23/25 06:05 Family History Mother No problems noted. Father No problems noted. Surgical History Hx of colonoscopy History of excision of pilonidal cyst Hx of elbow surgery History of left hip replacement H/O hernia repair Social History Smoking Status: Former smoker ROS Constitutional Constitutional: Denies chills, fatigue, fever(s) or weakness Cardiovascular Cardiovascular: Denies chest pain Respiratory/Chest Respiratory/Chest: Denies shortness of breath at rest Gastrointestinal Gastrointestinal: Denies abdominal pain Musculoskeletal Musculoskeletal: Denies arthralgias, back pain or myalgias Physical Exam Const alert, oriented x3, no apparent distre (more content not included)... Normal [facility] Glucose measurement at [facility] deOrdered By: Francisco Villa on 06-23-2025 Glucose [Mass/Vol] 134 mg/dL High 74-106 [facility] Comment on above: MANAGEMENT OF PATIEN T CARE PER NURSING PROTOCOL Lumbar Spine 2 or 3 Viewson 06-23-2025 Lumbar Spine 2 or 3 Views [facility] Services [address], [place] [address] Lumbar Spine 2 or 3 Views MR#: [id number] Acct: [id number] Name: RUI RIOS Rep #: [id number] : 1950 M 75 From: Benigno Duff PCP: WOOD Stratton Status: ADM IN Study: Lumbar Spine 2 or 3 Views Date of Exam: Exam# [id number] Ordering Dr: Francisco Villa MD PROCEDURE: LUMBAR SPINE 2 OR 3 VIEWS; O.R. FLUORO FOR C-ARM 06/23/2025 REASON FOR EXAM: 360 LUMBAR FUSION L4-5 L5-S1 TECHNIQUE: Procedure Code: RADSPLL; RADORFL_C_ARM Modality: DX Procedure: LUMBAR SPINE 2 OR 3 VIEWS; O.R. FLUORO FOR C-ARM. Fluoroscopy time 170.7 seconds. Dose: 95.73 mGy. COMPARISON: Lumbar MRI of 03/14/2025. RAD/Lumbar Spine 2 or 3 Views IMPRESSION: Intraoperative fluoroscopy was performed for lumbar fusion/fixation. 20 fluoroscopic images were also obtained. Reading Location: [place] [address] CC: CERTIFIED ORTHOTIST-C Lucila Brito; Dr. Francisco Villa MD Dough Puncher: Signed [facility] MR/POSTOP.[facility] 06-23-2025 MR/POSTOP.[facility] Medical Records Department [address] [place] [address] Anesthesia Postop Eval I 06/23/25 1354 MR#: [id number] Acct: [id number] Name: RUI RIOS Rep #: [id number] : 1950 75 From: Francesca Trinidad CRNA PCP: Lucila Brito, CERTIFIED ORTHOTIST-C Status:ADM IN Y Race: C Location: [place] [address] Anesthesia: Postop Eval I Current Vital Signs Temperature: 97 F Pulse Rate: 72 Blood Pressure: 112/73 Respiratory Rate: 18 Pulse Ox: 99 Oxygen Delivery Method: Venturi Mask Oxygen Flow Rate (L/min): 6 Assessment Airway patent: Yes Spontaneous unlabored respirations: Yes Mental status: Awake and Calm nausea: No Vomiting: No Anesthesia Complication: No Fluid Hydration Crystalloid volume administer (ml): 2,000 Total IV fluid infused: 2,000 Progress Note Anesthesia document: Postop Eval 1 completed: Yes 06/23/25 1355 Date Francesca Trinidad ETYMOLOGY PROFESSOR Cosigner Signature: Date CC: Signed Normal [facility] MR/[id number] 06-23-2025 MR/POSTOPAN2 [facility] Medical Records Department [address] [place] [address] Anesthesia Postop Eval II 06/23/25 1434 MR#: [id number] Acct: [id number] Name: RUI RIOS Rep #: [id number] : 1950 75 From: Jensen Zurita MD PCP: Lucila Brito, CERTIFIED ORTHOTIST-C Status:ADM IN Y Race: C Location: [facility] Anesthesia Postop Eval I Sum Postop Eval Completion status Anesthesia document: Postop Eval 1 completed: Yes Anesthesia Postop Eval I Summary Anesthesia Postop Eval I Summary: Anesthesia Postop Eval I: Assessment Summary Airway patent Yes 06/23/25 13:55 [email or web address] [email or web address] Spontaneous unlabored Yes 06/23/25 13:55 ETYMOLOGY [email or web address].LMIL respirations Mental status Awake,Calm 06/23/25 13:55 [email or web address] [email or web address].LMIL nausea No 06/23/25 13:55 [email or web address] PROFESSOR.LMIL Vomiting No 06/23/25 13:55 [email or web address] [email or web address].LMIL Anesthesia Postop Eval I: Fluid Summary Crystalloid volume administer 2,000 06/23/25 13:55 ETYMOLOGY [email or web address].LMIL (ml) Colloids volume administered ( ml) Blood Product volume administered (ml) Total IV fluid infused 2,000 06/23/25 13:55 [email or web address] [email or web address].LMIL Anesthesia Postop Eval I: Summary Notes Anesthesia Complication No 06/23/25 13:55 [email or web address] [email or web address].LMIL Anesthesia Complication Comment: Post-operative progress note Anesthesia: Postop Eval II Evaluation Mental status: Awake and Calm Pain Level: 1 nausea: No Vomiting: No Complications Anesthesia Complication: No 06/23/25 1434 Date Jensen Zurita MD Cosigner Signature: Date CC: Signed [facility] O.R. Fluoro for C-Eyal O.R. Fluoro for C-Arm [facility] Services [address] [place] [address] O.R. Fluoro for C-Arm MR#: [id number] Acct: [id number] Name: RUI RIOS Rep #: [id number] : 1950 M 75 From: Benigno Duff PCP: JOSE StrattonC Status: ADM IN Study: O.R. Fluoro for C-Arm Date of Exam: 06/23/25 Exam# [id number] Ordering Dr: Francisco Villa MD PROCEDURE: LUMBAR SPINE 2 OR 3 VIEWS; O.R. FLUORO FOR C-ARM 06/23/2025 REASON FOR EXAM: 360 LUMBAR FUSION L4-5 L5-S1 TECHNIQUE: Procedure Code: RADSPLL; RADORFL_C_ARM Modality: DX Procedure: LUMBAR SPINE 2 OR 3 VIEWS; O.R. FLUORO FOR C-ARM. Fluoroscopy time 170.7 seconds. Dose: 95.73 mGy. COMPARISON: Lumbar MRI of 03/14/2025. RAD/O.R. Fluoro for C-Arm IMPRESSION: Intraoperative fluoroscopy was performed for lumbar fusion/fixation. 20 fluoroscopic images were also obtained. Reading Location: [place] [address] CC: CERTIFIED ORTHOTIST-C Lucila Brito; Dr. Francisco Villa MD Dough Puncher: Signed [facility] Operative Reporton Operative Report [facility] Medical Records Department [address] [place] [address] Operative Report 06/23/25 1412 MR#: [id number] Acct: [id number] Name: RUI RIOS Rep #: [id number] : 1950 75 From: Fran Kenyon MD PCP: JOSE StrattonC Status:ADM IN [facility] Report (Standard) Operative Information Date of Procedure: 06/23/25 Pre-Operative Diagnosis: L5-S1 spondylolisthesis, L4-S1 disc degeneration with stenosis, neurogenic claudication Post-Operative Diagnosis: Same Surgery/Procedure Performed: L4-5 oblique lumbar interbody fusion (OLIF), attempted L5-S1 OLIF, minimally invasive left sided approach, lateral decubitus: ??? L4-5 anterolateral spinal fusion ??? L4-5 insertion of cage ??? Bone graft aspirate left iliac crest separate incision ??? Allograft cancellous chips seed potato arranger: Yes Hose Tubing Backer: Nikki Kumar Tasks completed by grants and contracts assistant: Opening, Closing, Opening closing and Retracting Type of Anesthesia: General RN Documented Start/Stop Times: Operation Date: 06/23/25 07:30 Case Time Into Pre-Op 06/23/25 05:48 Out of Pre-Op 06/23/25 07:27 Anesthesia Start 06/23/25 07:30 Into Room 06/23/25 07:30 Procedure Start 06/23/25 08:16 Procedure End 06/23/25 13:27 Anesthesia End 06/23/25 13:42 Out of Room 06/23/25 13:42 Into Recovery 06/23/25 13:46 Procedure Start Time: 08:15 Procedure Stop Time: 10:15 Select all DRAINS/GRAFTS/IMPL ANTS that apply: Graft Graft details: Allograft cancellous chips, autologous iliac crest bone marrow aspirate and Implanted device Implanted device details: DePuy cougar lateral lumbar interbody cage???peek Estimated Blood Loss: 100 Specimen collected: No Description of surgery: HPI: Patient is a 75-year-old male with multilevel lumbar degenerative disc disease evaluated by Dr. Villa and felt to be appropriate for oblique lumbar interbody fusion L4-L5 and L5-S1. He is taken now for oblique approach. Vascular surgery services are requested to aid in exposure. In addition to the oblique approach Dr. Villa will be performing additional procedure from posterior approach. Description of procedure: Upon obtaining informed consent and verification correct patient procedure site the patient taken the operating was placed under general anesthesia. He was then positioned prepped and draped in usual sterile fashion time was performed. Oblique incision was made parallel to the iliac crest and Bovie used to dissect down through subcutaneous tissue. Hand-held retractors put in position further dissection was carried down the fascia. The fascia was then incised parallel to the external bleak fibers and the muscle split with hand-held retractors move deeper in the wound. The fibers of the internal bleak and transverse abdominis muscle more than similarly split parallel to the fibers and retractors move deeper into the wound. Once the retroperitoneum was entered blunt dissection was utilized to mobilize the abdominal contents off the anterior and lateral abdominal wall down to the psoas muscle. Once this was visualized the Syn frame self- retaining retractor was put in position and blades placed to visualize the psoas muscle. Combination of Bovie and blunt dissection was then used to dissect free the psoas muscle mobilizing laterally exposing the L4-L5 disc space. This was then marked and dissection carried distally toward the L5-S1 disc space of note the left common iliac artery was highly calcified circumferentially and very immobile with significant surrounding inflammatory response. Efforts were made to mobilize the artery both along its lateral edge and retracted medially as well as along its medial edge and retracted laterally to expose the disc space from below the bifurcation. Given the lack of mobility in the iliac artery we are unable to safely mobilize the iliac vein which was directly overlying the space and despite multiple efforts for multiple approaches we felt that further progress would not be safe to undertake. Dr. Villa plan to approach from posterior with discectomy and implant of this disc space so we turned our attention back to the L4-L5 disc space. At this point Dr. Villa performed the discectomy and implant placement which she will describe in further detail. Once this was completed the retroperitoneum was inspected for hemostasis and the retractors removed sequentially. The iliac artery was then visualized and was free of evidence of any injury. Once the abdominal contents were returned to their normal position the superficial surgical field was irrigated with saline and the musculature was closed individually with running 1 Vicryl. The subcutaneous wound was then irrigated with saline and closed with 3-0 Vicryl, 4-0 Monocryl. Dry sterile dressing was then applied and the (more content not included)... Normal [facility] Operative Report [facility] Medical Records Department [address] [place] [address] Operative Report 06/23/25 1350 MR#: [id number] Acct: [id number] Name: RUI RIOS GHASSAN Rep #: [id number] : 1950 75 From: Francisco Villa MD PCP: Lucila Brito, CERTIFIED ORTHOTIST-C Status:ADM IN Location: [facility] AC-TBA-1 Procedures Musculoskeletal 20xxx-29xxx: Other Procedure See Report Operative Report (Standard) Operative Information Date of Procedure: 06/23/25 Pre-Operative Diagnosis: L5-S1 spondylolisthesis, L4-S1 disc degeneration with stenosis, neurogenic claudication Post-Operative Diagnosis: Same Surgery/Procedure Performed: L5-S1 TLIF, L4-S1 posterior spine instrumented fusion seed potato arranger: Yes Hose Tubing Backer: Nikki Kumar Tasks completed by grants and contracts assistant: Closing, Implanting device, Hemostasis: Electrocautery and Retracting Type of Anesthesia: General RN Documented Start/Stop Times: Operation Date: 06/23/25 07:30 Case Time Into Pre-Op 06/23/25 05:48 Out of Pre-Op 06/23/25 07:27 Anesthesia Start 06/23/25 07:30 Into Room 06/23/25 07:30 Procedure Start 06/23/25 08:16 Procedure End 06/23/25 13:27 Anesthesia End 06/23/25 13:42 Out of Room 06/23/25 13:42 Procedure Start Time: 08:16 Procedure Stop Time: 13:27 Select all DRAINS/GRAFTS/IMPL ANTS that apply: Graft Graft details: Allograft cancellous chips and Implanted device Implanted device details: DePuy Xpac TLIF cage, Viper prime pedicle screw instrumentation Estimated Blood Loss: 100 cc Specimen collected: No Description of surgery: Preoperative diagnosis: L5-S1 spondylolisthesis, L4-S1 disc degeneration with stenosis, neurogenic claudication Postoperative diagnosis: Same Name of procedure: L5-S1 transforaminal lumbar interbody fusion (TLIF), minimally invasive right side approach, L4-S1 percutaneous pedicle screw instrumentation. . L5-S1 posterior spinal fusion and interbody fusion 58900 ??? L4-S1 posterior pedicle screw instrumentation 58281 . L5-S1 insertion of cage . L4-5 posterior fusion . Local autograft . Cancellous allograft with DBX Attending Surgeon: Dr. Francisco Villa Estimated blood loss: 100 mL Anesthesia: GA Complications: None Implants: DePuy Synthes X-PAC TLIF cage, Viper prime screws Description of procedure: After the anterior procedure was complete, the patient was then turned supine. The patient was then transferred to Mello table in prone position. The back was prepped and draped in usual fashion. IV antibiotic was given as preoperative antibiotic. A final timeout was then again done just before starting the procedure. C-arm AP view was then taken. C-arm was positioned in a way that L4 was centralized and superior endplate of L4 and was parallel to the beam. Spinous process was centered between the pedicles. Midline was marked with skin marker and lateral borders of the pedicles were also marked. Skin marker was also utilized to carlitos transversely across the middle of the pedicles at L4. 2 transverse paramedian incisions of 1 inch were placed. The fascia was incised vertically. Finger dissection was utilized to palpate the transverse process and facet joint. Viper Prime screws with towers were inserted and docked onto the transverse processes. This was then slowly moved medially to reach the superior articular process of L4. This was then confirmed on C-arm and then a mallet was utilized to drive the trocar into the pedicle going up to the medial wall of the pedicle on AP view. This was performed both sides. C-arm lateral view confirmed that the tip of the trocar was in the vertebral body, and the screw was advanced into the pedicle and vertebral body. Screw sizes were 7 x 50 mm at L4 on both sides. L5 superior endplate was then squared on the AP view, and a skin marking was made along the L5 pedicles. 2 vertical incisions about 1 inch Extending below this line were taken about 1/2 inch lateral to the pedicle line. The fascia was also incised vertically approximately the same length. Finger dissection was utilized to palpate the superior articular process and facet joint of L5-S1 on the right side. Sequential tubes were docked on the L5-S1 right facet joint and 70 mm length and 18 mm diameter tubular retractor was then placed and was attached to the arm attached to the OR table. Muscle tissue was removed with pituitaries and hemostasis was achieved with Bovie. Right inferior articular process of L5 and superior articular process of S1 were exposed with Bovie. Osteotome was utilized to remove a portion of the inferior articular process to expose the articular surface of S1. Some of this resected bone was used as autograft. [place] was then utilized to remove the rest of the inferior articular process and part of the lamina of L5. Superior articular process (more content not included)... Normal [facility] Operative Report [facility] Medical Records Department [address] [place] [address] Operative Report 06/23/25 1345 MR#: [id number] Acct: [id number] Name: RUI RIOS Rep #: [id number] : 1950 75 From: Francisco Villa MD PCP: Lucila Brito, CERTIFIED ORTHOTIST-C Status:ADM IN Location: [facility] AC-TBA-1 Procedures Musculoskeletal 20xxx-29xxx: Other Procedure See Report Operative Report (Standard) Operative Information Date of Procedure: 06/23/25 Pre-Operative Diagnosis: L5-S1 spondylolisthesis, L4-S1 disc degeneration with stenosis, neurogenic claudication Post-Operative Diagnosis: Same Surgery/Procedure Performed: L4-5 oblique lumbar interbody fusion seed potato arranger: Yes Hose Tubing Backer: Fran Kenyon Tasks completed by grants and contracts assistant: Opening closing, Dissecting tissue, Hemostasis: Electrocautery, Retracting and Other (Re-qxblakd-rtykgc ar surgery-access) Additional bacteriology research assistant?: Yes Additional Flute Polisher #2: Nikki Kumar Tasks completed by bacteriology research assistant #2: Closing, Removing tissue, Hemostasis: Electrocautery and Retracting Type of Anesthesia: General RN Documented Start/Stop Times: Operation Date: 06/23/25 07:30 Case Time Into Pre-Op 06/23/25 05:48 Out of Pre-Op 06/23/25 07:27 Anesthesia Start 06/23/25 07:30 Into Room 06/23/25 07:30 Procedure Start 06/23/25 08:16 Procedure End 06/23/25 13:27 Anesthesia End 06/23/25 13:42 Out of Room 06/23/25 13:42 Procedure Start Time: 08:16 Procedure Stop Time: 13:27 Select all DRAINS/GRAFTS/IMPL ANTS that apply: Graft Graft details: Allograft cancellous chips, autologous iliac crest bone marrow aspirate and Implanted device Implanted device details: DePuy cougar lateral lumbar interbody cage???peek Estimated Blood Loss: 100 cc Specimen collected: No Description of surgery: Preoperative diagnosis: L5-S1 spondylolisthesis, L4-5 disc degeneration, stenosis with neurogenic claudication Postoperative diagnosis: Same Name of procedures L4-5 oblique lumbar interbody fusion (OLIF), attempted L5-S1 OLIF, minimally invasive left sided approach, lateral decubitus: ??? L4-5 anterolateral spinal fusion 25650 ??? L4-5 insertion of cage ??? Bone graft aspirate left iliac crest separate incision ??? Allograft cancellous chips Attending Surgeon: Dr. Francisco Villa Co-surgeon: Dr. Fran Kenyon Estimated blood loss: 100 mL Anesthesia: General Complications: None Indications: Patient is a 75-year-old pleasant gentleman who has had a long history of low back pain and right worse than left lower extremity radiation, difficulty walking distances. Xrays MRI revealed L5-S1 spondylolisthesis, L4-S1 disc degeneration with severe stenosis. After undergoing a prolonged period of nonoperative treatment, the patient elected to undergo surgical decompression fusion. All surgical options were discussed with the patient including anterior and posterior approaches. All risks and benefits associated with the procedure were explained to the patient. The risks include but are not limited to infection, bleeding, injury to nerves and vessels including major vessels like IVC and aorta, persistent paresthesia, persistent pain, dural tear, need for further procedures, adjacent segment degeneration, pseudoarthrosis, hardware failure, retrograde ejaculation, paralytic ileus, etc. Procedure: The patient was identified in the preoperative holding suite using Unique patient identifiers. Skin was marked, consent was reviewed, and all questions were answered. The patient was then brought back to the operative room. A surgical timeout was performed to make sure correct procedure was being done on the correct patient and all operative room staff were on the same page. General endotracheal anesthesia was then given to the patient. Petit catheter was inserted. The patient was then carefully positioned in right lateral decubitus position with the left side up on a regular OR table. Axillary roll was placed and all bony prominences were well- padded. Hip positioners were placed in the posterior buttocks and anterior sternal area. The surgical area was prepped and draped in usual fashion. Preoperative antibiotic was injected IV as preoperative antibiotic. A final timeout was then again done just before starting the procedure. A 2 inch incision oblique was taken in the left lower quadrant of the abdomen 2 fingerbreadths away from the iliac crest and the lower ribs. Sharp dissection with Bovie was carried out up to the fascia covering the external oblique. The external oblique, internal oblique and transversus abdominis muscles were split along the muscle fibers and retroperitoneal space was entered. Sponge sticks were utilized to move the bowel and peritoneum [id number]-[id number]-way and psoas muscle was exposed staying within the retroperitoneal plane. BiggerBoatframe r (more content not included)... Normal [facility] Orthopedic Visit Reporton Orthopedic Visit Report [facility] [address] [place] [address] [address] [place] [address] OFFICE VISIT Date of Service: 06/17/25 MR#: [id number] Acct: [id number] Name: RUI RIOS Rep #: [id number] : 1950 Provider: Dr. Francisco Villa MD Age/Sex: 75/M Location: [facility] Status: Signed Intake Vital Signs 03/20/25 08:26 [...] stress test Spinal cord stimulator status Hypothyroid Hypocholesterolemi a Hypertension Surgical History Hx of colonoscopy History [...] note pr (more content not included)... Normal [facility] .GFRon 06-12-2025 Estimated Glomerular Filtration Rate 64 ml/min/1.73sqm Normal [facility] Comment on above: Result Comment: Stages of [...] eGFR results. Performed By: #### G , ESPINOZA #### [facility] [address] [place], [place] [address] BMPon 06-12-2025 BUN/Creatinine Ratio 16 ratio Normal 7-27 [facility] Comment on above: Performed By: #### G , BMP #### [address] [address] Calcium [Mass/Vol] 8.9 mg/dL Normal 8.4-10.2 [facility] Comment on above: Performed By: #### G , BMP #### [address] [address] Chloride [Moles/Vol] 101 mmol/L Normal 98-107 [facility] Comment on above: Performed By: #### G , BMP #### [address] [address] CO2 [Moles/Vol] 27 mmol/L Normal 23-31 [facility] Comment on above: Performed By: #### G , BMP #### [address] [address] Creatinine [Mass/Vol] 1.19 mg/dL High 0.67-1.17 [facility] Comment on above: Performed By: #### Rodriguez DENNY, BMP #### [address] [address] Electrolyte Balance 9.0 mEq/L Normal 4.0-15.0 [facility] Comment on above: Performed By: #### Rodriguez DENNY, BMP #### [address] [address] Glucose [Mass/Vol] 101 mg/dL Normal 83-110 [facility] Comment on above: Performed By: #### G , BMP #### [address] [address] Potassium [Moles/Vol] 3.8 mmol/L Normal 3.5-5.1 [facility] Comment on above: Performed By: #### G , BMP #### [address] [address] Sodium [Moles/Vol] 137 mmol/L Normal 136-145 [facility] Comment on above: Performed By: #### Rodriguez DENNY, BMP #### [address] [address] Urea nitrogen [Mass/Vol] 19 mg/dL High 7-18 [facility] Comment on above: Performed By: #### G , ESPINOZA #### [facility] [address] [place], [place] [address] LABORATORYOrdered By: SYSTEM SYSTEM on 06-12-2025 Calcium [...] 7 - 27 ratio AO ADM SS MR/PATJose Luis 06-12-2025 MR/PAT.[facility] Medical Records Department [address] [place] [address] PAT - Anesthesia 06/12/251920 MR#: [id number] Acct: [id number] Name: RUI RIOS Rep #: [id number] : 1950 75 From: Lucio Vazquez MD PCP: Lucila Brito CERTIFIED ORTHOTIST-C Status:PRE IN Y Race: C Location: [facility] Pre-Assessment Diagnosis/Proposed Procedure Planned Operative Procedure(s): 360 LUMBAR FUSION L4-5 L5-S1 Anesthesia History Anesthesia History - strip cutter: Anesthesia History - strip cutter Hx Hospitalization No 06/09/25 08:56 Any Problems [...] take am of surgery PONV PONV - strip cutter: PONV - strip cutter Female No 06/09/25 08:56 HX of Motion [...] 03/20/25 08:26 Respiratory Assessment Respiratory Assessment - strip cutter: Respiratory Tract Infection Hx - strip cutter Hx Respiratory Tract Infection No 06/09/25 08:56 STOP Sleep Apnea STOP Sleep Apnea - strip cutter: STOP Sleep Apnea - strip cutter Hx Hypertension Yes: CONTROLLED WITH MEDS 06/09/25 [...] Tobacco Use History Tobacco Use History - strip cutter: Tobacco Use History - strip cutter Tobacco Use Smoking Status Former smoker 06/09/25 08:56 Hx Tobacco Use No 06/09/25 08:56 Years Smoking Packs Smoked per Day Smoking Cessation Date was No - quit smoking greater 06/09/25 08:56 within the last 15 years than 15 years ago Hx Smoking Cessation Date 10/16/06 06/09/25 08:56 Hx Smoking Cessation No 06/09/25 08:56 Counseling Hematologic Medial History Hematologic Hx - strip cutter: Hematologic Medical Hx - documentation specialist Hx of Blood Transfusion No 06/09/25 08:56 [...] answer at this time (ie. confused, unrespo /Reproduc tion History /Reproduc tive History - strip cutter: /Reproduc tive Hx- strip cutter Hx Now No 06/09/25 08:56 Gestational Age (in weeks): EDC: Hx Hx Para Hx Section SAB No 06/09/25 08:56 PFSH Medical History (Updated 06/09/25 @ 09:07 by Katie Rodriguez) Wears glasses Wears dentures Arthritis Restless legs Back pain Gastric reflux Former smoker History of pain when walking Cardiology follow-up encounter History of echocardiogram History of stress test Spinal cord stimulator status Hypothyroid Hypocholesterolemi a Hypertension Home Medications ???Medication ???Instructions ???Recorded ???Last [...] History losar (more content not included)... Normal [facility] Electrocardiogram reportOrde red By: Justin Valenzuela on 06-11-2025 EKG study [facility] [address] [place] [address] 12 Lead EKG 06/10/25 0749 MR#: [id number] Acct: [id number] Name: RUI RIOS Rep #:[id number] : 1950 75 From: Justin Valenzuela MD Attending Dr: Dr. Francisco Villa MD Status: PRE IN Ordering Dr: Francisco Villa MD Date: Location: [facility] Sex: M C Admitted: Test Reason : PREOP Blood Pressure : */* mmHG Vent. Rate : 71 BPM Atrial Rate : 71 BPM P-R Int : 148 ms QRS Dur : 72 ms QT Int : 414 ms P-R-T Axes : 17 76 18 degrees QTcB Int : 449 ms Sinus rhythm with occasional Premature ventricular complexes Otherwise normal ECG Confirmed by NICOLAS LIMON, JUSTIN ([id number]), health editor LIANG WAYNE ([id number]) on 56:16:43 AM Referred By: FRANCISCO VILLA Confirmed By: JUSTIN VALENZUELA MD 06/11/25 0616 Date _ Justin Valenzuela MD CC: CERTIFIED ORTHOTIST-C Lucila Brito; Dr. Francisco Villa MD ~ Signed [facility] Work Phone: Hepatitis A AB, Totalon 08- 7-2025 HEPATITIS A,TOT Negative Normal Negative [facility] Comment on above: Result Comment: Comm ent: The HAV total antibody assay detects both IgG and IgM but does not differentiate between them. A negative result suggests susceptibility to infection. A positive result could be due to vaccination, previously resolved infection or active infection. Testing for HAV IgM should be performed if active HAV infection is suspected. [facility] offers profiles that will automatically reflex positive HAV total antibody results to IgM (e.g., panel #[id number] HAV Antibody w/ Rfx). Performed at: [address] [id number] [employer] Operator: Thee Sarkar PhD, Phone: [phone] Performed By: #### L 3890.6301, BTSPAT, L500.2500, L3100.0300, L100.0100, M100.651, L3890.6202, L501.9985, L3890.6006 ####[facility] [address] [place], [place], [address] MRSA/SAID NASAL SCREENon MRSA+SAID SCRN Reason for Exam: Surgery MRSA MRSA Negative S. AUREUS S. aureus Negative Normal [facility] Comment on above: Performed By: #### L 3890.6301, BTSPAT, L500.2500, L3100.0300, L100.0100, M100.651, L3890.6202, L501.9985, L3890.6006 ####[facility] [address] [place], [address] 12 Lead EKGon 06-10-2025 12 Lead EKG [facility] Cardi[facility] Services [address] [place] [address] 12 Lead EKG 06/10/25 0749 MR#: [id number] Acct: [id number] Name: RUI RIOS Rep #: [id number] : 1950 75 From: Justin Valenzuela MD Attending Dr: Dr. Francisco Villa MD Status: PRE IN Ordering Dr: Francisco Villa MD Date: 06/10/25 Location: [facility] Sex: M C Admitted: Test Reason : PREOP Blood Pressure : */* mmHG Vent. Rate : 71 BPM Atrial Rate : 71 BPM P-R Int : 148 ms QRS Dur : 72 ms QT Int : 414 ms P-R-T Axes : 17 76 18 degrees QTcB Int : 449 ms Sinus rhythm with occasional Premature ventricular complexes Otherwise normal ECG Confirmed by NICOLAS LIMON, JUSTIN ([id number]), health editor LIANG WAYNE ([id number]) on 06/11/2025 6:16:43 AM Referred By: FRANCISCO VILLA Confirmed By: JUSTIN VALENZUELA MD 06/11/25 0616 Date Justin Valenzuela MD CC: WOOD Brito; Dr. Francisco Villa MD Signed Normal [facility] Basic Metabolic Profile (BMP )on 06-10-2025 BUN/CRE 15.4 RATIO Normal 10-20 [facility] Comment on above: Result Comment: AMENDED REPORT 06/10/25 100 BUN/CRE previously reported as: 16.0 RATIO Performed By: #### L 3890.6301, BTSPAT, L500.2500, L3100.0300, L100.0100, M100.651, L3890.6202, L501.9985, L3890.6006 ####[facility] [address] [facility]. [place], [place], [address] Calcium [Mass/Vol] 9.0 mg/dL Normal 7.6-11.0 [facility] Comment on above: Result Comment: AMENDED REPORT 06/10/25 100 CA previously reported as: 9.2 mg/dL Performed By: #### L 3890.6301, BTSPAT, L500.2500, L3100.0300, L100.0100, M100.651, L3890.6202, L501.9985, L3890.6006 ####[facility] [address] [place], [place], [phone] Chloride [Moles/Vol] 103 mmol/L Normal 98-108 [facility] Comment on above: Result Comment: AMENDED REPORT 06/10/251008 CL previously reported as: 102 mmol/L Performed By: #### L 3890.6301, BTSPAT, L500.2500, L3100.0300, L100.0100, M100.651, L3890.6202, L501.9985, L3890.6006 ####[facility] [address] [place], [place], [phone] CO2 [Moles/Vol] 23.6 mmol/L Normal 21.0-32.0 [facility] Comment on above: Result Comment: AMENDED REPORT 06/10/251008 CO2 previously reported as: 20.5 L mmol/L Performed By: #### L 3890.6301, BTSPAT, L500.2500, L3100.0300, L100.0100, M100.651, L3890.6202, L501.9985, L3890.6006 ####[facility] [address] [place], [place], [phone] Creatinine [Mass/Vol] 1.12 mg/dL Normal 0.70-1.20 [facility] Comment on above: Result Comment: AMENDED REPORT 06/10/251008 CREAT,SERUM previously reported as: 1.10 mg/dL Performed By: #### L 3890.6301, BTSPAT, L500.2500, L3100.0300, L100.0100, M100.651, L3890.6202, L501.9985, L3890.6006 ####[facility] [address] [place], [place], [phone] GAP 12 Normal 5-15 [facility] Comment on above: Result Comment: AMENDED REPORT 06/10/251008 GAP previously reported as: 17 H Performed By: #### L 3890.6301, BTSPAT, L500.2500, L3100.0300, L100.0100, M100.651, L3890.6202, L501.9985, L3890.6006 ####[facility] [address] [place], [address] Glucose [Mass/Vol] 102 mg/dL High 70-99 [facility] Comment on above: Result Comment: AMENDED REPORT 06/10/251008 GLU previously reported as: 105 H mg/dL Performed By: #### L 3890.6301, BTSPAT, L500.2500, L3100.0300, L100.0100, M100.651, L3890.6202, L501.9985, L3890.6006 ####[facility] [address] [place], [address] Potassium [Moles/Vol] 4.8 mmol/L Normal 3.3-5.1 [facility] Comment on above: Result Comment: AMENDED REPORT 06/10/251008 K previously reported as: 4.7 mmol/L Performed By: #### L 3890.6301, BTSPAT, L500.2500, L3100.0300, L100.0100, M100.651, L3890.6202, L501.9985, L3890.6006 ####[facility] [address] [place], [address] Sodium [Moles/Vol] 138 mmol/L Normal 133-145 [facility] Comment on above: Result Comment: AMENDED REPORT 06/10/251008 NA previously reported as: 139 mmol/L Performed By: #### L 3890.6301, BTSPAT, L500.2500, L3100.0300, L100.0100, M100.651, L3890.6202, L501.9985, L3890.6006 ####[facility] [address] [place], [address] Urea nitrogen [Mass/Vol] 17 mg/dL Normal 4-19 [facility] Comment on above: Result Comment: AMENDED REPORT 06/10/25 1009 BUN previously reported as: 18 mg/dL Performed By: #### L 3890.6301, BTSPAT, L500.2500, L3100.0300, L100.0100, M100.651, L3890.6202, L501.9985, L3890.6006 ####[facility] [address] [place], [address] CBC W/Diff, Automatedon 05-17-2024 Absolute Lymph 1.77 X10 3/uL Normal 0.83-4.51 [facility] Comment on above: Performed By: #### L 3890.6301, BTSPAT, L500.2500, L3100.0300, L100.0100, M100.651, L3890.6202, L501.9985, L3890.6006 #### [facility] [address] [place], [address] Absolute Neut 3.6 X10 3/uL Normal 2.0-7.7 [facility] Comment on above: Performed By: #### L 3890.6301, BTSPAT, L500.2500, L3100.0300, L100.0100, M100.651, L3890.6202, L501.9985, L3890.6006 #### [facility] [address] [place], [address] Basophils/100 WBC (Bld) 1.0 % Normal 0-1 [facility] Comment on above: Performed By: #### L 3890.6301, BTSPAT, L500.2500, L3100.0300, L100.0100, M100.651, L3890.6202, L501.9985, L3890.6006 #### [facility] [address] [place], [address] Eosinophils/100 WBC (Bld) 6.6 % High 0-5 [facility] Comment on above: Performed By: #### L 3890.6301, BTSPAT, L500.2500, L3100.0300, L100.0100, M100.651, L3890.6202, L501.9985, L3890.6006 #### [facility] [address] [place], [address] Erythrocyte distribution width (RBC) [Ratio] 13.1 % Normal 11.6-14.6 [facility] Comment on above: Performed By: #### L 3890.6301, BTSPAT, L500.2500, L3100.0300, L100.0100, M100.651, L3890.6202, L501.9985, L3890.6006 #### [facility] [address] [place], [address] Hematocrit (Bld) [Volume fraction] 51.0 % Normal 40-54 [facility] Comment on above: Performed By: #### L 3890.6301, BTSPAT, L500.2500, L3100.0300, L100.0100, M100.651, L3890.6202, L501.9985, L3890.6006 #### [facility] [address] [place], [address] Hemoglobin (Bld) [Mass/Vol] 17.6 g/dL High 13.0-16.5 [facility] Comment on above: Performed By: #### L 3890.6301, BTSPAT, L500.2500, L3100.0300, L100.0100, M100.651, L3890.6202, L501.9985, L3890.6006 #### [facility] [address] [place], [address] IG% 0.600 Normal 0.0-0.9 [facility] Comment on above: Result Comment: IG% - Immature Granulocytes (promyelocytes, myelocytes and metamyelocytes) > 1% indicates that a LEFT SHIFT is Present. Performed By: #### L 3890.6301, BTSPAT, L500.2500, L3100.0300, L100.0100, M100.651, L3890.6202, L501.9985, L3890.6006 #### [facility] [address] [facility] [place], [address] Lymphocytes/100 WBC (Bld) 26.1 % Normal 19-41 [facility] Comment on above: Performed By: #### L 3890.6301, BTSPAT, L500.2500, L3100.0300, L100.0100, M100.651, L3890.6202, L501.9985, L3890.6006 #### [facility] [address] [place], [address] MCH (RBC) [Entitic mass] 30.6 pg Normal 27.0-32.0 [facility] Comment on above: Performed By: #### L 3890.6301, BTSPAT, L500.2500, L3100.0300, L100.0100, M100.651, L3890.6202, L501.9985, L3890.6006 #### [facility] [address] [place], [address] MCHC (RBC) [Mass/Vol] 34.5 g/dL Normal 32-36 [facility] Comment on above: Performed By: #### L 3890.6301, BTSPAT, L500.2500, L3100.0300, L100.0100, M100.651, L3890.6202, L501.9985, L3890.6006 #### [facility] [address] [place], [address] MCV (RBC) [Entitic vol] 88.5 fL Normal 80-94 [facility] Comment on above: Performed By: #### L 3890.6301, BTSPAT, L500.2500, L3100.0300, L100.0100, M100.651, L3890.6202, L501.9985, L3890.6006 #### [facility] [address] [place], [address] Monocytes/100 WBC (Bld) 12.1 % High 0-10 [facility] Comment on above: Performed By: #### L 3890.6301, BTSPAT, L500.2500, L3100.0300, L100.0100, M100.651, L3890.6202, L501.9985, L3890.6006 #### [facility] [address] [place], [address] Neutrophils/100 WBC (Bld) 53.6 % Normal 47-70 [facility] Comment on above: Performed By: #### L 3890.6301, BTSPAT, L500.2500, L3100.0300, L100.0100, M100.651, L3890.6202, L501.9985, L3890.6006 #### [facility] [address] [place], [address] Nucleated RBC (Bld) [#/Vol] 0 10*3/uL Normal 0-5 [facility] Comment on above: Performed By: #### L 3890.6301, BTSPAT, L500.2500, L3100.0300, L100.0100, M100.651, L3890.6202, L501.9985, L3890.6006 #### [facility] [address] [place], [address] Platelet mean volume (Bld) [Entitic vol] 10.0 fL Normal 6.2-12.0 [facility] Comment on above: Performed By: #### L 3890.6301, BTSPAT, L500.2500, L3100.0300, L100.0100, M100.651, L3890.6202, L501.9985, L3890.6006 #### [facility] [address] [place], [address] Platelets (Bld) [#/Vol] 246 10*3/uL Normal 150-450 [facility] Comment on above: Performed By: #### L 3890.6301, BTSPAT, L500.2500, L3100.0300, L100.0100, M100.651, L3890.6202, L501.9985, L3890.6006 #### [facility] [address] [place], [address] RBC (Bld) [#/Vol] 5.76 10*6/uL Normal 4.6-6.2 [facility] Comment on above: Performed By: #### L 3890.6301, BTSPAT, L500.2500, L3100.0300, L100.0100, M100.651, L3890.6202, L501.9985, L3890.6006 #### [facility] [address] [place], [address] RDW SD 42.1 fl Normal 35.1-43.9 [facility] Comment on above: Performed By: #### L 3890.6301, BTSPAT, L500.2500, L3100.0300, L100.0100, M100.651, L3890.6202, L501.9985, L3890.6006 #### [facility] [address] [place], [address] WBC (Bld) [#/Vol] 6.8 10*3/uL Normal 4.4-11.0 [facility] Comment on above: Performed By: #### L 3890.6301, BTSPAT, L500.2500, L3100.0300, L100.0100, M100.651, L3890.6202, L501.9985, L3890.6006 #### [facility] [address] [facility] [place], [address] [phone] HIVon 06-10-2025 HIV Non-Reactive Normal Nonreactive [facility] Comment on above: Result Comment: Non- Reactive Reactive Repeatedly reactive samples must be confirmed according to CDC recommended confirmatory algorithms. The subresults for either HIVAG or AHIV can be used as an aid in the selection of the confirmation algorithm for reactive samples. Send out specimens with Reactive results to [facility] for confirmation. Order the HIV antibody detection and differentiation: #[id number] Performed By: #### L 3890.6301, BTSPAT, L500.2500, L3100.0300, L100.0100, M100.651, L3890.6202, L501.9985, L3890.6006 ####[facility] [address] [facility] [place], [phone] Hemoglobin A1con 06-10-2025 HbA1c (Bld) [Mass fraction] 6.1 % High <=5.6 [facility] Comment on above: Result Comment: Norm al < 5.7 % Prediabetic 5.7 - 6.4 % Diabetic >or= 6.5 % Please note range changes. Performed By: #### L 3890.6301, BTSPAT, L500.2500, L3100.0300, L100.0100, M100.651, L3890.6202, L501.9985, L3890.6006 #### [facility] [address] [facility] [place], [address] Hemoglobin A1c percentageOrd ered By: Francisco Villa on 06-10-2025 HbA1c (Bld) [Mass fraction] 6.1 % High <5.7 [facility] Comment on above: Normal < 5.7 % Predi abetic 5.7 - 6.4 % Diabetic >or= 6.5 % Please note range changes. Hepatitis B Surface Antibody on 06-10-2025 HEP B Surf Ab Non-Reactive Normal [facility] Comment on above: Result Comment: <8.5 mIU/mL: Non-Reactive 8.5<= x <11.5 mIU/mL: Indeterminate >=11.5 mIU/mL: Reactive Non Reactive: Inconsistent with immunity less than <10 mIU/mL Reactive: Consistent with immunity greater than or equal to 10 mIU/mL Performed By: #### L 3890.6301, BTSPAT, L500.2500, L3100.0300, L100.0100, M100.651, L3890.6202, L501.9985, L3890.6006 ####[facility] [address] [place], [address] Hepatitis C Antibodyon 06-10 Hepatitis C Ab Non-Reactive Normal Nonreactive [facility] Comment on above: Result Comment: Reac tive: Presumptive evidence of antibodies to HCV. Follow CDC recommendations for supplemental testing. Non-Reactive: Antibodies to HCV were not detected; does not exclude the possibility of exposure to HCV Reactive Results are presumptive evidence of antibodies to HCV. Follow CDC recommendations for supplemental testing. Order confirmation testing: HCV Quant by PCR testing - HCVPCR #[id number] Non Reactive: < 0.8 Equivocal: >/= 0.8 to < 1.0 Reactive: >/= 1.0 The CDC requires that a reactive/equivocal HCV antibody result be sent out for confirmation. HCV Quant by PCR testing. Performed By: #### L 3890.6301, BTSPAT, L500.2500, L3100.0300, L100.0100, M100.651, L3890.6202, L501.9985, L3890.6006 ####[facility] [address] [place], [address] MRSA screenOrdered By: Faisal Villa on 06-10-2025 MRSA DNA MATT+probe Ql (Unsp spec) [facility] Magnesiumon 06-10-2025 Magnesium [Mass/Vol] 2.2 mg/dL Normal 1.5-2.2 [facility] Comment on above: Performed By: #### L 501.9520, L501.5200 ####[facility] [address] [place], [place], [id number] Magnesium measurement (mass/ volume)Ordered By: Michael Peace on 06-10-2025 Magnesium (Unsp spec) [Mass/Vol] 2.2 mg/dL 1.5-2.2 [facility] No Panel InformationOrdered By: Francisco Villa on 06-10-2025 HIV (1&2) Antibody Non-Reactive Nonreactive [facility] Comment on above: Non-ReactiveReactive Repeatedly reactive samples must be confirmed according to CDC recommended confirmatory algorithms. The subresults for either HIVAG or AHIV can be used as an aid in the selection of the confirmation algorithm for reactive samples.Send out specimens with Reactive results to [facility] for confirmation.Order the HIV antibody detection and differentiation: #[id number] Serum hepatitis B virus surf arun antibody detectionOrdered By: Francisco Villa on 06-10-2025 HBV surface Ab Ql (S) Non-Reactive [facility] Comment on above: <8.5 mIU/mL: Non-[place] ctive8.5<= x <11.5 mIU/mL: Indeterminate>=11.5 mIU/mL: Reactive Non Reactive: Inconsistent with immunity less than <10 mIU/mL Reactive: Consistent with immunity greater than or equal to 10 mIU/mL TSH DL <= 0.005 mIU/L QnOrde red By: Michael Peace on 06-10-2025 TSH Qn 3.840 uIU/mL 0.300-4.200 [facility] Thyroid Stim Hormone (TSH)on 06-10-2025 TSH 3.840 uIU/mL Normal 0.300-4.200 [facility] Comment on above: Performed By: #### L 501.9520, L501.5200 ####[facility] [address] [place], [place], [id number] Type AND Screen - PAT ONLYon 06-10-2025 ABO and Rh group Nom (Bld) Blood group B Rh(D) positive Normal [facility] Comment on above: Order Comment: Surge ry Date: 06/23/25Reason for Laboratory Test [id number] FUSION 360 Performed By: #### L 3890.6301, BTSPAT, L500.2500, L3100.0300, L100.0100, M100.651, L3890.6202, L501.9985, L3890.6006 ####[facility] [address] [place], [address] A1Con 04-28-2025 Glucose [Mass/Vol] 120 mg/dL Normal [facility] Comment on above: Result Comment: Rosalia mated Average Glucose calculated by equation ((28.7xA1C)-46.7) Estimated average glucose (eAG) is a calculated value from Hemoglobin A1C and is accounts receivable representative of the average blood glucose level in the last 2-3 month period. Normal range: less than 114 mg/dL Performed By: #### A 1C #### [address] [place], [place] [address] HbA1c (Bld) [Mass fraction] 5.8 % Normal 4.3-6.4 [facility] Comment on above: Performed By: #### A 1C #### [facility] [address] [place], [place] [address] LABORATORYOrdered By: SYSTEM SYSTEM on 04-28-2025 Glucose [Mass/Vol] 120 mg/dL Invalid Interpretation Code AO Chemistry S Comment on above: Interpretive Data: E stimated average glucose (eAG) is a calculated value from Hemoglobin A1C and is accounts receivable representative of the average blood glucose level in the last 2-3 month period. Normal range: less than 114 mg/dL HbA1c (Bld) [Mass fraction] 5.8 % Normal 4.3 - 6.4 % AO ADM SS .GFRon 04-22-2025 Estimated Glomerular Filtration Rate 69 ml/min/1.73sqm Normal [facility] Comment on above: Result Comment: Stages of [...] Performed By: #### Rodriguez DENNY, BMP #### [address] [address] BMPon 04-22-2025 BUN/Creatinine Ratio 22 ratio Normal 7-27 [facility] Comment on above: Performed By: #### Rodriguez DENNY, BMP #### [address] [address] Calcium [Mass/Vol] 8.9 mg/dL Normal 8.4-10.2 [facility] Comment on above: Performed By: #### Rodriguez DENNY, BMP #### [address] [address] Chloride [Moles/Vol] 97 mmol/L Low 98-107 [facility] Comment on above: Performed By: #### Rodriguez DENNY, BMP #### [address] [address] CO2 [Moles/Vol] 26 mmol/L Normal 23-31 [facility] Comment on above: Performed By: #### G , BMP #### [address] [address] Creatinine [Mass/Vol] 1.12 mg/dL Normal 0.67-1.17 [facility] Comment on above: Performed By: #### Rodriguez DENNY, BMP #### [address] [address] Electrolyte Balance 11.0 mEq/L Normal 4.0-15.0 [facility] Comment on above: Performed By: #### Rodriguez DENNY, BMP #### [address] [address] Glucose [Mass/Vol] 230 mg/dL High 83-110 [facility] Comment on above: Performed By: #### G FR, BMP #### [facility] [address] [place], [place] [address] Potassium [Moles/Vol] 4.0 mmol/L Normal 3.5-5.1 L [facility] Comment on above: Performed By: #### G FR, BMP #### [facility] [address] [place], [place] [address] Sodium [Moles/Vol] 134 mmol/L Low 136-145 [facility] Comment on above: Performed By: #### G FR, BMP #### [facility] [address] [place], [place] [address] Urea nitrogen [Mass/Vol] 25 mg/dL High 7-18 [facility] Comment on above: Performed By: #### G , BMP #### [facility] [address] [place], [place] [address] LABORATORYOrdered By: SYSTEM SYSTEM on 04-22-2025 Calcium [...] Basophil, Absolute 0.0 10 3/mcL Normal 0.0-0.3 [facility] Comment on above: Performed By: #### G FR, CBC, LIPID, CMP, ADIFF, ANEU #### [address] [address] Basophils/100 WBC (Bld) 0.7 % Normal 0.0-2.5 [facility] Comment on above: Performed By: #### G FR, CBC, LIPID, CMP, ADIFF, ANEU #### [address] [address] Eosinophil, Absolute 0.3 10 3/mcL Normal 0.0-0.7 [facility] Comment on above: Performed By: #### G FR, CBC, LIPID, CMP, ADIFF, ANEU #### [address] [address] Eosinophils/100 WBC (Bld) 5.4 % Normal 0.0-6.0 [facility] Comment on above: Performed By: #### G FR, CBC, LIPID, CMP, ADIFF, ANEU #### [address] [address] Lymphocyte, Absolute 1.9 10 3/mcL Normal 0.9-4.3 [facility] Comment on above: Performed By: #### G FR, CBC, LIPID, CMP, ADIFF, ANEU #### [address] [address] Lymphocytes/100 WBC (Bld) 29.4 % Normal 20.0-40.0 [facility] Comment on above: Performed By: #### G FR, CBC, LIPID, CMP, ADIFF, ANEU #### [address] [address] Monocyte, Absolute 0.9 10 3/mcL Normal 0.1-1.4 [facility] Comment on above: Performed By: #### G FR, CBC, LIPID, CMP, ADIFF, ANEU #### [address] [address] Monocytes/100 WBC (Bld) 13.1 % High 2.0-13.0 [facility] Comment on above: Performed By: #### G FR, CBC, LIPID, CMP, ADIFF, ANEU #### [address] [address] Neutrophils/100 WBC (Bld) 51.4 % Normal 50.0-75.0 [facility] Comment on above: Performed By: #### G FR, CBC, LIPID, CMP, ADIFF, ANEU #### [address] [address] .GFRon 04-09-2025 Estimated Glomerular Filtration Rate 69 ml/min/1.73sqm Normal [facility] Comment on above: Result Comment: Stages of [...] eGFR results. Performed By: #### G FR, CBC, LIPID, CMP, ADIFF, ANEU #### [address] [address] .NEUABSon 04-09-2025 Neutrophil, Absolute 3.4 10 3/mcL Normal 2.3-8.1 [facility] Comment on above: Performed By: #### G FR, CBC, LIPID, CMP, ADIFF, ANEU #### [address] [address] CBCon 04-09-2025 Erythrocyte distribution width (RBC) [Ratio] 13.5 % Normal 11.5-15.5 [facility] Comment on above: Performed By: #### G FR, CBC, LIPID, CMP, ADIFF, ANEU #### [place] [address] Hematocrit (Bld) [Volume fraction] 51.5 % Normal 40.0-52.0 [facility] Comment on above: Performed By: #### G FR, CBC, LIPID, CMP, ADIFF, ANEU #### [place] [address] Hgb 17.6 G/dL High 13.0-17.5 [facility] Comment on above: Performed By: #### G FR, CBC, LIPID, CMP, ADIFF, ANEU #### [address] [address] MCH (RBC) [Entitic mass] 30.3 pg Normal 27.0-33.0 [facility] Comment on above: Performed By: #### G FR, CBC, LIPID, CMP, ADIFF, ANEU #### [place] [address] MCHC 34.1 G/dL Normal 32.0-36.0 [facility] Comment on above: Performed By: #### G FR, CBC, LIPID, CMP, ADIFF, ANEU #### [place] [address] MCV (RBC) [Entitic vol] 88.9 fL Normal 81.0-100.0 [facility] Comment on above: Performed By: #### G FR, CBC, LIPID, CMP, ADIFF, ANEU #### [place] [address] Platelet 243 10 3/mcL Normal 150-450 [facility] Comment on above: Performed By: #### G FR, CBC, LIPID, CMP, ADIFF, ANEU #### [address] [address] Platelet mean volume (Bld) [Entitic vol] 7.7 fL Normal 6.4-10.5 [facility] Comment on above: Performed By: #### G FR, CBC, LIPID, CMP, ADIFF, ANEU #### [address] [address] RBC 5.80 10 6/mcL Normal 4.50-6.00 [facility] Comment on above: Performed By: #### G FR, CBC, LIPID, CMP, ADIFF, ANEU #### [address] [address] WBC 6.5 10 3/mcL Normal 4.5-10.8 [facility] Comment on above: Performed By: #### G FR, CBC, LIPID, CMP, ADIFF, ANEU #### [address] [address] CMPon 04-09-2025 Albumin Level 4.0 G/dL Normal 3.4-4.8 [facility] Comment on above: Performed By: #### G FR, CBC, LIPID, CMP, ADIFF, ANEU #### [address] [address] Albumin/Globulin [Mass ratio] 1.2 {ratio} Normal 1.1-2.5 [facility] Comment on above: Performed By: #### G FR, CBC, LIPID, CMP, ADIFF, ANEU #### [address] [address] ALP [Catalytic activity/Vol] 78 U/L Normal 40-135 [facility] Comment on above: Performed By: #### G FR, CBC, LIPID, CMP, ADIFF, ANEU #### [address] [address] ALT [Catalytic activity/Vol] 45 U/L Normal 16-63 [facility] Comment on above: Performed By: #### G FR, CBC, LIPID, CMP, ADIFF, ANEU #### [address] [address] AST [Catalytic activity/Vol] 25 U/L Normal 10-40 [facility] Comment on above: Performed By: #### G FR, CBC, LIPID, CMP, ADIFF, ANEU #### [address] [address] Bili Total 0.6 mg/dL Normal 0.2-1.0 [facility] Comment on above: Result Comment: Use of this assay is not recommended for patients undergoing treatment with eltrombopag due to the potential for falsely elevated results. Performed By: #### G FR, CBC, LIPID, CMP, ADIFF, ANEU #### [address] [address] BUN/Creatinine Ratio 18 ratio Normal 7-27 [facility] Comment on above: Performed By: #### G FR, CBC, LIPID, CMP, ADIFF, ANEU #### [address] [address] Calcium [Mass/Vol] 9.5 mg/dL Normal 8.4-10.2 [facility] Comment on above: Performed By: #### G FR, CBC, LIPID, CMP, ADIFF, ANEU #### [address] [address] Chloride [Moles/Vol] 98 mmol/L Normal 98-107 [facility] Comment on above: Performed By: #### G FR, CBC, LIPID, CMP, ADIFF, ANEU #### [address] [address] CO2 [Moles/Vol] 26 mmol/L Normal 23-31 [facility] Comment on above: Performed By: #### G FR, CBC, LIPID, CMP, ADIFF, ANEU #### [address] [address] Creatinine [Mass/Vol] 1.12 mg/dL Normal 0.67-1.17 [facility] Comment on above: Performed By: #### G FR, CBC, LIPID, CMP, ADIFF, ANEU #### [address] [address] Electrolyte Balance 9.0 mEq/L Normal 4.0-15.0 [facility] Comment on above: Performed By: #### G FR, CBC, LIPID, CMP, ADIFF, ANEU #### [address] [address] Globulin 3.4 G/dL Normal 2.7-4.4 [facility] Comment on above: Performed By: #### G FR, CBC, LIPID, CMP, ADIFF, ANEU #### [address] [address] Glucose [Mass/Vol] 94 mg/dL Normal 83-110 [facility] Comment on above: Performed By: #### G FR, CBC, LIPID, CMP, ADIFF, ANEU #### [address] [address] Potassium [Moles/Vol] 3.9 mmol/L Normal 3.5-5.1 [facility] Comment on above: Performed By: #### G FR, CBC, LIPID, CMP, ADIFF, ANEU #### [address] [address] Sodium [Moles/Vol] 133 mmol/L Low 136-145 [facility] Comment on above: Performed By: #### G FR, CBC, LIPID, CMP, ADIFF, ANEU #### [address] [address] Total Protein 7.4 G/dL Normal 6.4-8.2 [facility] Comment on above: Performed By: #### G FR, CBC, LIPID, CMP, ADIFF, ANEU #### [address] [address] Urea nitrogen [Mass/Vol] 20 mg/dL High 7-18 [facility] Comment on above: Performed By: #### G FR, CBC, LIPID, CMP, ADIFF, ANEU #### [facility] [address] [place], [place] [address] LABORATORYOrdered By: SYSTEM SYSTEM on 04-09-2025 Albumin [...] [Mass/Vol] 170 mg/dL High 0 - 150 mg/d L AO ADM SS Comment on above: Interpretive Data: T riglyceride Reference Interval: Less than 150 Normal 150-199 Borderline high risk 200-499 High risk 500 or higher Very high risk LIPIDon 04-09-2025 Cholesterol [Mass/Vol] 157 mg/dL Normal 0-200 [facility] Comment on above: Result Comment: Chol esterol Reference Interval: Less than 200 Desirable 200-239 Borderline high risk 240 and above High risk Performed By: #### G FR, CBC, LIPID, CMP, ADIFF, ANEU #### [facility] [address] [place], [place] [address] Cholesterol in HDL [Mass/Vol] 33 mg/dL Low 40-60 [facility] Comment on above: Performed By: #### G FR, CBC, LIPID, CMP, ADIFF, ANEU #### [place] [address] [place], [place] [address] Cholesterol in LDL [Mass/Vol] 90 mg/dL Normal 0-130 [facility] Comment on above: Performed By: #### G FR, CBC, LIPID, CMP, ADIFF, ANEU #### [place] [address] [place], [place] [address] Triglyceride [Mass/Vol] 170 mg/dL High 0-150 [facility] Comment on above: Result Comment: Trig lyceride Reference Interval: Less than 150 Normal 150-199 Borderline high risk 200-499 High risk 500 or higher Very high risk Performed By: #### G FR, CBC, LIPID, CMP, ADIFF, ANEU #### [place] [address] [place], [place] [address] Orthopedic Visit Reporton Orthopedic Visit Report [facility] [address] [place] [address] OFFICE VISIT Date of Service: 03/20/25 MR#: [id number] Acct: [id number] Name: RUI RIOS Rep #: [id number] : 1950 Provider: NADEGE Echeverria Age/Sex: 74/M Location: [facility] Status: Signed Intake Vital Signs 02/20/25 08:50 [...] you fallen in the past year?: Yes [facility] Medical History Spinal cord stimulator status Cyst Broken arm Hypothyroid Hypocholesterolemi a Hypertension Surgical History History of left hip replacement H/O hernia repair Family History Mother No problems noted. Father No problems noted. Social History Smoking Status: Former smoker HPI LUMBAR SPINE Details: This documentation accurately reflects the service provided and the decisions made by , NADEGE Echeverria 03/20/25 08. Part of today???s visit was documented by [...] of August. Patient did physical therapy at [facility]. The patient went 2 times per week. The physical therapy helped a little bit for short amount of time but then his pain returned. He will take ibuprofen over (more content not included)... Normal [facility] Magnetic resonance imaging r eportOrdered By: Caleb Salazar on 03-14-2025 Study report [facility] [address] [place] [address] Spine Lumbar (Routine) MR#: [id number] Acct: [id number] Name: RUI RIOS Rep #: [id number] : 1950 M 74 From: Gerardo Salazar MD PCP: WOOD Stratton Status: REG C LI Study:Spine Lumbar (Routine) Date of Exam: 03/14/25 Exam# [id number] Ordering Dr: Pop Kumar PROCEDURE: SPINE LUMBAR (ROUTINE) 03/14/2025 REASON FOR EXAM: PAIN TECHNIQUE: Multiplanar and multisequence images were obtained without IV contrast administration. COMPARISON: None. FINDINGS: Vertebrae: Vertebral body heights are maintained. No abnormal marrow signal. Conus Medullaris: Terminates at L2. L1-2: Disc bulging, facet arthropathy, and ligamentum flavum hypertrophy. Mild to moderate central stenosis. Aywt-mn-tmcnecqe bilateral neural foraminal stenosis. L2-3: Disc bulging, [...] Lumbar (Routine) IMPRESSION: Spondylosis. Spondylolisthesis. Reading Location: [id number] CC: WOOD Brito; NADEGE Echeverria ~ Dough Puncher: Signed [facility] Spine Lumbar (Routine)on Spine Lumbar (Routine) [facility] [address] [place] [address] Spine Lumbar (Routine) MR#: [id number] Acct: [id number] Name: RUI RIOS Rep #: [id number] : 1950 M 74 From: Caleb Salazar MD PCP: Lucila Brito, CANDICE-C Status: REG CLI Study: Spine Lumbar (Routine) Date of Exam: 03/14/25 Exam# [id number] Ordering Dr: Nikki Kumar PROCEDURE: SPINE LUMBAR (ROUTINE) 03/14/2025 REASON FOR EXAM: PAIN TECHNIQUE: Multiplanar and multisequence images were obtained without IV contrast administration. COMPARISON: None. FINDINGS: Vertebrae: Vertebral body heights are maintained. No abnormal marrow signal. Conus Medullaris: Terminates at L2. L1-2: Disc bulging, facet arthropathy, and ligamentum flavum hypertrophy. Mild to moderate central stenosis. Encs-ix-egpnxvco bilateral neural foraminal stenosis. L2-3: Disc bulging, [...] Lumbar (Routine) IMPRESSION: Spondylosis. Spondylolisthesis. Reading Location: [id number] CC: CERTIFIED ORTHOTIST-C Lucila Brito; NADEGE Echeverria Dough Puncher: Signed Normal [facility] L/S Spine Min 4 Viewson L/S Spine Min 4 Views [facility] [address] [place] [address] L/S Spine Min 4 Views MR#: [id number] Acct: [id number] Name: RUI RIOS Rep #: [id number] : 1950 M 74 From: Osvaldo Avalos MD PCP: WOOD Stratton Status: DEP AMB Study: L/S Spine Min 4 Views Date of Exam: 02/20/25 Exam# [id number] Ordering Dr: Nikki Kumar PROCEDURE: L/S SPINE MIN 4 VIEWS 02/20/2025 REASON FOR EXAM: PAIN TECHNIQUE: Four views; AP, lateral and flexion-extension COMPARISON: None available FINDINGS: 5 sdv-ytw-[id number] lumbar vertebral body types identified. No fracture. L2-3 degenerative endplate changes L3-4 ysew-up-ytejfrco disc space narrowing with associated degenerative endplate changes L4-5 dwej-gi-ycuzemvq disc space narrowing with degenerative endplate changes [...] identified. Appearance of bilateral foraminal narrowing Multilevel spondylosis/discog enic change as above. Reading Location: [id number] CC: WOOD Brito; NADEGE Echeverria Dough Puncher: Signed Normal [facility] Orthopedic Visit Reporton Orthopedic Visit Report [facility] [address] [place] [address] OFFICE VISIT Date of Service: 02/20/25 MR#: [id number] Acct: [id number] Name: RUI RIOS Rep #: [id number] : 1950 Provider: NADEGE Echeverria Age/Sex: 74/M Location: [facility] Status: Signed with Addenda ADDENDUM by NADEGE [...] for claustrophobia, OARRS reviewed. 02/25/25 0820 Date Nikki Kumar cc: WOOD Brito * Signed Intake Vital Signs 11/16/20 09:38 [...] cord stimulator status Cyst Broken arm Hypothyroid Hypocholesterolemi a Hypertension Surgical History History of left hip [...] helps. He started seeing him in 2015. Pa (more content not included)... Normal [facility] .GFRon 10-04-2024 GFR 81 ml/min/1.73sqm [facility] Comment on above: Result Comment: GFR [...] 15 mL/min/1.73 square meters Performed By: #### G FR, BMP #### [address] [address] GFR Non- 67 ml/min/1.73sqm [facility] Comment on above: Result Comment: GFR [...] 15 mL/min/1.73 square meters Performed By: #### Rodriguez DENNY, BMP #### [address] [address] CMPon 10-04-2024 Albumin Level 3.9 G/dL Normal 3.4-4.8 [facility] Comment on above: Performed By: #### Rodriguez DENNY, BMP #### [address] [address] Albumin/Globulin [Mass ratio] 1.3 {ratio} Normal 1.1-2.5 [facility] Comment on above: Performed By: #### Rodriguez DENNY, BMP #### [address] [address] ALP [Catalytic activity/Vol] 85 U/L Normal 40-135 [facility] Comment on above: Performed By: #### Rodriguez DENNY, BMP #### [address] [address] ALT [Catalytic activity/Vol] 41 U/L Normal 16-63 [facility] Comment on above: Performed By: #### Rodriguez DENNY, BMP #### [address] [address] AST [Catalytic activity/Vol] 25 U/L Normal 10-40 [facility] Comment on above: Performed By: #### Rodriguez DENNY, BMP #### [address] [address] Bili Total 0.6 mg/dL Normal 0.2-1.0 [facility] Comment on above: Result Comment: Use of this assay is not recommended for patients undergoing treatment with eltrombopag due to the potential for falsely elevated results. Performed By: #### Rodriguez DENNY, BMP #### [address] [address] BUN/Creatinine Ratio 13 ratio Normal 7-27 [facility] Comment on above: Performed By: #### Rodriguez DENNY, BMP #### [address] [address] Calcium [Mass/Vol] 9.1 mg/dL Normal 8.4-10.2 [facility] Comment on above: Performed By: #### Rodriguez DENNY, BMP #### [address] [address] Chloride [Moles/Vol] 100 mmol/L Normal 98-107 [facility] Comment on above: Performed By: #### Rodriguez DENNY, BMP #### [address] [address] CO2 [Moles/Vol] 29 mmol/L Normal 23-31 [facility] Comment on above: Performed By: #### Rodriguez DENNY, BMP #### [address] [address] Creatinine [Mass/Vol] 1.08 mg/dL Normal 0.70-1.30 [facility] Comment on above: Result Comment: Test ing performed on Siemens Dimension EXL analyzer using a modified kinetic Mary Grace technique. Performed By: #### Rodriguez DENNY, BMP #### [address] [address] Electrolyte Balance 9.0 mEq/L Normal 4.0-15.0 [facility] Comment on above: Performed By: #### Rodriguez DENNY, BMP #### [address] [address] Globulin 2.9 G/dL Normal [facility] Comment on above: Performed By: #### Rodriguez DENNY, BMP #### [address] [address] Glucose [Mass/Vol] 89 mg/dL Normal 83-110 [facility] Comment on above: Performed By: #### Rodriguez DENNY, BMP #### [address] [address] Potassium [Moles/Vol] 4.3 mmol/L Normal 3.5-5.1 [facility] Comment on above: Performed By: #### Rodriguez DENNY, BMP #### [address] [address] Sodium [Moles/Vol] 138 mmol/L Normal 136-145 [facility] Comment on above: Performed By: #### G , BMP #### [address] [address] Total Protein 6.8 G/dL Normal 6.4-8.2 [facility] Comment on above: Performed By: #### Rodriguez DENNY, BMP #### [address] [address] Urea nitrogen [Mass/Vol] 14 mg/dL Normal 7-18 [facility] Comment on above: Performed By: #### Rodriguez DENNY, BMP #### [address] [address] FT4on 10-04-2024 Free T4 [Mass/Vol] 1.13 ng/dL Normal 0.76-1.46 [facility] Comment on above: Performed By: #### Rodriguez DENNY, BMP #### [address] [address] LABORATORYOrdered By: SYSTEM SYSTEM on 10-04-2024 Albumin [...] [Mass/Vol] 109 mg/dL Normal 0 - 150 mg/d L AO ADM SS Comment on above: Interpretive Data: T riglyceride Reference Interval: Less than 150 Normal 150-199 Borderline high risk 200-499 High risk 500 or higher Very high risk LIPIDon 10-04-2024 Cholesterol [Mass/Vol] 150 mg/dL Normal 0-200 [facility] Comment on above: Result Comment: Chol esterol Reference Interval: Less than 200 Desirable 200-239 Borderline high risk 240 and above High risk Performed By: #### G , BMP #### [address] [address] Cholesterol in HDL [Mass/Vol] 36 mg/dL Low 40-60 [facility] Comment on above: Performed By: #### G , BMP #### [place] [id number] Cholesterol in LDL [Mass/Vol] 92 mg/dL Normal 0-130 [facility] Comment on above: Performed By: #### G , BMP #### [place] [id number] Triglyceride [Mass/Vol] 109 mg/dL Normal 0-150 [facility] Comment on above: Result Comment: Trig lyceride Reference Interval: Less than 150 Normal 150-199 Borderline high risk 200-499 High risk 500 or higher Very high risk Performed By: #### G , BMP #### [place] [address] PSAon 10-04-2024 Prostate Specific Antigen 1.07 ng/mL Normal 0.00-4.00 [facility] Comment on above: Performed By: #### G , BMP #### [place] [id number] TSHon 10-04-2024 TSH Qn 2.50 m[IU]/L Normal 0.36-3.74 [facility] Comment on above: Performed By: #### P SA, TSH, CMP, FT4, GFR, LIPID #### [address] [address] .Auto Diffon 04-09-2024 Basophil, Absolute 0.1 10 3/mcL Normal 0.0-0.2 [facility] ([place]) Comment on above: Performed By: #### P SA, TSH, ADIFF, ANEU, FT4, CMP, CBC, GFR, LIPID #### [address] [address] Basophils/100 WBC (Bld) 0.8 % Normal 0.0-2.5 [facility] ([place]) Comment on above: Performed By: #### P SA, TSH, ADIFF, ANEU, FT4, CMP, CBC, GFR, LIPID #### [place] [address] [place], [place] [address] Eosinophil, Absolute 0.6 10 3/mcL High 0.0-0.4 [facility] ([place]) Comment on above: Performed By: #### P SA, TSH, ADIFF, ANEU, FT4, CMP, CBC, GFR, LIPID #### [address] [address] Eosinophils/100 WBC (Bld) 7.2 % High 0.0-7.0 [facility] ([place]) Comment on above: Performed By: #### P SA, TSH, ADIFF, ANEU, FT4, CMP, CBC, GFR, LIPID #### [address] [address] Lymphocyte, Absolute 2.2 10 3/mcL Normal 0.8-3.9 [facility] ([place]) Comment on above: Performed By: #### P SA, TSH, ADIFF, ANEU, FT4, CMP, CBC, GFR, LIPID #### [address] [address] Lymphocytes/100 WBC (Bld) 27.7 % Normal 10.0-50.0 [facility] ([place]) Comment on above: Performed By: #### P SA, TSH, ADIFF, ANEU, FT4, CMP, CBC, GFR, LIPID #### [address] [address] Monocyte, Absolute 1.1 10 3/mcL High 0.2-1.0 [facility] ([place]) Comment on above: Performed By: #### P SA, TSH, ADIFF, ANEU, FT4, CMP, CBC, GFR, LIPID #### [address] [address] Monocytes/100 WBC (Bld) 13.8 % High 1.7-13.0 [facility] ([place]) Comment on above: Performed By: #### P SA, TSH, ADIFF, ANEU, FT4, CMP, CBC, GFR, LIPID #### [address] [address] Neutrophils/100 WBC (Bld) 50.5 % Normal 37.0-80.0 [facility] ([place]) Comment on above: Performed By: #### P SA, TSH, ADIFF, ANEU, FT4, CMP, CBC, GFR, LIPID #### [address] [address] .GFRon 04-09-2024 GFR 84 ml/min/1.73sqm Normal [facility] ([place]) Comment on above: Result Comment: GFR Population [...] ANEU, FT4, CMP, CBC, GFR, LIPID #### [address] [address] GFR Non- 69 ml/min/1.73sqm Normal [facility] ([place]) Comment on above: Result Comment: GFR Population [...] ANEU, FT4, CMP, CBC, GFR, LIPID #### [place] [address] .NEUABSon 04-09-2024 Neutrophil, Absolute 4.0 10 3/mcL Normal 2.9-6.2 [facility] ([place]) Comment on above: Performed By: #### P SA, TSH, ADIFF, ANEU, FT4, CMP, CBC, GFR, LIPID #### [place] [address] CBCon 04-09-2024 Erythrocyte distribution width (RBC) [Ratio] 14.3 % Normal 11.5-14.5 [facility] ([place]) Comment on above: Performed By: #### P SA, TSH, ADIFF, ANEU, FT4, CMP, CBC, GFR, LIPID #### [place] [address] Hematocrit (Bld) [Volume fraction] 48.2 % Normal 42.0-52.0 [facility] ([place]) Comment on above: Performed By: #### P SA, TSH, ADIFF, ANEU, FT4, CMP, CBC, GFR, LIPID #### [place] [address] Hgb 16.7 G/dL Normal 14.0-18.0 [facility] ([place]) Comment on above: Performed By: #### P SA, TSH, ADIFF, ANEU, FT4, CMP, CBC, GFR, LIPID #### [place] [address] MCH (RBC) [Entitic mass] 30.9 pg Normal 27.0-31.2 [facility] ([place]) Comment on above: Performed By: #### P SA, TSH, ADIFF, ANEU, FT4, CMP, CBC, GFR, LIPID #### [place] [address] MCHC 34.6 G/dL Normal 31.8-35.4 [facility] ([place]) Comment on above: Performed By: #### P SA, TSH, ADIFF, ANEU, FT4, CMP, CBC, GFR, LIPID #### [place] [id number] MCV (RBC) [Entitic vol] 89.5 fL Normal 80.0-94.0 A Pending sale to [facility] ([place]) Comment on above: Performed By: #### P SA, TSH, ADIFF, ANEU, FT4, CMP, CBC, GFR, LIPID #### [address] [address] Platelet 252 10 3/mcL Normal 130-400 [facility] ([place]) Comment on above: Performed By: #### P SA, TSH, ADIFF, ANEU, FT4, CMP, CBC, GFR, LIPID #### [address] [address] Platelet mean volume (Bld) [Entitic vol] 7.7 fL Normal 7.4-10.4 [facility] ([place] Comment on above: Performed By: #### P SA, TSH, ADIFF, ANEU, FT4, CMP, CBC, GFR, LIPID #### [address] [address] RBC 5.39 10 6/mcL Normal 4.04-6.13 [facility] ([place] Comment on above: Performed By: #### P SA, TSH, ADIFF, ANEU, FT4, CMP, CBC, GFR, LIPID #### [address] [address] WBC 8.0 10 3/mcL Normal 4.6-10.8 [facility] ([place] Comment on above: Performed By: #### P SA, TSH, ADIFF, ANEU, FT4, CMP, CBC, GFR, LIPID #### [address] [address] CMPon 04-09-2024 Albumin Level 4.1 G/dL Normal 3.4-4.8 [facility] ([place] Comment on above: Performed By: #### P SA, TSH, ADIFF, ANEU, FT4, CMP, CBC, GFR, LIPID #### [address] [address] Albumin/Globulin [Mass ratio] 1.5 {ratio} Normal 1.1-2.5 [facility] ([place] Comment on above: Performed By: #### P SA, TSH, ADIFF, ANEU, FT4, CMP, CBC, GFR, LIPID #### [address] [address] ALP [Catalytic activity/Vol] 85 U/L Normal 40-135 [facility] ([place] Comment on above: Performed By: #### P SA, TSH, ADIFF, ANEU, FT4, CMP, CBC, GFR, LIPID #### [address] [address] ALT [Catalytic activity/Vol] 55 U/L Normal 16-63 [facility] ([place] Comment on above: Performed By: #### P SA, TSH, ADIFF, ANEU, FT4, CMP, CBC, GFR, LIPID #### [address] [address] AST [Catalytic activity/Vol] 30 U/L Normal 10-40 [facility] ([place] Comment on above: Performed By: #### P SA, TSH, ADIFF, ANEU, FT4, CMP, CBC, GFR, LIPID #### [address] [address] Bili Total 0.5 mg/dL Normal 0.2-1.0 [facility] ([place] Comment on above: Result Comment: Use of this assay is not recommended for patients undergoing treatment with eltrombopag due to the potential for falsely elevated results. Performed By: #### P SA, TSH, ADIFF, ANEU, FT4, CMP, CBC, GFR, LIPID #### [address] [address] BUN/Creatinine Ratio 16 ratio Normal 7-27 [facility] ([place]) Comment on above: Performed By: #### P SA, TSH, ADIFF, ANEU, FT4, CMP, CBC, GFR, LIPID #### [address] [address] Calcium [Mass/Vol] 8.5 mg/dL Normal 8.4-10.2 [facility] [place] Comment on above: Performed By: #### P SA, TSH, ADIFF, ANEU, FT4, CMP, CBC, GFR, LIPID #### [address] [address] Chloride [Moles/Vol] 101 mmol/L Normal 98-107 [facility] ([place] Comment on above: Performed By: #### P SA, TSH, ADIFF, ANEU, FT4, CMP, CBC, GFR, LIPID #### [address] [address] CO2 [Moles/Vol] 27 mmol/L Normal 23-31 [facility] ([place] Comment on above: Performed By: #### P SA, TSH, ADIFF, ANEU, FT4, CMP, CBC, GFR, LIPID #### [address] [address] Creatinine [Mass/Vol] 1.05 mg/dL Normal 0.70-1.30 [facility] ([place]) Comment on above: Performed By: #### P SA, TSH, ADIFF, ANEU, FT4, CMP, CBC, GFR, LIPID #### [address] [address] Electrolyte Balance 12.0 mEq/L Normal 4.0-15.0 [facility] ([place]) Comment on above: Performed By: #### P SA, TSH, ADIFF, ANEU, FT4, CMP, CBC, GFR, LIPID #### [address] [address] Globulin 2.7 G/dL Normal [facility] ([place] Comment on above: Performed By: #### P SA, TSH, ADIFF, ANEU, FT4, CMP, CBC, GFR, LIPID #### [address] [address] Glucose [Mass/Vol] 89 mg/dL Normal 83-110 [facility] [place] Comment on above: Performed By: #### P SA, TSH, ADIFF, ANEU, FT4, CMP, CBC, GFR, LIPID #### [address] [address] Potassium [Moles/Vol] 4.3 mmol/L Normal 3.5-5.1 [facility] ([place] Comment on above: Performed By: #### P SA, TSH, ADIFF, ANEU, FT4, CMP, CBC, GFR, LIPID #### [address] [address] Sodium [Moles/Vol] 140 mmol/L Normal 136-145 [facility] [place] Comment on above: Performed By: #### P SA, TSH, ADIFF, ANEU, FT4, CMP, CBC, GFR, LIPID #### [address] [address] Total Protein 6.8 G/dL Normal 6.4-8.2 [facility] ([place] Comment on above: Performed By: #### P SA, TSH, ADIFF, ANEU, FT4, CMP, CBC, GFR, LIPID #### [place] [address] [place], [place] [address] Urea nitrogen [Mass/Vol] 17 mg/dL Normal 7-18 [facility] ([place] Comment on above: Performed By: #### P SA, TSH, ADIFF, ANEU, FT4, CMP, CBC, GFR, LIPID #### [address] [address] LABORATORYOrdered By: SYSTEM SYSTEM on 04-09-2024 Albumin [...] [Mass/Vol] 132 mg/dL Normal 0 - 150 mg/d L AO ADM SS Comment on above: Interpretive Data: T riglyceride Reference Interval: Less than 150 Normal 150-199 Borderline high risk 200-499 High risk 500 or higher Very high risk LIPIDon 04-09-2024 Cholesterol [Mass/Vol] 144 mg/dL Normal 0-200 [facility] ([place]) Comment on above: Result Comment: Chol esterol Reference Interval: Less than 200 Desirable 200-239 Borderline high risk 240 and above High risk Performed By: #### P SA, TSH, ADIFF, ANEU, FT4, CMP, CBC, GFR, LIPID #### [place] [address] [place], [place] [address] Cholesterol in HDL [Mass/Vol] 34 mg/dL Low 40-60 [facility] ([place] Comment on above: Performed By: #### P SA, TSH, ADIFF, ANEU, FT4, CMP, CBC, GFR, LIPID #### [address] [address] Cholesterol in LDL [Mass/Vol] 84 mg/dL Normal 0-130 [facility] ([place] Comment on above: Performed By: #### P SA, TSH, ADIFF, ANEU, FT4, CMP, CBC, GFR, LIPID #### [place] [id number] Triglyceride [Mass/Vol] 132 mg/dL Normal 0-150 A Pending sale to [facility] ([place] Comment on above: Result Comment: Trig lyceride Reference Interval: Less than 150 Normal 150-199 Borderline high risk 200-499 High risk 500 or higher Very high risk Performed By: #### P SA, TSH, ADIFF, ANEU, FT4, CMP, CBC, GFR, LIPID #### [address] [address] .GFRon 10-17-2023 GFR 88 ml/min/1.73sqm Normal [facility] ([place] Comment on above: Result Comment: GFR Population [...] ANEU, FT4, CMP, CBC, GFR, LIPID #### [place] [id number] GFR Non- 72 ml/min/1.73sqm Normal [facility] ([place] Comment on above: Result Comment: GFR Population [...] ANEU, FT4, CMP, CBC, GFR, LIPID #### [address] [address] BMPon 10-17-2023 BUN/Creatinine Ratio 14 ratio Normal 7-27 [facility] ([place]) Comment on above: Performed By: #### P SA, TSH, ADIFF, ANEU, FT4, CMP, CBC, GFR, LIPID #### [address] [address] Calcium [Mass/Vol] 9.0 mg/dL Normal 8.4-10.2 [facility] [place] Comment on above: Performed By: #### P SA, TSH, ADIFF, ANEU, FT4, CMP, CBC, GFR, LIPID #### [address] [address] Chloride [Moles/Vol] 102 mmol/L Normal 98-107 [facility] ([place] Comment on above: Performed By: #### P SA, TSH, ADIFF, ANEU, FT4, CMP, CBC, GFR, LIPID #### [address] [address] CO2 [Moles/Vol] 29 mmol/L Normal 23-31 [facility] ([place] Comment on above: Performed By: #### P SA, TSH, ADIFF, ANEU, FT4, CMP, CBC, GFR, LIPID #### [address] [address] Creatinine [Mass/Vol] 1.01 mg/dL Normal 0.70-1.30 [facility] ([place]) Comment on above: Performed By: #### P SA, TSH, ADIFF, ANEU, FT4, CMP, CBC, GFR, LIPID #### [address] [address] Electrolyte Balance 9.0 mEq/L Normal 4.0-15.0 [facility] ([place] Comment on above: Performed By: #### P SA, TSH, ADIFF, ANEU, FT4, CMP, CBC, GFR, LIPID #### [address] [address] Glucose [Mass/Vol] 102 mg/dL Normal 83-110 [facility] [place] Comment on above: Performed By: #### P SA, TSH, ADIFF, ANEU, FT4, CMP, CBC, GFR, LIPID #### [address] [address] Potassium [Moles/Vol] 4.7 mmol/L Normal 3.5-5.1 [facility] ([place] Comment on above: Performed By: #### P SA, TSH, ADIFF, ANEU, FT4, CMP, CBC, GFR, LIPID #### [address] [address] Sodium [Moles/Vol] 140 mmol/L Normal 136-145 [facility] [place] Comment on above: Performed By: #### P SA, TSH, ADIFF, ANEU, FT4, CMP, CBC, GFR, LIPID #### [address] [address] Urea nitrogen [Mass/Vol] 14 mg/dL Normal 7-18 [facility] ([place] Comment on above: Performed By: #### P SA, TSH, ADIFF, ANEU, FT4, CMP, CBC, GFR, LIPID #### [address] [address] LABORATORYOrdered By: SYSTEM SYSTEM on 10-17-2023 Calcium [...] Basophil, Absolute 0.0 10 3/mcL Normal 0.0-0.2 [facility] ([place] Comment on above: Performed By: #### P SA, TSH, ADIFF, ANEU, FT4, CMP, CBC, GFR, LIPID #### [address] [address] Basophils/100 WBC (Bld) 0.5 % Normal 0.0-2.5 A Pending sale to [facility] ([place] Comment on above: Performed By: #### P SA, TSH, ADIFF, ANEU, FT4, CMP, CBC, GFR, LIPID #### [address] [address] Eosinophil, Absolute 0.4 10 3/mcL Normal 0.0-0.4 [facility] ([place]) Comment on above: Performed By: #### P SA, TSH, ADIFF, ANEU, FT4, CMP, CBC, GFR, LIPID #### [address] [address] Eosinophils/100 WBC (Bld) 4.3 % Normal 0.0-7.0 [facility] ([place] Comment on above: Performed By: #### P SA, TSH, ADIFF, ANEU, FT4, CMP, CBC, GFR, LIPID #### [address] [address] Lymphocyte, Absolute 1.8 10 3/mcL Normal 0.8-3.9 [facility] ([place]) Comment on above: Performed By: #### P SA, TSH, ADIFF, ANEU, FT4, CMP, CBC, GFR, LIPID #### [address] [address] Lymphocytes/100 WBC (Bld) 20.3 % Normal 10.0-50.0 [facility] ([place] Comment on above: Performed By: #### P SA, TSH, ADIFF, ANEU, FT4, CMP, CBC, GFR, LIPID #### [address] [address] Monocyte, Absolute 1.6 10 3/mcL High 0.2-1.0 [facility] ([place] Comment on above: Performed By: #### P SA, TSH, ADIFF, ANEU, FT4, CMP, CBC, GFR, LIPID #### [address] [address] Monocytes/100 WBC (Bld) 18.4 % High 1.7-13.0 A Pending sale to [facility] ([place] Comment on above: Performed By: #### P SA, TSH, ADIFF, ANEU, FT4, CMP, CBC, GFR, LIPID #### [address] [address] Neutrophils/100 WBC (Bld) 56.5 % Normal 37.0-80.0 [facility] ([place] Comment on above: Performed By: #### P SA, TSH, ADIFF, ANEU, FT4, CMP, CBC, GFR, LIPID #### [address] [address] .GFRon 10-04-2023 GFR Non- 68 ml/min/1.73sqm Normal [facility] ([place] Comment on above: Result Comment: GFR Population [...] ANEU, FT4, CMP, CBC, GFR, LIPID #### [address] [address] GFR 83 ml/min/1.73sqm Normal [facility] ([place] Comment on above: Result Comment: GFR Population [...] ANEU, FT4, CMP, CBC, GFR, LIPID #### [address] [address] .NEUABSon 10-04-2023 Neutrophil, Absolute 4.9 10 3/mcL Normal 2.9-6.2 [facility] ([place] Comment on above: Performed By: #### P SA, TSH, ADIFF, ANEU, FT4, CMP, CBC, GFR, LIPID #### [address] [address] CBCon 10-04-2023 Erythrocyte distribution width (RBC) [Ratio] 13.5 % Normal 11.5-14.5 [facility] ([place] Comment on above: Performed By: #### P SA, TSH, ADIFF, ANEU, FT4, CMP, CBC, GFR, LIPID #### [address] [address] Hematocrit (Bld) [Volume fraction] 47.0 % Normal 42.0-52.0 [facility] ([place] Comment on above: Performed By: #### P SA, TSH, ADIFF, ANEU, FT4, CMP, CBC, GFR, LIPID #### [address] [address] Hgb 16.1 G/dL Normal 14.0-18.0 [facility] ([place] Comment on above: Performed By: #### P SA, TSH, ADIFF, ANEU, FT4, CMP, CBC, GFR, LIPID #### [address] [address] MCH (RBC) [Entitic mass] 29.9 pg Normal 27.0-31.2 [facility] ([place] Comment on above: Performed By: #### P SA, TSH, ADIFF, ANEU, FT4, CMP, CBC, GFR, LIPID #### [place] [id number] MCHC 34.2 G/dL Normal 31.8-35.4 [facility] ([place] Comment on above: Performed By: #### P SA, TSH, ADIFF, ANEU, FT4, CMP, CBC, GFR, LIPID #### [address] [address] MCV (RBC) [Entitic vol] 87.5 fL Normal 80.0-94.0 A Pending sale to [facility] ([place] Comment on above: Performed By: #### P SA, TSH, ADIFF, ANEU, FT4, CMP, CBC, GFR, LIPID #### [address] [address] Platelet 287 10 3/mcL Normal 130-400 [facility] ([place] Comment on above: Performed By: #### P SA, TSH, ADIFF, ANEU, FT4, CMP, CBC, GFR, LIPID #### [address] [address] Platelet mean volume (Bld) [Entitic vol] 7.4 fL Normal 7.4-10.4 [facility] ([place] Comment on above: Performed By: #### P SA, TSH, ADIFF, ANEU, FT4, CMP, CBC, GFR, LIPID #### [place] [id number] RBC 5.37 10 6/mcL Normal 4.04-6.13 [facility] ([place] Comment on above: Performed By: #### P SA, TSH, ADIFF, ANEU, FT4, CMP, CBC, GFR, LIPID #### [address] [address] WBC 8.7 10 3/mcL Normal 4.6-10.8 [facility] ([place] Comment on above: Performed By: #### P SA, TSH, ADIFF, ANEU, FT4, CMP, CBC, GFR, LIPID #### [address] [address] CMPon 10-04-2023 Albumin Level 3.7 G/dL Normal 3.4-4.8 [facility] ([place] Comment on above: Performed By: #### P SA, TSH, ADIFF, ANEU, FT4, CMP, CBC, GFR, LIPID #### [address] [address] Albumin/Globulin [Mass ratio] 1.2 {ratio} Normal 1.1-2.5 [facility] ([place] Comment on above: Performed By: #### P SA, TSH, ADIFF, ANEU, FT4, CMP, CBC, GFR, LIPID #### [address] [address] ALP [Catalytic activity/Vol] 77 U/L Normal 40-135 [facility] ([place] Comment on above: Performed By: #### P SA, TSH, ADIFF, ANEU, FT4, CMP, CBC, GFR, LIPID #### [address] [address] ALT [Catalytic activity/Vol] 38 U/L Normal 16-63 [facility] ([place] Comment on above: Performed By: #### P SA, TSH, ADIFF, ANEU, FT4, CMP, CBC, GFR, LIPID #### [address] [address] AST [Catalytic activity/Vol] 21 U/L Normal 10-40 [facility] ([place] Comment on above: Performed By: #### P SA, TSH, ADIFF, ANEU, FT4, CMP, CBC, GFR, LIPID #### [address] [address] Bili Total 0.6 mg/dL Normal 0.2-1.0 [facility] ([place] Comment on above: Result Comment: Use of this assay is not recommended for patients undergoing treatment with eltrombopag due to the potential for falsely elevated results. Performed By: #### P SA, TSH, ADIFF, ANEU, FT4, CMP, CBC, GFR, LIPID #### [address] [address] BUN/Creatinine Ratio 17 ratio Normal 7-27 [facility] ([place] Comment on above: Performed By: #### P SA, TSH, ADIFF, ANEU, FT4, CMP, CBC, GFR, LIPID #### [address] [address] Calcium [Mass/Vol] 8.9 mg/dL Normal 8.4-10.2 [facility] [place] Comment on above: Performed By: #### P SA, TSH, ADIFF, ANEU, FT4, CMP, CBC, GFR, LIPID #### [address] [address] Chloride [Moles/Vol] 96 mmol/L Low 98-107 [facility] ([place] Comment on above: Performed By: #### P SA, TSH, ADIFF, ANEU, FT4, CMP, CBC, GFR, LIPID #### [address] [address] CO2 [Moles/Vol] 28 mmol/L Normal 23-31 [facility] ([place] Comment on above: Performed By: #### P SA, TSH, ADIFF, ANEU, FT4, CMP, CBC, GFR, LIPID #### [address] [address] Creatinine [Mass/Vol] 1.06 mg/dL Normal 0.70-1.30 [facility] ([place]) Comment on above: Performed By: #### P SA, TSH, ADIFF, ANEU, FT4, CMP, CBC, GFR, LIPID #### [address] [address] Electrolyte Balance 1.0 mEq/L Low 4.0-15.0 [facility] ([place] Comment on above: Performed By: #### P SA, TSH, ADIFF, ANEU, FT4, CMP, CBC, GFR, LIPID #### [address] [address] Globulin 3.0 G/dL Normal [facility] ([place] Comment on above: Performed By: #### P SA, TSH, ADIFF, ANEU, FT4, CMP, CBC, GFR, LIPID #### [address] [address] Glucose [Mass/Vol] 86 mg/dL Normal 83-110 [facility] [place] Comment on above: Performed By: #### P SA, TSH, ADIFF, ANEU, FT4, CMP, CBC, GFR, LIPID #### [address] [address] Potassium [Moles/Vol] 4.3 mmol/L Normal 3.5-5.1 [facility] ([place] Comment on above: Performed By: #### P SA, TSH, ADIFF, ANEU, FT4, CMP, CBC, GFR, LIPID #### [address] [address] Sodium [Moles/Vol] 125 mmol/L Low 136-145 [facility] [place] Comment on above: Performed By: #### P SA, TSH, ADIFF, ANEU, FT4, CMP, CBC, GFR, LIPID #### [address] [address] Total Protein 6.7 G/dL Normal 6.4-8.2 [facility] ([place] Comment on above: Performed By: #### P SA, TSH, ADIFF, ANEU, FT4, CMP, CBC, GFR, LIPID #### [address] [address] Urea nitrogen [Mass/Vol] 18 mg/dL Normal 7-18 [facility] ([place] Comment on above: Performed By: #### P SA, TSH, ADIFF, ANEU, FT4, CMP, CBC, GFR, LIPID #### [address] [place] [id number] [place], [place] [address] FT4on 10-04-2023 Free T4 [Mass/Vol] 1.16 ng/dL Normal 0.76-1.46 [facility] [place] Comment on above: Performed By: #### P SA, TSH, ADIFF, ANEU, FT4, CMP, CBC, GFR, LIPID #### [address] [place] [id number] [place], [place] [address] LABORATORYOrdered By: SYSTEM SYSTEM on 10-04-2023 Albumin [...] [Mass/Vol] 108 mg/dL Normal 0 - 150 mg/d L AO ADM SS Comment on above: Interpretive Data: T riglyceride Reference Interval: Less than 150 Normal 150-199 Borderline high risk 200-499 High risk 500 or higher Very high risk LIPIDon 10-04-2023 Cholesterol [Mass/Vol] 159 mg/dL Normal 0-200 [facility] ([place]) Comment on above: Result Comment: Chol esterol Reference Interval: Less than 200 Desirable 200-239 Borderline high risk 240 and above High risk Performed By: #### P SA, TSH, ADIFF, ANEU, FT4, CMP, CBC, GFR, LIPID #### [address] [address] Cholesterol in HDL [Mass/Vol] 34 mg/dL Low 40-60 [facility] ([place] Comment on above: Performed By: #### P SA, TSH, ADIFF, ANEU, FT4, CMP, CBC, GFR, LIPID #### [address] [address] Cholesterol in LDL [Mass/Vol] 103 mg/dL Normal 0-130 [facility] ([place] Comment on above: Performed By: #### P SA, TSH, ADIFF, ANEU, FT4, CMP, CBC, GFR, LIPID #### [address] [address] Triglyceride [Mass/Vol] 108 mg/dL Normal 0-150 A Pending sale to [facility] ([place] Comment on above: Result Comment: Trig lyceride Reference Interval: Less than 150 Normal 150-199 Borderline high risk 200-499 High risk 500 or higher Very high risk Performed By: #### P SA, TSH, ADIFF, ANEU, FT4, CMP, CBC, GFR, LIPID #### [address] [address] PSAon 10-04-2023 Prostate Specific Antigen 1.04 ng/mL Normal 0.00-4.00 [facility] ([place] Comment on above: Performed By: #### P SA, TSH, ADIFF, ANEU, FT4, CMP, CBC, GFR, LIPID #### [address] [address] TSHon 10-04-2023 TSH Qn 1.64 m[IU]/L Normal 0.36-3.74 [facility] ([place] Comment on above: Performed By: #### P SA, TSH, ADIFF, ANEU, FT4, CMP, CBC, GFR, LIPID #### [address] [address] .Auto Diffon 04-11-2023 Basophil, Absolute 0.1 10 3/mcL Normal 0.0-0.2 [facility] ([place] Comment on above: Performed By: #### P SA, TSH, ADIFF, ANEU, FT4, CMP, CBC, GFR, LIPID #### [address] [address] Basophils/100 WBC (Bld) 0.8 % Normal 0.0-2.5 A Pending sale to [facility] ([place] Comment on above: Performed By: #### P SA, TSH, ADIFF, ANEU, FT4, CMP, CBC, GFR, LIPID #### [address] [address] Eosinophil, Absolute 0.4 10 3/mcL Normal 0.0-0.4 [facility] ([place]) Comment on above: Performed By: #### P SA, TSH, ADIFF, ANEU, FT4, CMP, CBC, GFR, LIPID #### [address] [address] Eosinophils/100 WBC (Bld) 5.4 % Normal 0.0-7.0 [facility] ([place] Comment on above: Performed By: #### P SA, TSH, ADIFF, ANEU, FT4, CMP, CBC, GFR, LIPID #### [address] [address] Lymphocyte, Absolute 2.0 10 3/mcL Normal 0.8-3.9 [facility] ([place]) Comment on above: Performed By: #### P SA, TSH, ADIFF, ANEU, FT4, CMP, CBC, GFR, LIPID #### [address] [address] Lymphocytes/100 WBC (Bld) 27.6 % Normal 10.0-50.0 [facility] ([place] Comment on above: Performed By: #### P SA, TSH, ADIFF, ANEU, FT4, CMP, CBC, GFR, LIPID #### [address] [address] Monocyte, Absolute 1.0 10 3/mcL Normal 0.2-1.0 [facility] ([place] Comment on above: Performed By: #### P SA, TSH, ADIFF, ANEU, FT4, CMP, CBC, GFR, LIPID #### [address] [address] Monocytes/100 WBC (Bld) 14.1 % High 1.7-13.0 [facility] ([place]) Comment on above: Performed By: #### P SA, TSH, ADIFF, ANEU, FT4, CMP, CBC, GFR, LIPID #### [address] [address] Neutrophils/100 WBC (Bld) 52.1 % Normal 37.0-80.0 [facility] ([place] Comment on above: Performed By: #### P SA, TSH, ADIFF, ANEU, FT4, CMP, CBC, GFR, LIPID #### [address] [address] .GFRon 04-11-2023 GFR Non- 73 ml/min/1.73sqm Normal [facility] ([place] Comment on above: Result Comment: GFR Population [...] ANEU, FT4, CMP, CBC, GFR, LIPID #### [address] [address] GFR 89 ml/min/1.73sqm Normal [facility] ([place] Comment on above: Result Comment: GFR Population [...] ANEU, FT4, CMP, CBC, GFR, LIPID #### [address] [address] .NEUABSon 04-11-2023 Neutrophil, Absolute 3.8 10 3/mcL Normal 2.9-6.2 [facility] ([place] Comment on above: Performed By: #### P SA, TSH, ADIFF, ANEU, FT4, CMP, CBC, GFR, LIPID #### [address] [address] CBCon 04-11-2023 Erythrocyte distribution width (RBC) [Ratio] 14.2 % Normal 11.5-14.5 [facility] ([place] Comment on above: Performed By: #### A DANNA, ADIFF, LIPID, CMP, CBC, GFR #### [place] [address] Hematocrit (Bld) [Volume fraction] 47.9 % Normal 42.0-52.0 [facility] ([place] Comment on above: Performed By: #### A DANNA, ADIFF, LIPID, CMP, CBC, GFR #### [place] [address] Hgb 16.6 G/dL Normal 14.0-18.0 [facility] ([place] Comment on above: Performed By: #### A DANNA, ADIFF, LIPID, CMP, CBC, GFR #### [place] [address] MCH (RBC) [Entitic mass] 30.9 pg Normal 27.0-31.2 [facility] ([place] Comment on above: Performed By: #### A DANNA, ADIFF, LIPID, CMP, CBC, GFR #### [place] [address] MCHC 34.8 G/dL Normal 31.8-35.4 [facility] ([place] Comment on above: Performed By: #### A DANNA, ADIFF, LIPID, CMP, CBC, GFR #### [place] [address] MCV (RBC) [Entitic vol] 89.0 fL Normal 80.0-94.0 [facility] ([place] Comment on above: Performed By: #### A DANNA, ADIFF, LIPID, CMP, CBC, GFR #### [address] [address] Platelet 254 10 3/mcL Normal 130-400 [facility] ([place] Comment on above: Performed By: #### A DANNA, ADIFF, LIPID, CMP, CBC, GFR #### [address] [address] Platelet mean volume (Bld) [Entitic vol] 7.3 fL Low 7.4-10.4 [facility] ([place] Comment on above: Performed By: #### A DANNA, ADIFF, LIPID, CMP, CBC, GFR #### [address] [address] RBC 5.38 10 6/mcL Normal 4.04-6.13 [facility] ([place] Comment on above: Performed By: #### A DANNA, ADIFF, LIPID, CMP, CBC, GFR #### [address] [address] WBC 7.2 10 3/mcL Normal 4.6-10.8 [facility] ([place] Comment on above: Performed By: #### A DANNA, ADIFF, LIPID, CMP, CBC, GFR #### [address] [address] CMPon 04-11-2023 Albumin Level 4.1 G/dL Normal 3.4-4.8 [facility] ([place]) Comment on above: Performed By: #### P SA, TSH, ADIFF, ANEU, FT4, CMP, CBC, GFR, LIPID #### [address] [address] Albumin/Globulin [Mass ratio] 1.6 {ratio} Normal 1.1-2.5 [facility]) Comment on above: Performed By: #### P SA, TSH, ADIFF, ANEU, FT4, CMP, CBC, GFR, LIPID #### [address] [address] ALP [Catalytic activity/Vol] 76 U/L Normal 40-135 Formerly [facility] ([place]) Comment on above: Performed By: #### P SA, TSH, ADIFF, ANEU, FT4, CMP, CBC, GFR, LIPID #### [address] [address] ALT [Catalytic activity/Vol] 55 U/L Normal 16-63 [facility] ([place]) Comment on above: Performed By: #### P SA, TSH, ADIFF, ANEU, FT4, CMP, CBC, GFR, LIPID #### [address] [address] AST [Catalytic activity/Vol] 26 U/L Normal 10-40 [facility] ([place]) Comment on above: Performed By: #### P SA, TSH, ADIFF, ANEU, FT4, CMP, CBC, GFR, LIPID #### [address] [address] Bili Total 0.6 mg/dL Normal 0.2-1.0 [facility] ([place]) Comment on above: Result Comment: Use of this assay is not recommended for patients undergoing treatment with eltrombopag due to the potential for falsely elevated results. Performed By: #### P SA, TSH, ADIFF, ANEU, FT4, CMP, CBC, GFR, LIPID #### [address] [address] BUN/Creatinine Ratio 16 ratio Normal 7-27 [facility] ([place]) Comment on above: Performed By: #### P SA, TSH, ADIFF, ANEU, FT4, CMP, CBC, GFR, LIPID #### [address] [address] Calcium [Mass/Vol] 9.0 mg/dL Normal 8.4-10.2 [facility] ([place]) Comment on above: Performed By: #### P SA, TSH, ADIFF, ANEU, FT4, CMP, CBC, GFR, LIPID #### [address] [address] Chloride [Moles/Vol] 100 mmol/L Normal 98-107 [facility] ([place]) Comment on above: Performed By: #### P SA, TSH, ADIFF, ANEU, FT4, CMP, CBC, GFR, LIPID #### [address] [address] CO2 [Moles/Vol] 28 mmol/L Normal 23-31 [facility] ([place]) Comment on above: Performed By: #### P SA, TSH, ADIFF, ANEU, FT4, CMP, CBC, GFR, LIPID #### [address] [address] Creatinine [Mass/Vol] 1.00 mg/dL Normal 0.70-1.30 [facility] ([place]) Comment on above: Performed By: #### P SA, TSH, ADIFF, ANEU, FT4, CMP, CBC, GFR, LIPID #### [address] [address] Electrolyte Balance 11.0 mEq/L Normal 4.0-15.0 [facility] ([place]) Comment on above: Performed By: #### P SA, TSH, ADIFF, ANEU, FT4, CMP, CBC, GFR, LIPID #### [address] [address] Globulin 2.5 G/dL Normal [facility] ([place]) Comment on above: Performed By: #### P SA, TSH, ADIFF, ANEU, FT4, CMP, CBC, GFR, LIPID #### [address] [address] Glucose [Mass/Vol] 101 mg/dL Normal 83-110 [facility] [place] Comment on above: Performed By: #### P SA, TSH, ADIFF, ANEU, FT4, CMP, CBC, GFR, LIPID #### [address] [address] Potassium [Moles/Vol] 4.3 mmol/L Normal 3.5-5.1 [facility] ([place]) Comment on above: Performed By: #### P SA, TSH, ADIFF, ANEU, FT4, CMP, CBC, GFR, LIPID #### [address] [address] Sodium [Moles/Vol] 139 mmol/L Normal 136-145 [facility] ([place] Comment on above: Performed By: #### P SA, TSH, ADIFF, ANEU, FT4, CMP, CBC, GFR, LIPID #### [address] [address] Total Protein 6.6 G/dL Normal 6.4-8.2 [facility] ([place]) Comment on above: Performed By: #### P SA, TSH, ADIFF, ANEU, FT4, CMP, CBC, GFR, LIPID #### [address] [place], [place] [address] Urea nitrogen [Mass/Vol] 16 mg/dL Normal 7-18 [facility]) Comment on above: Performed By: #### P SA, TSH, ADIFF, ANEU, FT4, CMP, CBC, GFR, LIPID #### [address] [address] LABORATORYOrdered By: SYSTEM SYSTEM on 04-11-2023 Albumin [...] 04-11-2023 Cholesterol [Mass/Vol] 148 mg/dL Normal 0-200 [facility] ([place]) Comment on above: Result Comment: Chol esterol Reference Interval: Less than 200 Desirable 200-239 Borderline high risk 240 and above High risk Performed By: #### P SA, TSH, ADIFF, ANEU, FT4, CMP, CBC, GFR, LIPID #### [address] [address] Cholesterol in HDL [Mass/Vol] 37 mg/dL Low 40-60 [facility] ([place]) Comment on above: Performed By: #### P SA, TSH, ADIFF, ANEU, FT4, CMP, CBC, GFR, LIPID #### [place] [id number] Cholesterol in LDL [Mass/Vol] 86 mg/dL Normal 0-130 [facility] ([place]) Comment on above: Performed By: #### P SA, TSH, ADIFF, ANEU, FT4, CMP, CBC, GFR, LIPID #### [address] [place], [place] [address] Triglyceride [Mass/Vol] 124 mg/dL Normal 0-150 A Pending sale to [facility] ([place]) Comment on above: Result Comment: Trig lyceride Reference Interval: Less than 150 Normal 150-199 Borderline high risk 200-499 High risk 500 or higher Very high risk Performed By: #### P SA, TSH, ADIFF, ANEU, FT4, CMP, CBC, GFR, LIPID #### [address] [address] LABORATORYOrdered By: SYSTEM SYSTEM on 11-08-2022 Albumin [...] Time Vital Sign Value Performing Clinician Facility 06-24-2025 11:37-0400 Body temperature 97.1 [degF] Lucila Brito CERTIFIED ORTHOTIST-C Work Phone: [facility] 06-24-2025 11:37-0400 Diastolic blood pressure 64 mm[Hg] Lucila Brito CERTIFIED ORTHOTIST-C Work Phone: [facility] 06-24-2025 11:37-0400 Heart rate 74 /min Lucila Brito CERTIFIED ORTHOTIST-C Work Phone: [facility] 06-24-2025 11:37-0400 Respiratory rate 14 /min Lucila Brito CERTIFIED ORTHOTIST-C Work Phone: [facility] 06-24-2025 11:37-0400 SaO2% (BldA) [Mass fraction] 94 % Lucila Brito CERTIFIED ORTHOTIST-C Work Phone: [facility] 06-24-2025 11:37-0400 Systolic blood pressure 113 mm[Hg] Lucila Brito CERTIFIED ORTHOTIST-C Work Phone: [facility] 06-23-2025 15:37-0400 Body height 170.18 cm Lucila Brito CERTIFIED ORTHOTIST-C Work Phone: [facility] 06-23-2025 15:37-0400 Body mass index (BMI) [Ratio] 32.8 kg/m2 Lucila Granada CERTIFIED ORTHOTIST-C Work Phone: [facility] 06-23-2025 15:37-0400 Body weight 94.99 kg Lucila Granada CERTIFIED ORTHOTIST-C Work Phone: [facility] 06-23-2025 15:00-0400 Inhaled oxygen flow rate 4 L/min Lucila Granada CERTIFIED ORTHOTIST-C Work Phone: [facility] 06-17-2025 09:49-0400 Body height 170.18 cm Lucila Daryl CERTIFIED ORTHOTIST-C Work Phone: [facility] 06-17-2025 09:49-0400 Body mass index (BMI) [Ratio] 32.8 kg/m2 Lucila Daryl CERTIFIED ORTHOTIST-C Work Phone: [facility] 06-17-2025 09:49-0400 Body weight 95.25 kg Lucila Granada CERTIFIED ORTHOTIST-C Work Phone: [facility] 03-20-2025 08:26-0400 Body height 170.18 cm Lucila Daryl CERTIFIED ORTHOTIST-C Work Phone: [facility] 03-20-2025 08:26-0400 Body mass index (BMI) [Ratio] 32.5 kg/m2 Lucila Brito CERTIFIED ORTHOTIST-C Work Phone: [facility] 03-20-2025 08:26-0400 Body weight 94.34 kg Lucila Granada CERTIFIED ORTHOTIST-C Work Phone: [facility] 02-20-2025 08:50-0400 Body mass index (BMI) [Ratio] 32.6 kg/m2 Lucila Granada CERTIFIED ORTHOTIST-C Work Phone: [facility] 02-20-2025 08:50-0400 Body weight 94.51 kg Lucila Garsiamer CERTIFIED ORTHOTIST-C Work Phone: [facility] 11-22-2024 08:26-0500 Diastolic Blood Pressure Non-Invasive 71 mm[Hg] NADEEN NARENDRA DO [facility] 11-22-2024 08:26-0500 Heart rate 72 /min NADEEN NARENDRA DO [facility] 11-22-2024 08:26-0500 Systolic Blood Pressure Non-Invasive 104 mm[Hg] NADEEN NARENDRA DO [facility] 11-22-2024 08:22-0500 Diastolic Blood Pressure Non-Invasive 69 mm[Hg] NADEEN NARENDRA DO [facility] 11-22-2024 08:22-0500 Heart rate 75 /min NADEEN NARENDRA DO [facility] 11-22-2024 08:22-0500 Systolic Blood Pressure Non-Invasive 101 mm[Hg] NADEEN NARENDRA DO [facility] 11-22-2024 08:15-0500 Diastolic Blood Pressure Non-Invasive 58 mm[Hg] NADEEN NARENDRA DO [facility] 11-22-2024 08:15-0500 Heart rate 62 /min NADEEN NARENDRA DO [facility] 11-22-2024 08:15-0500 Systolic Blood Pressure Non-Invasive 82 mm[Hg] NADEEN NARENDRA DO [facility] 11-22-2024 08:05-0500 Respiratory Rate - Anes 15 br/min NADEEN NARENDRA DO [facility] 11-22-2024 08:00-0500 Respiratory Rate - Anes 16 br/min NADEEN NARENDRA DO [facility] 11-22-2024 07:55-0500 Respiratory Rate - Anes 9 br/min NADEEN NARENDRA DO [facility] 11-22-2024 07:23-0500 Blood Pressure Cuff Size NADEEN NARENDRA DO [facility] 11-22-2024 07:23-0500 Blood Pressure Location NADEEN NARENDRA DO [facility] 11-22-2024 07:23-0500 Blood Pressure Method NADEEN NARENDRA DO [facility] 11-22-2024 07:23-0500 Body height 170 cm NADEEN NARENDRA DO [facility] 11-22-2024 07:23-0500 Body temperature 97.52 [degF] NADEEN NARENDRA DO [facility] 11-22-2024 07:23-0500 Body weight 95.5 kg NADEEN NARENDRA DO [facility] 11-22-2024 07:23-0500 Body weight 33.04 kg/m2 NADEEN NARENDRA DO [facility] 11-22-2024 07:23-0500 Heart rate 79 /min NADEEN NARENDRA DO [facility] 11-22-2024 07:23-0500 Respiratory rate 16 /min NADEEN NARENDRA DO [facility] Encounters Encounter Date Encounter Type Care Provider Facility Start: 08-05-2025 End: 08-05-2025 ambulatory Lucila Brito Facility:[facility] Start: 07-16-2025 ambulatory LUCILA REILLY ER POLICE CHIEF DEPUTY-LEDGER CLERK Facility:[facility] Start: 07-16-2025 Encounter for other preprocedural examination [facility] Start: 07-08-2025 End: 07-08-2025 Patient encounter procedure Nikki LIGHT [facility] Work Phone: Start: 07-08-2025 End: 07-08-2025 ambulatory Lucila Brito CERTIFIED ORTHOTIST-C Work Phone: -[facility] Start: 06-24-2025 Non-patient / [facility] Start: 06-23-2025 Non-patient / Non-visit Dr. De Los Santos [facility] Work Phone: Start: 06-23-2025 Non-patient / Non-visit [facility]. Fran nielsen [facility] Start: 06-23-2025 ambulatory [facility] Start: 06-23-2025 End: 06-24-2025 Evaluation and management of inpatient Dr. Francisco Villa MD -[facility] Work Phone: Start: 06-23-2025 Non-patient / Non-visit [facility] Start: 06-23-2025 ambulatory [facility] Start: 06-17-2025 End: 06-17-[address] Francisco Villa MD -[facility] Work Phone: Start: 06-17-2025 End: 06-17-2025 ambulatory Lucila Brito CERTIFIED ORTHOTIST-C Work Phone: -[facility] Start: 06-12-2025 End: 06-12-2025 ambulatory LUCILA BRITO POLICE CHIEF DEPUTY-LEDGER CLERK Facility:[facility] Start: 06-12-2025 End: 06-12-2025 Patient encounter procedure LUCILA BRITO POLICE CHIEF DEPUTY-LEDGER CLERK [facility] Start: 06-10-2025 ambulatory [facility] Start: 06-10-2025 Non-patient / Non-visit Dr. Jayme LIMON [facility] Work Phone: Start: 04-28-2025 End: 04-28-2025 ambulatory LUCILA BRITO POLICE CHIEF DEPUTY-LEDGER CLERK Facility:[facility] Start: 04-28-2025 End: 04-28-2025 Patient encounter procedure LUCILA BRITO POLICE CHIEF DEPUTY-LEDGER CLERK [facility] Start: 04-22-2025 End: 04-26-2025 ambulatory LUCILA BRITO POLICE CHIEF DEPUTY-LEDGER CLERK Facility:[facility] Start: 04-22-2025 End: 04-26-2025 Outreach Lab ULCILA BRITO POLICE CHIEF DEPUTY-LEDGER CLERK [facility] Start: 04-09-2025 End: 04-09-2025 ambulatory LUCILA BRITO POLICE CHIEF DEPUTY-LEDGER CLERK Facility:[facility] Start: 04-09-2025 End: 04-09-2025 Patient encounter procedure LUCILA BRITO POLICE CHIEF DEPUTY-LEDGER CLERK [facility] Start: 03-20-2025 End: 03-20-2025 Patient encounter procedure Nikki LIGHT -[facility] Work Phone: Start: 03-20-2025 End: 03-20-2025 ambulatory Lucila Garsiamer CERTIFIED ORTHOTIST-C Work Phone: [facility] Work Phone: Start: 03-14-2025 End: 03-14-2025 ambulatory Lucila Garsiamer CERTIFIED ORTHOTIST-C Work Phone: [facility] Work Phone: Start: 03-14-2025 End: 03-14-2025 Patient encounter procedure Nikki LIGHT [facility] Work Phone: Start: 03-14-2025 End: 03-14-2025 ambulatory Nikki Kumar Facility:[facility] Start: 02-20-2025 End: 02-20-2025 Patient encounter procedure Nikki LIGHT -[facility] Work Phone: Start: 02-20-2025 End: 02-20-2025 ambulatory Lucila Daryl Facility:[facility] Start: 11-22-2024 End: 11-22-2024 ambulatory LUCILA Lyon DARYL POLICE CHIEF DEPUTY-LEDGER CLERK Facility:[facility] Start: 11-22-2024 End: 11-22-2024 SAME DAY STAY NADEEN CAMPBELL [facility] Start: 10-04-2024 End: 10-04-2024 ambulatory LUCILA Lyon DARYL POLICE CHIEF DEPUTY-LEDGER CLERK Facility:[facility] Start: 10-04-2024 End: 10-04-2024 Patient encounter procedure LUCILA Lyon DARYL POLICE CHIEF DEPUTY-LEDGER CLERK [facility] Start: 08-14-2024 End: 09-13-2024 ambulatory MANSOOR ZACHARY Facility:[facility] Start: 08-14-2024 End: 09-13-2024 Physical therapy management MANSOOR MADRIDFIELD LEDGER CLERK [facility] Start: 04-09-2024 End: 04-09-2024 ambulatory LUCILA Lyon DARYL POLICE CHIEF DEPUTY-LEDGER CLERK Facility:[facility] Start: 04-09-2024 End: 04-09-2024 Patient encounter procedure LUCILA Lyon DARYL POLICE CHIEF DEPUTY-LEDGER CLERK [facility] Start: 10-17-2023 End: 10-17-2023 ambulatory LUCILA Lyon DARYL POLICE CHIEF DEPUTY-LEDGER CLERK Facility:[facility] Start: 10-17-2023 End: 10-17-2023 Patient encounter procedure LUCILA Lyon DARYL POLICE CHIEF DEPUTY-LEDGER CLERK [facility] Start: 10-04-2023 End: 10-04-2023 ambulatory LUCILA S DARYL POLICE CHIEF DEPUTY-LEDGER CLERK Facility:[facility] Start: 10-04-2023 End: 10-04-2023 Patient encounter procedure LUCILA BRITO POLICE CHIEF DEPUTY-LEDGER CLERK [facility] Start: 06-07-2023 End: 06-07-2023 ambulatory LUCILA BRITO POLICE CHIEF DEPUTY-LEDGER CLERK Facility:[facility] Start: 04-11-2023 End: 04-11-2023 ambulatory LUCILA BRITO POLICE CHIEF DEPUTY-LEDGER CLERK Facility:[facility] Start: 04-11-2023 End: 04-11-2023 Patient encounter procedure LUCILA BRITO POLICE CHIEF DEPUTY-LEDGER CLERK [facility] Start: 12-13-2022 End: 12-13-2022 Patient encounter procedure JODIE FLOODJAYLEEN LEDGER CLERK [facility] Start: 11-08-2022 End: 11-08-2022 Patient encounter procedure LUCILA BRITO POLICE CHIEF DEPUTY-LEDGER CLERK [facility] Start: 03-22-2022 End: 03-22-2022 Patient encounter procedure LUCILA BRITO POLICE CHIEF DEPUTY-LEDGER CLERK [facility] Start: 02-22-2022 End: 02-22-2022 Patient encounter procedure LUCILA BRITO POLICE CHIEF DEPUTY-LEDGER CLERK [facility] Start: 02-08-2022 End: 02-08-2022 Patient encounter procedure LUCILA BRITO POLICE CHIEF DEPUTY-LEDGER CLERK [facility] Start: 01-14-2022 End: 01-14-[address] VERNA SILVA MD [facility] Start: 01-10-2022 End: 01-10-[address] VERNA SILVA MD [facility] Procedures Date Procedure Procedure Detail Performing Clinician Start: 07-08-2025 Radex spine lumbosac ral 2/3 views Lucila Brito CERTIFIED ORTHOTIST-C Work Phone: Start: 06-24-2025 X-ray of lumbar spin e, two or three views Lucila Brito CERTIFIED ORTHOTIST-C Work Phone: Start: 06-24-2025 Estimated creatinine clearance Lucila Brito CERTIFIED ORTHOTIST-C Work Phone: Start: 06-23-2025 Fluoroscopic guidance Phani Brito CERTIFIED ORTHOTIST-C Work Phone: Start: 06-23-2025 X-ray of lumbar spin e, two or three views Lucila Brito CERTIFIED ORTHOTIST-C Work Phone: Start: 06-23-2025 Lumbar spinal fusion Mohsen Brito CERTIFIED ORTHOTIST-C Work Phone: Start: 06-10-2025 Methicillin resistan t Staphylococcus aureus screening test Lucila Brito CERTIFIED ORTHOTIST-C Work Phone: Start: 06-10-2025 Hepatitis A virus an tibody, total measurement Lucila Brito CERTIFIED ORTHOTIST-C Work Phone: Comment on above: Comment: The HAV tot al antibody assay detects both IgG andIgM but does not differentiate between them. A negativeresult suggests susceptibility to infection. A positiveresult could be due to vaccination, previously resolvedinfection or active infection. Testing for HAV IgM shouldbe performed if active HAV infection is suspected. [facility] profiles that will automatically reflex positive HAVtotal antibody results to IgM (e.g., panel #[id number] HAVAntibody w/ Rfx).Performed at: [address] [id number] Director: Thee Sarkar PhD, Phone: [phone] Start: 06-10-2025 Hepatitis C antibody measurement Lucila Brito CERTIFIED ORTHOTIST-C Work Phone: Comment on above: Reactive: Presumptiv e evidence of antibodies to HCV. Follow CDC recommendations for supplemental testing.Non-Reactive: Antibodies to HCV were not detected; does not exclude the possibility of exposure to HCVReactive Results are presumptive evidence of antibodies to HCV. Follow CDC recommendations for supplemental testing.Order confirmation testing: HCV Quant by PCR testing - HCVPCR #[id number] Non Reactive: < 0.8 Equivocal: >/= 0.8 to < 1.0 Reactive: >/= 1.0The CDC requires that a reactive/equivocal HCV antibody result be sent out for confirmation. HCV Quant by PCR testing. Start: 03-14-2025 MRI of lumbar spine Laura domingo Daryl CERTIFIED ORTHOTIST-C Work Phone: Start: 02-20-2025 X-ray of lumbosacral spine Lucila Daryl CERTIFIED ORTHOTIST-C Work Phone: Start: 11-16-2020 Implantation of elec tronic stimulator of spine DR VERNA SILVA MD Start: 03-10-[address] NIRAJ SILVA MD Comment on above: EF 55% Start: 09-25-[address] VERNA SILVA MD Start: 08-28-[address] VERNA SILVA MD Comment on above: left Start: 04-09-[address] VERNA HENRY MD Comment on above: Dr. Zhao [facility] Back structure, excl uding neck (body structure) DR VERNA SILVA MD Inguinal hernioplasty DR NIRAJ SILVA MD Comment on above: Left Open reduction of fr acture of elbow with internal fixation DR VERNA SILVA MD Comment on above: Right Removal of pilonidal cyst DR VERNA SILVA MD Plan of Treatment Date Care Activity Detail Author Start: 06-24-2025 Application of device W [facility] Start: 06-24-2025 End: 06-24-2025 Incentive spirometry [facility] Start: 06-24-2025 End: 06-24-2025 Measuring intake and output [facility] Start: 06-24-2025 Catheterization of vein [facility] Start: 06-24-2025 Patient discharge [facility] Start: 06-23-2025 End: 06-23-2025 Incentive spirometry [facility] Start: 06-23-2025 Application of inter mittent pneumatic compression device [facility] Start: 06-23-2025 Following clinical p athway protocol [facility] Start: 06-23-2025 Application of device W [facility] Start: 06-23-2025 End: 06-23-2025 Measuring intake and output [facility] Start: 06-23-2025 End: 06-23-2025 [facility] Start: 06-23-2025 Assessment of risk o f venous thromboembolism [facility] Start: 06-23-2025 Consultation [facility] Start: 06-23-2025 Following clinical p athway protocol [facility] Start: 06-23-2025 Introduction of urin yoly catheter [facility] Start: 06-23-2025 Neurovascular assessment [facility] Start: 06-23-2025 Patient education [facility] Start: 06-23-2025 Provision of activit y privileges [facility] Start: 06-23-2025 Referral for physica l therapy [facility] Start: 06-23-2025 Referral to occupati onal therapist [facility] Start: 06-23-2025 Referral to service [facility] Start: 06-23-2025 Taking patient vital signs [facility] Start: 06-23-2025 Admission procedure [facility] Start: 06-23-2025 Verification routine [facility] Patient Education Lumbar Fusion Dc [facility] Work Phone: Patient referral [facility] Work Phone: Immunizations Immunization Date Immunization Notes Care Provider Abi diaz 06-18-2024 influenza virus vacc ine, unspecified formulation NADEEN CAMPBELL DO [facility] 06-18-2024 SARS-CoV-2 (COVID-19 ) [id number] NADEEN CAMPBELL DO [facility] 07-24-2023 influenza virus vacc ine, unspecified formulation LUCILA GARSIAMER POLICE CHIEF DEPUTY-LEDGER CLERK [facility] Comment on above: Result Comment: Chantal Shi [facility] 07-24-2023 SARS-CoV-2 (COVID-19 ) mRNA-1273 vaccine LUCILA DARYL POLICE CHIEF DEPUTY-LEDGER CLERK [facility] Comment on above: Result Comment: Chantal Shi [facility] 01-10-2023 zoster vaccine recombinant LUCILA GARSIAMER POLICE CHIEF DEPUTY-LEDGER CLERK [facility] 11-01-2022 zoster vaccine recombinant LUCILA GARSIAMER POLICE CHIEF DEPUTY-LEDGER CLERK [facility] 07-04-2022 influenza virus vacc ine, unspecified formulation LUCILA GARSIAMER POLICE CHIEF DEPUTY-LEDGER CLERK [facility] 02-17-2022 SARS-CoV-2 (COVID-19 ) mRNA-1273 vaccine LUCILA GARSIAMER POLICE CHIEF DEPUTY-LEDGER CLERK [facility] 02-08-2022 pneumococcal polysaccharide vaccine, 23 valent; Translations: [Pneumovax 23] LUCILA BRITO POLICE CHIEF DEPUTY-LEDGER CLERK [facility] 08-21-2021 SARS-CoV-2 (COVID-19 ) mRNA-1273 vaccine LUCILA DARYL POLICE CHIEF DEPUTY-LEDGER CLERK [facility] Comment on above: Result Comment: 2021: [id number] 07-14-2021 influenza virus vacc ine, unspecified formulation LUCILA DARYL POLICE CHIEF DEPUTY-LEDGER CLERK [facility] 01-05-2021 COVID-19, mRNA, LNP- S, PF, 100 mcg or 50 mcg dose; Translations: [Moderna COVID-19 Vaccine] DR VERNA SILVA MD [facility] 12-08-2020 COVID-19, mRNA, LNP- S, PF, 100 mcg or 50 mcg dose; Translations: [Moderna COVID-19 Vaccine] DR VERNA SILVA MD [facility] 07-13-2020 influenza, injectabl e, quadrivalent, preservative free; Translations: [Fluarix PF Quadrivalent ] DR VERNA SILVA MD [facility] 08-08-2019 influenza, injectabl e, quadrivalent, preservative free; Translations: [Fluarix PF Quadrivalent ] DR VERNA SILVA MD [facility] 07-03-2018 influenza virus vacc ine, unspecified formulation DR VERNA SILVA MD [facility] 08-04-2017 influenza virus vacc ine, unspecified formulation DR VERNA SILVA MD [facility] 08-02-2016 influenza virus vacc ine, unspecified formulation DR VERNA SILVA MD [facility] 07-20-2015 influenza virus vacc ine, unspecified formulation DR VERNA SILVA MD [facility] Payers Date Payer Category Payer Private Health Insurance [id number] 2025 Self-pay [id number] 2024 Unknown [id number] 2023 Medicare [id number] 2023 Unknown [id number] 2018 Medicare [id number] 1950 Unknown [id number] 2.16.8 [id number] 1950 Unknown [id number] 2.16.8 40.1.945219.3.579.2. 1950 Unknown [id number] 2.16.8 40.1.246489.3.579.2. 1950 Unknown [id number] 2.16.8 40.1.850283.3.579.2. 1950 Unknown [id number] 2.16.8 [id number] 1950 Unknown [id number] 2.16. [id number] 1950 Unknown [id number] 2.16. 840.1.861009.3.579.2.62 1950 Unknown [id number] 2.16. 840.1.829996.3.579.2.62 1950 Unknown [id number] 2.16. [id number] 1950 Unknown [id number] 2.16. 840.1.644315.3.579.2. 1950 Unknown [id number] 2.16.8 [id number] 1950 Unknown [id number] 2.16.8 [id number] 1950 Unknown [id number] 2.16.8 40.1.153985.3.579.2.627 Unknown [id number] 2.16.8 40.1.300207.3.579.2.462 Unknown [id number] 2.16.8 40.1.000961.3.579.2.462 Unknown [id number] 2.16.8 40.1.565085.3.579.2.462 Unknown [id number] 2.16.8 40.1.955776.3.579.2.462 Unknown [id number] 2.16.8 40.1.775839.3.579.2.462 Unknown [id number] 2.16.8 40.1.821623.3.579.2.462 Unknown [id number] 2.16.8 40.1.685958.3.579.2.462 Unknown [id number] 2.16.8 40.1.315855.3.579.2.462 Unknown [id number] 2.16.8 40.1.951523.3.579.2.462 Unknown [id number] 2.16.8 40.1.284006.3.579.2.462 Unknown [id number] 2.16.8 40.1.211431.3.579.2.462 Unknown [id number] 2.16.8 40.1.486677.3.579.2.462 Unknown [id number] 2.16.8 40.1.233427.3.579.2.462 Unknown [id number] 2.16.8 40.1.049314.3.579.2.462 Unknown [id number] 2.16.8 40.1.065630.3.579.2.462 Social History Date Type Detail Facility Start: 08-07-2019 End: 06-09-2025 [facility] Comment on above: no smoke exposure Start: 1950 Sex Assigned At Male A [facility] Sexual Orientation [facility] ospital [facility] Start: 09-09-2019 Sex Male (finding) [facility] Start: 11-11-2020 Tobacco Use Tobacco Use [facility] Sex Male [facility] Medical Equipment Procedure Code Equipment Code Equipment Origin al Text Equipment Identifier Dates Insertion, spinal cord stimulator, permanent CONTROLLER FDA Start: 11-16-2020 Insertion, spinal cord stimulator, permanent LEAD KIT 60CM FDA Start: 11-16-2020 Insertion, spinal cord stimulator, permanent LEAD KIT 60CM FDA Start: 11-16-2020 Insertion, spinal cord stimulator, permanent CORRECTION OFFICER REFORMATORY FDA Start: 11-16-2020 Insertion, spinal cord stimulator, permanent STIMULATOR/ BATTERY FDA Start: 11-16-2020 Insertion, spinal cord stimulator, permanent external neurostimulator FDA Start: 11-16-2020 Insertion, spinal cord stimulator, permanent CONTROLLER FDA Start: 11-16-2020 Insertion, spinal cord stimulator, permanent LEAD KIT 60CM FDA Start: 11-16-2020 Insertion, spinal cord stimulator, permanent LEAD KIT 60CM FDA Start: 11-16-2020 Insertion, spinal cord stimulator, permanent CORRECTION OFFICER REFORMATORY FDA Start: 11-16-2020 Insertion, spinal cord stimulator, permanent STIMULATOR/ BATTERY FDA Start: 11-16-2020 Insertion, spinal cord stimulator, permanent external neurostimulator FDA Start: 11-16-2020 Insertion, spinal cord stimulator, permanent CONTROLLER FDA Start: 11-16-2020 Insertion, spinal cord stimulator, permanent LEAD KIT 60CM FDA Start: 11-16-2020 Insertion, spinal cord stimulator, permanent LEAD KIT 60CM FDA Start: 11-16-2020 Insertion, spinal cord stimulator, permanent CORRECTION OFFICER REFORMATORY FDA Start: 11-16-2020 Insertion, spinal cord stimulator, permanent STIMULATOR/ BATTERY FDA Start: 11-16-2020 Insertion, spinal cord stimulator, permanent external neurostimulator FDA Start: 11-16-2020 Insertion, spinal cord stimulator, permanent CONTROLLER FDA Start: 11-16-2020 Insertion, spinal cord stimulator, permanent LEAD KIT 60CM FDA Start: 11-16-2020 Insertion, spinal cord stimulator, permanent LEAD KIT 60CM FDA Start: 11-16-2020 Insertion, spinal cord stimulator, permanent CORRECTION OFFICER REFORMATORY FDA Start: 11-16-2020 Insertion, spinal cord stimulator, permanent STIMULATOR/ BATTERY FDA Start: 11-16-2020 Insertion, spinal cord stimulator, permanent external neurostimulator FDA Start: 11-16-2020 Insertion, spinal cord stimulator, permanent CONTROLLER FDA Start: 11-16-2020 Insertion, spinal cord stimulator, permanent LEAD KIT 60CM FDA Start: 11-16-2020 Insertion, spinal cord stimulator, permanent LEAD KIT 60CM FDA Start: 11-16-2020 Insertion, spinal cord stimulator, permanent CORRECTION OFFICER REFORMATORY FDA Start: 11-16-2020 Insertion, spinal cord stimulator, permanent STIMULATOR/ BATTERY FDA Start: 11-16-2020 Insertion, spinal cord stimulator, permanent external neurostimulator FDA Start: 11-16-2020 Insertion, spinal cord stimulator, permanent CONTROLLER FDA Start: 11-16-2020 Insertion, spinal cord stimulator, permanent LEAD KIT 60CM FDA Start: 11-16-2020 Insertion, spinal cord stimulator, permanent LEAD KIT 60CM FDA Start: 11-16-2020 Insertion, spinal cord stimulator, permanent CORRECTION OFFICER REFORMATORY FDA Start: 11-16-2020 Insertion, spinal cord stimulator, permanent STIMULATOR/ BATTERY FDA Start: 11-16-2020 Insertion, spinal cord stimulator, permanent external neurostimulator FDA Start: 11-16-2020 Fusion, spine, lumbar, 360 degree, starting in supine position transitioning to prone [id number] CAGE FDA Start: 06-23-2025 Fusion, spine, lumbar, 360 degree, starting in supine position transitioning to prone 7x50MM LADLE LINER SCREWS FDA Start: 06-23-2025 Fusion, spine, lumbar, 360 degree, starting in supine position transitioning to prone BONE,60CC CRUSH CANC FDA Start: 06-23-2025 Fusion, spine, lumbar, 360 degree, starting in supine position transitioning to prone BOWTIE SCREW FDA Start: 06-23-2025 Fusion, spine, lumbar, 360 degree, starting in supine position transitioning to prone PUTTY, 5CC STD DBX FDA Start: 06-23-2025 Fusion, spine, lumbar, 360 degree, starting in supine position transitioning to prone SET SCREWS FDA Start: 06-23-2025 Fusion, spine, lumbar, 360 degree, starting in supine position transitioning to prone SET SCREWS FDA Start: 06-23-2025 Fusion, spine, lumbar, 360 degree, starting in supine position transitioning to prone SET SCREWS FDA Start: 06-23-2025 Fusion, spine, lumbar, 360 degree, starting in supine position transitioning to prone SET SCREWS FDA Start: 06-23-2025 Fusion, spine, lumbar, 360 degree, starting in supine position transitioning to prone SET SCREWS FDA Start: 06-23-2025 Fusion, spine, lumbar, 360 degree, starting in supine position transitioning to prone SET SCREWS FDA Start: 06-23-2025 Fusion, spine, lumbar, 360 degree, starting in supine position transitioning to prone [id number] COUGAR LS CAGE FDA Start: 06-23-2025 Fusion, spine, lumbar, 360 degree, starting in supine position transitioning to prone WASHER FDA Start: 06-23-2025 Fusion, spine, lumbar, 360 degree, starting in supine position transitioning to prone Ligation clip, metallic ()[id number] FDA Start: 06-23-2025 Fusion, spine, lumbar, 360 degree, starting in supine position transitioning to prone Gelatin haemostatic agent [id number] FDA Start: 06-23-2025 Fusion, spine, lumbar, 360 degree, starting in supine position transitioning to prone 65MM LADLE LINER RODS FDA Start: 06-23-2025 Fusion, spine, lumbar, 360 degree, starting in supine position transitioning to prone 65MM LADLE LINER RODS FDA Start: 06-23-2025 Fusion, spine, lumbar, 360 degree, starting in supine position transitioning to prone 7X45MM LADLE LINER SCREWS FDA Start: 06-23-2025 Fusion, spine, lumbar, 360 degree, starting in supine position transitioning to prone 7X45MM LADLE LINER SCREWS FDA Start: 06-23-2025 Fusion, spine, lumbar, 360 degree, starting in supine position transitioning to prone 7x50MM LADLE LINER SCREWS FDA Start: 06-23-2025 Fusion, spine, lumbar, 360 degree, starting in supine position transitioning to prone 7x50MM LADLE LINER SCREWS FDA Start: 06-23-2025 Fusion, spine, lumbar, 360 degree, starting in supine position transitioning to prone 7x50MM LADLE LINER SCREWS FDA Start: 06-23-2025 Fusion, spine, lumbar, 360 degree, starting in supine position transitioning to prone [id number] CAGE FDA Start: 06-23-2025 Fusion, spine, lumbar, 360 degree, starting in supine position transitioning to prone 7x50MM LADLE LINER SCREWS FDA Start: 06-23-2025 Fusion, spine, lumbar, 360 degree, starting in supine position transitioning to prone BONE,60CC CRUSH CANC FDA Start: 06-23-2025 Fusion, spine, lumbar, 360 degree, starting in supine position transitioning to prone BOWTIE SCREW FDA Start: 06-23-2025 Fusion, spine, lumbar, 360 degree, starting in supine position transitioning to prone PUTTY, 5CC STD DBX FDA Start: 06-23-2025 Fusion, spine, lumbar, 360 degree, starting in supine position transitioning to prone SET SCREWS FDA Start: 06-23-2025 Fusion, spine, lumbar, 360 degree, starting in supine position transitioning to prone SET SCREWS FDA Start: 06-23-2025 Fusion, spine, lumbar, 360 degree, starting in supine position transitioning to prone SET SCREWS FDA Start: 06-23-2025 Fusion, spine, lumbar, 360 degree, starting in supine position transitioning to prone SET SCREWS FDA Start: 06-23-2025 Fusion, spine, lumbar, 360 degree, starting in supine position transitioning to prone SET SCREWS FDA Start: 06-23-2025 Fusion, spine, lumbar, 360 degree, starting in supine position transitioning to prone SET SCREWS FDA Start: 06-23-2025 Fusion, spine, lumbar, 360 degree, starting in supine position transitioning to prone [id number] COUGAR LS CAGE FDA Start: 06-23-2025 Fusion, spine, lumbar, 360 degree, starting in supine position transitioning to prone WASHER FDA Start: 06-23-2025 Fusion, spine, lumbar, 360 degree, starting in supine position transitioning to prone 65MM LADLE LINER RODS FDA Start: 06-23-2025 Fusion, spine, lumbar, 360 degree, starting in supine position transitioning to prone 65MM LADLE LINER RODS FDA Start: 06-23-2025 Fusion, spine, lumbar, 360 degree, starting in supine position transitioning to prone 7X45MM LADLE LINER SCREWS FDA Start: 06-23-2025 Fusion, spine, lumbar, 360 degree, starting in supine position transitioning to prone 7X45MM LADLE LINER SCREWS FDA Start: 06-23-2025 Fusion, spine, lumbar, 360 degree, starting in supine position transitioning to prone 7x50MM LADLE LINER SCREWS FDA Start: 06-23-2025 Fusion, spine, lumbar, 360 degree, starting in supine position transitioning to prone 7x50MM LADLE LINER SCREWS FDA Start: 06-23-2025 Fusion, spine, lumbar, 360 degree, starting in supine position transitioning to prone 7x50MM LADLE LINER SCREWS FDA Start: 06-23-2025 FDA Start: 08-28-2018 FDA Start: 08-28-2018 FDA [...] 08-28-2018 FDA Start: 08-28-2018 FDA Start: 08-28-2018 Goals Date Patient Goal Desired Activity /State Functional Status Date Assessment Result Facility 06-24-2025 Functional status Ambulates [facility] Work Phone: 11-22-2024 [facility] Status Date Assessment Result Facility 06-24-2025 Cognitive function Level Of Cons ciousness Awake;Alert;Appropriate;Follow s Commands [facility] Work Phone: 06-24-2025 Cognitive function Appropriate;Cooperativ e [facility] Work Phone: 06-23-2025 Cognitive function Arousable To Voice/Nam e [facility] Work Phone: 11-22-2024 Mental Status [facility] x [facility] Clinical Notes 11-22-2024 to 07-08-2025 Note Date & Type Note Facility 07-08-2025 Progress note [facility] 07-08-2025 Radiology Diagnostic study note [facility] Imaging Services [address] [place] [address] Lumbar Spine 2 or 3 Views MR#: [id number] Acct: [id number] Name: RUI RIOS Rep #: [id number] : 1950 M 75 From: Gerardo Salazar MD PCP: JOSE StrattonC Status: DEP A MB Study:Lumbar Spine 2 or 3 Views Date of Exam: 07/08/25 Exam# [id number] Ordering Dr: Pop Kumar PROCEDURE: LUMBAR SPINE 2 OR 3 VIEWS 07/08/2025 REASON FOR EXAM: S/P LUMBAR FUSION TECHNIQUE: Procedure Code: RADSPLL Modality: DX Procedure: LUMBAR SPINE 2 OR 3 VIEWS COMPARISON: 06/24/2025. FINDINGS: No evidence acute fracture or dislocation. L4 through S1 posterior fusion with L4-5 discectomies. Moderate degenerative changes of the non fused levels. Spinal stimulator is present. Normal alignment. RAD/Lumbar Spine 2 or 3 Views IMPRESSION: Intact postsurgical changes. Spondylosis. Reading Location: [id number] CC: CERTIFIED ORTHOTIST-C Lucila Brito; NADEGE Echeverria ~ Dough Puncher: Signed [facility] 06-24-2025 Discharge summary [facility] 06-24-2025 Progress note [facility] 06-24-2025 Progress note Note Date/Time June 24, 2025 12:04pm [facility] Medical Records Department [address] [facility] [place] [address] Progress Note - Orthopedic 06/24/25 1200 MR#: [id number] Acct: [id number] Name: RUI RIOS Rep #:[id number] : 1950 75 From: Nikki LIGHT PCP: Lucila Brito, CERTIFIED ORTHOTIST-C Status:ADM I N Location: [place] [address] Subjective Subjective Postop day 1 L4-S1 fusion. Patient was seen at the bedside today. Patient is doing well postoperatively with his pain well-managed. Says that he has passed gas. PT/OT cleared. Patient does say that he wishes to potentially stay an extra day as he feels like he would be more comfortable here. Seen with Dr. Villa. Objective Data Objective Data Vital Signs: Vital Signs Temp Pulse Resp BP Pulse Ox O2 Del Method O2 Flow Rate 98.7 F 81 14 121/73 H 96 Room Air 4 06/24/25 07:40 06/24/25 07:49 06/24/25 07:40 06/24/25 07:40 06/24/25 07:40 06/24/25 07:40 06/23/25 15:00 Oxygen Flow Rate (L/min) 4 Oxygen Delivery Method Room Air Weight: 209 lb 7 oz Body Mass Index (BMI) 32.8 Intake & Output: Intake and Output for Last 24 Hours 06/22/25 06/23/25 06/24/25 23:59 23:59 23:59 Intake Total 2076.25 / 2076.25 110 / 110 Output Total 1850 / 1850 Balance 226.25 / 226.25 110 / 110 Lab / Micro Data 06/24/25 04:25 06/24/25 04:25 Labs: Laboratory Results - last 24 hr 06/23/25 06:13: POC Glucose 134 H 06/24/25 04:25: WBC 15.7 H, RBC 4.88, Hgb 14.9, Hct 43.1, MCV 88.3, MCH 30.5, MCHC 34.6, RDW Std Deviation 41.5, RDW Coeff of Nichol 12.8, Plt Count 241, MPV 9.3, Immature Gran % (Auto) 0.500, Neut % (Auto) 80.6 H, Lymph % (Auto) 9.2 L, Doddridge % (Auto) 9.5, Eos % (Auto) 0.1, Baso % (Auto) 0.1, Absolute Neuts (auto) 12.7 H, Absolute Lymphs (auto) 1.44, Nucleated RBC % 0, Sodium 135, Potassium 5.0, Chloride 101, Carbon Dioxide 19.3 L, Anion Gap 15, BUN 14, Creatinine 1.23 H, Estim Creat Clear Calc 57.00, Est GFR (MDRD) Non-Af 61, BUN/Creatinine Ratio 11.5, Glucose 134 H, Calcium 7.9 Micro: Microbiology 06/10/25 08:03 Swab (Method) Nasal Screen MRSA/MSSA - Final Radiography Diagnostic Testing: Radiology Impression C-Arm Fluoroscopy 06/23/25 07:34 IMPRESSION: Intraoperative fluoroscopy was performed for lumbar fusion/fixation. 20 fluoroscopic images were also obtained. Reading Location: [place] [address] Lumbar Spine X-Ray 06/23/25 07:34 IMPRESSION: Intraoperative fluoroscopy was performed for lumbar fusion/fixation. 20 fluoroscopic images were also obtained. Reading Location: [place] [address] Lumbar Spine X-Ray 06/24/25 04:40 IMPRESSION: Diffuse spondylosis. Unremarkable low lumbar fusion metallic hardware. Reading Location: [place] [address] Physical Exam Narrative Neurological examination of the lower extremity shows 5X5 power. Normal sensation across all dermatomes. Physical examination of the back and belly shows Tegaderm and gauze CDI. Const alert, oriented x3 and no apparent distress Assessment & Plan Assessment/Plan (1) Status post lumbar spinal fusion: PLAN: Plan Postop day 1 L4-S1 fusion. Patient is doing well postoperatively with pain well-controlled. PT/OT cleared. Obtained reviewed x-rays today which show hardware and bone graft in good position. Reviewed and educated on the use of the incentive spirometer. Reviewed back precautions of no bending, lifting, twisting. Patient says that he would be more comfortable to stay here next today however explained to the patient that he does more for himself at home and it helps to limit any sort of hospital-acquired illnesses. Patient understands, unsure if the patient will except discharge today or not however we will put in a discharge for today. Home-going meds include oxycodone, acetaminophen, meloxicam, methocarbamol, senna. OARRS reviewed. He will follow-up in the clinic in 2 weeks. Patient is in agreement. 06/24/25 1204 <Electronically signed by Nikki LIGHT> Cosigner Signature (if applicable): CC: ~ Signed [facility] Work Phone: 1(760) 632-871309-09-2025 Discharge summary Author Nikki Kumar [facility] Note Date/Time June 24, 2025 3:14pm [facility] Medical Records Department [address] [place] [address] Instructions for Home/Discharge Instructions 06/24/25 1149 MR#: [id number] Acct: [id number] Name: RUI RIOS Rep #:[id number] : 1950 75 From: Nikki LIGHT PCP: Lucila Brito CERTIFIED ORTHOTIST-C Status:ADM I N Discharge Instructions DC O2, CPAP, BIPAP needs Home O2 Discharge instructions: No Follow Up Care Test Results: Test results from this visit will be discussed in further detail at your follow- up appointment, if applicable. Discharge Plan Admission Admit Date/Time: 06/23/25 13:51 Attending Provider: Francisco Villa Primary Care Provider: Lucila Birto NP Consulting Providers: Jerrell Mendez; Saravanan Wheat Instructions Patient Instructions: Lumbar Fusion Dc Additional Instructions / Restrictions: Keep Tegaderm and gauze clean and dry. If Tegaderm is intact, okay to shower. After 5 days remove Tegaderm and gauze and cover with a Band-Aid. Replace Band-Aid daily thereafter. No bending lifting or twisting. Follow-up in clinic in 2weeks. Discharge Orders/Prescriptions Prescriptions: New acetaminophen 500 mg Tablet 1,000 mg PO Q8 Qty: 30 0RF methocarbamol 500 mg Tablet 750 mg PO TID PRN (Reason: pain/spasms) Qty: 60 0RF oxycodone 5 mg Tablet 2.5 - 5 mg PO Q6H PRN (Reason: pain) 7 Days Qty: 28 0RF sennosides-docusate sodium [Stimulant Laxative Plus] 8.6-50 mg Tablet 2 tab PO BID PRN (Reason: constipation) Qty: 14 0RF meloxicam 15 mg tablet 15 mg PO DAILY Qty: 30 0RF Continued metoprolol succinate 25 mg tablet extended release 24 hr 25 mg PO QDAY losartan 50 MG tablet 50 mg PO DAILY simvastatin 40 MG tablet 40 mg PO QHS nifedipine 60 MG tablet 60 mg PO DAILY diphenhydramine HCl 25 MG capsule 25 mg PO DAILY PRN (Reason: Allergies) levothyroxine 112 MCG tablet 112 mcg PO DAILY psyllium husk 0.52 GM capsule 0.52 g PO DAILY omega-3 fatty acids-fish oil 1 EACH capsule 1 ea PO DAILY loratadine 10 MG capsule 10 mg PO PRN PRN (Reason: Allergies) omeprazole 20 mg tablet,delayed release (DR/EC) 20 mg PO DAILY PRN (Reason: GERD) Held aspirin 81 MG tablet 81 mg PO DAILY@0800 Hold Instructions: Resume on 06/26/25. Discontinued ibuprofen [IBU] 600 mg tablet 600 mg PO Q8H PRN (Reason: pain) Referrals / Follow Up: Lucila Brito NP, CERTIFIED ORTHOTIST-C [Primary Care Provider] - Disposition Disposition (needs filled in before D/C Order can be placed): Home, Self Care 06/24/25 1149<Electronically signed by Nikki LIGHT>Nikki LIGHT CC: CERTIFIED ORTHOTIST-C Lucila Brito; Dr. Jerrell Mendez DO; Dr. Saravanan Wheat MD ~ Signed [facility] Work Phone: 1(814) 840-519009-09-2025 Progress note Author Saravanan Wheat [facility] Note Date/Time June 24, 2025 2:09pm [facility] Medical Records Department [address] [place] [address] Progress Note - Hospitalist 06/24/25 1035 MR#: [id number] Acct: [id number] Name: RUI RIOS Rep #:[id number] : 1950 75 From: Saravanan Duff PCP: JOSE StrattonC Status:ADM I N Location: [place] [address] Objective Data Objective Data Vital Signs: Vital Signs Temp Pulse Resp BP Pulse Ox O2 Del Method O2 Flow Rate 98.7 F 81 14 121/73 H 96 Room Air 4 06/24/25 07:40 06/24/25 07:49 06/24/25 07:40 06/24/25 07:40 06/24/25 07:40 06/24/25 07:40 06/23/25 15:00 Oxygen Flow Rate (L/min) 4 Oxygen Delivery Method Room Air Weight: 209 lb 7 oz Body Mass Index (BMI) 32.8 Intake & Output: Intake and Output for Last 24 Hours 06/22/25 06/23/25 06/24/25 23:59 23:59 23:59 Intake Total 2076.25 / 2076.25 110 / 110 Output Total 1850 / 1850 Balance 226.25 / 226.25 110 / 110 Lab / Micro Data 06/24/25 04:25 06/24/25 04:25 Labs: Laboratory Results - last 24 hr 06/23/25 06:13: POC Glucose 134 H 06/24/25 04:25: WBC 15.7 H, RBC 4.88, Hgb 14.9, Hct 43.1, MCV 88.3, MCH 30.5, MCHC 34.6, RDW Std Deviation 41.5, RDW Coeff of Nichol 12.8, Plt Count 241, MPV 9.3, Immature Gran % (Auto) 0.500, Neut % (Auto) 80.6 H, Lymph % (Auto) 9.2 L, Doddridge % (Auto) 9.5, Eos % (Auto) 0.1, Baso % (Auto) 0.1, Absolute Neuts (auto) 12.7 H, Absolute Lymphs (auto) 1.44, Nucleated RBC % 0, Sodium 135, Potassium 5.0, Chloride 101, Carbon Dioxide 19.3 L, Anion Gap 15, BUN 14, Creatinine 1.23 H, Estim Creat Clear Calc 57.00, Est GFR (MDRD) Non-Af 61, BUN/Creatinine Ratio 11.5, Glucose 134 H, Calcium 7.9 Micro: Microbiology 06/10/25 08:03 Swab (Method) Nasal Screen MRSA/MSSA - Final Radiography Diagnostic Testing: Radiology Impression C-Arm Fluoroscopy 06/23/25 07:34 IMPRESSION: Intraoperative fluoroscopy was performed for lumbar fusion/fixation. 20 fluoroscopic images were also obtained. Reading Location: [facility] Lumbar Spine X-Ray 06/23/25 07:34 IMPRESSION: Intraoperative fluoroscopy was performed for lumbar fusion/fixation. 20 fluoroscopic images were also obtained. Reading Location: [facility] Lumbar Spine X-Ray 06/24/25 04:40 IMPRESSION: Diffuse spondylosis. Unremarkable low lumbar fusion metallic hardware. Reading Location: [place] [address] Physical Exam Narrative Surgical dressing noted over incision site on low back. No tenderness to palpation noted. Assessment & Plan Assessment/Plan (1) Lumbar stenosis with neurogenic claudication: PLAN: Plan Patient is a 75-year-old male who presented to [facility] on 06/23/2025 for planned lumbar fusion procedure. Medicine consulted postoperatively for medical management. 1. L5-S1 spondylolisthesis, L4-S1 disc degeneration with stenosis, neurogenic claudication ? Orthopedic surgery primary. S/p L4-5 oblique lumbar interbody fusion procedure on 06/23/[address] Villa and Dr. Kenyon. Tolerated procedure well. Postoperative pain control, DVT prophylaxis and further management per orthopedics. PT/OT/case management consulted. 06/24 labs shows mild leukocytosis probably inflammatory. Patient not having any fever or chills or systemic signs of infection. BMP shows potassium 5.0, creatinine 1.23 glucose 134. Patient is hemodynamically stable to be discharged. Advised to monitor potassium as an outpatient in 1 to 2 weeks as patient is on losartan and meloxicam. 2. Hypertension ? Normotensive postoperatively. Will resume home Toprol, losartan and nifedipine with hold parameters in place. 3. Hyperlipidemia ? Continue home simvastatin. 4. Hypothyroidism ? Continue home Synthroid. 5. Class I obesity ? BMI 32 KG per square meter on admit. Complicates hospital course and care. Patient is medically stable for discharge. Charges/Coding Visit Charges Inpatient E&M: 64134 Subs Hosp L2 06/24/25 5360 <Electronically signed by Saravanan Wheat MD> Cosigner Signature (if applicable): CC: ~ Signed [facility] Work Phone: 1(696) 427-717109-09-2025 Progress note [facility] Medical Records Department [address] [place] [address] Progress Note - Orthopedic 06/24/25 1200 MR#: [id number] Acct: [id number] Name: RUI RIOS Rep #:[id number] : 1950 75 From: Nikki LIGHT PCP: Lucila Brito, CERTIFIED ORTHOTIST-C Status:ADM I N Location: [facility] [id number] Subjective Subjective Postop day 1 L4-S1 fusion. Patient was seen at the bedside today. Patient is doing well postoperatively with his pain well-managed. Says that he has passed gas. PT/OT cleared. Patient does say that he wishes to potentially stay an extra day as he feels like he would be more comfortable here. Seen with Dr. Villa. Objective Data Objective Data Vital Signs: Vital Signs Temp Pulse Resp BP Pulse Ox O2 Del Method O2 Flow Rate 98.7 F 81 14 121/73 H 96 Room Air 4 06/24/25 07:40 06/24/25 07:49 06/24/25 07:40 06/24/25 07:40 06/24/25 07:40 06/24/25 07:40 06/23/25 15:00 Oxygen Flow Rate (L/min) 4 Oxygen Delivery Method Room Air Weight: 209 lb 7 oz Body Mass Index (BMI) 32.8 Intake & Output: Intake and Output for Last 24 Hours 06/22/25 06/23/25 06/24/25 23:59 23:59 23:59 Intake Total 2075.25 / 2075.25 110 / 110 Output Total 1850 / 1850 Balance 226.25 / 226.25 110 / 110 Lab / Micro Data 06/24/25 04:25 06/24/25 04:25 Labs: Laboratory Results - last 24 hr 06/23/25 06:13: POC Glucose 134 H 06/24/25 04:25: WBC 15.7 H, RBC 4.88, Hgb 14.9, Hct 43.1, MCV 88.3, MCH 30.5, MCHC 34.6, RDW Std Deviation 41.5, RDW Coeff of Nichol 12.8, Plt Count 241, MPV 9.3, Immature Gran % (Auto) 0.500, Neut % (Auto) 80.6 H, Lymph % (Auto) 9.2 L, Doddridge % (Auto) 9.5, Eos % (Auto) 0.1, Baso % (Auto) 0.1, Absolute Neuts (auto) 12.7 H, Absolute Lymphs (auto) 1.44, Nucleated RBC % 0, Sodium 135, Potassium 5.0, Chloride 101, Carbon Dioxide 19.3 L, Anion Gap 15, BUN 14, Creatinine 1.23 H, Estim Creat Clear Calc 57.00, Est GFR (MDRD) Non-Af 61, BUN/Creatinine Ratio 11.5, Glucose 134 H, Calcium 7.9 Micro: Microbiology 06/10/25 08:03 Swab (Method) Nasal Screen MRSA/MSSA - Final Radiography Diagnostic Testing: Radiology Impression C-Arm Fluoroscopy 06/23/25 07:34 IMPRESSION: Intraoperative fluoroscopy was performed for lumbar fusion/fixation. 20 fluoroscopic images were also obtained. Reading Location: [place] [address] Lumbar Spine X-Ray 06/23/25 07:34 IMPRESSION: Intraoperative fluoroscopy was performed for lumbar fusion/fixation. 20 fluoroscopic images were also obtained. Reading Location: [place] [address] Lumbar Spine X-Ray 06/24/25 04:40 IMPRESSION: Diffuse spondylosis. Unremarkable low lumbar fusion metallic hardware. Reading Location: [place] [address] Physical Exam Narrative Neurological examination of the lower extremity shows 5X5 power. Normal sensation across all dermatomes. Physical examination of the back and belly shows Tegaderm and gauze CDI. Const alert, oriented x3 and no apparent distress Assessment & Plan Assessment/Plan (1) Status post lumbar spinal fusion: PLAN: Plan Postop day 1 L4-S1 fusion. Patient is doing well postoperatively with pain well-controlled. PT/OT cleared. Obtained reviewed x-rays today which show hardware and bone graft in good position. Reviewed and educated on the use of the incentive spirometer. Reviewed back precautions of no bending, lifting, twisting. Patient says that he would be more comfortable to stay here next today however explained to the patient that he does more for himself at home and it helps to limit any sort of hospital-acquired illnesses. Patient understands, unsure if the patient will except discharge today or not however we will put in a discharge for today. Home-going meds include oxycodone, acetaminophen, meloxicam, methocarbamol, senna. OARRS reviewed. He will follow-up in the clinic in 2 weeks. Patient is in agreement. 06/24/25 1204 Cosigner Signature (if applicable): CC: ~ Signed [facility]09-09-2025 Radiology Diagnostic study note [facility] Imaging Services [address] [place], [place] [address] Lumbar Spine 2 or 3 Views MR#: [id number] Acct: [id number] Name: RUI RIOS Rep #: [id number] : 1950 M 75 From: Olayinka Lindo MD PCP: WOOD Stratton Status: ADM I N Study:Lumbar Spine 2 or 3 Views Date of Exam: 06/24/25 Exam# [id number] Ordering Dr: Pop Kumar PROCEDURE: LUMBAR SPINE 2 OR 3 VIEWS 06/24/2025 REASON FOR EXAM: S/P LUMBAR FUSION TECHNIQUE: Procedure Code: RADSPLL Modality: DX Procedure: LUMBAR SPINE 2 OR 3 VIEWS COMPARISON: MRI on 03/14/2025. FINDINGS: Unremarkable lower lumbar fusion metallic hardware at L4-L5 and L5-S1 levels. Unremarkable spinal stimulator. There are diffuse spondylotic changes. Findings are demonstrated to by diffuse disc space narrowing, osteophyte formation and degenerative endplate sclerosis. There is diffuse facet joint arthropathy with secondary bilateral neural foramina narrowing. No fracture or dislocation is seen. No aggressive lytic or blastic bony lesion is noted. RAD/Lumbar Spine 2 or 3 Views IMPRESSION: Diffuse spondylosis. Unremarkable low lumbar fusion metallic hardware. Reading Location: [facility] [employer] CC: CERTIFIED ORTHOTISTDhruv Brito; NADEGE Echeverria ~ Dough Puncher: Signed [facility]09-08-2025 Consult note Author Jerrell Mendez [facility] Note Date/Time June 23, 2025 7:48pm [facility] Medical Records Department [address] [place] [address] Consultation - Hospitalist 06/23/25 1608 MR#: [id number] Acct: [id number] Name: RUI RIOS Rep #:[id number] : 1950 75 From: Jerrell carl DO PCP: Lucila Brito, CERTIFIED ORTHOTIST-C Status:ADM I N Location: [place] [address] Assessment & Plan Assessment/Plan (1) Lumbar stenosis with neurogenic claudication: PLAN: Plan Patient is a 75-year-old male who presented to [facility] on 06/23/2025 for planned lumbar fusion procedure. Medicine consulted postoperatively for medical management. 1. L5-S1 spondylolisthesis, L4-S1 disc degeneration with stenosis, neurogenic claudication ? Orthopedic surgery primary. S/p L4-5 oblique lumbar interbody fusion procedure with Dr. Villa and Dr. Kenyon. Tolerated procedure well. Postoperative pain control, DVT prophylaxis and further management per orthopedics. PT/OT/case management consulted. Follow-up a.m. labs. 2. Hypertension ? Normotensive postoperatively. Will resume home Toprol, losartan and nifedipine with hold parameters in place. 3. Hyperlipidemia ? Continue home simvastatin. 4. Hypothyroidism ? Continue home Synthroid. 5. Class I obesity ? BMI 32 on admit. Complicates hospital course and care. Total clinical time spent by myself addressing the patient's medical issues, reviewing all the data, and collaborating with patient's care team: 36 minutes. HPI Consult Data Date of Consult: 06/23/25 HPI Narrative Reason for Consultation: Postoperative medical management HPI Narrative: RUI RIOS, is a 75 M who presented to [facility] on 06/23/2025 for planned orthopedic procedure. Medicine consulted postoperatively for medical management. Patient had L4-5 oblique lumbar interbody fusion procedure done with Dr. Villa this afternoon. Dr. Kenyon assisted him with the procedure. Patient tolerated procedure well. I saw the patient at bedside earlier this evening. Patient was sitting in the bedside chair comfortably, conversing normally and in no acute distress. Denied any low back pain or discomfort currently and stated that he felt better now than he had prior to surgery. He denied any other acute concerns at this time. [facility] Medical History Wears glasses Wears dentures Arthritis Restless legs Back pain Gastric reflux Former smoker History of pain when walking Cardiology follow-up encounter History of echocardiogram History of stress test Spinal cord stimulator status Hypothyroid Hypocholesterolemia Hypertension Home Medications ?Medication ?Instructions ?Recorded ?Last Taken ?Type aspirin 81 mg tablet,delayed 81 mg PO DAILY@0800 [facility] 11/11/20 06/19/25 History release diphenhydramine HCl 25 mg capsule 25 mg PO DAILY PRN A llergies 11/11/20 06/22/25 History levothyroxine 112 mcg tablet 112 mcg PO DAILY THYROID 11/11/20 06/23/25 History loratadine 10 mg capsule 10 mg PO PRN PRN Allergies 0 11/11/20 06/22/25 History losartan 50 mg tablet 50 mg PO DAILY BP 11/11/20 0 06/23/25 History nifedipine 60 mg tablet,extended 60 mg PO DAILY BP 06/23/25 History release 24 hr omega-3 fatty acids-fish oil 300 1 ea PO DAILY SUPPLEM ENT 11/11/20 06/22/25 History mg-1,000 mg capsule psyllium husk 0.52 gram capsule 0.52 g PO DAILY BOWELS 11/11/20 06/21/25 History simvastatin 40 mg tablet 40 mg PO QHS CHOLESTEROL 06/22/25 History metoprolol succinate 25 mg 25 mg PO QDAY BP 02/20/25 0 06/23/25 History tablet,extended release 24 hr ibuprofen 600 mg tablet (IBU) 600 mg PO Q8H PRN pain 0 06/09/25 Unknown History omeprazole 20 mg tablet,delayed 20 mg PO DAILY PRN GUANAKO D 06/09/25 06/23/25 History release Allergy/AdvReac Type Severity Reaction Status Date / Time mold Allergy Severe Watery eyes Verified 06/23/25 06:05 Family History Mother No problems noted. Father No problems noted. Surgical History Hx of colonoscopy History of excision of pilonidal cyst Hx of elbow surgery History of left hip replacement H/O hernia repair Social History Smoking Status: Former smoker ROS Constitutional Constitutional: Denies chills, fatigue, fever(s) or weakness Cardiovascular Cardiovascular: Denies chest pain Respiratory/Chest Respiratory/Chest: Denies shortness of breath at rest Gastrointestinal Gastrointestinal: Denies abdominal pain Musculoskeletal Musculoskeletal: Denies arthralgias, back pain or myalgias Physical Exam Const alert, oriented x3, no apparent distress, healthy appearing and well nourished Constitutional Narrative: Pleasant elderly male, class I obesity, sitting back comfortably in bedside chair, conversing normally, in no acute distress. General Appearance: cooperative, comfortable, well kempt and well developed HEENT normocephalic, head/scalp atraumatic, hearing grossly normal bilaterally, nasal mucous membranes and turbinates normal and moist oral mucous membranes Eyes PERRL, EOMs intact bilaterally and conjunctivae normal Neck full ROM Chest inspection of chest normal Resp normal respiratory effort, normal air movement, no use of accessory muscles and clear to auscultation bilaterally Cardio regular rate, regular rhythm, no murmurs and peripheral pulses 2+ throughout GI normal to inspection, nondistended, normoactive bowel sounds, soft to palpation,non-tender and non-distended Back/Spine Back/Spine Narrative: Surgical dressing noted over incision site on low back. No tenderness to palpation noted. Extremity normal to inspection and no pedal edema Skin no rashes or lesions noted Neuro moves all extremities and no focal motor deficits Psych mental status grossly normal Lab / Micro Data 06/10/25 08:03 06/10/25 08:03 Imaging Radiology Impression C-Arm Fluoroscopy 06/23/25 07:34 IMPRESSION: Intraoperative fluoroscopy was performed for lumbar fusion/fixation. 20 fluoroscopic images were also obtained. Reading Location: [place] [address] Lumbar Spine X-Ray 06/23/25 07:34 IMPRESSION: Intraoperative fluoroscopy was performed for lumbar fusion/fixation. 20 fluoroscopic images were also obtained. Reading Location: [place] [address] Charges/Coding Visit Charges Inpatient E&M: 46216 Subs Hosp L2 06/23/251947 <Electronically signed by Jerrell Mendez DO> Cosigner Signature (if applicable): CC: CERTIFIED ORTHOTIST-Jacki Brito; Dr. Francisco Villa MD~ Signed [facility] Work Phone: 1(539) 731-923409-08-2025 Consult note [facility] Medical Records Department [address] [place] [address] Consultation - Hospitalist 06/23/25 1608 MR#: [id number] Acct: [id number] Name: RUI RIOS Rep #:[id number] : 1950 75 From: Jerrell carl DO PCP: WOOD Stratton Status:ADM I N Location: [place] [address]1 Assessment & Plan Assessment/Plan (1) Lumbar stenosis with neurogenic claudication: PLAN: Plan Patient is a 75-year-old male who presented to [facility] on 06/23/2025 for planned lumbar fusion procedure. Medicine consulted postoperatively for medical management. 1. L5-S1 spondylolisthesis, L4-S1 disc degeneration with stenosis, neurogenic claudication ? Orthopedic surgery primary. S/p L4-5 oblique lumbar interbody fusion procedure with Dr. Allen Kenyon. Tolerated procedure well. Postoperative pain control, DVT prophylaxis and further management per orthopedics. PT/OT/case management consulted. Follow-up a.m. labs. 2. Hypertension ? Normotensive postoperatively. Will resume home Toprol, losartan and nifedipine with hold parameters in place. 3. Hyperlipidemia ? Continue home simvastatin. 4. Hypothyroidism ? Continue home Synthroid. 5. Class I obesity ? BMI 32 on admit. Complicates hospital course and care. Total clinical time spent by myself addressing the patient's medical issues, reviewing all the data, and collaborating with patient's care team: 36 minutes. HPI Consult Data Date of Consult: 06/23/25 HPI Narrative Reason for Consultation: Postoperative medical management HPI Narrative: RUI RIOS, is a 75 M who presented to [facility] on 06/23/2025 for planned orthopedic procedure. Medicine consulted postoperatively for medical management. Patient had L4-5 oblique lumbar interbody fusion procedure done with Dr. Villa this afternoon. Dr. Kenyon assisted him withthe procedure. Patient tolerated procedure well. I saw the patient at bedside earlier this evening.Patient was sitting in the bedside chair comfortably, conversing normally and in no acute distress.Denied any low back pain or discomfort currently and stated that he felt better now than he had prior to surgery. He denied any other acute concerns at this time. [facility] Medical History Wears glasses Wears dentures Arthritis Restless legs Back pain Gastric reflux Former smoker History of pain when walking Cardiology follow-up encounter History of echocardiogram History of stress test Spinal cord stimulator status Hypothyroid Hypocholesterolemia Hypertension Home Medications ?Medication ?Instructions ?Recorded ?Last Taken ?Type aspirin 81 mg tablet,delayed 81 mg PO DAILY@0800 [facility] 11/11/20 06/19/25 History release diphenhydramine HCl 25 mg capsule 25 mg PO DAILY PRN A llergies 11/11/20 06/22/25 History levothyroxine 112 mcg tablet 112 mcg PO DAILY THYROID 11/11/20 06/23/25 History loratadine 10 mg capsule 10 mg PO PRN PRN Allergies 0 11/11/20 06/22/25 History losartan 50 mg tablet 50 mg PO DAILY BP 11/11/20 0 06/23/25 History nifedipine 60 mg tablet,extended 60 mg PO DAILY BP 06/23/25 History release 24 hr omega-3 fatty acids-fish oil 300 1 ea PO DAILY SUPPLEM ENT 11/11/20 06/22/25 History mg-1,000 mg capsule psyllium husk 0.52 gram capsule 0.52 g PO DAILY BOWELS 11/11/20 06/21/25 History simvastatin 40 mg tablet 40 mg PO QHS CHOLESTEROL 06/22/25 History metoprolol succinate 25 mg 25 mg PO QDAY BP 02/20/25 0 06/23/25 History tablet,extended release 24 hr ibuprofen 600 mg tablet (IBU) 600 mg PO Q8H PRN pain 0 06/09/25 Unknown History omeprazole 20 mg tablet,delayed 20 mg PO DAILY PRN GUANAKO D 06/09/25 06/23/25 History release Allergy/AdvReac Type Severity Reaction Status Date / Time mold Allergy Severe Watery eyes Verified 06/23/25 06:05 Family History Mother No problems noted. Father No problems noted. Surgical History Hx of colonoscopy History of excision of pilonidal cyst Hx of elbow surgery History of left hip replacement H/O hernia repair Social History Smoking Status: Former smoker ROS Constitutional Constitutional: Denies chills, fatigue, fever(s) or weakness Cardiovascular Cardiovascular: Denies chest pain Respiratory/Chest Respiratory/Chest: Denies shortness of breath at rest Gastrointestinal Gastrointestinal: Denies abdominal pain Musculoskeletal Musculoskeletal: Denies arthralgias, back pain or myalgias Physical Exam Const alert, oriented x3, no apparent distress, healthy appearing and well nourished Constitutional Narrative: Pleasant elderly male, class I obesity, sitting back comfortably in bedside chair, conversing normally, in no acute distress. General Appearance: cooperative, comfortable, well kempt and well developed HEENT normocephalic, head/scalp atraumatic, hearing grossly normal bilaterally, nasal mucous membranes and turbinates normal and moist oral mucous membranes Eyes PERRL, EOMs intact bilaterally and conjunctivae normal Neck full ROM Chest inspection of chest normal Resp normal respiratory effort, normal air movement, no use of accessory muscles and clear to auscultation bilaterally Cardio regular rate, regular rhythm, no murmurs and peripheral pulses 2+ throughout GI normal to inspection, nondistended, normoactive bowel sounds, soft to palpation,non-tender and non-distended Back/Spine Back/Spine Narrative: Surgical dressing noted over incision site on low back. No tenderness to palpation noted. Extremity normal to inspection and no pedal edema Skin no rashes or lesions noted Neuro moves all extremities and no focal motor deficits Psych mental status grossly normal Lab / Micro Data 06/10/25 08:03 06/10/25 08:03 Imaging Radiology Impression C-Arm Fluoroscopy 06/23/25 07:34 IMPRESSION: Intraoperative fluoroscopy was performed for lumbar fusion/fixation. 20 fluoroscopic images were also obtained. Reading Location: [facility] Lumbar Spine X-Ray 06/23/25 07:34 IMPRESSION: Intraoperative fluoroscopy was performed for lumbar fusion/fixation. 20 fluoroscopic images were also obtained. Reading Location: [facility] Charges/Coding Visit Charges Inpatient E&M: 08384 Subs Hosp L2 06/23/258 Cosigner Signature (if applicable): CC: CERTIFIED ORTHOTIST-C Lucila Brito; Dr. Francisco Villa MD~ Signed [facility]09-08-2025 Consult note Author Jensen Mendozaherberth [facility] Note Date/Time June 23, 2025 2:34pm [facility] Medical Records Department [address] [place] [address] Anesthesia Postop Eval II 06/23/25 1434 MR#: [id number] Acct: [id number] Name: RUI RIOS Rep #:[id number] : 1950 75 From: Jensen Duff PCP: WOOD Stratton Status:ADM I N Y Race: C Location: [place] [address] Anesthesia Postop Eval I Sum Postop Eval Completion status Anesthesia document: Postop Eval 1 completed: Yes Anesthesia Postop Eval I Summary Anesthesia Postop Eval I Summary: Anesthesia Postop Eval I: Assessment Summary Airway patent Yes 06/23/25 13:55 [email or web address] Spontaneous unlabored Yes 06/23/25 13:55 [email or web address] respirations Mental status Awake,Calm 06/23/25 13:55 [email or web address] nausea No 06/23/25 13:55 [email or web address] Vomiting No 06/23/25 13:55 [email or web address] Anesthesia Postop Eval I: Fluid Summary Crystalloid volume administer 2,000 06/23/25 13:55 [email or web address] (ml) Colloids volume administered ( ml) Blood Product volume administered (ml) Total IV fluid infused 2,000 06/23/25 13:55 [email or web address] Anesthesia Postop Eval I: Summary Notes Anesthesia Complication No 06/23/25 13:55 [email or web address] Anesthesia Complication Comment: Post-operative progress note Anesthesia: Postop Eval II Evaluation Mental status: Awake and Calm Pain Level: 1 nausea: No Vomiting: No Complications Anesthesia Complication: No 06/23/25 1434 <Electronically signed by Jensen Zurita MD> Date _ Jensen Zurita MD Cosigner Signature: Date CC: ~ Signed [facility] Work Phone: [phone]) 790-302909-08-2025 Consult note Author Francesca Trinidad [facility] Note Date/Time June 23, 2025 1:55pm [facility] Medical Records Department [address] [place] [address] Anesthesia Postop Eval I 06/23/25 1354 MR#: [id number] Acct: [id number] Name: RUI RIOS Rep #:[id number] : 1950 75 From: Francesca Trinidad CRNA PCP: Lucila Brito CERTIFIED ORTHOTIST-C Status:ADM I N Y Race: C Location: [place] [address] Anesthesia: Postop Eval I Current Vital Signs Temperature: 97 F Pulse Rate: 72 Blood Pressure: 112/73 Respiratory Rate: 18 Pulse Ox: 99 Oxygen Delivery Method: Venturi Mask Oxygen Flow Rate (L/min): 6 Assessment Airway patent: Yes Spontaneous unlabored respirations: Yes Mental status: Awake and Calm nausea: No Vomiting: No Anesthesia Complication: No Fluid Hydration Crystalloid volume administer (ml): 2,000 Total IV fluid infused: 2,000 Progress Note Anesthesia document: Postop Eval 1 completed: Yes 06/23/25 1355 <Electronically signed by Francesca gibbs ETYMOLOGY PROFESSOR> Date _ Francesca Trinidad CRNA Cosigner Signature: Date CC: ~ Signed [facility] Work Phone: 1(497) 905-940709-08-2025 Radiology Diagnostic study note [facility] Imaging Services [address] [place] [address] Lumbar Spine 2 or 3 Views MR#: [id number] Acct: [id number] Name: RUI RIOS Rep #: [id number] : 1950 M 75 From: Lan Vega MD PCP: Lucila Brito NP-Jacki Status: ADM I N Study:Lumbar Spine 2 or 3 Views Date of Exam: 06/23/25 Exam# [id number] Ordering Dr: Katie Villa MD PROCEDURE: LUMBAR SPINE 2 OR 3 VIEWS; O.R. FLUORO FOR C-ARM 06/23/2025 REASON FOR EXAM: 360 LUMBAR FUSION L4-5 L5-S1 TECHNIQUE: Procedure Code: RADSPLL; RADORFL_C_ARM Modality: DX Procedure: LUMBAR SPINE 2 OR3 VIEWS; O.R. FLUORO FOR C-ARM. Fluoroscopy time 170.7 seconds. Dose: 95.73 mGy. COMPARISON: Lumbar MRI of 03/14/2025. RAD/Lumbar Spine 2 or 3 Views IMPRESSION: Intraoperative fluoroscopy was performed for lumbar fusion/fixation. 20 fluoroscopic images were also obtained. Reading Location: [facility] CC: CERTIFIED ORTHOTIST-C Lucila Brito; Dr. Francisco Villa MD ~ Dough Puncher: Signed [facility]09-08-2025 Radiology Diagnostic study note [facility] Imaging Services [address] [address] O.R. Fluoro for C-Arm MR#: [id number] Acct: [id number] Name: RUI RIOS Rep #: [id number] : 1950 M 75 From: Lan Vega MD PCP: JOSE StrattonC Status: ADM I N Study:O.R. Fluoro for C-Arm Date of Exam: 06/23/25 Exam# [id number] Ordering Dr: Katie Villa MD PROCEDURE: LUMBAR SPINE 2 OR 3 VIEWS; O.R. FLUORO FOR C-ARM 06/23/2025 REASON FOR EXAM: 360 LUMBAR FUSION L4-5 L5-S1 TECHNIQUE: Procedure Code: RADSPLL; RADORFL_C_ARM Modality: DX Procedure: LUMBAR SPINE 2 OR3 VIEWS; O.R. FLUORO FOR C-ARM. Fluoroscopy time 170.7 seconds. Dose: 95.73 mGy. COMPARISON: Lumbar MRI of 03/14/2025. RAD/O.R. Fluoro for C-Arm IMPRESSION: Intraoperative fluoroscopy was performed for lumbar fusion/fixation. 20 fluoroscopic images were also obtained. Reading Location: [place] [address] CC: CERTIFIED ORTHOTIST-C Lucila Brito; Dr. Francisco Villa MD ~ Dough Puncher: Signed [facility]09-08-2025 Consult note [facility] Medical Records Department [address] [place] [address] Anesthesia Postop Eval II 06/23/25 1434 MR#: [id number] Acct: [id number] Name: RUI RIOS Rep #:[id number] : 1950 75 From: Jensen Duff PCP: Lucila Brito NP-C Status:ADM I N Y Race: C [facility] Anesthesia Postop Eval I Sum Postop Eval Completion status Anesthesia document: Postop Eval 1 completed: Yes Anesthesia Postop Eval I Summary Anesthesia Postop Eval I Summary: Anesthesia Postop Eval I: Assessment Summary Airway patent Yes 06/23/25 13:55 [email or web address] Spontaneous unlabored Yes 06/23/25 13:55 [email or web address] respirations Mental status Awake,Calm 06/23/25 13:55 [email or web address] nausea No 06/23/25 13:55 [email or web address] Vomiting No 06/23/25 13:55 [email or web address] Anesthesia Postop Eval I: Fluid Summary Crystalloid volume administer 2,000 06/23/25 13:55 [email or web address] (ml) Colloids volume administered ( ml) Blood Product volume administered (ml) Total IV fluid infused 2,000 06/23/25 13:55 [email or web address] Anesthesia Postop Eval I: Summary Notes Anesthesia Complication No 06/23/25 13:55 [email or web address] Anesthesia Complication Comment: Post-operative progress note Anesthesia: Postop Eval II Evaluation Mental status: Awake and Calm Pain Level: 1 nausea: No Vomiting: No Complications Anesthesia Complication: No 06/23/25 1434 MD> Date _ Jensen Zurita MD Cosigner Signature: Date CC: ~ Signed [facility]09-08-2025 Procedure note [facility] Medical Records Department [address] [place] [address] Operative Report 06/23/25 1412 MR#: [id number] Acct: [id number] Name: RUI RIOS Rep #:[id number] : 1950 75 From: Fran Kenyon MD PCP: Lucila Brito, CERTIFIED ORTHOTIST-C Status:ADM I N Location: [facility] A Operative Report (Standard) Operative Information Date of Procedure: 06/23/25 Pre-Operative Diagnosis: L5-S1 spondylolisthesis, L4-S1 disc degeneration with stenosis, neurogenicclaudication Post-Operative Diagnosis: Same Surgery/Procedure Performed: L4-5 oblique lumbar interbody fusion (OLIF), attempted L5-S1 OLIF, minimally invasive left sided approach, lateral decubitus: ? L4-5 anterolateral spinal fusion 31061 ? L4-5 insertion of cage 67123 ? Bone graft aspirate left iliac crest separate incision 49986 ? Allograft cancellous chips seed potato arranger: Yes Hose Tubing Backer: Nikki Kumar Tasks completed by grants and contracts assistant: Opening, Closing, Opening & closing and Retracting Type of Anesthesia: General RN Documented Start/Stop Times: Operation Date: 06/23/25 07:30 Case Time Into Pre-Op 06/23/25 05:48 Out of Pre-Op 06/23/25 07:27 Anesthesia Start 06/23/25 07:30 Into Room 06/23/25 07:30 Procedure Start 06/23/25 08:16 Procedure End 06/23/25 13:27 Anesthesia End 06/23/25 13:42 Out of Room 06/23/25 13:42 Into Recovery 06/23/25 13:46 Procedure Start Time: 08:15 Procedure Stop Time: 10:15 Select all DRAINS/GRAFTS/IMPLANTS that apply: Graft Graft details: Allograft cancellous chips, autologous iliac crest bone marrow aspirate and Implanted device Implanted device details: DePuy cougar lateral lumbar interbodycage?peek Estimated Blood Loss: 100 Specimen collected: No Description of surgery: HPI: Patient is a 75-year-old male with multilevel lumbar degenerative disc disease evaluated by Dr. Villa and felt to be appropriate for oblique lumbar interbody fusion L4-L5 and L5-S1. He is taken now for oblique approach. Vascular surgery services are requested to aid in exposure. In addition tothe oblique approach Dr. Villa will be performing additional procedure from posterior approach. Description of procedure: Upon obtaining informed consent and verification correct patient procedure site the patient taken the operating was placed under general anesthesia. He was then positioned prepped and draped in usual sterile fashion time was performed. Oblique incision was made parallel tothe iliac crest and Bovie used to dissect down through subcutaneous tissue. Hand-held retractors put in position further dissection was carried down the fascia. The fascia was then incised parallel to the external bleak fibers and the muscle split with hand-held retractors move deeper in the wound.The fibers of the internal bleak and transverse abdominis muscle more than similarly split parallelto the fibers and retractors move deeper into the wound. Once the retroperitoneum was entered bluntdissection was utilized to mobilize the abdominal contents off the anterior and lateral abdominal wall down to the psoasmuscle. Once this was visualized the Syn frame self-retaining retractor was putin position and blades placed to visualize the psoas muscle. Combination of Bovie and blunt dissection was then used to dissect free the psoas muscle mobilizing laterally exposing the L4-L5 disc space. This was then marked and dissection carried distally toward the L5- S1 disc space of note the left common iliac artery was highly calcified circumferentially and very immobile with significant surrounding inflammatory response. Efforts were made to mobilize the artery both along its lateral edge and retracted medially as well as along its medial edge and retracted laterally to expose the disc space from below the bifurcation. Given the lack of mobility in the iliac artery we are unable to safely mobilize the iliac vein which was directly overlying the space and despite multiple efforts for multiple approaches we felt that further progress would not be safe to undertake. Dr. Villa plan to approach from posterior with discectomy and implant of this disc space so we turned our attention backto theL4-L5 disc space. At this point Dr. Villa performed the discectomy and implant placement which she will describe in further detail. Once this was completed the retroperitoneum was inspected for hemostasis and the retractors removed sequentially. The iliac artery was then visualized and was free of evidence of any injury. Once the abdominal contents were returned to their normal position thesuperficial surgical field was irrigated with saline and the musculature wasclosed individually with running 1 Vicryl. The subcutaneous wound was then irrigated with saline and closed with 3- 0 Vicryl, 4-0 Monocryl. Dry sterile dressing was then applied and the patient was then repositioned for posterior approach which will be dictated independently by Dr. Villa. Surgical Findings: see above Complications Complications: No 06/23/25 1423 Cosigner Signature (if applicable): CC: WOOD Brito; Dr. Francisco Villa MD; Dr. Fran Kenyon MD~ Signed [facility]09-08-2025 Procedure note [facility] Medical Records Department [address] [place] [address] Operative Report 06/23/25 1350 MR#: [id number] Acct: [id number] Name: RUI RIOS Rep #:[id number] : 1950 75 From: Francisco Villa MD PCP: Lucila Granada, CERTIFIED ORTHOTIST-C Status:ADM I N Location: [facility] A-1 Procedures Musculoskeletal 20xxx-29xxx: Other Procedure See Report Operative Report (Standard) Operative Information Date of Procedure: 06/23/25 Pre-Operative Diagnosis: L5-S1 spondylolisthesis, L4-S1 disc degeneration with stenosis, neurogenicclaudication Post-Operative Diagnosis: Same Surgery/Procedure Performed: L5-S1 TLIF, L4-S1 posterior spine instrumented fusion seed potato arranger: Yes Hose Tubing Backer: Nikki Kumar Tasks completed by grants and contracts assistant: Closing, Implanting device, Hemostasis: Electrocautery and Retracting Type of Anesthesia: General RN Documented Start/Stop Times: Operation Date: 06/23/25 07:30 Case Time Into Pre-Op 06/23/25 05:48 Out of Pre-Op 06/23/25 07:27 Anesthesia Start 06/23/25 07:30 Into Room 06/23/25 07:30 Procedure Start 06/23/25 08:16 Procedure End 06/23/25 13:27 Anesthesia End 06/23/25 13:42 Out of Room 06/23/25 13:42 Procedure Start Time: 08:16 Procedure Stop Time: 13:27 Select all DRAINS/GRAFTS/IMPLANTS that apply: Graft Graft details: Allograft cancellous chips and Implanted device Implanted device details: DePuy Xpac TLIF cage, Viper prime pedicle screw instrumentation Estimated Blood Loss: 100 cc Specimen collected: No Description of surgery: Preoperative diagnosis: L5-S1 spondylolisthesis, L4-S1 disc degeneration with stenosis, neurogenic claudication Postoperative diagnosis: Same Name of procedure: L5-S1 transforaminal lumbar interbody fusion (TLIF), minimally invasive right side approach, L4-S1 percutaneous pedicle screw instrumentation. . L5-S1 posterior spinal fusion and interbody fusion 55404 ? L4-S1 posterior pedicle screw instrumentation 42320 . L5-S1 insertion of cage 50926 . L4-5 posterior fusion 47319 . Local autograft . Cancellous allograft with DBX Attending Surgeon: Dr. Francisco Villa Estimated blood loss: 100 mL Anesthesia: GA Complications: None Implants: DePuy Synthes X-PAC TLIF cage, Viper prime screws Description of procedure: After the anterior procedure was complete, the patientwas then turned supine. The patient was then transferred to Mello table in prone position. The back was prepped and draped in usual fashion. IV antibiotic was given as preoperative antibiotic. A final timeout was then again done just before starting the procedure. C-arm AP view was then taken. C-arm was positioned in a way that L4 was centralized and superior endplate of L4 and was parallel to the beam. Spinous process was centered between the pedicles. Midline was marked with skin marker and lateral borders of the pedicles were also marked. Skin marker was also utilized to carlitos transversely across the middle of the pedicles at L4. 2 transverse paramedian incisions of 1 inch were placed. The fascia was incised vertically. Finger dissection was utilized to palpate the transverse process and facet joint. Viper Prime screws with towers were inserted and docked onto the transverse processes. This was then slowly moved medially to reach the superior articular process of L4. This was then confirmed on C-arm and then a mallet was utilized to drive the trocar into the pedicle going up to the medial wall of the pedicle on AP view. This was performed both sides. C-arm lateral view confirmed that the tip of the trocar was in the vertebral body, and the screw was advanced into the pedicle and vertebral body. Screw sizes were 7 x 50 mm at L4 on both sides. L5 superior endplate was then squared on the AP view, and a skin marking was made along the L5 pedicles. 2 vertical incisions about 1 inch Extending below this line were taken about 1/2 inch lateral to the pedicle line. The fascia was also incised vertically approximately the same length. Finger dissection was utilized to palpate the superior articular process and facet joint of L5-S1 on the right side. Sequential tubes were docked on the L5-S1 right facet joint and 70 mm length and 18 mm diameter tubular retractor was then placed and was attached to the arm attached to the OR table. Muscle tissue was removed with pituitaries and hemostasis was achieved with Bovie. Right inferior articular process of L5 and superior articular process of S1 were exposed with Bovie. Osteotome was utilized to remove a portion of the inferior articular process to expose the articular surface of S1. Some of this resected bone was used as autograft. [place] was then utilized to remove the rest of the inferior articular process and part of the lamina of L5. Superior articular process of S1 was resected with the help of a bur such that the cut was flush with the superior border of S1 pedicle. The traversing nerve root was identified and carefully retracted to expose the disc. Hemostasis was achieved with bipolar cautery. Blunt spreaders were utilized to enter the disc space under C-arm visualization. Pituitary was used to remove disc material. Curettes of various sizes and angulations were utilized to remove as much of the disc material as possible. End plates were curetted to remove all cartilage. Angled curettes were used to remove disc material from the other side underneath the central annulus. Coolstuff X-PAC trials were inserted into position and checked under C- arm lateral view. The disc space was then filled with cancellous bone chips mixed with DBX which were then impacted with the trials. An 10 x 25 mm lordotic tall X-PAC cage filled with bone graft was then inserted into the disc space under x-ray control. Care was taken to make sure the cage was inserted deeper to the posterior longitudinal ligament. The expandable cage was then expanded to up to approximately 13 mm anterior height with approximately 15 degrees lordosis. The cage was found to be well fixed and not easily removable. AP and lateral views showed good positioning of the cage. Depuy Viper Prime screw tower was docked onto the transverse processes at L5. This was then slowly moved medially to reach the superior articular process of L5. This was then confirmed on C-arm and then a mallet was utilized to drive the trocar and screw into the pedicle going up to the medial wall of the pedicle on AP view. This was performed both sides. C-arm lateral view confirmed both trocars to be inside vertebral body. The screws were advanced. Similar procedure was done at S1 both sides. Cannulated pedicle screws (Depuy Viper) sizes were 7 x 50 mm bilaterally at L5 and 7 x 45 at S1 levels bilaterally. The lateral view showed good positioning of the screws and cage. 65 mm precontoured titanium 5.5 mm lordotic abel on both sides was then passed through the screw extensions and reduced down to the screws with the help of Depuy Viper Prime instrumentation system. AP and lateral views of the C-arm showed good positioning of the screws and cage. Final tightening with the torque screwdriver was then completed. Zakia was utilized to decorticate the left L4-5, L5-S1 facet joint and bone graft was placed over this. Hemostasis was achieved with the help of Bovie and FloSeal. Closure was done in layers with 0 Vicryls for the fascia, 2-0 Vicryls for the subcutaneous tissue, and Monocryl for the skin. Dressings were applied covered with Tegaderm. The patient was then turned supine onto a hospital bed. The patient was extubated and taken to PACU in stable condition. The patient tolerated the procedure well and no complications occurred. Coolstuff X-PAC cage & Viper Prime minimally invasive pedicle screw instrumentation system was utilized in this case. No dural tear was identified in this case. I was present for the entirety of the case and performed the surgery myself. Flute Polisher Nikki Kumar PA-C. My physician bacteriology research assistant was a vital part of this case. They were important in appropriate retraction during the case, and protection of soft tissues during the procedure.Their intimate knowledge of thecase and my steps aided in safe and expedient completion of the procedure as well as appropriate position of the patient during the surgery. They were also vital in assisting with closure under my direct supervision. Surgical Findings: See operative note Complications Complications: No 06/23/25 1357 Cosigner Signature (if applicable): CC: WOOD Brito; Dr. Francisco Villa MD~ Signed [facility]09-08-2025 Consult note [facility] Medical Records Department [address] [place] [address] Anesthesia Postop Eval I 06/23/25 1354 MR#: [id number] Acct: [id number] Name: RUI RIOS Rep #:[id number] : 1950 75 From: Francesca Trinidad CRNA PCP: WOOD Stratton Status:ADM I N Y Race: C Location: [place] [address] Anesthesia: Postop Eval I Current Vital Signs Temperature: 97 F Pulse Rate: 72 Blood Pressure: 112/73 Respiratory Rate: 18 Pulse Ox: 99 Oxygen Delivery Method: Venturi Mask Oxygen Flow Rate (L/min): 6 Assessment Airway patent: Yes Spontaneous unlabored respirations: Yes Mental status: Awake and Calm nausea: No Vomiting: No Anesthesia Complication: No Fluid Hydration Crystalloid volume administer (ml): 2,000 Total IV fluid infused: 2,000 Progress Note Anesthesia document: Postop Eval 1 completed: Yes 06/23/25 1355 c ETYMOLOGY PROFESSOR> Date _ Francesca Trinidad ETYMOLOGY PROFESSOR Cosigner Signature: Date CC: ~ Signed [facility]09-08-2025 Procedure note [facility] Medical Records Department [address] [place] [address] Operative Report 06/23/25 1345 MR#: [id number] Acct: [id number] Name: RUI RIOS Rep #:[id number] : 1950 75 From: Francisco Villa MD PCP: Lucila Brito, CERTIFIED ORTHOTIST-C Status:ADM I N Location: [facility] AC-TB A-1 Procedures Musculoskeletal 20xxx-29xxx: Other Procedure See Report Operative Report (Standard) Operative Information Date of Procedure: 06/23/25 Pre-Operative Diagnosis: L5-S1 spondylolisthesis, L4-S1 disc degeneration with stenosis, neurogenicclaudication Post-Operative Diagnosis: Same Surgery/Procedure Performed: L4-5 oblique lumbar interbody fusion seed potato arranger: Yes Hose Tubing Backer: Fran Kenyon Tasks completed by grants and contracts assistant: Opening & closing, Dissecting tissue, Hemostasis: Electrocautery, Retracting and Other ([id number] surgery- access) Additional bacteriology research assistant?: Yes Additional Flute Polisher #2: Nikki Kumar Tasks completed by bacteriology research assistant #2: Closing, Removing tissue, Hemostasis: Electrocautery and Retracting Type of Anesthesia: General RN Documented Start/Stop Times: Operation Date: 06/23/25 07:30 Case Time Into Pre-Op 06/23/25 05:48 Out of Pre-Op 06/23/25 07:27 Anesthesia Start 06/23/25 07:30 Into Room 06/23/25 07:30 Procedure Start 06/23/25 08:16 Procedure End 06/23/25 13:27 Anesthesia End 06/23/25 13:42 Out of Room 06/23/25 13:42 Procedure Start Time: 08:16 Procedure Stop Time: 13:27 Select all DRAINS/GRAFTS/IMPLANTS that apply: Graft Graft details: Allograft cancellous chips, autologous iliac crest bone marrow aspirate and Implanted device Implanted device details: DePuy cougar lateral lumbar interbodycage?peek Estimated Blood Loss: 100 cc Specimen collected: No Description of surgery: Preoperative diagnosis: L5-S1 spondylolisthesis, L4-5 disc degeneration, stenosis with neurogenic claudication Postoperative diagnosis: Same Name of procedures L4-5 oblique lumbar interbody fusion (OLIF), attempted L5-S1 OLIF, minimally invasive left sided approach, lateral decubitus: ? L4-5 anterolateral spinal fusion ? L4-5 insertion of cage ? Bone graft aspirate left iliac crest separate incision ? Allograft cancellous chips Attending Surgeon: Dr. Francisco Villa Co-surgeon: Dr. Fran Kenyon Estimated blood loss: 100 mL Anesthesia: General Complications: None Indications: Patient is a 75-year-old pleasant gentleman who has had a long history of low back pain and right worse than left lower extremity radiation, difficulty walking distances. Xrays & MRI revealed L5-S1 spondylolisthesis, L4- S1 disc degeneration with severe stenosis. After undergoing a prolonged period of nonoperative treatment, the patient elected to undergo surgical decompression & fusion. All surgical options were discussed with the patient including anterior and posterior approaches. All risks and benefits associated with the procedure were explained to the patient. The risks include but are not limited to infection, bleeding, injury to nerves and vessels including major vessels like IVC and aorta, persistent paresthesia, persistent pain, dural tear, need for further procedures, adjacent segment degeneration, pseudoarthrosis, hardware failure, retrograde ejaculation, paralytic ileus, etc. Procedure: The patient was identified in the preoperative holding suite using Unique patient identifiers. Skin was marked, consent was reviewed, and all questions were answered. The patient was then brought back to the operative room. A surgical timeout was performed to make sure correct procedure was being done on the correct patient and all operative room staff were on the same page. General endotracheal anesthesia was then given to the patient. Petit catheter was inserted. The patient was then carefully positioned in right lateral decubitus position with the left side up on a regular OR table. Axillary roll was placed and all bony prominences were well- padded. Hip positioners were placed in the posterior buttocks and anterior sternal area. The surgical area was prepped and draped in usual fashion. Preoperative antibiotic was injected IV as preoperative antibiotic. A final timeout was then again done just before starting the procedure. A 2 inch incision oblique was taken in the left lower quadrant of the abdomen 2 fingerbreadths away from the iliac crest and the lower ribs. Sharp dissection with Bovie was carried out up to the fascia covering the external oblique. The external oblique, internal oblique and transversus abdominis muscles were split along the muscle fibers and retroperitoneal space was entered. Sponge sticks were utilized to move the bowel and peritoneum [id number]-tic-way and psoas muscle was exposed staying within the retroperitoneal plane. BiggerBoatframe retractor system was positioned and the retractor blade was applied onto the psoas. The interval between psoas and midline structures was developed and appropriate retractors were placed. Once adequate interval was cleared, a disc space was identified and a marker x-ray was taken. This identified the L4-5 disc level. The prepsoas interval was then traced inferiorly. There was significant calcification within the left common iliac artery and this was not retractable. There was significant adhesions between the left common iliac veinand the L5-S1 disc. After significant careful dissection, decision was made to not perform the anterolateral fusion at L5-S1 due to lack of access from the difficult vascular anatomy. Details of this approach are in Dr. Kenyon's note. A decision was made to perform a TLIF instead and L5-S1 in the posterior surgery. Annulotomy was done with a long handled knife at L4-5. Pituitary was used to remove disc material. Curettes were used to prepare the endplates. Disc space spreaders were utilized to distract and increase the disc height. Near complete discectomy was performed. Trials of serially increasing sizes were used. A Jamshidi needle was used to aspirate bone marrow from the left anterior iliac crest through a separate incision and this aspirate was mixed with the allograft bone chips. A Depuy [place] cage of size of the 18 x 50 x 12 mm with 15degrees lordosis was packed with corticocancellous allograft bone chips mixed with bone marrow aspirate. This was inserted into the L4-5 disc space. Smaller disc distractors were also used to bluntly perform a contralateral annulotomy. Some bone chips were also packed around the cages. Screw with washer was placed into the lower L4 body with a washer partially covering the cage at L4-5. Hemostasis was confirmed. The retractor blades were removed. Closure was done in layers with a continuous strand of # 1 Vicryl in all muscle layers. 2-0 Vicryl was used for subcutaneous tissue and 4-0 for Monocryl for the skin. Steri-Strips were applied and 4 x 4 gauze and Tegaderm were applied. Flute Polisher Nikki Kumar PA-C. My physician bacteriology research assistant was a vital part of this case. They were important in appropriate retraction during the case, and protection of soft tissues during the procedure.Their intimate knowledge of thecase and my steps aided in safe and expedient completion of the procedure as well as appropriate position of the patient during the surgery. They were also vital in assisting with closure under my direct supervision. Surgical Findings: See operative note Complications Complications: No 06/23/25 1350 Cosigner Signature (if applicable): CC: WOOD Brito; Dr. Francisco Villa MD~ Signed [facility]09-08-2025 History and physical note Author [facility] Note Date/Time June 23, 2025 7:21am [facility] Medical Records Department [address] [place] [address] History & Physical Exam 06/23/25 0721 MR#: [id number] Acct: [id number] Name: RUI RIOS Rep #:[id number] : 1950 75 From: Francisco Villa MD PCP: WOOD Stratton Status:ADM I N Location: [facility] AC-TB A-1 History and Physical Date of Admission: 06/23/25 MR#: [id number] Acct: [id number] Name: RUI RIOS Rep #: [id number] : 1950 Provider: Dr. Francisco Villa MD Age/Sex: 75/M Location: [facility] Status: Signed Intake Vital Signs 03/20/2508:26 06/17/2509:49 Height 5 ft 7 in 5 ft 7 in Weight: 208 lb 210 lb BMI 32.5 32.8 Intake Visit Reasons: lumbar spine Chief Complaint: Lumbar spine pre op Accompanied by: Is patient in pain?: Yes Pain scale (1-10): 5 Allergies mold Allergy (Severe, Verified 06/17/25 09:52) Watery eyes Medications ?Medication ?Instructions ?Recorded ?Confirmed ?Type aspirin 81 mg tablet,delayed 81 mg PO DAILY@0800 [facility] 1 06/17/25 History release diphenhydramine HCl 25 mg capsule 25 mg PO DAILY PRN Allergies 11/11/20 History levothyroxine 112 mcg tablet 112 mcg PO DAILY THYROID 11/11/20 History loratadine 10 mg capsule 10 mg PO PRN PRN Allergies 11/11/2012/10 History losartan 50 mg tablet 50 mg PO DAILY BP 11/11/20 06/17/25 Hist ory nifedipine 60 mg tablet,extended 60 mg PO DAILY BP 11/11/20 06/17/25 Hist ory release 24 hr omega-3 fatty acids-fish oil 300 1 ea PO DAILY SUPPLEMENT 11/11/20 History mg-1,000 mg capsule psyllium husk 0.52 gram capsule 0.52 g PO DAILY BOWELS 11/11/20 06/17/25 History simvastatin 40 mg tablet 40 mg PO QHS CHOLESTEROL 11/11/20 History metoprolol succinate 25 mg 25 mg PO QDAY BP 02/20/25 06/17/25 Histo ry tablet,extended release 24 hr ibuprofen 600 mg tablet (IBU) 600 mg PO Q8H PRN pain 06/09/25 06/17/25 History omeprazole 20 mg tablet,delayed 20 mg PO DAILY PRN GERD 06/09/25 5 History release Have you fallen in the [...] Francisco Villa MD 06/17/25 0821. Part of today?s visit was documented by Thom Jeffers MA, [...] significantly with the use of a spinal cordstimulator placed in 2020. The patient has a [...] a history of hernia repair performed in 1956, which has not caused any subsequent issues. [...] the encounter. Provider reviewed content of the generatednote prior to signature. Ortho Exam General General: Yes no acute distress Neurologic: Yes alert and Yes oriented x3 Psychologic: Yes reasonable and appropriate Spine SPINE TESTING CERVICAL THORACIC LUMBAR Musculoskeletal Strength 0=absent - 5=normal Details: Neurological exam of the lower extremities shows 5x5 power. Normal sensations across all dermatomes. No hyperreflexia. No midline tenderness, mild right paraspinal tenderness. There is a small soft bulge on the right paraspinal region from the stimulator placement. Coding Level of Care Code Off vis,est,level 4 Diagnoses Lumbar stenosis with neurogenic claudication M48.062 Degenerative disc disease (DDD) of lumbar region with discogenic back pain and leg pain M51.362 Pars defect with spondylolisthesis M43.10 Time Spent (min) 35 Assessment and Plan Assessment and Plan (1) Lumbar stenosis with neurogenic claudication: Status: Acute (2) Degenerative disc disease (DDD) of lumbar region with discogenic back pain and leg pain: Status: Acute (3) Pars defect with spondylolisthesis: Status: Acute Plan Again reviewed prior xrays show a spondylolisthesis with probable pars defect atL5 on S1. There is some mild instability seen on dynamic views. There is a disc height loss seen throughout the lumbar spine. There is also mild dextroscoliosis. There is a spinal cord stimulator. Reviewed MRI from 03/14/25 which showed L2-3: Disc bulging, facet arthropathy, and ligamentum flavum hypertrophy resulting in mild to moderate central stenosis. Moderate bilateral neural foraminal stenosis. L4-5: Disc bulging and facet arthropathy resulting inminimal central stenosis. Severe right and moderate left neural foraminal stenosis. L5-S1: Grade 1 anterolisthesis, disc bulging, and facet arthropathy resulting in severe bilateral neural foraminal stenosis. 1. Lumbar radiculopathy - The patient is scheduled for spinal surgery to address persistent right-sided symptoms. - The plan includes avoiding steroids six weeks prior to surgery and ensuring mobility post-surgery to aid recovery. 2. Spinal cord stimulator - The stimulator has been effective for left-sided symptoms. - It should be turned off before surgery and can be turned back on post- operatively. - Avoid taking steroids within six weeks of surgery. - Turn off the spinal cord stimulator before surgery and turn it back on after the procedure. - Engage in walking and mobility exercises as soon as possible after surgery to aid recovery. Discussed this procedure in detail and explained the risks, benefits and alternatives. The risks of surgery include but are not limited to infection, bleeding, injury to nerves or vessels, need for further surgery, ileus, vascularinjury, visceral injury, DVT, pulmonary embolism, pneumonia, atelectasis, cardiopulmonary event, pseudoarthrosis, hardware failure, gait abnormality, adjacent segment degeneration. Discussed post-surgery restrictions in detail such as no bending, lifting, or twisting. Answered all questions to the patient?s satisfaction. Patient understands and agrees to proceed with surgery. Consent was signed.Follow up two weeks post operatively or sooner if pain, swelling, numbness or associated symptoms, or concerns develop. All questions answered. Patient in agreement of plan. 06/23/25 0721 <Electronically signed by Francisco Villa MD> Cosigner Signature (if applicable): CC: WOOD Brito; Dr. Francisco Villa MD~ Signed [facility] Work Phone: 1(841) 734-800209-08-2025 Consult note Author Jensen Zurita [facility] Note Date/Time June 23, 2025 6:51am [facility] Medical Records Department [address] [place] [id number] Pre-Anesthesia Evaluation 06/23/25 0638 MR#: [id number] Acct: [id number] Name: RUI RIOS Rep #:[id number] : 1950 75 From: Jensen Duff PCP: WOOD Stratton Status:ADM I N Y Race: C Location: [place] [address] ASA Classification* ASA Classification ASA Classification: 3 Assessment & Plan Anesthesia* Anesthesia Assessment Anesthesia Assessment: Discussed sedation and/or anesthesia options, risks, benefits, and alternatives with patient/parents/legal guardian/POA. Questions invited. The patient/parents/legal guardian/POA seems to understand and agrees to proceedwith anesthesia plan. Reviewed the physical assessment, medical history, allergy history and patient home medications list prior to surgery/procedure/anesthetic and documented any changes. Performed airway and anesthesia risk assessments. Anesthesia Type Anesthesia Type: General History Source History Obtained from:: Patient and Chart Anesthesia Focused Assessment* Temperature: 97.4 F Pulse Rate: 77 Blood Pressure: 131/73 Respiratory Rate: 16 Pulse Ox: 98 Oxygen Delivery Method: Room Air Airway Assessment Mouth opens: >3 cm Mallampati Score: II Teeth Condition: Dentures (Edentulous) Neck Range of motion (ROM): Limited ROM Labs Anesthesia Preop lab: CBC WBC 6.8 K/mm3 (4.4-11.0) 06/10/25 08:03 06/10/25 RBC 5.76 M/mm3 (4.6-6.2) 06/10/25 08:03 06/10/25 Hgb 17.6 g/dL (13.0-16.5) H 06/10/25 08:03 5 Hct 51.0 % (40-54) 06/10/25 08:03 06/10/25 Plt Count 246 K/mm3 (150-450) 06/10/25 08:03 06/10/25 CHEMISTRY Potassium 4.8 mmol/L (3.3-5.1) 06/10/25 08:03 06/10/25 Sodium 138 mmol/L (133-145) 06/10/25 08:03 06/10/25 Magnesium 2.2 mg/dL (1.5-2.2) 06/10/25 08:03 06/10/25 BUN 17 mg/dL (4-19) 06/10/25 08:03 06/10/25 Creatinine 1.12 mg/dL (0.70-1.20) 06/10/25 08:03 06/10/25 Glucose 102 mg/dL (70-99) H 06/10/25 08:03 06/10/25 TSH 3.840 uIU/mL (0.300-4.200) 06/10/25 08:03 05/17 04/09 COAG Pre-Assessment Diagnosis/Proposed Procedure Planned Operative Procedure(s): 360 LUMBAR FUSION L4-5 L5-S1 Anesthesia History Anesthesia History - strip cutter: Anesthesia History - strip cutter Hx Hospitalization No 06/09/25 08:56 Any Problems With Anesthesia No 06/09/25 08:56 Cholinesterase deficiency No 06/09/25 08:56 You/Your Family Experience No 06/09/25 08:56 fever (hyperthermia) with Relationship Recent Exposure to Contagious No 06/23/25 06:18 Disease Does patient have nerve Yes: SHUT OFF FOR OR 06/09/25 08:56 stimulator Patient instructed to have device shut off --Does patient have Pacemaker No 06/23/25 06:18 or ICD? When Was Last Pacemaker Check QUESTION #4 FULL TEXT: You/Your Family Experience fever (hyperthermia) with Anesthesia Last Oral Intake Last Oral intake: Last Oral Intake NPO since 03:30 06/23/25 06:18 Meds taken in AM with sips of Yes 06/23/25 06:18 water? Meds patient instructed to take am of surgery PONV PONV - strip cutter: PONV - strip cutter Female No 06/09/25 08:56 HX of Motion Sickness No 06/09/25 08:56 HX of N/V After Surgery No 06/09/25 08:56 Non-Smoker Yes 06/09/25 08:56 Duration of Surgery greater Yes 06/09/25 08:56 than 60 minutes Number of Risk Factors 2 06/09/25 08:56 PONV Score Moderate Risk 06/09/25 08:56 Height & Weight Height & Weight: Anesthesia: Height & Weight Height 5 ft 7 in 06/23/25 06:18 Weight: 95 kg 06/23/25 06:18 Body Mass Index (BMI) 32.8 06/23/25 06:18 Respiratory Assessment Respiratory Assessment - strip cutter: Respiratory Tract Infection Hx - strip cutter Hx Respiratory Tract Infection No 06/09/25 08:56 STOP Sleep Apnea STOP Sleep Apnea - strip cutter: STOP Sleep Apnea - strip cutter Hx Hypertension Yes: CONTROLLED WITH MEDS 06/09/25 [...] Tobacco Use History Tobacco Use History - strip cutter: Tobacco Use History - strip cutter Tobacco Use Smoking Status Former smoker 06/09/25 08:56 Hx Tobacco Use No 06/09/25 08:56 Years Smoking Packs Smoked per Day Smoking Cessation Date was No - quit smoking greater 06/09/25 08:56 within the last 15 years than 15 years ago Hx Smoking Cessation Date 10/16/06 06/09/25 08:56 Hx Smoking Cessation No 06/09/25 08:56 Counseling Hematologic Medial History Hematologic Hx - strip cutter: Hematologic Medical Hx - documentation specialist Hx of Blood Transfusion No 06/09/25 08:56 Hx of Transfusion in last 3 No 06/09/25 08:56 Months Date of Last Transfusion (if within last 3 months) Ever experience any problems No 06/09/25 08:56 with transfusion(s)? 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 confused, unrespo /Reproduction History /Reproductive History - strip cutter: /Reproductive Hx- strip cutter Hx Now No 06/09/25 08:56 Gestational Age (in weeks): EDC: Hx Hx Para Hx Section SAB No 06/09/25 08:56 Active Medications Active Medications: Current Medications Generic Name Dose Route Start Last Admin Trade Name Freq PRN Reason Stop Dose Admin Acetaminophen 1,000 mg 06/23/25 07:30 06/23/25 06:26 Acetaminophen 500 Mg Tablet PO 06/23/25 07:31 1,000 mg PREOP ONE Administration Cefazolin Sodium 2 gm/ Sodium 110 mls @ 150 mls/hr 06/23/25 07:30 Chloride IV 06/23/25 08:13 INTRAOP ONE Tranexamic Acid 1,000 mg/ 110 mls @ 440 mls/hr 06/23/25 07:30 Sodium Chloride IV 06/23/25 07:44 INTRAOP ONE Tranexamic Acid 1,000 mg/ 110 mls @ 440 mls/hr 06/23/25 07:30 Sodium Chloride IV 06/23/25 07:44 INTRAOP ONE Magnesium Sulfate 1 gm/ 102 mls @ 408 mls/hr 06/23/25 07:30 06/23/25 06:07 Dextrose IV 06/23/25 07:44 408 mls/hr PREOP ONE Administration Lactated Ringer's 1,000 mls @ 15 mls/hr 06/23/25 06:00 06/23/25 06:07 IV 15 mls/hr .Q48H ALENA Administration Insulin Human Lispro 1 - 6 unit 06/23/25 07:30 Insulin Lispro 100 Unit/Ml Insuln.Pen SC 06/23/25 18:00 Q4H PRN PRN BG>/= 180, SEE PROTOCOL [facility] History Wears glasses Wears dentures Arthritis Restless legs Back pain Gastric reflux Former smoker History of pain when walking Cardiology follow-up encounter History of echocardiogram History of stress test Spinal cord stimulator status Hypothyroid Hypocholesterolemia Hypertension Home Medications ?Medication ?Instructions ?Recorded ?Last Taken ?Type aspirin 81 mg tablet,delayed 81 mg PO DAILY@0800 HEART HEALTH 11/11/20 06/19/25 History release diphenhydramine HCl 25 mg capsule 25 mg PO DAILY PRN A llergies 11/11/20 06/22/25 History levothyroxine 112 mcg tablet 112 mcg PO DAILY THYROID 11/11/20 06/23/25 History loratadine 10 mg capsule 10 mg PO PRN PRN Allergies 0 11/11/20 06/22/25 History losartan 50 mg tablet 50 mg PO DAILY BP 11/11/20 0 06/23/25 History nifedipine 60 mg tablet,extended 60 mg PO DAILY BP 06/23/25 History release 24 hr omega-3 fatty acids-fish oil 300 1 ea PO DAILY SUPPLEM ENT 11/11/20 06/22/25 History mg-1,000 mg capsule psyllium husk 0.52 gram capsule 0.52 g PO DAILY BOWELS 11/11/20 06/21/25 History simvastatin 40 mg tablet 40 mg PO QHS CHOLESTEROL 06/22/25 History metoprolol succinate 25 mg 25 mg PO QDAY BP 02/20/25 0 06/23/25 History tablet,extended release 24 hr ibuprofen 600 mg tablet (IBU) 600 mg PO Q8H PRN pain 0 06/09/25 Unknown History omeprazole 20 mg tablet,delayed 20 mg PO DAILY PRN GUANAKO D 06/09/25 06/23/25 History release Allergy/AdvReac Type Severity Reaction Status Date / Time mold Allergy Severe Watery eyes Verified 06/23/25 06:05 Family History Mother No problems noted. Father No problems noted. Surgical History Hx of colonoscopy History of excision of pilonidal cyst Hx of elbow surgery History of left hip replacement H/O hernia repair Social History Smoking Status: Former smoker Review of Systems (Anesthesia) ROS Narrative System reviewed and no additional complaints, except as documented. 06/23/25650 <Electronically signed by Jensen Zurita MD> Date _ Jensen Zurita MD Cosigner Signature: Date CC: ~ Signed [facility] Work Phone: 1(845) 425-855409-08-2025 History and physical note [facility] Medical Records Department [address] [place] [address] History & Physical Exam 06/23/25 0721 MR#: [id number] Acct: [id number] Name: RUI RIOS GHASSAN Rep #:[id number] : 1950 75 From: Francisco Villa MD PCP: Lucila Brito, CERTIFIED ORTHOTIST-C Status:ADM I N Location: [facility] A-1 History and Physical Date of Admission: 06/23/25 MR#: [id number] Acct: [id number] Name: RUI RIOS Rep #: [id number] : 1950 Provider: Dr. Francisco Villa MD Age/Sex: 75/M Location: [facility] Status: Signed Intake Vital Signs 03/20/2508:26 06/17/2509:49 Height 5 ft 7 in 5 ft 7 in Weight: 208 lb 210 lb BMI 32.5 32.8 Intake Visit Reasons: lumbar spine Chief Complaint: Lumbar spine pre op Accompanied by: Is patient in pain?: Yes Pain scale (1-10): 5 Allergies mold Allergy (Severe, Verified 06/17/25 09:52) Watery eyes Medications ?Medication ?Instructions ?Recorded ?Confirmed ?Type aspirin 81 mg tablet,delayed 81 mg PO DAILY@0800 HEART HEALTH 1 06/17/25 History release diphenhydramine HCl 25 mg capsule 25 mg PO DAILY PRN Allergies 11/11/20 History levothyroxine 112 mcg tablet 112 mcg PO DAILY THYROID 11/11/20 History loratadine 10 mg capsule 10 mg PO PRN PRN Allergies 11/11/2012/10 History losartan 50 mg tablet 50 mg PO DAILY BP 11/11/20 06/17/25 Hist ory nifedipine 60 mg tablet,extended 60 mg PO DAILY BP 11/11/20 06/17/25 Hist ory release 24 hr omega-3 fatty acids-fish oil 300 1 ea PO DAILY SUPPLEMENT 11/11/20 History mg-1,000 mg capsule psyllium husk 0.52 gram capsule 0.52 g PO DAILY BOWELS 11/11/20 06/17/25 History simvastatin 40 mg tablet 40 mg PO QHS CHOLESTEROL 11/11/20 History metoprolol succinate 25 mg 25 mg PO QDAY BP 02/20/25 06/17/25 Histo ry tablet,extended release 24 hr ibuprofen 600 mg tablet (IBU) 600 mg PO Q8H PRN pain 06/09/25 06/17/25 History omeprazole 20 mg tablet,delayed 20 mg PO DAILY PRN GERD 06/09/25 5 History release Have you fallen in the [...] Francisco Villa MD 06/17/25 0821. Part of today?s visit was documented by Thom Jeffers MA, acting as scribe. RUI RIOS is a 75 year old M here today for lumbar spine pre op. Patient states that his painis a 5 today. He would like to [...] pain radiating from the spine down to thefoot. The left side was previously affected but has improved significantly with the use of a spinal cordstimulator placed in 2020. The patient has a [...] a history of hernia repair performed in 1956, which has not caused any subsequent issues. [...] the encounter. Provider reviewed content of the generatednote prior to signature. Ortho Exam General General: Yes no acute distress Neurologic: Yes alert and Yes oriented x3 Psychologic: Yes reasonable and appropriate Spine SPINE TESTING CERVICAL THORACIC LUMBAR Musculoskeletal Strength 0=absent - 5=normal Details: Neurological exam of the lower extremities shows 5x5 power. Normal sensations across all dermatomes. No hyperreflexia. No midline tenderness, mild right paraspinal tenderness. There is a small soft bulge on the right paraspinal region from the stimulator placement. Coding Level of Care Code Off vis,est,level 4 Diagnoses Lumbar stenosis with neurogenic claudication M48.062 Degenerative disc disease (DDD) of lumbar region with discogenic back pain and leg pain M51.362 Pars defect with spondylolisthesis M43.10 Time Spent (min) 35 Assessment and Plan Assessment and Plan (1) Lumbar stenosis with neurogenic claudication: Status: Acute (2) Degenerative disc disease (DDD) of lumbar region with discogenic back pain and leg pain: Status: Acute (3) Pars defect with spondylolisthesis: Status: Acute Plan Again reviewed prior xrays show a spondylolisthesis with probable pars defect atL5 on S1. There is some mild instability seen on dynamic views. There is a disc height loss seen throughout the lumbar spine. There is also mild dextroscoliosis. There is a spinal cord stimulator. Reviewed MRI from 03/14/25 which showed L2-3: Disc bulging, facet arthropathy, and ligamentum flavum hypertrophy resulting in mild to moderate central stenosis. Moderate bilateral neural foraminal stenosis. L4-5: Disc bulging and facet arthropathy resulting inminimal central stenosis. Severe right and moderate left neuralforaminal stenosis. L5-S1: Grade 1 anterolisthesis, disc bulging, and facet arthropathy resulting in severe bilateral neural foraminal stenosis. 1. Lumbar radiculopathy - The patient is scheduled for spinal surgery to address persistent right-sided symptoms. - The plan includes avoiding steroids six weeks prior to surgery and ensuring mobility post-surgeryto aid recovery. 2. Spinal cord stimulator - The stimulator has been effective for left-sided symptoms. - It should be turned off before surgery and can be turned back on post-operatively. - Avoid taking steroids within six weeks of surgery. - Turn off the spinal cord stimulator before surgery and turn it back on after the procedure. - Engage in walking and mobility exercises as soon as possible after surgery to aid recovery. Discussed this procedure in detail and explained the risks, benefits and alternatives. The risks ofsurgery include but are not limited to infection, bleeding, injury to nerves or vessels, need for further surgery, ileus, vascularinjury, visceral injury, DVT, pulmonary embolism, pneumonia, atelectas is, cardiopulmonary event, pseudoarthrosis, hardware failure, gait abnormality, adjacent segment degeneration. Discussed post-surgery restrictions in detail such as no bending, lifting, or twisting. Answered all questions to the patient?s satisfaction. Patient understands and agrees to proceed withsurgery. Consent was signed.Follow up two weeks post operatively or sooner if pain, swelling, numbness or associated symptoms, or concerns develop. All questions answered. Patient in agreement of plan. 06/23/25720 Cosigner Signature (if applicable): CC: CERTIFIED ORTHOTIST-C Lucila Brito; Dr. Francisco Villa MD~ Signed [facility]09-08-2025 [facility] Medical Records Department [address] [place] [address] History Physical Exam 06/23/25720 MR#: [id number] Acct: [id number] Name: RUI RIOS Rep #: [id number] : 1950 75 From: Francisco Villa MD PCP: WOOD Stratton Status:ADM IN Location: [place] [address] History and Physical Date of Admission: 06/23/25 MR#: [id number] Acct: [id number] Name: RUI RIOS Rep #: [id number] : 1950 Provider: Dr. Francisco Villa MD Age/Sex: 75/M Location: [facility] Status: Signed Intake Vital Signs 03/20/2508:26 06/17/2509:49 Height 5 ft 7 in 5 ft [...] tablet,delayed 81 mg PO DAILY@0800 HEART HEALTH 11/11/20 06/17/25 History release diphenhydramine HCl 25 mg capsule 25 mg PO DAILY PRN Allergies 11/11/20 06/17/25 His tory levothyroxine 112 mcg tablet 112 mcg PO DAILY THYROID 11/11/20 06/17/25 History loratadine 10 mg capsule 10 mg PO PRN PRN Allergies 11/11/20 06/17/25 Histo ry losartan 50 mg tablet 50 mg PO DAILY BP 11/11/20 06/17/25 History nifedipine 60 mg tablet,extended 60 mg PO DAILY BP 11/11/20 06/17/25 History release 24 hr omega-3 fatty acids-fish oil 300 1 ea PO DAILY SUPPLEMENT 11/11/20 06/17/25 History mg-1,000 mg capsule psyllium husk 0.52 gram capsule 0.52 g PO DAILY BOWELS 11/11/20 06/17/25 History simvastatin 40 mg tablet 40 mg PO QHS CHOLESTEROL 11/11/20 06/17/25 History metoprolol succinate 25 mg 25 mg PO QDAY BP 02/20/25 06/17/25 History tablet,extended release 24 hr ibuprofen 600 mg tablet (IBU) 600 mg PO Q8H PRN pain 06/09/25 06/17/25 History omeprazole 20 mg tablet,delayed 20 mg PO DAILY PRN GERD 06/09/25 06/17/25 History release Have you fallen in [...] a history of hernia repair performed in 1956, which has not caused any subsequent issues. He denies any history of diabetes or smoking, having quit smoking in 2006. - Musculoskeletal: Reports cramp-like pain radiating from the spine down to the right foot. Denies significant symptoms on the left side due to spinal stim (more content not included)...[facility]09-08-2025 Consult note [facility] Medical Records Department [address] [place] [address] Pre-Anesthesia Evaluation 06/23/25 0638 MR#: [id number] Acct: [id number] Name: RUI RIOS Rep #:[id number] : 1950 75 From: Jensen Duff PCP: Lucila Brito, CERTIFIED ORTHOTIST-C Status:ADM I N Y Race: C Location: [place] [address] ASA Classification* ASA Classification ASA Classification: 3 Assessment & Plan Anesthesia* Anesthesia Assessment Anesthesia Assessment: Discussed sedation and/or anesthesia options, risks, benefits, and alternatives with patient/parents/legal guardian/POA. Questions invited. The patient/parents/legal guardian/POA seems to understand and agrees to proceedwith anesthesia plan. Reviewed the physical assessment, medical history, allergy history and patient home medications list prior to surgery/procedure/anesthetic and documented any changes. Performed airway and anesthesia risk assessments. Anesthesia Type Anesthesia Type: General History Source History Obtained from:: Patient and Chart Anesthesia Focused Assessment* Temperature: 97.4 F Pulse Rate: 77 Blood Pressure: 131/73 Respiratory Rate: 16 Pulse Ox: 98 Oxygen Delivery Method: Room Air Airway Assessment Mouth opens: >3 cm Mallampati Score: II Teeth Condition: Dentures (Edentulous) Neck Range of motion (ROM): Limited ROM Labs Anesthesia Preop lab: CBC WBC 6.8 K/mm3 (4.4-11.0) 06/10/25 08:03 06/10/25 RBC 5.76 M/mm3 (4.6-6.2) 06/10/25 08:03 06/10/25 Hgb 17.6 g/dL (13.0-16.5) H 06/10/25 08:03 5 Hct 51.0 % (40-54) 06/10/25 08:03 06/10/25 Plt Count 246 K/mm3 (150-450) 06/10/25 08:03 06/10/25 CHEMISTRY Potassium 4.8 mmol/L (3.3-5.1) 06/10/25 08:03 06/10/25 Sodium 138 mmol/L (133-145) 06/10/25 08:03 06/10/25 Magnesium 2.2 mg/dL (1.5-2.2) 06/10/25 08:03 06/10/25 BUN 17 mg/dL (4-19) 06/10/25 08:03 06/10/25 Creatinine 1.12 mg/dL (0.70-1.20) 06/10/25 08:03 06/10/25 Glucose 102 mg/dL (70-99) H 06/10/25 08:03 06/10/25 TSH 3.840 uIU/mL (0.300-4.200) 06/10/25 08:03 05/17 04/09 COAG Pre-Assessment Diagnosis/Proposed Procedure Planned Operative Procedure(s): 360 LUMBAR FUSION L4-5 L5-S1 Anesthesia History Anesthesia History - strip cutter: Anesthesia History - strip cutter Hx Hospitalization No 06/09/25 08:56 Any Problems With Anesthesia No 06/09/25 08:56 Cholinesterase deficiency No 06/09/25 08:56 You/Your Family Experience No 06/09/25 08:56 fever (hyperthermia) with Relationship Recent Exposure to Contagious No 06/23/25 06:18 Disease Does patient have nerve Yes: SHUT OFF FOR OR 06/09/25 08:56 stimulator Patient instructed to have device shut off --Does patient have Pacemaker No 06/23/25 06:18 or ICD? When Was Last Pacemaker Check QUESTION #4 FULL TEXT: You/Your Family Experience fever (hyperthermia) with Anesthesia Last Oral Intake Last Oral intake: Last Oral Intake NPO since 03:30 06/23/25 06:18 Meds taken in AM with sips of Yes 06/23/25 06:18 water? Meds patient instructed to take am of surgery PONV PONV - strip cutter: PONV - strip cutter Female No 06/09/25 08:56 HX of Motion Sickness No 06/09/25 08:56 HX of N/V After Surgery No 06/09/25 08:56 Non-Smoker Yes 06/09/25 08:56 Duration of Surgery greater Yes 06/09/25 08:56 than 60 minutes Number of Risk Factors 2 06/09/25 08:56 PONV Score Moderate Risk 06/09/25 08:56 Height & Weight Height & Weight: Anesthesia: Height & Weight Height 5 ft 7 in 06/23/25 06:18 Weight: 95 kg 06/23/25 06:18 Body Mass Index (BMI) 32.8 06/23/25 06:18 Respiratory Assessment Respiratory Assessment - strip cutter: Respiratory Tract Infection Hx - strip cutter Hx Respiratory Tract Infection No 06/09/25 08:56 STOP Sleep Apnea STOP Sleep Apnea - strip cutter: STOP Sleep Apnea - strip cutter Hx Hypertension Yes: CONTROLLED WITH MEDS 06/09/25 [...] than talking or can be heard through closeddoors)? Tobacco Use History Tobacco Use History - strip cutter: Tobacco Use History - strip cutter Tobacco Use Smoking Status Former smoker 06/09/25 08:56 Hx Tobacco Use No 06/09/25 08:56 Years Smoking Packs Smoked per Day Smoking Cessation Date was No - quit smoking greater 06/09/25 08:56 within the last 15 years than 15 years ago Hx Smoking Cessation Date 10/16/06 06/09/25 08:56 Hx Smoking Cessation No 06/09/25 08:56 Counseling Hematologic Medial History Hematologic Hx - strip cutter: Hematologic Medical Hx - documentation specialist Hx of Blood Transfusion No 06/09/25 08:56 Hx of Transfusion in last 3 No 06/09/25 08:56 Months Date of Last Transfusion (if within last 3 months) Ever experience any problems No 06/09/25 08:56 with transfusion(s)? 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 confused, unrespo /Reproduction History /Reproductive History - strip cutter: /Reproductive Hx- strip cutter Hx Now No 06/09/25 08:56 Gestational Age (in weeks): EDC: Hx Hx Para Hx Section SAB No 06/09/25 08:56 Active Medications Active Medications: Current Medications Generic Name Dose Route Start Last Admin Trade Name Freq PRN Reason Stop Dose Admin Acetaminophen 1,000 mg 06/23/25 07:30 06/23/25 06:26 Acetaminophen 500 Mg Tablet PO 06/23/25 07:31 1,000 mg PREOP ONE Administration Cefazolin Sodium 2 gm/ Sodium 110 mls @ 150 mls/hr 06/23/25 07:30 Chloride IV 06/23/25 08:13 INTRAOP ONE Tranexamic Acid 1,000 mg/ 110 mls @ 440 mls/hr 06/23/25 07:30 Sodium Chloride IV 06/23/25 07:44 INTRAOP ONE Tranexamic Acid 1,000 mg/ 110 mls @ 440 mls/hr 06/23/25 07:30 Sodium Chloride IV 06/23/25 07:44 INTRAOP ONE Magnesium Sulfate 1 gm/ 102 mls @ 408 mls/hr 06/23/25 07:30 06/23/25 06:07 Dextrose IV 06/23/25 07:44 408 mls/hr PREOP ONE Administration Lactated Ringer's 1,000 mls @ 15 mls/hr 06/23/25 06:00 06/23/25 06:07 IV 15 mls/hr .Q48H ALENA Administration Insulin Human Lispro 1 - 6 unit 06/23/25 07:30 Insulin Lispro 100 Unit/Ml Insuln.Pen SC 06/23/25 18:00 Q4H PRN PRN BG>/= 180, SEE PROTOCOL Protocol PFSH Medical History Wears glasses Wears dentures Arthritis Restless legs Back pain Gastric reflux Former smoker History of pain when walking Cardiology follow-up encounter History of echocardiogram History of stress test Spinal cord stimulator status Hypothyroid Hypocholesterolemia Hypertension Home Medications ?Medication ?Instructions ?Recorded ?Last Taken ?Type aspirin 81 mg tablet,delayed 81 mg PO DAILY@[address] [facility] 11/11/20 06/19/25 History release diphenhydramine HCl 25 mg capsule 25 mg PO DAILY PRN A llergies 11/11/20 06/22/25 History levothyroxine 112 mcg tablet 112 mcg PO DAILY THYROID 11/11/20 06/23/25 History loratadine 10 mg capsule 10 mg PO PRN PRN Allergies 0 11/11/20 06/22/25 History losartan 50 mg tablet 50 mg PO DAILY BP 11/11/20 0 06/23/25 History nifedipine 60 mg tablet,extended 60 mg PO DAILY BP 06/23/25 History release 24 hr omega-3 fatty acids-fish oil 300 1 ea PO DAILY SUPPLEM ENT 11/11/20 06/22/25 History mg-1,000 mg capsule psyllium husk 0.52 gram capsule 0.52 g PO DAILY BOWELS 11/11/20 06/21/25 History simvastatin 40 mg tablet 40 mg PO QHS CHOLESTEROL 06/22/25 History metoprolol succinate 25 mg 25 mg PO QDAY BP 02/20/25 0 06/23/25 History tablet,extended release 24 hr ibuprofen 600 mg tablet (IBU) 600 mg PO Q8H PRN pain 0 06/09/25 Unknown History omeprazole 20 mg tablet,delayed 20 mg PO DAILY PRN GUANAKO D 06/09/25 06/23/25 History release Allergy/AdvReac Type Severity Reaction Status Date / Time mold Allergy Severe Watery eyes Verified 06/23/25 06:05 Family History Mother No problems noted. Father No problems noted. Surgical History Hx of colonoscopy History of excision of pilonidal cyst Hx of elbow surgery History of left hip replacement H/O hernia repair Social History Smoking Status: Former smoker Review of Systems (Anesthesia) ROS Narrative System reviewed and no additional complaints, except as documented. 06/23/2551 > Date _ Jensen Zurita MD Cosigner Signature: Date CC: ~ Signed [facility]06-05-2025 Evaluation note* Diagnosis Onset Date Resolution Status Admit Date Degenerative disc disease (D DD) of lumbar region with discogenic back pain acute March 20, 2025 8 :14am Lumbar stenosis with neuroge anika claudication acute March 20, 2025 8 :14am Pars defect with spondylolisthesis acute March 20, 2025 8:14am Degenerative disc disease (D DD) of lumbar region with discogenic back pain acute June 17 9:38am Lumbar stenosis with neuroge anika claudication acute June 17 9:38am Pars defect with spondylolisthesis acute June 17, 2025 9:38am Lumbar stenosis with neuroge anika claudication acute June 23 1:51pm Status post lumbar spinal fusion acu te June 23, 2025 1:51pm [facility] Work Phone: 1(891) 467-151706-05-2025 Evaluation note* Diagnosis Onset Date Resolution Status Admit Date Degenerative disc disease (D DD) of lumbar region with discogenic back pain acute March 20 8:14am Pars defect with spondylolisthesis acute March 20, 2025 8:14am Lumbar stenosis with neuroge anika claudication resolved March 20, 2025 8 :14am Degenerative disc disease (D DD) of lumbar region with discogenic back pain acute June 172024 9:38am Pars defect with spondylolisthesis acute June 17, 2025 9:38am Lumbar stenosis with neuroge anika claudication resolved June 17 9:38am Status post lumbar spinal fusion acute June 23 1:51pm Lumbar stenosis with neuroge anika claudication resolved June 23 1:51pm Status post lumbar spinal fusion acute July 08, 2025 9:37am [facility] Work Phone: 1(656) 457-129105-08-2025 Evaluation note* Diagnosis Onset Date Resolution Status Admit Date Degenerative disc disease (D DD) of lumbar region with discogenic back pain acute February 20, 2025 8: 42am Lumbar stenosis with neuroge anika claudication acute February 20, 2025 8: 42am Pars defect with spondylolisthesis a cute February 20, 2025 8:42am [facility] Work Phone: 1(740) 450-136705-08-2025 Evaluation note* Diagnosis Onset Date Resolution Status [...] spondylolisthesis a cute March 20, 2025 8:14am [facility] Work Phone: 1(336) 995-782802-07-2025 Evaluation + Plan noteExtracted from: Title:Clinical Document Author:NADEEN CAMPBELL ate:11/22/24 [place] ADMISSION HISTORY AN D PHYSICIAL CHIEF COMPLAINT: Colorectal cancer screening HISTORY OF PRESENT ILLNESS: Positive Cologuard REVIEW OF SYSTEMS: Constitutional: denies weight loss Cardiovascular:denies chest pain, palpitations Respiratory:denies shortness of breath Gastrointestinal:no abd pain Musculoskeletal: no arthralgias Skin: no rashes ACTIVE PROBLEMS: (17) Arthritis (1281603) Degenerative disc disease (727566206) Dyslipidemia (1691476818) Elevated blood sugar (414088424) FAMILY HISTORY OF CORONARY ARTERIOSCLEROSIS (8344968887) History of smoking 30 or more pack years (975680073) Hypertension (0707890718) Hypothyroidism (69685514) Lumbar foraminal stenosis (3795928186) Numbness of foot (909487172) Onychomycosis (6135880039) Positive colorectal cancer screening using Cologuard test (7163103145) PVC (premature ventricular contraction) (17818147) Raynaud's disease (741492895) Screening for colon cancer (677401705) Screening for prostate cancer (433652898) Sleep apnea (682912855) MEDICATIONS: Active Inpt Meds: None Active PRN [...] Appointments Appointment Date:04/22/2025 07:00:00 AM Scheduled Provider:LUCILA BRITO Location:[facility] Appointment Type: OV Future Scheduled Tests Laboratory* Complete Blood Count 04/21/25 * Lipid Profile 04/21/25 * Complete Metabolic Panel 04/21/25 [facility] 02-07-2025 Hospital Discharge instructions Patient Education 11/22/2024 [...] a slower pace than normal. ?Eat soft, xfre-oz-ijrnkn foods. Take xzrh-aea-aoagjdz or prescription medicines only as told by [...] 05/16/2005 Document Revised: 07/25/2018 Document Reviewed: 12/13/2016 [employer] Patient Education 2020 [employer]. 11/22/2024 07:58:41 Monitored Anesthesia Care, Care After [...] before eating solid foods. General instructions Take ezcp-mzq-mrvqoje and prescription medicines only as told by [...] 01/22/2017 Document Revised: 12/31/2018 Document Reviewed: 01/22/2017 [employer] Patient Education 2020 [employer]. Follow Up Care 11/21/2024 11:51:23 With:LUCILA BRITO APRN-LEDGER CLERK Address: [address] [place] [address] [place] [address] [phone] When: Unknown With:NADEEN CAMPBELL DO, Clinical Gastroenterology Address: [address] [place] [address] [place] [address] [phone] When: Unknown Comments:Follow-up as needed [facility] 02-07-2025 Summary of episode note Discharge Instructions Thank you for allowing [facility] to assist you with your healthcare needs. The following is importantdischarge information regarding your hospital visit. Your Care Team LUCILA BRITO Your Diagnosis Colonoscopy What to do next Scheduled Follow-Up Appointments Appointment Type When With Where Contact Information StatusPC OV 04/22/2025 07:00 AM EDT LUCILA BRITO [address] [phone] Confirmed Follow Up Appointments Follow Up with LUCILA BRITO Where:[address] [place] [phone] Follow Up with NADEEN CAMPBELL DO, Clinical Gastroenterology Where:[address] [place] [address] [place] [address]- [phone] Additional Information: Follow-up as needed The Following [...] as provided by your GI provider at [facility]. Unchanged simvastatin (simvastatin 40 mg oral tablet) [...] slower pace than normal. ? Eat soft, tycl-ar-opvrpu foods. Take vbky-dmu-ndvtgfg or prescription medicines only as told by [...] 05/16/2005 Document Revised: 07/25/2018 Document Reviewed: 12/13/2016 Else[employer] Patient Education 2020 [employer] Monitored Anesthesia Care, Care After These instructions [...] before eating solid foods. General instructions Take homv-osa-vyqxihb and prescription medicines only as told by [...] 01/22/2017 Document Revised: 12/31/2018 Document Reviewed: 01/22/2017 Elsevier Patient Education 2020 Elsevier Inc. Additional Information VACCINATE! IT SAVES LIVES! Members of the community who have not yet received the COVID-19 vaccine and would like to receive it can visit one of [facility] vaccine clinics. There are many vaccine clinic locations within the [facility]. For locations and available times, please visit [email or web address] It is important to note that some COVID mobile vaccine clinics are held outdoors and may be canceled in rainy or stormy conditions. To learn more about pediatric vaccinations (ages 5-11), we invite you to visit the [facility] webpage. [email or web address]/[email or web address] [email or web address].htmlTo learn more about the COVID-19 vaccine, we invite you to visit the CDC website for a list of frequently asked questions.https://www.cdc.gov/coronavirus/2019-ncov/vaccines/faq.html [employer] Patient Portal Access Instructions: Stay connected with your healthcare team and access your personal medical information anytime with the [employer] Patient Portal. Please follow the directions below to create your [employer] account: 1.Access the email account you provided upon registration to the hospital/physician office.2.Look for an invitation email from [facility].3.Open the email and access the invitation link: AcceptInvitation to [employer].4.Fill in the required whyte to create your account. To access your account, visit [employer]Chart. Click the blue button labeled "Access Patient Portal" and then log in with the username and password that you created in the steps above. You will be able to view your test results, lab results, a summary of your visits, upcoming appointments and more. There is also a convenient messaging option where you can send secure messages to your p [employer]. In addition, you will have the ability to download any documents or summaries to your computer and/or send the information securely to a physician. Remember that your healthcare information is confidential, so carefully consider who you will allowto register on the [employer] Patient Portal for access to your information. You can also access the [employer] Patient Portal on the [employer]where ba. Simply click on "Patient Portal" and then log into your account. If you would like to receive a full copy of your medical records, please contact the [facility] Medical Records Department by calling [phone], Monday through Monday between 8 a.m. and [...] Call your local pharmacy or go to [email or web address] to find one close to you.3.Make use of household items: Use cat litter or old coffee grounds to dispose medications if other options arenot available. Mix your drugs with these household products, seal them in an airtight container andthrow it into the garbage. Call [facility]: [phone] to be sure your drugs can be [...] been reviewed and explained to me and IGABRIEL KENNETH R understand my current condition and have read and understand these discharge instructions. I have received a written copy of the plan/instructions. If I have questions, I am aware that I should contact my doctor. Patient/Modern Dancer Signature: Date/Time: Relationship to Patient: Witness Name/Signature: Date/Time: [facility]02-07-2025 Note Indication for Surgery Positive Cologuard Preoperative Diagnosis Positive Cologuard Postoperative Diagnosis Normal colon Operation Colonoscopy Surgeon(s) Nadeen Campbell D.O. Anesthesia MAC Estimated Blood Loss None [...] physician as scheduled. Digitally Signed by NADEEN CAMPBELL DO on 11/22/2024 08:08 AM [facility]02-07-2025 Note [place] ADMISSION HISTORY AND PHYSICIAL CHIEF COMPLAINT: Colorectal cancer screening HISTORY OF PRESENT ILLNESS: Positive Cologuard REVIEW OF SYSTEMS: Constitutional: denies weight loss Cardiovascular:denies chest pain, palpitations Respiratory:denies shortness of breath Gastrointestinal:no abd pain Musculoskeletal: no arthralgias Skin: no rashes ACTIVE PROBLEMS: (17) Arthritis (8876276) Degenerative disc disease (759097877) Dyslipidemia (9575952742) Elevated blood sugar (725269710) FAMILY HISTORY OF CORONARY ARTERIOSCLEROSIS (0260770634) History of smoking 30 or more pack years (821729530) Hypertension (7771092597) Hypothyroidism (08308549) Lumbar foraminal stenosis (0436965276) Numbness of foot (700320150) Onychomycosis (0433543380) Positive colorectal cancer screening using Cologuard test (6839198455) PVC (premature ventricular contraction) (01917344) Raynaud's disease (518964821) Screening for colon cancer (468269118) Screening for prostate cancer (836912372) Sleep apnea (459542463) MEDICATIONS: Active Inpt Meds: None Active PRN [...] in the office Digitally Signed by NADEEN CAMPBELL DO on 11/22/2024 06:59 AM [facility] Future Appointments Appointment Date:01/14/2022 08:45:00 AM Scheduled Provider: Location:[facility] Appointment Type:CV [facility] Evaluation + Plan note Future Scheduled Tests Laboratory* N-Terminal proBNP 07/16/22 [facility] Evaluation + Plan note Future Appointments Appointment Date:05/10/2022 07:00:00 AM Scheduled Provider:LUCILA BRITO Location:[facility] Appointment Type:PC OV Future Scheduled Tests Laboratory* Hepatic Function Panel 03/22/22 * N-Terminal proBNP 07/16/22 [facility] Evaluation + Plan note Future Appointments Appointment Date:05/10/2022 07:00:00 AM Scheduled Provider:LUCILA BRITO POLICE CHIEF DEPUTY-LEDGER CLERK Location:[facility] Appointment Type:PC OV Future Scheduled Tests Laboratory* N-Terminal proBNP 07/16/22 [facility] Evaluation + Plan note Future Appointments Appointment Date:04/11/2023 07:00:00 AM Scheduled Provider:LUCILA BRITO APRN-LEDGER CLERK Location:[facility] Appointment Type:PC OV Future Scheduled Tests Laboratory* N-Terminal proBNP 07/16/22 [facility] Evaluation + Plan note Future Appointments Appointment Date:10/11/2023 07:00:00 AM Scheduled Provider:LUCILA BRITO POLICE CHIEF DEPUTY-LEDGER CLERK Location:[facility] Appointment Type:PC OV Future Scheduled Tests Laboratory* Prostate Specific Antigen 10/11/23 * Thyroid Stimulating Hormone 10/11/23 * Free T4 10/11/23 * Complete Blood Count 10/11/23 * Lipid Profile 10/11/23 * Complete Metabolic Panel 10/11/23 * N-Terminal proBNP 07/16/22 [facility] Evaluation + Plan note Future Appointments Appointment Date:10/17/2023 07:30:00 AM Scheduled Provider:LUCILA BRITO POLICE CHIEF DEPUTY-LEDGER CLERK Location:[facility] Appointment Type:PC OV [facility] Evaluation + Plan note Future Appointments Appointment Date:04/16/2024 08:30:00 AM Scheduled Provider:LUCILA BRITO POLICE CHIEF DEPUTY-LEDGER CLERK Location:[facility] Appointment Type:PC OV Future Scheduled Tests Laboratory* Complete Blood Count 04/16/24 * Lipid Profile 04/16/24 * Complete Metabolic Panel 04/16/24 [facility] Evaluation + Plan note Future Appointments Appointment Date:04/16/2024 08:30:00 AM Scheduled Provider:LUCILA BRITO APRN-EDUARDO Location:[facility] Appointment Type:PC OV [facility] Evaluation + Plan note Future Appointments Appointment Date:10/22/2024 07:00:00 AM Scheduled Provider:LUCILA BRITO APRN-LEDGER CLERK Location:[facility] Appointment Type: OV Future Scheduled Tests Laboratory* Prostate Specific Antigen 10/17/24 * Thyroid Stimulating Hormone 10/17/24 * Free T4 10/17/24 * Lipid Profile 10/17/24 * Complete Metabolic Panel 10/17/24 [facility] Evaluation + Plan note Future Appointments Appointment Date:10/22/2024 07:00:00 AM Scheduled Provider:LUCILA BRITO APRN-EDUARDO Location:[facility] Appointment Type: OV [facility] Evaluation + Plan note Future Appointments Appointment Date:04/22/2025 07:00:00 AM Scheduled Provider:LUCILA BRITO APRN-EDUARDO Location:[facility] Appointment Type: OV [facility] Evaluation + Plan note Future Appointments Appointment Date:10/23/2025 07:00:00 AM Scheduled Provider:LUCILA BRITO APRN-LEDGER CLERK Location:[facility] Appointment Type: OV Future Scheduled Tests Laboratory* Prostate Specific Antigen 10/23/25 * Thyroid Stimulating Hormone 10/23/25 * Free T4 10/23/25 * A1C Hemoglobin 04/22/25 * Complete Blood Count 10/23/25 * Lipid Profile 10/23/25 * Complete Metabolic Panel 10/23/25 [facility] Evaluation + Plan note Future Appointments Appointment Date:10/23/2025 07:00:00 AM Scheduled Provider:LUCILA BRITO APRN-LEDGER CLERK Location:[facility] Appointment Type:PC OV Future Scheduled Tests Laboratory* Prostate Specific Antigen 10/23/25 * Thyroid Stimulating Hormone 10/23/25 * Free T4 10/23/25 * Complete Blood Count 10/23/25 * Lipid Profile 10/23/25 * Complete Metabolic Panel 10/23/25 [facility] Hospital course Narrative No data available for this section [facility] Hospital Discharge instructions No data available for this section [facility] Hospital Discharge instructionsAdditional Instructions Keep Tegaderm and gauze clean and dry. If Tegaderm is intact, okay to shower. After 5 days remove Tegaderm and gauze and cover with a Band-Aid. Replace Band-Aid daily thereafter. No bending lifting or twisting. Follow-up in clinic in 2 weeks.[facility] Work Phone: Hospital Discharge instructionsAmbulatory Orders* Physical Therapy Referral Location: None Selected [facility] Work Phone: Progress note No data available for this section [facility] Prouuimd note Author Nikki Kumar [facility] Note Date/Time July 08, 2025 10:39am [facility] [address] [place] [address] [place], [place] [id number] OFFICE VISIT Date of Service: 07/08/25 MR#: [id number] Acct: [id number] Name: RUI RIOS Rep #: [id number] : 1950 Provider: NADEGE Echeverria Age/Sex: 75/M Location: [facility] Status: Signed Intake Vital Signs 03/20/25 08:26 06/23/25 15:37 Height 5 ft 7 in 5 ft 7 in Intake Visit Reasons: lumbar spine Chief Complaint: Lumbar Spine 2 Week Post-Op Accompanied by: Is patient in pain?: Yes Pain scale (1-10): 8 Allergies mold Allergy (Severe, Verified 07/08/25 09:54) Watery eyes Medications ?Medication ?Instructions ?Recorded ?Confirmed ?Type aspirin 81 mg tablet,delayed 81 mg PO DAILY@0800 [facility] 11/11/20 07/08/25 History release Held on 06/24/25. Instructions: Resume on 06/26/25. diphenhydramine HCl 25 mg capsule 25 mg PO DAILY PRN A llergies 11/11/20 07/08/25 History levothyroxine 112 mcg tablet 112 mcg PO DAILY THYROID 11/11/20 07/08/25 History loratadine 10 mg capsule 10 mg PO PRN PRN Allergies 0 11/11/20 07/08/25 History losartan 50 mg tablet 50 mg PO DAILY BP 11/11/20 0 07/08/25 History nifedipine 60 mg tablet,extended 60 mg PO DAILY BP 07/08/25 History release 24 hr omega-3 fatty acids-fish oil 300 1 ea PO DAILY SUPPLEM ENT 11/11/20 07/08/25 History mg-1,000 mg capsule psyllium husk 0.52 gram capsule 0.52 g PO DAILY BOWELS 11/11/20 07/08/25 History simvastatin 40 mg tablet 40 mg PO QHS CHOLESTEROL 07/08/25 History metoprolol succinate 25 mg 25 mg PO QDAY BP 02/20/25 0 07/08/25 History tablet,extended release 24 hr omeprazole 20 mg tablet,delayed 20 mg PO DAILY PRN GUANAKO D 06/09/25 07/08/25 History release acetaminophen 500 mg tablet 1,000 mg (2 x 500 mg) PO Q 8 #30 06/24/25 07/08/25 Rx tabs meloxicam 15 mg tablet 15 mg PO DAILY #30 tabs 09/07/1007/08/25 Rx sennosides 8.6 mg-docusate sodium 2 tab PO BID PRN con stipation #14 06/24/25 07/08/25 Rx 50 mg tablet (Stimulant Laxative tabs Plus) cyclobenzaprine 10 mg tablet 10 mg PO TID PRN muscle s pasm #30 07/08/25 07/08/25 Rx tabs hydrocodone-acetaminophen 5-325mg 1 tab PO Q6H PRN shawn n 7 days #28 07/08/25 07/08/25 Rx 5mg-325mg tabs Have you fallen in the past [...] service provided and the decisions made by , NADEGE Echeverria 07/08/25 0948. Part of today?s visit was documentedby Jeannie Wallace ATC, acting as scribe. RUI RIOS is a 75 year old M here today for s/p L5-S1 TLIF, L4-S1 posterior spine instrumented fusion DOS 06/23/[address] Villa. Patient rates his pain a 8/10 today and ambulates with a walker. He denies any redness, drainage or concerns from the incisions. Says that he has been walking over thelast couple of weeks around the house. He has been using a walker to help with his ambulation. Says that last night it was hard for him to sleep due to restless leg syndrome. Says that he has been taking the oxycodone as needed buthas been trying to make it last as he says he gets drowsy after taking this medication. Says that he has continued to have right foot numbness which he washaving before the surgery. He also mentions pain into his left groin. Says that he has not been lifting anything heavier than a gallon of milk. Ortho Exam General General: Yes no acute distress Neurologic: Yes alert and Yes oriented x3 Psychologic: Yes reasonable and appropriate Spine SPINE TESTING CERVICAL THORACIC LUMBAR Musculoskeletal Strength 0=absent - 5=normal Details: Neurological examination of the lower extremity shows 5X5 power. Normal sensation across all dermatomes. Physical examination of the back and belly showed incisions covered by Band-Aids. Band-Aids were removed. Steri-Strips removed from the belly incision. Band-Aids on the back are dry, patient says that he has been changing them every several days. Incisions are dry and healing well. There was some very mild serous drainage on the belly incision, on exam the incision is dry, no redness no discharge expressed. Some mild bruising over the back. Coding Level of Care Code [employer] Post Op Diagnoses Status post lumbar spinal fusion Z98.1 Assessment and Plan Assessment and Plan (1) Status post lumbar spinal fusion: Status: Acute Orders: Orders Lumbar Spine 2 or 3 Views Today Z98.1 - Arthrodesis status Referrals Physical Therapy Referral Z98.1 - Arthrodesis status Medications: New cyclobenzaprine 10 mg PO TID PRN 30 tabs 0RF muscle spasm hydrocodone-acetaminophen 5-325 mg 1 TAB PO Q6H PRN 28 tabs 0RF pain 7 days Z98.1 - Arthrodesis status Discontinued methocarbamol Discontinued Reason: Pt no longer taking 750 mg (1.5 x 500 mg) PO TID PRN 60tabs 0RF pain/spasms Plan Obtained and reviewed lumbar x-rays today in the clinic. Independent interpretation of the x-rays was performed. X-rays show hardware and bone graftin good position. Patient is now 2 weeks out L3-5 fusion with L4-5 TLIF. Patient is doing relatively well with his pain controlled. The patient has finished the oxycodone, says that it made him drowsy. A prescription for hydrocodone/acetaminophen is sent for him to take in place. Discussed that no refills of any of the narcotics will be placed after this. OARRS reviewed. Encouraged him to limit his acetaminophen intake with the Vicodin. Continue taking the meloxicam daily. Patient also says that methocarbamol did not seem to do anything for him. Cyclobenzaprine 10 mg will be sent in place of the methocarbamol. Encouraged the patient to take these 2 medications together. Patient understands. Patient will start outpatient physical therapy. Continue restrictions of no bending, lifting, twisting more than a gallon of milk. Continue to use the walker as needed for safety. He will let me know if he notices any drainage that continues from the belly incision once again on physical examination today it did look dry. No redness no fever or chills. He will follow-up in 4 weeks for a 6-week follow-up with Dr. Villa. Sooner if needed for any new or worsening issues. Patient is in agreement. Clinical Quality Measures Falls Risk Screening/Assistive Devices Have you fallen in the past year?: Yes 07/08/25 1101 <Electronically signed by Nikki LIGHT> Date _ Nikki LIGHT Cosigner Signature: Date (if applicable) CC: CERTIFIED ORTHOTISTDhruv Brito ~ [facility] Work Phone: Reason for referral (narrative)No reason for referral information availableBear Valley Community Hospital Work Phone: Summary Purpose Family History No Family History Records Found Advance Directives No Advanced Directives Records Found Advance Directive Response Recorded Date/ Time Do you have a Healthcare Power of Health Editor? Yes June 23, 2025 3:37pm Chief Complaint and Reason for Visit Chief [...] defect with spondylolisthesis March 20, 2025 8:14am Chief Complaint Admit Date Pain March 14, 2025 7:14a m LUMBAR SPINE March 20, 2025 8:14a m PREOP June 10, 2025 7: 49am lumbar spine June 17, 2025 9:38am 360 Lumbar Fusion L4-5 and L5-S1 Septemb er 2024 7:21am 360 Lumbar Fusion L4-5 and L5-S1 Septemb er 2024 1:51pm 360 Lumbar Fusion L4-5 and L5-S1 Septemb er 2024 2:12pm 360 Lumbar Fusion L4-5 and L5-S1 Septemb er 2024 4:08pm 360 Lumbar Fusion L4-5 and L5-S1 Septemb er 2024 10:35am 360 Lumbar Fusion L4-5 and L5-S1 Septemb er 2024 12:00pm Reason for Visit Admit Date Degenerative disc disease (D DD) of lumbar region with discogenic back pain March 20, 2025 8:14am Lumbar stenosis with neurogenic claudica tion March 20, 2025 8:14am Pars defect with spondylolisthesis March 20, 2025 8:14am Degenerative disc disease (D DD) of lumbar region with discogenic back pain June 17, 2025 9:38am Lumbar stenosis with neurogenic claudica tion June 17, 2025 9:38am Pars defect with spondylolisthesis [facility] 2024 9:38am Lumbar stenosis with neurogenic claudica tion June 23, 2025 1:51pm Status post lumbar spinal fusion Septemb er 2024 1:51pm Chief Complaint Admit Date LUMBAR SPINE March 20, 2025 8:14a m PREOP June 10, 2025 7: 49am lumbar spine June 17, 2025 9:38am 360 Lumbar Fusion L4-5 and L5-S1 Septemb 2024 7:21am 360 Lumbar Fusion L4-5 and L5-S1 Septemb 2024 1:51pm 360 Lumbar Fusion L4-5 and L5-S1 Septemb 2024 2:12pm 360 Lumbar Fusion L4-5 and L5-S1 Septemb 2024 4:08pm 360 Lumbar Fusion L4-5 and L5-S1 Septemb 2024 10:35am lumbar spine July 08, 2025 9:37am Room 2 July 08, 2025 9:58am Reason for Visit Admit Date Degenerative disc disease (D DD) of lumbar region with discogenic back pain March 20, 2025 8:14am Pars defect with spondylolisthesis March 20, 2025 8:14am Lumbar stenosis with neurogenic claudica tion March 20, 2025 8:14am Degenerative disc disease (D DD) of lumbar region with discogenic back pain June 17, 2025 9:38am Pars defect with spondylolisthesis [facility] 2024 9:38am Lumbar stenosis with neurogenic claudica tion June 17, 2025 9:38am Status post lumbar spinal fusion [facility] 2024 1:51pm Lumbar stenosis with neurogenic claudica tion June 23, 2025 1:51pm Status post lumbar spinal fusion Septemb 2024 9:37am Additional Source Comments Care Team (unrecognized sect ion and content) Team Status: Active Member Role Status Dates Lucila Brito NP, CERTIFIED ORTHOTIST-C Primary Care Provider Active Team Status: Inactive Member Role Status Dates Lucila Brito NP, CERTIFIED ORTHOTIST-C Primary Care Provider Active Start: February 20, 2025 End: February 20, 2025 Lucila Brito NP, CERTIFIED ORTHOTIST-C Referring Provider Active Start: February 20, 2025 End: February 20, 2025 NADEGE Echeverria Attending Provider Active Star t: February 20, 2025 End: February 20, 2025 Team Status: Inactive Member Role Status Dates Lucila Brito NP, CERTIFIED ORTHOTIST-C Primary Care Provider Active Start: February 20, 2025 End: February 20, 2025 Dr. Justin Valenzuela MD Attending Provider Active S tart: February 20, 2025 End: February 20, 2025 Team Status: Inactive Member Role Status Dates Lucila Daryl CERTIFIED ORTHOTIST, CERTIFIED ORTHOTIST-C Primary Care Provider Active Start: March 14, 2025 End: March 14, 2025 NADEGE Echeverria Attending Provider Active Star t: March 14, 2025 End: March 14, 2025 NADEGE Echeverria Referring Provider Active Star t: March 14, 2025 End: March 14, 2025 Team Status: Inactive Member Role Status Dates Lucila Brito CERTIFIED ORTHOTIST, CERTIFIED ORTHOTIST-C Primary Care Provider Active Start: March 20, 2025 End: March 20, 2025 Lucila Brito CERTIFIED ORTHOTIST, CERTIFIED ORTHOTIST-C Referring Provider Active Start: March 20, 2025 End: March 20, 2025 NADEGE Echeverria Attending Provider Active Star t: March 20, 2025 End: March 20, 2025 Team Status: Active Member Role Status Dates Lucila Brito CERTIFIED ORTHOTIST, CERTIFIED ORTHOTIST-C Primary Care Provider Active Start: March 14, 2025 NADEGE Echeverria Attending Provider Active Star t: March 14, 2025 NADEGE Echeverria Referring Provider Active Star t: March 14, 2025 Team Status: Active Member Role/Relationship Status Dates Lucila Brito CERTIFIED ORTHOTIST, CERTIFIED ORTHOTIST-C Primary Care Provider Active Team Status: Inactive Member Role/Relationship Status Dates Lucila Brito CERTIFIED ORTHOTIST, CERTIFIED ORTHOTIST-C Primary Care Provider Active Start: February 20, 2025 End: February 20, 2025 Lucila Brito CERTIFIED ORTHOTIST, CERTIFIED ORTHOTIST-C Referring Provider Active Start: February 20, 2025 End: February 20, 2025 NADEGE Echeverria Attending Provider Active Star t: February 20, 2025 End: February 20, 2025 Team Status: Inactive Member Role/Relationship Status Dates Lucila Brito CERTIFIED ORTHOTIST, CERTIFIED ORTHOTIST-C Primary Care Provider Active Start: February 20, 2025 End: February 20, 2025 Dr. Justin Valenzuela MD Attending Provider Active S tart: February 20, 2025 End: February 20, 2025 Team Status: Inactive Member Role/Relationship Status Dates Lucila Brito CERTIFIED ORTHOTIST, CERTIFIED ORTHOTIST-C Primary Care Provider Active Start: March 14, 2025 End: March 14, 2025 NADEGE Echeverria Attending Provider Active Star t: March 14, 2025 End: March 14, 2025 NADEGE Echeverria Referring Provider Active Star t: March 14, 2025 End: March 14, 2025 Team Status: Inactive Member Role/Relationship Status Dates Lucila Brito CERTIFIED ORTHOTIST, CERTIFIED ORTHOTIST-C Primary Care Provider Active Start: March 20, 2025 End: March 20, 2025 Lucila Brito CERTIFIED ORTHOTIST, CERTIFIED ORTHOTIST-C Referring Provider Active Start: March 20, 2025 End: March 20, 2025 NADEGE Echeverria Attending Provider Active Star t: March 20, 2025 End: March 20, 2025 Team Status: Inactive Member Role/Relationship Status Dates Lucila Brito CERTIFIED ORTHOTIST, CERTIFIED ORTHOTIST-C Primary Care Provider Active Start: June 17, 2025 End: June 17, 2025 Lucila Brito CERTIFIED ORTHOTIST, CERTIFIED ORTHOTIST-C Referring Provider Active Start: June 17, 2025 End: June 17, 2025 Dr. Francisco Villa MD Attending Provider Active Start: June 17, 2025 End: June 17, 2025 Team Status: Inactive Member Role/Relationship Status Dates Lucila Brito CERTIFIED ORTHOTIST, CERTIFIED ORTHOTIST-C Primary Care Provider Active Start: March 14, 2025 End: March 14, 2025 NADEGE Echeverria Attending Provider Active Star t: March 14, 2025 End: March 14, 2025 NADEGE Echeverria Referring Provider Active Star t: March 14, 2025 End: March 14, 2025 Team Status: Inactive Member Role/Relationship Status Dates Lucila Brito CERTIFIED ORTHOTIST, CERTIFIED ORTHOTIST-C Primary Care Provider Active Start: March 20, 2025 End: March 20, 2025 Lucila Brito CERTIFIED ORTHOTIST, CERTIFIED ORTHOTIST-C Referring Provider Active Start: March 20, 2025 End: March 20, 2025 NADEGE Echeverria Attending Provider Active Star t: March 20, 2025 End: March 20, 2025 Team Status: Active Member Role/Relationship Status Dates Lucila Brito CERTIFIED ORTHOTIST, CERTIFIED ORTHOTIST-C Primary Care Provider Active Start: June 10, 2025 Dr. Justin Valenzuela MD Attending Provider Active S tart: June 10, 2025 Dr. Francisco Villa MD Referring Provider Active Start: June 10, 2025 Team Status: Inactive Member Role/Relationship Status Dates Lucila Brito CERTIFIED ORTHOTIST, CERTIFIED ORTHOTIST-C Primary Care Provider Active Start: June 17, 2025 End: June 17, 2025 Lucila Brito CERTIFIED ORTHOTIST, CERTIFIED ORTHOTIST-C Referring Provider Active Start: June 17, 2025 End: June 17, 2025 Dr. Francisco Villa MD Attending Provider Active Start: June 17, 2025 End: June 17, 2025 Team Status: Active Member Role/Relationship Status Dates Lucila Brito CERTIFIED ORTHOTIST, CERTIFIED ORTHOTIST-C Primary Care Provider Active Start: June 23, 2025 Dr. Francisco Villa MD Admit Provider Active Star t: June 23, 2025 Dr. Francisco Villa MD Attending Provider Active Start: June 23, 2025 Dr. Francisco Villa MD Referring Provider Active Start: June 23, 2025 Dr. Francisco Villa MD Other Provider Active Star t: June 23, 2025 Team Status: Inactive Member Role/Relationship Status Dates Lucila Brito CERTIFIED ORTHOTIST, CERTIFIED ORTHOTIST-C Primary Care Provider Active Start: June 23, 2025 End: June 24, 2025 Dr. Francisco Villa MD Admit Provider Active Star t: June 23, 2025 End: June 24, 2025 Dr. Francisco Villa MD Attending Provider Active Start: June 23, 2025 End: June 24, 2025 Dr. Francisco Villa MD Referring Provider Active Start: June 23, 2025 End: June 24, 2025 Dr. Jerrell Mendez DO Other Provider Active Start: June 23, 2025 End: June 24, 2025 Dr. Saravanan Wheat MD Other Provider Active Sta rt: June 23, 2025 End: June 24, 2025 Team Status: Active Member Role/Relationship Status Dates Lucila Brito CERTIFIED ORTHOTIST, CERTIFIED ORTHOTIST-C Primary Care Provider Active Start: June 23, 2025 Dr. Francisco Villa MD Admit Provider Active Star t: June 23, 2025 Dr. Francisco Villa MD Referring Provider Active Start: June 23, 2025 Dr. Francisco Villa MD Other Provider Active Star t: June 23, 2025 Dr. Fran Kenyon MD Attending Provider Active S tart: June 23, 2025 Team Status: Active Member Role/Relationship Status Dates Lucila Brito CERTIFIED ORTHOTIST, CERTIFIED ORTHOTIST-C Primary Care Provider Active Start: June 23, 2025 Dr. Francisco Villa MD Admit Provider Active Star t: June 23, 2025 Dr. Francisco Villa MD Referring Provider Active Start: June 23, 2025 Dr. Francisco Villa MD Other Provider Active Star t: June 23, 2025 Dr. Jerrell Mendez DO Attending Provider Active Start: June 23, 2025 Dr. Jerrell Mendez DO Other Provider Active Start: June 23, 2025 Team Status: Active Member Role/Relationship Status Dates Lucila Brito CERTIFIED ORTHOTIST, CERTIFIED ORTHOTIST-C Primary Care Provider Active Start: June 24, 2025 Dr. Francisco Villa MD Admit Provider Active Star t: June 24, 2025 Dr. Francisco Villa MD Referring Provider Active Start: June 24, 2025 Dr. Francisco Villa MD Other Provider Active Star t: June 24, 2025 Dr. Jerrell Mendez DO Other Provider Active Start: June 24, 2025 Dr. Saravanan Wheat MD Attending Provider Active Start: June 24, 2025 Dr. Saravanan Wheat MD Other Provider Active Sta rt: June 24, 2025 Team Status: Active Member Role/Relationship Status Dates Lucila Brito CERTIFIED ORTHOTIST, CERTIFIED ORTHOTIST-C Primary Care Provider Active Start: June 24, 2025 Dr. Francisco Villa MD Admit Provider Active Star t: June 24, 2025 Dr. Francisco Villa MD Referring Provider Active Start: June 24, 2025 Dr. Francisco Villa MD Other Provider Active Star t: June 24, 2025 Dr. Jerrell Mendez DO Other Provider Active Start: June 24, 2025 Dr. Saravanan Wheat MD Other Provider Active Sta rt: June 24, 2025 NADEGE Echeverria Attending Provider Active Star t: June 24, 2025 Team Status: Active Member Role/Relationship Status Dates Lucila Brito CERTIFIED ORTHOTIST, CERTIFIED ORTHOTIST-C Primary care physician Active Team Status: Inactive Member Role/Relationship Status Dates Lucila Brito CERTIFIED ORTHOTIST, CERTIFIED ORTHOTIST-C Primary care physician Active Start: March 20, 2025 End: March 20, 2025 Lucila Brito CERTIFIED ORTHOTIST, CERTIFIED ORTHOTIST-C Referring Provider Active Start: March 20, 2025 End: March 20, 2025 NADEGE Echeverria Attending physician Active Sta rt: March 20, 2025 End: March 20, 2025 Team Status: Active Member Role/Relationship Status Dates Lucila Brito CERTIFIED ORTHOTIST, CERTIFIED ORTHOTIST-C Primary care physician Active Start: June 10, 2025 Dr. Justin Valenzuela MD Attending physician Active Start: June 10, 2025 Dr. Francisco Villa MD Referring Provider Active Start: June 10, 2025 Team Status: Inactive Member Role/Relationship Status Dates Lucila Brito CERTIFIED ORTHOTIST, CERTIFIED ORTHOTIST-C Primary care physician Active Start: June 17, 2025 End: June 17, 2025 Lucila Brito CERTIFIED ORTHOTIST, CERTIFIED ORTHOTIST-C Referring Provider Active Start: June 17, 2025 End: June 17, 2025 Dr. Francisco Villa MD Attending physician Active Start: June 17, 2025 End: June 17, 2025 Team Status: Active Member Role/Relationship Status Dates Lucila Brito CERTIFIED ORTHOTIST, CERTIFIED ORTHOTIST-C Primary care physician Active Start: June 23, 2025 Dr. Francisco Villa MD Admitting physician Active Start: June 23, 2025 Dr. Francisco Villa MD Attending physician Active Start: June 23, 2025 Dr. Francisco Villa MD Referring Provider Active Start: June 23, 2025 Dr. Francisco Villa MD Nurse Practitioner Active Start: June 23, 2025 Team Status: Inactive Member Role/Relationship Status Dates Lucila Brito CERTIFIED ORTHOTIST, CERTIFIED ORTHOTIST-C Primary care physician Active Start: June 23, 2025 End: June 24, 2025 Dr. Francisco Villa MD Admitting physician Active Start: June 23, 2025 End: June 24, 2025 Dr. Francisco Villa MD Attending physician Active Start: June 23, 2025 End: June 24, 2025 Dr. Francisco Villa MD Referring Provider Active Start: June 23, 2025 End: June 24, 2025 Dr. Jerrell Mendez DO Nurse Practitioner Active Start: June 23, 2025 End: June 24, 2025 Dr. Saravanan Wheat MD Nurse Practitioner Active Start: June 23, 2025 End: June 24, 2025 NADEGE Echeverria Attending physician Active Sta rt: June 23, 2025 Team Status: Active Member Role/Relationship Status Dates Lucila Brito CERTIFIED ORTHOTIST, CERTIFIED ORTHOTIST-C Primary care physician Active Start: June 23, 2025 Dr. Francisco Villa MD Admitting physician Active Start: June 23, 2025 Dr. Francisco Villa MD Referring Provider Active Start: June 23, 2025 Dr. Francisco Villa MD Nurse Practitioner Active Start: June 23, 2025 Dr. Fran Kenyon MD Attending physician Active Start: June 23, 2025 Team Status: Active Member Role/Relationship Status Dates Lucila Brito CERTIFIED ORTHOTIST, CERTIFIED ORTHOTIST-C Primary care physician Active Start: June 23, 2025 Dr. Francisco Villa MD Admitting physician Active Start: June 23, 2025 Dr. Francisco Villa MD Referring Provider Active Start: June 23, 2025 Dr. Francisco Villa MD Nurse Practitioner Active Start: June 23, 2025 Dr. Jerrell Mendez DO Attending physician Activ e Start: June 23, 2025 Dr. Jerrell Mendez DO Nurse Practitioner Active Start: June 23, 2025 Team Status: Active Member Role/Relationship Status Dates Lucila Brito CERTIFIED ORTHOTIST, CERTIFIED ORTHOTIST-C Primary care physician Active Start: June 24, 2025 Dr. Francisco Villa MD Admitting physician Active Start: June 24, 2025 Dr. Francisco Villa MD Nurse Practitioner Active Start: June 24, 2025 Dr. Jerrell Mendez DO Nurse Practitioner Active Start: June 24, 2025 Dr. Saravanan Wheat MD Attending physician Active Start: June 24, 2025 Dr. Saravanan Wheat MD Nurse Practitioner Active Start: June 24, 2025 Team Status: Inactive Member Role/Relationship Status Dates Lucila Brito CERTIFIED ORTHOTIST, CERTIFIED ORTHOTIST-C Primary care physician Active Start: July 08, 2025 End: July 08, 2025 Lucila Brito CERTIFIED ORTHOTIST, CERTIFIED ORTHOTIST-C Referring Provider Active Start: July 08, 2025 End: July 08, 2025 NADEGE Echeverria Attending physician Active Sta rt: July 08, 2025 End: July 08, 2025 Team Status: Inactive Member Role/Relationship Status Dates Lucila Brito CERTIFIED ORTHOTIST, CERTIFIED ORTHOTIST-C Primary care physician Active Start: July 08, 2025 End: July 08, 2025 Dr. Justin Valenzuela MD Attending physician Active Start: July 08, 2025 End: July 08, 2025 Care Team (unrecognized sect ion and content) Care Team Personnel Name: Leelee Gimenez PT Position: P3 Scheduling - Director Of Teenage Activities Advanced Member Role: Other Name: VERNA SILVA MD Position: P4 Physician - Cardiology Member Role: Band Leader Address: Address: [address] [place] [address] [address] [facility] [place], [place] [address] Name: LUCILA BRITO POLICE CHIEF DEPUTY-LEDGER CLERK Position: P4 Advanced Practice Nurse Member Role: Primary Care Physician Address: Address: [address] [place] [address]- Care Team Related Persons Name: MANSOOR JAMES Name: CHE[place] HO Name: HUGO QUINTANILLA Care Team Personnel Name: Leelee Gimenez Clertrinity Feliciano PT Position: P3 Scheduling - Director Of Teenage Activities Advanced Member Role: Other Name: VERNA SILVA MD Position: P4 Physician - Cardiology Member Role: Band Leader Address: Address: [address] [facility] [address] [facility] [place] [address] Name: LUCILA BRITO POLICE CHIEF DEPUTY-LEDGER CLERK Position: P4 Advanced Indian Trader Member Role: Primary Care Physician Address: Address: [address] [place] [address]- Care Team Related Persons Name: MANSOOR JAMES Name: [place], [place] Name: DWIGHT PEG (unrecognized sect ion and content) No Status Records FoundNo Status Records FoundNo Status Records Found INFORMATION SOURCE (unrecogn ized section and content) DATE CREATED AUTHOR 04/10/2024 [facility] DATE CREATED AUTHOR AUTHOR'S ORGANIZ ATION 07/21/2025 [facility] DATE CREATED AUTHOR AUTHOR'S ORGANIZ ATION 08/05/2025 [facility] Goals (unrecognized section and content) Goals may [...] BE BASED ON THE PRIMARY CLINICAL RECORDS. [employer] provides no warranty or guarantee of the accuracy or completeness of information in this document.
== END | disposition home or self-care (01) ==
LOC: MTRAD 17:01
PROVIDERS: PCP Nurse Practitioner Primary Care; Referring Provider Orthopaedic Surgery Orthopaedic Surgery of the Spine; Visit Provider Orthopaedic Surgery Orthopaedic Surgery of the Spine
DX: Z98.1 Arthrodesis status (principal)
CPT/HCPCS: 72100